=== PATIENT | male | born 1965 | race Caucasian/White ===

== ENCOUNTER 2020-03-12 12:06 | Emergency (ER) | payer OTHER, SELFPAY ==
[2020-03-12 12:06] VITALS: BP 138/89; PULSE 79; RESP 16; TEMP 36.3; O2SAT 99; BMI 29.0
--- NOTE | 2020-03-12 12:36 | EKG12_ITS ---
Test Reason : DIZZY Blood Pressure : / mmHG Vent. Rate : 052 BPM Atrial Rate : 052 BPM P-R Int : 148 ms QRS Dur : 104 ms QT Int : 440 ms P-R-T Axes : 009 -21 -06 degrees QTc Int : 409 ms Sinus bradycardia Poor R wave progression Confirmed by HARJEET BLUNT, KHAI ([id number]), technical writer and editor BECKY ESCOBAR ([id number]) on 03/15/2020 11:06:56 AM Referred By: VIVEK Confirmed By:KHAI COSBY MD
--- NOTE | 2020-03-12 12:36 | CT_ITS ---
STUDY: CT BRAIN WITHOUT CONTRAST REASON FOR EXAM: Male, 54 years old. DIZZINESS, VERTIGO WITH NAUSEA, HX-PULMONARY FIBROSIS RADIATION DOSAGE (If Supplied By Facility): CTDIvol = ( 44.99 ) mGy, DLP = ( 812.98 ) mGycm TECHNIQUE: Transaxial CT imaging of the brain was performed without administration of intravenous contrast material. Individualized dose optimization techniques were used for this CT. COMPARISON: No relevant priors. FINDINGS: Normal soft tissue structures. Normal calvarium. Calcification of the right globe. Normal size ventricles and extra-axial spaces for the patient''s age. Normal white matter tracts of the cerebral hemispheres. Normal basal ganglia and thalami. Normal brainstem. Normal cerebellum. There is no intracranial hemorrhage. There are no findings of an acute ischemic infarction. Atherosclerotic calcification of the cavernous portions of the internal carotid arteries bilaterally. Normal visualized paranasal sinuses. CT/Brain/Head without Contrast IMPRESSION: Normal unenhanced CT scan of the brain. Calcification of the right globe. Electronically Signed: Silver Rajput, at 13:18 EDT , Service support ,
[2020-03-12] MEDS: 0.9% Normal Saline 1,000 ML 150 ML IV (12:51)
[2020-03-12] MEDS: Ondansetron 4 MG/2 ML Vial IV (12:51)
[2020-03-12] MEDS: Meclizine HCl 25 MG Tablet PO (12:51)
[2020-03-12 12:52] VITALS: BP 133/100; BP 133/104; BP 147/95; PULSE 63; PULSE 70
[2020-03-12 13:20] LABS: Absolute Lymphocyte Count 1.02 X10^3/uL (0.83-4.51); Absolute Neutrophil Count 4.9 X10^3/uL (2.0-7.7); Basophil# 0.03 X10^3/uL; Basophil% 0.5 % (0-1); Eosinophil# 0.08 X10^3/uL; Eosinophils% 1.2 % (0-5); Hematocrit 47.3 % (40-54); Lymphocyte # 1.02 X10^3/ul (4.0); Lymphocyte % 15.7 % (19-41); Mean Corp Hgb Conc 33.8 g/dL (32-36); Mean Corpuscular Hgb 30.7 pg (27.0-32.0); Mean Corpuscular Volume 90.6 fL (80-94); Mean Platelet Vol. 8.4 fl (6.2-12.0); Monocyte# 0.42 X10^3/uL; Monocyte% 6.5 % (0-10); NRBC Flagged by Analyzer 0 % (0-5); Neutrophil # 4.91 X10^3/uL (2.7-7.7); Neutrophil % 75.8 % (47-70); Platelet Count 225 K/mm3 (150-450); RBC Distribution Width SD 42.4 fl (35.1-43.9); Red Blood Count 5.22 M/mm3 (4.6-6.2); White Blood Count 6.5 K/mm3 (4.4-11.0)
[2020-03-12 13:29] LABS: Anion Gap 8 (5-15); BUN 12 mg/dL (7-18); BUN/Creat Ratio 11.3 RATIO (10-20); Calcium,Total 8.9 mg/dL (8.5-10.1); Chloride 102 mmol/L (98-107); Creatinine, Serum 1.06 mg/dL (0.70-1.30); EST Glomerular Filtration Rate 78 mL/min (>60); Est Glom Filt Rate - Afr Amer 94 mL/min (>60); Estimated Creatinine Clearance 75.35 ml/min; Glucose 115 mg/dL (74-106); Potassium 3.5 mmol/L (3.5-5.1); Sodium Level 137 mmol/L (136-145)
--- NOTE | 2020-03-12 14:37 | ED.VISSUMM ---
- ER Visit Summary Date of Service: 03/12/20 Chief Complaint: [Dizziness] History of Present Illness: The patient is a 54 M presents to the emergency department complaint of dizziness that started yesterday suddenly around 3 PM. Patient states that it seemed to resolve but then this morning once again around 11 AM started having similar symptoms where he just felt off balance like he was drunk. He had some mild blurred vision. He did describe a little bit of a headache. He has had history of vertigo in the past but this seems somewhat different. Patient denies any falls or head injuries. Patient has history of sun sensitivity and developed a dermatitis related to that recently and was on a Medrol Dosepak recently. Denies any other new medications. Patient has history of vertigo as well as idiopathic pulmonary fibrosis. [] Physical Examination: [HEENT-PERRLA, EOMI. Cranial nerves II through XII grossly intact. TMs clear. Mucous membranes moist. No adenopathy. Cardiovascular-regular rate and rhythm without murmur or ectopy Lungs-clear to auscultation, chest wall stable without crepitus or subcu emphysema Abdomen-normoactive bowel sounds, soft, nontender, no rebound or rigidity, no peritoneal signs. Extremities-intact ?4, normal range of motion, normal pulses, atraumatic] Test Results: [EKG obtained arrival shows sinus rhythm with a ventricular rate 52 bpm with no acute segment changes. CBC with it was normal. Chemistries normal. Troponin less than 0.015. Orthostatic vital signs were negative. CT scan of the brain without contrast was unremarkable.] Emergency Department Course and Treatment: [ IV established. Patient was given normal saline. Patient was given Zofran 4 mg IV as well as Antivert 25 mg p.o. Patient symptoms completely resolved.] Patient ambulated in department without difficulty. Treatment Plan: [Follow-up with primary care physician in 3 to 5 days. Patient will be given a prescription for Antivert and Zofran.] Disposition: [Discharged home in stable condition.] Impression: [Benign positional vertigo ] This note was generated with [employer] software. It may contain incorrect words, spelling, and punctuation that were not noted in review of the chart prior to signing ED Disposition - Plan for ED Patient: Referrals: Hardeep Fall DO [Primary Care Provider] -
--- NOTE | 2020-03-12 14:40 | ED.DEP ---
ED Disposition - Plan for ED Patient: Instructions: ED BPV Vertigo Prescriptions: Meclizine HCl [Antivert] 25 mg PO 4X/DAY PRN PRN #20 tab PRN Reason: Dizziness Transmission Status: Pending to [facility] Ondansetron [Zofran Odt] 4 mg PO Q8H PRN PRN #10 tab PRN Reason: Nausea Transmission Status: Pending to [facility] Referrals: Hardeep Fall DO [Primary Care Provider] - 3-5 Days
[2020-03-12 14:49] VITALS: BP 133/99; PULSE 71; RESP 18; O2SAT 99
== END 2020-03-12 14:51 | disposition home or self-care (01) ==
PROVIDERS: Emergency Provider Emergency Medicine; PCP Family Medicine
DX: H81.10 Benign paroxysmal vertigo, unspecified ear (principal)
CPT/HCPCS: 70450; 80048; 84484; 85025; 93005; 96361; 96374; 99284; J7030; J2405

== ENCOUNTER → 2020-09-04 08:03 | Outpatient (CLI) | payer OTHER, SELFPAY ==
[2020-09-04 08:50] LABS: AST(SGOT) 14 U/L (15-37); Alanine Aminotransfer ALT/SGPT 18 U/L (16-61); Alkaline Phosphatase 79 U/L (45-117); Anion Gap 5 (5-15); BUN 10 mg/dL (7-18); BUN/Creat Ratio 9.5 RATIO (10-20); Calcium,Total 9.1 mg/dL (8.5-10.1); Chloride 111 mmol/L (98-107); Creatinine, Serum 1.05 mg/dL (0.70-1.30); EST Glomerular Filtration Rate 78 mL/min (>60); Est Glom Filt Rate - Afr Amer 95 mL/min (>60); Glucose 98 mg/dL (74-106); Potassium 3.8 mmol/L (3.5-5.1); Rheumatoid Factor < 10.0 IU/mL (<15); Sodium Level 142 mmol/L (136-145)
[2020-09-05 15:03] LABS: ANTINUCLEAR ANTIBODIES DIRECT Negative (Negative)
[2020-09-06 03:07] LABS: Cytoplasmic Ab (C-ANCA) <1:20 titer (Neg:<1:20)
[2020-09-06 06:03] LABS: CCP IgG Antibodies 5 units (0-19); Perinuclear Ab (P-ANCA) <1:20 titer (Neg:<1:20)
== END ==
PROVIDERS: PCP Family Medicine; Referring Provider Internal Medicine Critical Care Medicine; Visit Provider Internal Medicine Critical Care Medicine
DX: J84.10 Pulmonary fibrosis, unspecified (principal); J98.4 Other disorders of lung
CPT/HCPCS: 36415; 80053; 86038; 86200; 86225; 86235; 86256; 86431

== ENCOUNTER → 2020-09-23 06:31 | Outpatient (CLI) | payer OTHER, SELFPAY ==
--- NOTE | 2020-09-23 11:57 | PFT ---
INTRODUCTION: The patient is a 55-year-old male that presents for pulmonary function studies secondary to a diagnosis of lung disorder. Respiratory therapy reports good patient effort. Bronchodilators were used during testing. INTERPRETATION: Forced expiration spirometry demonstrates no evidence of a large airways obstructive ventilatory defect. There was no significant response to aerosolized bronchodilators. Spirograms are of good quality and plateau normally. Body plethysmography was performed and reveals a decreased TLC to 2.8 L, 46% of predicted, indicative of a severe restrictive ventilatory impairment. The remainder of the lung volumes are symmetrically reduced. Diffusing capacity by single breath CO is severely reduced at 46% of predicted. IMPRESSION: Severe restrictive ventilatory impairment with symmetric reduction in diffusing capacity.
== END ==
PROVIDERS: PCP Family Medicine; Referring Provider Internal Medicine Critical Care Medicine; Visit Provider Internal Medicine Critical Care Medicine
DX: J98.4 Other disorders of lung (principal); J84.10 Pulmonary fibrosis, unspecified
CPT/HCPCS: 94060; 94726; 94729

== ENCOUNTER → 2020-09-26 08:01 | Outpatient (CLI) | payer OTHER, SELFPAY ==
[2020-09-26 08:15] VITALS: PULSE 90; PULSE 92; PULSE 93; PULSE 94; PULSE 95; PULSE 97; O2SAT 92; O2SAT 93; O2SAT 94; O2SAT 95; O2SAT 96
--- NOTE | 2020-09-26 08:16 | ECHOCS_ITS ---
Reason For Study: Dyspnea/SOB Procedure This was a 2D Doppler, Color Flow transthoracic echocardiogram. Contrast injection was performed. Exam performed in department. Left Ventricle Normal left ventricle. The estimated ejection fraction is 50-55 %. Normal diastology for age. No regional wall motion abnormalities noted. Right Ventricle Normal RV size. Normal systolic function. Atria Normal left atrium. Normal right atrium. No doppler evidence for ASD. Mitral Valve There is no mitral valve stenosis. Trivial mitral valve insufficiency. Tricuspid Valve There is no tricuspid stenosis. Trivial tricuspid valve insufficiency. Unable to estimate RV systolic pressure due to insufficient tricuspid regurgitant envelope. Aortic Valve Trisinus/trileaflet aortic valve. There is no aortic stenosis. Trivial aortic valve insufficiency. Pulmonic Valve There is no pulmonic valvular stenosis. Trivial pulmonic valve insufficiency. Great Vessels Normal aortic root. Pericardium/Pleural No pericardial effusion. Medication Diluted definity 3ml given slow IV push to enhance endocardial definition. MMode/2D Measurements & Calculations LVIDd: 4.5 cm IVSd: 1.3 cm Ao root diam: 3.3 cm LVIDs: 3.1 cm LVPWd: 1.0 cm RVDd: 4.0 cm FS: 30.8 % LAV(MOD-bp): 29.7 ml LVAd ap4: 32.1 cm2 SV(MOD-sp4): 57.3 ml LAV(MOD-bp) Indexed: 15.4 ml/m2 EDV(MOD-sp4): 102.2 ml LAV(MOD-sp2): 33.0 ml EDV(sp4-el): 106.4 ml LAV(MOD-sp4): 23.6 ml LVAs ap4: 19.2 cm2 ESV(MOD-sp4): 44.8 ml ESV(sp4-el): 45.8 ml EF(MOD-sp4): 56.1 % EF(sp4-el): 56.9 % SV(sp4-el): 60.6 ml LA A4 area: 10.9 cm2 LA dimension(2D): 3.8 cm RA A4 area: 10.5 cm2 Doppler Measurements & Calculations MV E max vasyl: 47.6 cm/sec Lat Peak E' Vasyl: 6.3 cm/sec Med Peak E' Vasyl: 3.5 cm/sec MV A max vasyl: 69.8 cm/sec E/E' lat: 7.6 E/E' med: 13.6 MV E/A: 0.68 Ao V2 max: 98.1 cm/sec LV V1 max: 80.0 cm/sec PA V2 max: 120.4 cm/sec Ao max P.9 mmHg LV V1 max P.6 mmHg Ao V2 mean: 76.0 cm/sec Ao mean P.4 mmHg Ao V2 VTI: 19.0 cm TR max vasyl: 224.6 cm/sec TR max P.2 mmHg Interpretation Summary The estimated ejection fraction is 50-55 %. Trivial mitral valve insufficiency. Trivial aortic valve insufficiency. Ordering Physician: Jake Morales Referring Physician: Hardeep Fall Performed By: Ava Green, HERACLIO, RVT
--- NOTE | 2020-09-26 11:11 | PCM.PSN.6M ---
PSN 6 Minute Walk Test - 6 Minute Walk Test 6 Minute Walk Test: 6 Minute Walk Test PSN:6-Minute Walk Test Start: 09/26/20 08:18 Freq: Status: Active Protocol: RESP.6MINW Document 09/26/20 08:15 (Rec: 09/26/20 08:21 [id number]) 6 Minute Walk Test Date Performed 09/26/20 Time Performed 08:15 Height 5 ft 7 in Weight: 180 lb Weight in Pounds 180.[address]: Jake Morales FIO2 (% Oxygen) 21 Assistive device used: None Pre-test Oxygen Delivery Method Room Air Pulse Ox (%) 95 Pulse Rate (60-100 beats/min) 92 Dyspnea Fabiola Scale (0-10) 0 Exertion Fabiola Scale (6-20) 6 1st minute Oxygen Delivery Method Room Air Pulse Ox (%) 95 Pulse Rate (60-100 beats/min) 93 2nd minute Oxygen Delivery Method Room Air Pulse Ox (%) 93 Pulse Rate (60-100 beats/min) 97 3rd minute Oxygen Delivery Method Room Air Pulse Ox (%) 94 Pulse Rate (60-100 beats/min) 90 4th minute Oxygen Delivery Method Room Air Pulse Ox (%) 93 Pulse Rate (60-100 beats/min) 97 5th minute Oxygen Delivery Method Room Air Pulse Ox (%) 92 Pulse Rate (60-100 beats/min) 90 6th minute Oxygen Delivery Method Room Air Pulse Ox (%) 93 Pulse Rate (60-100 beats/min) 95 Post-test Oxygen Delivery Method Room Air Pulse Ox (%) 96 Pulse Rate (60-100 beats/min) 94 Dyspnea Fabiola Scale (0-10) 2 Exertion Fabiola Scale (6-20) 14 Full Laps Walked 13 Partial Lap, Number of Tiles Walked 0 Total Distance Walked (ft) 767 - Interpretation Interpretation: The patient ambulated 767 feet over the course of 6 minutes beginning on room air without assistive devices or breaks. Pretesting oxygen saturation was noted to be 95% on room air. With ambulation, the morris oxygen saturation was 92%. There was no significant exertional oxygen desaturation. - Recommendations Recommendations: There is no indication for the use of supplemental oxygen at this time.
== END ==
PROVIDERS: PCP Family Medicine; Referring Provider Internal Medicine Critical Care Medicine; Visit Provider Internal Medicine Critical Care Medicine
DX: J98.4 Other disorders of lung (principal); J84.10 Pulmonary fibrosis, unspecified; R06.00 Dyspnea, unspecified; R06.02 Shortness of breath
CPT/HCPCS: 93306; 94618; Q9957; A4216; C8929

== ENCOUNTER → 2021-01-08 11:26 | Outpatient (CLI) | payer OTHER, SELFPAY ==
[2021-01-08 12:29] LABS: AST(SGOT) 15 U/L (15-37); Alanine Aminotransfer ALT/SGPT 22 U/L (16-61); Albumin, Serum 3.9 g/dL (3.2-5.0); Alkaline Phosphatase 75 U/L (45-117); Bilirubin, Direct 0.19 mg/dL (0.00-0.30); Globulin 3.8 g/dL (2.2-4.2); Protein, Total 7.7 g/dL (6.4-8.2)
== END ==
PROVIDERS: PCP Family Medicine; Referring Provider Internal Medicine Critical Care Medicine; Visit Provider Internal Medicine Critical Care Medicine
DX: Z51.81 Encounter for therapeutic drug level monitoring (principal)
CPT/HCPCS: 36415; 80076

== ENCOUNTER → 2021-07-16 06:41 | Outpatient (CLI) | payer OTHER, SELFPAY ==
--- NOTE | 2021-07-16 06:43 | CT_ITS ---
STUDY: CT CHEST WITHOUT CONTRAST REASON FOR EXAM: Male, 56 years old. Eval for ILD progression -- High Resolution Scan RADIATION DOSAGE (If Supplied By Facility): CTDIvol = ( 10.18 ) mGy, DLP = ( 362.60 ) mGycm TECHNIQUE: Transaxial imaging was performed without the administration of intravenous contrast material. Multiplanar coronal and sagittal images were reformatted. Individualized dose optimization techniques were used for this CT. COMPARISON: None. FINDINGS: Small benign-appearing bilateral axillary lymph nodes. There are diffuse increased interstitial markings involving both lungs with areas of confluence. Findings are in keeping with the diffuse interstitial pulmonary fibrosis. There is no demonstrated pleural abnormality. There are calcifications of the coronary arteries. There are multiple small lymph nodes within the mediastinum, which are normal in size and morphology most compatible with reactive lymph hyperplasia. Normal hilar regions. Normal unenhanced pulmonary arteries. Normal aorta arch and descending thoracic aorta. There are degenerative changes of the thoracic spine. There is no demonstrated abnormality of the visualized upper abdomen. CT/Chest without Contrast IMPRESSION: Findings including with diffuse interstitial fibrosis involving both lungs and both upper and lower lobes. Electronically Signed: Silver Rajput MD at 14:14 EDT , Service support ,
[2021-07-16 10:04] LABS: AST(SGOT) 23 U/L (15-37); Alanine Aminotransfer ALT/SGPT 20 U/L (16-61); Albumin, Serum 3.8 g/dL (3.2-5.0); Alkaline Phosphatase 81 U/L (45-117); Bilirubin, Direct 0.14 mg/dL (0.00-0.30); Globulin 4.2 g/dL (2.2-4.2)
--- NOTE | 2021-07-18 07:39 | PFT ---
INTRODUCTION: The patient is a 56-year-old male that presents for pulmonary function studies secondary to a diagnosis of pulmonary fibrosis. Respiratory therapy reported good patient effort. Bronchodilators were used during testing. INTERPRETATION: Forced expiration spirometry demonstrates no evidence of a large airways obstructive ventilatory defect. There was no significant response to aerosolized bronchodilators. Spirograms are of good quality and plateau normally. Body plethysmography was performed and revealed a decreased TLC to 3.09 L, 51% of predicted, indicative of a severe restrictive ventilatory impairment. The remainder of the lung volumes are symmetrically reduced. Diffusing capacity by single breath CO is reduced at 41% of predicted. When compared to previous pulmonary function studies in August 2020, there has been a 12% reduction in diffusing capacity. IMPRESSION: Severe restrictive ventilatory impairment with symmetric reduction in diffusing capacity.
[2021-07-19 17:07] LABS: Immunoglobulin E 3 IU/mL (6-495); Immunoglobulin G 1425 mg/dL (603-1613)
[2021-07-19 18:07] LABS: Immunoglobulin M 29 mg/dL (20-172)
== END ==
PROVIDERS: PCP Family Medicine; Referring Provider Internal Medicine Critical Care Medicine; Visit Provider Internal Medicine Critical Care Medicine
DX: J84.10 Pulmonary fibrosis, unspecified (principal); J98.4 Other disorders of lung; Z51.81 Encounter for therapeutic drug level monitoring
CPT/HCPCS: 36415; 71250; 80076; 82784; 82785; 94060; 94726; 94729

== ENCOUNTER → 2021-08-15 12:02 | Outpatient (CLI) | payer OTHER, SELFPAY ==
[2021-08-15 12:43] VITALS: PULSE 83; PULSE 85; PULSE 88; PULSE 91; PULSE 92; PULSE 93; O2SAT 90; O2SAT 91; O2SAT 92; O2SAT 94; O2SAT 96
--- NOTE | 2021-08-16 07:05 | PCM.PSN.6M ---
PSN 6 Minute Walk Test 6 Minute Walk Test 6 Minute Walk Test: 6 Minute Walk Test PSN:6-Minute Walk Test Start: 08/15/21 12:42 Freq: Status: Active Protocol: RESP.6MINW Document 08/15/21 12:43 [facility] (Rec: 08/15/21 12:46 [facility] [id number]) 6 Minute Walk Test Date Performed 08/15/21 Time Performed 12:15 Height 5 ft 7 in Weight: 81.193 kg Weight in Pounds 179.[address]: Jake Morales Assistive device used: None Pre-test Oxygen Delivery Method Room Air Pulse Ox (%) 96 Pulse Rate (60-100 beats/min) 83 Dyspnea Fabiola Scale (0-10) 2 1st minute Oxygen Delivery Method Room Air Pulse Ox (%) 94 Pulse Rate (60-100 beats/min) 85 Dyspnea Fabiola Scale (0-10) 3 Number of Rests Taken 0 Reported Symptoms Increased Work of Breathing 2nd minute Oxygen Delivery Method Room Air Pulse Ox (%) 91 Pulse Rate (60-100 beats/min) 88 Dyspnea Fabiola Scale (0-10) 3 Number of Rests Taken 0 Reported Symptoms Increased Work of Breathing 3rd minute Oxygen Delivery Method Room Air Pulse Ox (%) 91 Pulse Rate (60-100 beats/min) 91 Dyspnea Fabiola Scale (0-10) 4 Number of Rests Taken 0 Reported Symptoms Increased Work of Breathing 4th minute Oxygen Delivery Method Room Air Pulse Ox (%) 91 Pulse Rate (60-100 beats/min) 91 Dyspnea Fabiola Scale (0-10) 4 Reported Symptoms Increased Work of Breathing 5th minute Oxygen Delivery Method Room Air Pulse Ox (%) 90 Pulse Rate (60-100 beats/min) 92 Dyspnea Fabiola Scale (0-10) 4 Number of Rests Taken 0 Reported Symptoms Increased Work of Breathing 6th minute Oxygen Delivery Method Room Air Pulse Ox (%) 92 Pulse Rate (60-100 beats/min) 93 Dyspnea Fabiola Scale (0-10) 4 Number of Rests Taken 0 Reported Symptoms Increased Work of Breathing Post-test Oxygen Delivery Method Room Air Pulse Ox (%) 96 Pulse Rate (60-100 beats/min) 85 Dyspnea Fabiola Scale (0-10) 2 Full Laps Walked 13 Partial Lap, Number of Tiles Walked 43 Total Distance Walked (ft) 810 Interpretation Interpretation: The patient ambulated 810 feet over the course of 6 minutes beginning on room air without assistive devices. Pretesting oxygen saturation was noted to be 96% on room air. With ambulation, the morris oxygen saturation was 90%. This testing indicated the presence of impaired walk distance along with significant exertional oxygen desaturation. Recommendations Recommendations: There is no indication for the use of supplemental oxygen at this time. However, close interval follow-up is recommended, given the degree of oxygen desaturation noted during the study.
== END ==
PROVIDERS: PCP Family Medicine; Referring Provider Internal Medicine Critical Care Medicine; Visit Provider Internal Medicine Critical Care Medicine
DX: J84.10 Pulmonary fibrosis, unspecified (principal)
CPT/HCPCS: 94618

== ENCOUNTER → 2022-02-03 | Outpatient (CLI) | payer OTHER, SELFPAY ==
[2022-02-03 09:09] LABS: AST(SGOT) 19 U/L (15-37); Alanine Aminotransfer ALT/SGPT 19 U/L (16-61); Albumin, Serum 3.9 g/dL (3.2-5.0); Alkaline Phosphatase 72 U/L (45-117); Bilirubin, Direct 0.14 mg/dL (0.00-0.30); Globulin 3.9 g/dL (2.2-4.2); Protein, Total 7.8 g/dL (6.4-8.2)
== END | disposition home or self-care (01) ==
LOC: PAVLAB 08:10
PROVIDERS: PCP Family Medicine; Referring Provider Internal Medicine Critical Care Medicine; Visit Provider Internal Medicine Critical Care Medicine
DX: Z51.81 Encounter for therapeutic drug level monitoring (principal)
CPT/HCPCS: 36415; 80076

== ENCOUNTER → 2022-04-22 | Outpatient (CLI) | payer OTHER, SELFPAY ==
[2022-04-22 12:30] VITALS: PULSE 70; PULSE 73; PULSE 83; PULSE 87; PULSE 92; PULSE 93; O2SAT 90; O2SAT 91; O2SAT 95; O2SAT 96; O2SAT 97
--- NOTE | 2022-04-23 10:38 | WT_ITS ---
PSN 6 Minute Walk Test 6 Minute Walk Test 6 Minute Walk Test: 6 Minute Walk Test PSN:6-Minute Walk Test Start: 04/22/22 12:44 Freq: Status: Active Protocol: RESP.6MINW Document 04/22/22 12:30 [facility] (Rec: 04/22/22 12:48 [facility] [id number]) 6 Minute Walk Test Date Performed 04/22/22 Time Performed 12:30 Height 5 ft 7 in Weight: 179 lb Weight in Pounds 179.[address]: Dr Morales Assistive device used: None Pre-test Oxygen Delivery Method Room Air Pulse Ox (%) 97 Pulse Rate (60-100 beats/min) 73 Dyspnea Fabiola Scale (0-10) 0 Exertion Fabiola Scale (6-20) 6 1st minute Oxygen Delivery Method Room Air Pulse Ox (%) 96 Pulse Rate (60-100 beats/min) 83 2nd minute Oxygen Delivery Method Room Air Pulse Ox (%) 91 Pulse Rate (60-100 beats/min) 92 3rd minute Oxygen Delivery Method Room Air Pulse Ox (%) 90 Pulse Rate (60-100 beats/min) 87 4th minute Oxygen Delivery Method Room Air Pulse Ox (%) 90 Pulse Rate (60-100 beats/min) 92 5th minute Oxygen Delivery Method Room Air Pulse Ox (%) 90 Pulse Rate (60-100 beats/min) 92 6th minute Oxygen Delivery Method Room Air Pulse Ox (%) 91 Pulse Rate (60-100 beats/min) 93 Dyspnea Fabiola Scale (0-10) 2 Exertion Fabiola Scale (6-20) 13 Post-test Oxygen Delivery Method Room Air Pulse Ox (%) 95 Pulse Rate (60-100 beats/min) 70 Full Laps Walked 15 Partial Lap, Number of Tiles Walked 14 Total Distance Walked (ft) 899 Interpretation Interpretation: The patient ambulated 899 feet over the course of 6 minutes beginning on room air without assistive devices. Pretesting oxygen saturation was noted to be 97% on room air. With ambulation, the morris oxygen saturation was 90%. This represents a significant exertional oxygen desaturation, consistent with a pulmonary limitation to exercise tolerance. Recommendations Recommendations: There is no indication for the use of supplemental oxygen at this time. However, close interval follow-up is recommended, given the degree of oxygen desaturation noted during this study.
== END | disposition home or self-care (01) ==
LOC: PSN 12:03
PROVIDERS: PCP Family Medicine; Referring Provider Internal Medicine Critical Care Medicine; Visit Provider Internal Medicine Critical Care Medicine
DX: J84.10 Pulmonary fibrosis, unspecified (principal)
CPT/HCPCS: 94618

== ENCOUNTER 2022-09-18 18:16 | Inpatient (IN) | payer OTHER, SELFPAY ==
[2022-09-18] VITALS (11 sets, daily range): BP systolic 110–134; BP diastolic 76–98; PULSE 70–106; RESP 22–44; TEMP 36.4–38.3; O2SAT 95–100; BMI 26.7; BMI 25.3
[2022-09-18 19:08] LABS: Absolute Lymphocyte Count 0.39 X10^3/uL (0.83-4.51); Absolute Neutrophil Count 4.8 X10^3/uL (2.0-7.7); Basophil# 0.01 X10^3/uL; Basophil% 0.2 % (0-1); Eosinophil# 0.04 X10^3/uL; Eosinophils% 0.7 % (0-5); Hematocrit 44.7 % (40-54); Hemoglobin 15.1 g/dL (13.0-16.5); Lymphocyte # 0.39 X10^3/ul (0.83-4.51); Lymphocyte % 6.8 % (19-41); Mean Corp Hgb Conc 33.8 g/dL (32-36); Mean Corpuscular Hgb 30.8 pg (27.0-32.0); Mean Corpuscular Volume 91.2 fL (80-94); Mean Platelet Vol. 8.7 fl (6.2-12.0); Monocyte# 0.42 X10^3/uL; Monocyte% 7.4 % (0-10); NRBC Flagged by Analyzer 0 % (0-5); Neutrophil # 4.82 X10^3/uL (2.7-7.7); Neutrophil % 84.5 % (47-70); POSITIVE DIFFERENTIAL YES; Platelet Count 150 K/mm3 (150-450); RBC Distribution Width CV 12.8 % (11.6-14.6); RBC Distribution Width SD 42.4 fl (35.1-43.9); White Blood Count 5.7 K/mm3 (4.4-11.0)
[2022-09-18] MEDS: 0.9% Normal Saline 1,000 ML 150 ML IV (19:09)
[2022-09-18] MEDS: Acetaminophen 325 MG Tablet 650 MG PO (19:09)
[2022-09-18 19:10] LABS: Differential Indicated SCAN CRITERIA MET
--- NOTE | 2022-09-18 19:15 | RAD_ITS ---
STUDY: X-RAY CHEST REASON FOR EXAM: Male, 57 years old. sob TECHNIQUE: PA and lateral views of the chest. COMPARISON: None. FINDINGS: Patchy alveolar opacities in both lungs consistent with bilateral pneumonia. There is no demonstrated pleural abnormality. There is moderate cardiac enlargement. Normal mediastinum and rolly. Normal visualized pulmonary arteries. Normal visualized aortic arch and descending thoracic aorta. Normal visualized thoracic spine. Normal visualized ribs, clavicles, and shoulders. There is no demonstrated abnormality of the visualized soft tissue structures of the upper abdomen. RAD/Chest PA and Lateral IMPRESSION: Patchy bilateral pneumonia. Electronically Signed: Syed Emery MD at 19:35 EST ,
[2022-09-18 19:25] LABS: Anion Gap 5 (5-15); BUN 11 mg/dL (7-18); BUN/Creat Ratio 10.6 RATIO (10-20); Calcium,Total 8.7 mg/dL (8.5-10.1); Chloride 104 mmol/L (98-107); Creatinine, Serum 1.04 mg/dL (0.70-1.30); EST Glomerular Filtration Rate 78 mL/min (>60); Est Glom Filt Rate - Afr Amer 95 mL/min (>60); Estimated Creatinine Clearance 74.15 ml/min; Glucose 93 mg/dL (74-106); Potassium 3.6 mmol/L (3.5-5.1); Sodium Level 136 mmol/L (136-145); Troponin-I HS 31 pg/mL (3.0-78.0)
[2022-09-18 20:16] LABS: Anisocytosis RARE; Macrocytosis RARE; Platelet Estimate ADEQUATE (ADEQ); Red Cell Morphology N CHROM NORMAL (NORM C&C)
[2022-09-18] MEDS: Azithromycin 250 MG Tablet 500 MG PO (20:16)
[2022-09-18] MEDS: Ipratropium/Albuterol Sulfate 3 ML AMPUL.NEB INHALATION (20:18)
--- NOTE | 2022-09-18 20:35 | EDS_ITS ---
HPI History of Present Illness Chief Complaint: Shortness of Breath Informant: patient Narrative Narrative: Patient is a 57-year-old male with history of idiopathic pulmonary fibrosis on 2 L of oxygen at baseline presenting with worsening shortness of breath. Patient notes that since the end of June his breathing has been worse however it significantly worsens started at 1230 this morning. He states his breathing woke him up from sleep. He has been using albuterol rescue inhaler with no relief. He feels very short of breath and came in for further evaluation. Has had an increase in his cough as well as the amount of his sputum production. Sputum production is still clear/white. Patient follows with Dr. Morales, pulmonology. States he is compliant with his Pirfenidone. Patient's had chills. Denies any swelling his legs. Denies a history of PE or DVT. [facility] Medical History (Updated 09/18/22 @ 21:[address] Annamaria De La Torre, DO) 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 Allergic rhinitis Blind right eye HTN (hypertension) Mononucleosis Obesity Pulmonary fibrosis Therapeutic drug monitoring Umbilical hernia Home Medications Pirfenidone [Esbriet] 3 tab PO TID 03/12/20 [History Last Taken Unknown] losartan 100 mg tablet 100 mg PO DAILY 03/12/20 [History Last Taken Unknown] omeprazole 40 mg capsule,delayed release 40 mg PO DAILY #30 caps 07/11/21 [Rx Last Taken Unknown] albuterol sulfate 90 mcg/actuation aerosol inhaler 2 puff inhalation Q4H PRN shortness of breath or wheezing #8.5 grams 09/02/21 [Rx Last Taken Unknown] Allergy/AdvReac Type Severity Reaction Status Date / Time No Known Allergies Allergy Verified 09/18/22 18:21 Family History Mother Hypertension Father Hypertension CVA (cerebral vascular accident) Surgical History No pertinent past surgical history Social History Smoking Status: Former smoker quit date: 04/24/90 pack-years: 15 alcohol intake: never substance use type: does not use ROS ROS ED Constitutional Constitutional ED: Reports chills and sweats Eyes Eyes: Denies change in vision ENT ENT ED: Denies rhinorrhea or sore throat Cardiovascular Cardiovascular: Denies chest pain or palpitations Respiratory/Chest Respiratory/Chest: Reports cough, dyspnea and dyspnea on exertion Gastrointestinal Gastrointestinal: Denies nausea or vomiting Musculoskeletal Musculoskeletal: Denies arthralgias or myalgias Integumentary Denies rash Neurologic Neurologic: Reports weakness; Denies headache(s) or paresthesias Psychiatric Psychiatric: Reports anxiety; Denies depression Hematologic/Lymphatic Hematologic/Lymphatic: Denies easy bleeding or easy bruising EXAM Physical Exam Const Vital Signs: 09/18/22 18:16 09/18/22 18:20 09/18/22 18:20 Temperature 101 F H 101 F H Temperature Source Oral Oral Pulse Rate 97 98 106 H Respiratory Rate 34 H 26 H 44 H Respiratory Effort Respiratory Depth Respiratory Pattern Blood Pressure 131/98 H 131/98 H 131/98 H Blood Pressure Mean 109 109 109 Pulse Ox 96 98 98 Oxygen Delivery Method Nasal Cannula Nasal Cannula Nasal Cannula Oxygen Flow Rate (L/min) 4 4 4 09/18/22 18:22 09/18/22 19:27 09/18/22 20:19 Temperature 98.6 F Temperature Source Oral Pulse Rate 88 89 Respiratory Rate 33 H 22 H Respiratory Effort Short of Breath Labored Accessory Muscle Use Nasal Flaring Respiratory Depth Shallow Respiratory Pattern Tachypnea Blood Pressure 134/97 H 127/87 H Blood Pressure Mean 109 100 Pulse Ox 98 95 Oxygen Delivery Method Nasal Cannula Nasal Cannula Nasal Cannula Oxygen Flow Rate (L/min) 4 4 4 09/18/22 20:18 09/18/22 20:18 Temperature Temperature Source Pulse Rate 101 H Respiratory Rate 38 H 34 H Respiratory Effort Short of Breath Labored Accessory Muscle Use Respiratory Depth Shallow Respiratory Pattern Tachypnea Tachypnea Blood Pressure Blood Pressure Mean Pulse Ox 95 Oxygen Delivery Method Nasal Cannula Oxygen Flow Rate (L/min) 4 Positive well nourished and well developed Constitutional Narrative: Mild respiratory distress General Appearance ED: well developed HEENT Reports moist mucous membranes Neck supple and no JVD Resp Resp Narrative: Tachypneic with mild conversational dyspnea. Patient has shallow respirations but would instructed to take a deep breath does have lung sounds in all serrano. Auscultation: diminished lung sounds Cardio regular rhythm and no murmurs Rate: tachycardic GI non-tender and non-distended Back/Spine no CVA tenderness and normal to inspection Neuro oriented x3 Neuro Narrative: Generalized weakness, no focal deficit Sensorium / Orientation: alert Psych mental status grossly normal Mood & Affect: anxious Skin no wounds Lesions: no lesions Rashes: no rashes MDM MDM MDM Narrative Medical decision making narrative: Patient is her sudden onset of increased work of breathing and worsening shortness of breath starting early this morning. Patient has significant pulmonary history including pulmonary fibrosis and feels that his breathing has been worsening over the past 2 months but acutely worsened today. In the ER patient is tachycardic and tachypneic and is now on 4 L of oxygen which is above his baseline. Physical exam is not consistent with a COPD exacerbation. CBC is normal he does not have a leukocytosis. BMP unremarkable, high since he troponin is normal at 31 and his lactate is 0.7. Chest x-ray is read by radiologist as bilateral pneumonia however I suspect this is a bit of an over read compounded by his history of pulmonary fibrosis. I did add on a procalcitonin to better determine if this is an acute bacterial infection. Patient does test positive for influenza A. He is covered with broad-spectrum antibiotics as well as started on Tamiflu given the acute change in his symptoms today. He has improvement of his fever with Tylenol in the emergency room. Does seem slightly improved after DuoNeb treatment. Because of this is given a dose of Solu-Medrol. Given his persistent tachypnea as well as significant underlying lung disease and increased O2 demands he will be admitted for further respiratory monitoring. Patient agreeable to this plan of care. Is admitted to [facility] in stable condition. Lab Data Attestation: I reviewed the patient's lab results. Labs: Laboratory Results - last 24 hr 09/18/22 09/18/22 09/18/22 18:25 18:25 19:59 WBC 5.7 RBC 4.90 Hgb 15.1 Hct 44.7 MCV 91.2 MCH 30.8 MCHC 33.8 RDW Std Deviation 42.4 RDW Coeff of Ravinder 12.8 Plt Count 150 MPV 8.7 Immature Gran % (Auto) 0.400 Neut % (Auto) 84.5 H Lymph % (Auto) 6.8 L [place] % (Auto) 7.4 Eos % (Auto) 0.7 Baso % (Auto) 0.2 Absolute Neuts (auto) 4.8 Absolute Lymphs (auto) 0.39 L Nucleated RBC % 0 Atypical Lymphocytes SEE COMMENT Platelet Estimate ADEQUATE RBC Morphology N CHROM Anisocytosis RARE Macrocytosis RARE Sodium 136 Potassium 3.6 Chloride 104 Carbon Dioxide 27.0 Anion Gap 5 BUN 11 Creatinine 1.04 Estim Creat Clear Calc 74.15 Est GFR (MDRD) Af Amer 95 Est GFR (MDRD) Non-Af 78 BUN/Creatinine Ratio 10.6 Glucose 93 Lactic Acid 0.7 Calcium 8.7 Troponin I High Sens 31 Procalcitonin 09/18/22 19:59 WBC RBC Hgb Hct MCV MCH MCHC RDW Std Deviation RDW Coeff of Ravinder Plt Count MPV Immature Gran % (Auto) Neut % (Auto) Lymph % (Auto) [place] % (Auto) Eos % (Auto) Baso % (Auto) Absolute Neuts (auto) Absolute Lymphs (auto) Nucleated RBC % Atypical Lymphocytes Platelet Estimate RBC Morphology Anisocytosis Macrocytosis Sodium Potassium Chloride Carbon Dioxide Anion Gap BUN Creatinine Estim Creat Clear Calc Est GFR (MDRD) Af Amer Est GFR (MDRD) Non-Af BUN/Creatinine Ratio Glucose Lactic Acid Calcium Troponin I High Sens Procalcitonin 0.10 H Radiography Chest X-Ray - ED: 2 View, Read by ED Physician, Read by Radiologist and Chronic Changes Diagnostic Testing: Clinical Impression(s) from Imaging Studies Chest X-Ray 09/18/22 19:15 IMPRESSION: Patchy bilateral pneumonia. Electronically Signed: Syed Emery MD at 19:35 EST Reading Location ID and State: [address] [place] [address] Tel , Service support , Rhythm Strip Rhythm Strip: Sinus Rhythm Rate: 96 Ectopy: None EKG Initial EKG: Attestation: I personally reviewed and interpreted this EKG as follows: Interpretation: Sinus Rhythm Comments: Normal sinus rhythm at a rate of 96 bpm Normal axis Normal intervals Left anterior fascicular block No civic T wave versions lead III, V1 and V2 suspect pulmonary disease pattern Discharge Plan Triage Chief Complaint: Shortness of Breath ED Provider: Annamaria De La Torre Dx/Rx/DC Orders Clinical Impression: Influenza A, Restrictive airway disease, Acute and chronic respiratory failure Primary Care Provider: Hardeep Fall Disposition Disposition: Acute Care Hospital [facility]
[2022-09-18 20:38] LABS: Lactic Acid 0.7 mmol/L (0.4-1.9)
[2022-09-18] MEDS: Oseltamivir Phosphate 75 MG Capsule PO (20:43)
[2022-09-18] MEDS: MethylPREDNISolone 125 MG/2 ML Vial IV (20:43)
--- NOTE | 2022-09-18 20:48 | HP.PCM.HOS_ITS ---
HPI - General General Date of Admission: 09/18/22 Date of Service: 09/18/22 Chief Complaint: Shortness of breath HPI Narrative MARY KAY MIRELES, is a 57 M with a significant history of idiopathic pulmonary fibrosis on pirfenidone and on 2 L as needed home oxygen; hypertension and GERD who presents to the emergency department with shortness of breath that started around on on the same day of presentation; and has been worsening. His shortness of breath has been getting progressively worse. Associated with her symptoms is productive cough of clear sputum. Reportedly patient went into coughing fits. Patient denies any chills or fever at home. However at the emergency department patient was found to have a temperature of 101 Fahrenheit. At the patient was tachypneic and had increased heart rate. [facility] Medical History 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 Allergic rhinitis Blind right eye HTN (hypertension) Mononucleosis Obesity Pulmonary fibrosis Therapeutic drug monitoring Umbilical hernia Home Medications Pirfenidone [Esbriet] 3 tab PO TID lungs 03/12/20 [History Last Taken 09/18/22] losartan 100 mg tablet 100 mg PO DAILY HTN 03/12/20 [History Last Taken 09/18/22] omeprazole 40 mg capsule,delayed release 40 mg PO DAILY #30 caps 07/11/21 [Rx Last Taken 09/18/22] albuterol sulfate 90 mcg/actuation aerosol inhaler 2 puff inhalation Q4H PRN shortness of breath or wheezing #8.5 grams 09/02/21 [Rx Last Taken Unknown] Allergy/AdvReac Type Severity Reaction Status Date / Time No Known Allergies Allergy Verified 09/18/22 18:21 Family History Mother Hypertension Father Hypertension CVA (cerebral vascular accident) Surgical History No pertinent past surgical history Social History Smoking Status: Former smoker quit date: 04/24/90 pack-years: 15 alcohol intake: never substance use type: does not use ROS ROS Narrative Pertinent positives and pertinent negatives as noted in HPI. All other systems were reviewed and are negative Vital Signs Vital Signs Vital Signs: 09/18/22 18:16 09/18/22 18:20 09/18/22 18:20 Temperature 101 F H 101 F H Temperature Source Oral Oral Pulse Rate 97 98 106 H Respiratory Rate 34 H 26 H 44 H Respiratory Effort Respiratory Depth Respiratory Pattern Blood Pressure 131/98 H 131/98 H 131/98 H Blood Pressure Mean 109 109 109 Pulse Ox 96 98 98 Oxygen Delivery Method Nasal Cannula Nasal Cannula Nasal Cannula Oxygen Flow Rate (L/min) 4 4 4 09/18/22 18:22 09/18/22 19:27 09/18/22 20:19 Temperature 98.6 F Temperature Source Oral Pulse Rate 88 89 Respiratory Rate 33 H 22 H Respiratory Effort Short of Breath Labored Accessory Muscle Use Nasal Flaring Respiratory Depth Shallow Respiratory Pattern Tachypnea Blood Pressure 134/97 H 127/87 H Blood Pressure Mean 109 100 Pulse Ox 98 95 Oxygen Delivery Method Nasal Cannula Nasal Cannula Nasal Cannula Oxygen Flow Rate (L/min) 4 4 4 09/18/22 20:18 09/18/22 20:18 Temperature Temperature Source Pulse Rate 101 H Respiratory Rate 38 H 34 H Respiratory Effort Short of Breath Labored Accessory Muscle Use Respiratory Depth Shallow Respiratory Pattern Tachypnea Tachypnea Blood Pressure Blood Pressure Mean Pulse Ox 95 Oxygen Delivery Method Nasal Cannula Oxygen Flow Rate (L/min) 4 Weight Weight: 77.5 kg Body Mass Index (BMI) 26.7 Physical Exam Narrative Physical exam: General: Well-nourished, well-developed. Head: Normocephalic, atraumatic, no tenderness Eyes: Vision is grossly intact. EOMI ENT, no trauma, moist mucous membranes, no rhinorrhea Neck: Nontender, No thyromegaly. CVS: Tachycardia. S1-S2 present. No murmur, gallop or rub. Respiratory : Increased work of breathing. Conversational dyspnea. Wheezes at a posterior left middle and lower lung serrano. Diminished throughout otherwise. Abdomen: Soft, nontender, nondistended, normal bowel sounds, no masses : Deferred Back: Nontender, no CVA tenderness. Extremities: Nontender full range of motion, no trauma Skin: Normal color, no trauma, abrasions Neuro: Alert, oriented, cranial nerves II through XII grossly intact. Psychiatry: Normal mood. Normal affect. Not depressed. Not anxious. Results Lab / Micro Data Result Diagrams: 09/18/22 18:25 09/18/22 18:25 Labs: Laboratory Results - last 24 hr 09/18/22 18:25: WBC 5.7, RBC 4.90, Hgb 15.1, Hct 44.7, MCV 91.2, MCH 30.8, MCHC 33.8, RDW Std Deviation 42.4, RDW Coeff of Ravinder 12.8, Plt Count 150, MPV 8.7, Immature Gran % (Auto) 0.400, Neut % (Auto) 84.5 H, Lymph % (Auto) 6.8 L, [place] % (Auto) 7.4, Eos % (Auto) 0.7, Baso % (Auto) 0.2, Absolute Neuts (auto) 4.8, Absolute Lymphs (auto) 0.39 L, Nucleated RBC % 0, Atypical Lymphocytes SEE COMME NT, Platelet Estimate ADEQUATE, RBC Morphology N CHROM, Anisocytosis RARE, Macrocytosis RARE 09/18/22 18:25: Sodium 136, Potassium 3.6, Chloride 104, Carbon Dioxide 27.0, Anion Gap 5, BUN 11, Creatinine 1.04, Estim Creat Clear Calc 74.15, Est GFR (MDRD) Af Amer 95, Est GFR (MDRD) Non-Af 78, BUN/Creatinine Ratio 10.6, Glucose 93, Calcium 8.7, Troponin I High Sens 31 09/18/22 19:59: Lactic Acid 0.7 09/18/22 19:59: Procalcitonin 0.10 H Micro: Microbiology 09/18/22 16:26 Nasal Secretion SARS-CoV-2 & FLU Antigen (Rapid) - Final Influenzae A Radiology Impression Chest X-Ray 09/18/22 19:15 IMPRESSION: Patchy bilateral pneumonia. Electronically Signed: Syed Emery MD at 19:35 EST , Assessment & Plan Assessment/Plan (1) Influenza A: (2) Acute exacerbation of idiopathic pulmonary fibrosis: PLAN: Plan Influenza A infection Chest x-ray was visualized and independent interpreted. Chest x-ray with diffuse opacities that was interpreted by radiologist as patchy bilateral pneumonia. Of note chest x-ray findings may be patient baseline. Chest CT on 07/16/2021 showed diffuse interstitial fibrosis involving both lungs and both upper and lower lobes Rapid COVID-negative. Influenza A positive. Creatinine clearance 74.15. Started on Tamiflu at emergency department and continued. CBC showed white count of 5700 with neutrophilia of 84.5% and lymphopenia of 6.8%. Received ceftriaxone azithromycin the emergency department. Procalcitonin ordered emergency department, follow for further determination. Scheduled DuoNeb) albuterol ordered. Mucinex for cough ordered. Acute exacerbation of idiopathic pulmonary fibrosis Exacerbation likely from influenza a infection. Prednisone 40 mg daily ordered. Continue pirfenidone. Hypertension Blood pressure is not within goal Home losartan continued. Trend blood pressure and adjust blood pressure medications. Chronic hypoxia Worsening Continue oxygen supplementation, titrate as necessary. Charges/Coding Visit Charges Inpatient E&M: 15574 Init Hosp L3
[2022-09-18] MEDS: guaiFENesin 1,200 MG Tablet 1200 MG PO (22:40)
[2022-09-18] MEDS: 0.9% Saline Lock 10 ML Syringe IV (23:42)
[2022-09-19] VITALS (10 sets, daily range): BP systolic 110–133; BP diastolic 70–88; PULSE 65–101; RESP 15–30; TEMP 36.2–37.1; O2SAT 82–99
[2022-09-19 05:59] LABS: Absolute Lymphocyte Count 0.22 X10^3/uL (0.83-4.51); Absolute Neutrophil Count 3.5 X10^3/uL (2.0-7.7); Hematocrit 46.6 % (40-54); Hemoglobin 15.6 g/dL (13.0-16.5); Lymphocyte # 0.22 X10^3/ul (0.83-4.51); Lymphocyte % 5.8 % (19-41); Mean Corp Hgb Conc 33.5 g/dL (32-36); Mean Corpuscular Hgb 30.6 pg (27.0-32.0); Mean Corpuscular Volume 91.6 fL (80-94); Mean Platelet Vol. 8.4 fl (6.2-12.0); Monocyte# 0.07 X10^3/uL; Monocyte% 1.8 % (0-10); NRBC Flagged by Analyzer 0 % (0-5); Neutrophil % 92.1 % (47-70); POSITIVE DIFFERENTIAL YES; Platelet Count 137 K/mm3 (150-450); RBC Distribution Width CV 12.7 % (11.6-14.6); RBC Distribution Width SD 42.5 fl (35.1-43.9); Red Blood Count 5.09 M/mm3 (4.6-6.2); White Blood Count 3.8 K/mm3 (4.4-11.0)
[2022-09-19 06:15] LABS: Differential Indicated SCAN CRITERIA MET
[2022-09-19 06:20] LABS: Anion Gap 8 (5-15); BUN 13 mg/dL (7-18); BUN/Creat Ratio 12.3 RATIO (10-20); Calcium,Total 8.7 mg/dL (8.5-10.1); Chloride 103 mmol/L (98-107); Creatinine, Serum 1.06 mg/dL (0.70-1.30); EST Glomerular Filtration Rate 77 mL/min (>60); Est Glom Filt Rate - Afr Amer 93 mL/min (>60); Estimated Creatinine Clearance 72.75 ml/min; Glucose 139 mg/dL (74-106); Potassium 4.3 mmol/L (3.5-5.1); Sodium Level 135 mmol/L (136-145)
[2022-09-19 06:38] LABS: Differential Comment SCANNED
[2022-09-19] MEDS: Ipratropium/Albuterol Sulfate 3 ML AMPUL.NEB INHALATION ×2 (06:57→11:38)
[2022-09-19] MEDS: predniSONE 20 MG Tablet 40 MG PO (08:29)
[2022-09-19] MEDS: Oseltamivir Phosphate 75 MG Capsule PO (10:27)
[2022-09-19] MEDS: Pantoprazole Sodium 40 MG Tablet PO (10:27)
[2022-09-19] MEDS: Enoxaparin 40 MG/0.4 ML Syringe SC (10:27)
[2022-09-19] MEDS: guaiFENesin 1,200 MG Tablet 1200 MG PO (10:28)
[2022-09-19] MEDS: Losartan Potassium 100 MG Tablet PO (10:28)
--- NOTE | 2022-09-19 12:13 | DCINST_ITS ---
Discharge Instructions Diet Discharge Diet: Low fat / Low cholesterol Activity Discharge Activity: Return to Normal Activity Dressing / Incision Call your doctor if you observe: Fever of 101 or Higher, Shortness of breath, Dizziness, Fainting spells, Swelling in the ankles, Chest pain and Increased palpitations (irregular heartbeat) Follow Up Care Test Results: Test results from this visit will be discussed in further detail at your follow- up appointment, if applicable. Discharge Plan Admission Admit Date/Time: 09/18/22 20:41 Attending Provider: Dario Collado Primary Care Provider: Hardeep Fall Consulting Providers: Omer Banda Discharge Orders/Prescriptions Prescriptions: New prednisone 20 mg Tablet 40 mg PO BREAKFAST Qty: 14 0RF Rx Instructions: 2 tabs daily for 4 days then 1 tab daily for 4 days then half tab daily for 4 days oseltamivir 75 mg Capsule 75 mg PO BID 5 Days Qty: 10 0RF Continued omeprazole 40 mg capsule,delayed release(DR/EC) 40 mg PO DAILY Qty: 30 3RF albuterol sulfate 90 mcg/actuation HFA aerosol inhaler 2 puff inhalation Q4H PRN (Reason: shortness of breath or wheezing) Qty: 8.5 3RF Rx Instructions: administer with spacer losartan 100 MG tablet 100 mg PO DAILY Pirfenidone [Esbriet] 267 MG capsule 3 tab PO TID Referrals / Follow Up: Hardeep Fall DO [Primary Care Provider] - Within 1 Week Disposition Disposition (needs filled in before D/C Order can be placed): Home, Self Care
--- NOTE | 2022-09-19 12:26 | DS.PCM_ITS ---
Providers Date of Admission: 09/18/22 Primary Care Physician: Dr. Hardeep Fall, DO Reason For Visit: INFLUENZA A INFECTION Diagnosis Discharge Diagnosis (1) Influenza A: Status: Acute Code(s): J10.1 - Influenza due to other identified influenza virus with other respiratory manifestations (2) Acute exacerbation of idiopathic pulmonary fibrosis: Status: Acute Code(s): J84.112 - Idiopathic pulmonary fibrosis Medications at Discharge Home Medications Pirfenidone [Esbriet] 3 tab PO TID lungs 03/12/20 losartan 100 mg tablet 100 mg PO DAILY HTN 03/12/20 omeprazole 40 mg capsule,delayed release 40 mg PO DAILY #30 caps 07/11/21 albuterol sulfate 90 mcg/actuation aerosol inhaler 2 puff inhalation Q4H PRN shortness of breath or wheezing #8.5 grams 09/02/21 oseltamivir 75 mg capsule 75 mg PO BID 5 days #10 caps 09/19/22 prednisone 20 mg tablet 40 mg PO BREAKFAST #14 tabs 09/19/22 Hospital Course Operations None Procedures None Summary of Care Provided Minutes Spent on Discharge: 40 Hospital Course: Per HPI: MARY KAY MIRELES, is a 57 M with a significant history of idiopathic pulmonary fibrosis on pirfenidone and on 2 L as needed home oxygen; hypertension and GERD who presents to the emergency department with shortness of breath that started around on on the same day of presentation; and has been worsening. His shortness of breath has been getting progressively worse. Associated with her symptoms is productive cough of clear sputum.? Reportedly patient went into coughing fits. Patient denies any chills or fever at home.? However at the emergency department patient was found to have a temperature of 101 Fahrenheit.? At the patient was tachypneic and had increased heart rate. Hospital Course: 1. Influenza with an acute exacerbation of his idiopathic pulmonary fibrosis and chronic hypoxia?57-year-old male with a history of chronic pulmonary idiopathic fibrosis who is now on 2 L of oxygen after failing a walk test last Wednesday presents to the hospital with increased work of breathing and shortness of breath. Initially on admission he was needing about 4 L nasal cannula but this quickly came down to his baseline of about 2 L nasal cannula. Today he was maintaining his oxygen sats on room air however whenever he would cough he would drop down into the low 80s. He did have an ambulatory pulse ox that demonstrated the need for 2 L continuous with ambulation. He states that he f eels much better today, his COVID test was negative but his flu was positive on and he was started on Tamiflu yesterday. We will continue with his Tamiflu for 5 more days, will also continue with a slow prednisone taper. In the meantime we will continue with his home inhalers and asked him to follow-up with his PCP in 3 to 5 days. He was discharged sooner than expected secondary to his response to appropriate treatment. 2. Hypertension chronic medical which complicates his care. His home medications were continued where appropriate Physical Exam Narrative General: Alert, Oriented x3, Cooperative, No apparent distress HEENT: Atraumatic, PERRLA, EOMI, Normocephalic Oral: Moist Mucosa Neck: Supple, No JVD Lungs: Diminished, Normal air movement, No rhonchi, slight wheeze, fine crackles Cardiovascular: Regular rate, Regular Rhythm, Normal S1, Normal S2, No murmurs Abdomen: Soft, Non Tender, Non-Distended, No Hepato-splenomegaly Extremities: No edema, Capillary Refill Less than 3 Seconds Skin: No rashes, No breakdown Musculoskeletal: No Tenderness to Palpation of Joints or Extremities Neurological: Cranial nerves II-XII grossly intact, Motor Exam 5/5 strength throughout, Sensory exam intact to light touch and pain Psych/Mental Status: Normal Affect, Appropriate Weight / BMI Weight Weight: 161 lb 13.109 oz Body Mass Index (BMI) 25.3 ABG / Lab / Microbiology Data Result Diagrams: 09/19/22 05:26 09/19/22 05:26 Laboratory: Laboratory Results - last 24 hr 09/18/22 18:25: WBC 5.7, RBC 4.90, Hgb 15.1, Hct 44.7, MCV 91.2, MCH 30.8, MCHC 33.8, RDW Std Deviation 42.4, RDW Coeff of Ravinder 12.8, Plt Count 150, MPV 8.7, Immature Gran % (Auto) 0.400, Neut % (Auto) 84.5 H, Lymph % (Auto) 6.8 L, [place] % (Auto) 7.4, Eos % (Auto) 0.7, Baso % (Auto) 0.2, Absolute Neuts (auto) 4.8, Absolute Lymphs (auto) 0.39 L, Nucleated RBC % 0, Atypical Lymphocytes SEE COMMENT, Platelet Estimate ADEQUATE, RBC Morphology N CHROM, Anisocytosis RARE, Macrocytosis RARE 09/18/22 18:25: Sodium 136, Potassium 3.6, Chloride 104, Carbon Dioxide 27.0, Anion Gap 5, BUN 11, Creatinine 1.04, Estim Creat Clear Calc 74.15, Est GFR (MDRD) Af Amer 95, Est GFR (MDRD) Non-Af 78, BUN/Creatinine Ratio 10.6, Glucose 93, Calcium 8.7, Troponin I High Sens 31 09/18/22 19:59: Lactic Acid 0.7 09/18/22 19:59: Procalcitonin 0.10 H 09/19/22 05:26: WBC 3.8 L, RBC 5.09, Hgb 15.6, Hct 46.6, MCV 91.6, MCH 30.6, MCHC 33.5, RDW Std Deviation 42.5, RDW Coeff of Ravinder 12.7, Plt Count 137 L, MPV 8.4, Immature Gran % (Auto) 0.300, Neut % (Auto) 92.1 H, Lymph % (Auto) 5.8 L, [place] % (Auto) 1.8, Eos % (Auto) 0.0, Baso % (Auto) 0.0, Absolute Neuts (auto) 3.5, Absolute Lymphs (auto) 0.22 L, Nucleated RBC % 0, Differential Comment SCANNED, Diff Path Review January09/19/22 05:26: Sodium 135 L, Potassium 4.3, Chloride 103, Carbon Dioxide 24.0, Anion Gap 8, BUN 13, Creatinine 1.06, Estim Creat Clear Calc 72.75, Est GFR (MDRD) Af Amer 93, Est GFR (MDRD) Non-Af 77, BUN/Creatinine Ratio 12.3, Glucose 139 H, Calcium 8.7 Microbiology: Microbiology 09/18/22 16:26 Nasal Secretion SARS-CoV-2 & FLU Antigen (Rapid) - Final Influenzae A Radiography Diagnostic Testing: Radiology Impression Chest X-Ray 09/18/22 19:15 IMPRESSION: Patchy bilateral pneumonia. Electronically Signed: Syed Emery MD at 19:35 EST , D/C Instructions Discharge Diet: Low fat / Low cholesterol Call your doctor if you observe: Fever of 101 or Higher, Shortness of breath, Dizziness, Fainting spells, Swelling in the ankles, Chest pain and Increased palpitations (irregular heartbeat) Meaningful Use Info Meaningful Use Diagnoses (Choose all that apply): None applicable Discharge Plan Admission Admit Date/Time: 09/18/22 20:41 Attending Provider: Dario Collado Primary Care Provider: Hardeep Fall Consulting Providers: Omer Banda Discharge Orders/Prescriptions Prescriptions: New prednisone 20 mg Tablet 40 mg PO BREAKFAST Qty: 14 0RF Rx Instructions: 2 tabs daily for 4 days then 1 tab daily for 4 days then half tab daily for 4 days oseltamivir 75 mg Capsule 75 mg PO BID 5 Days Qty: 10 0RF Continued omeprazole 40 mg capsule,delayed release(DR/EC) 40 mg PO DAILY Qty: 30 3RF albuterol sulfate 90 mcg/actuation HFA aerosol inhaler 2 puff inhalation Q4H PRN (Reason: shortness of breath or wheezing) Qty: 8.5 3RF Rx Instructions: administer with spacer losartan 100 MG tablet 100 mg PO DAILY Pirfenidone [Esbriet] 267 MG capsule 3 tab PO TID Referrals / Follow Up: Hardeep Fall DO [Primary Care Provider] - Within 1 Week Disposition Disposition (needs filled in before D/C Order can be placed): Home, Self Care Charges/Coding Visit Charges Inpatient E&M: 63955 Disch Hosp
--- NOTE | 2022-09-19 14:19 | CASEMGMT ---
RN CM Face to Face with patient for initial transition planning/care coordination assessment. RN CM introduced self and role at [facility]. Patient lying in bed, alert and oriented. Patient willing to participate in assessment and is able to answer all questions appropriately. Care providers, pharmacy, and demographics verified. Patient wishes to discharge home, denies need for home health at this time. Patient states he has no further needs or concerns at this time. CM to follow for discharge planning needs that may arise. PCP: [facility] Specialists: Aydee Morales recyclable materials collector [facility]acy[facility] Insurance: MMO Prescription Benefit: yes Living Will/HPOA: none LNOK: Living Arrangements: Patient lives with in a single story home with 2 steps and railing to enter the home. Transportation: self, DME/HHC: Patient states he has oxygen through [employer] at 2lpm PRN with portability. Patient provided with pulse ox at discharge. Patient denies previous HHC or SNF Disposition Plan: Patient to discharge home with family support and follow-up plans in place. Arabella RUCKER, RN, CM
[2022-09-22 13:59] LABS: Pathologist Review Reviewed
== END 2022-09-19 13:41 | disposition home or self-care (01) | DRG 195 ==
LOC: ED 18:59 → MS3 20:57
PROVIDERS: Admitting Provider Hospitalist; Emergency Provider Emergency Medicine; PCP Family Medicine; Visit Provider Family Medicine
DX: J10.1 Influenza due to other identified influenza virus with other respiratory manifestations (principal); J84.112 Idiopathic pulmonary fibrosis; J98.4 Other disorders of lung; D72.810 Lymphocytopenia; K21.9 Gastro-esophageal reflux disease without esophagitis; I10 Essential (primary) hypertension; Z87.891 Personal history of nicotine dependence; R09.02 Hypoxemia
CPT/HCPCS: 36415; 71046; 80048; 83605; 84145; 84484; 85025; 87428; 93005; 94640; 99251; 99285; J7030; A4216; G0463; J0696

== ENCOUNTER → 2022-10-30 | Outpatient (CLI) | payer OTHER, SELFPAY ==
--- NOTE | 2022-10-30 12:50 | PFTCOMP_ITS ---
COMPLETE PULMONARY FUNCTION TEST INTERPRETATION Brief HPI: Patient is a 57-year-old male, currently under the care of Hedy Cowan, who presents to [facility] for complete pulmonary function tests secondary to diagnosis of disorders of the lung. Respiratory therapist reports good effort and reproducible results. Interpretation: Forced expiration spirometry shows a very severe large airways obstructive ventilatory defect with an FEV1 of 21% predicted. There is no significant bronchodilator response by strict ATS criteria. Spirograms are of good quality and plateau slowly, indicating slowly emptying areas of the lungs. The respiratory flow volume loop shows decreased expiratory flow rates at all lung volumes consistent with airway obstruction. Lung volumes by body plethysmography show a decreased total lung capacity at 3.35 L, 56% predicted. FRC and RV are elevated out of proportion. Lung volume measurements are consistent with air-trapping. Diffusion capacity by carbon monoxide is decreased at 44% predicted. The airway resistance is normal. Compared to previous pulmonary function tests from 07/16/2021, there has been significant worsening in spirometric values and air-trapping. Impression: Irreversible very severe mixed ventilatory defect with a symmetric reduction diffusing capacity
== END | disposition home or self-care (01) ==
LOC: PSN 10:26
PROVIDERS: PCP Family Medicine; Visit Provider Nurse Practitioner Acute Care
DX: J98.4 Other disorders of lung (principal)
CPT/HCPCS: 94060; 94726; 94729

== ENCOUNTER 2022-11-14 14:53 | Inpatient (IN) | payer OTHER, SELFPAY ==
[2022-11-14] VITALS (18 sets, daily range): BP systolic 103–139; BP diastolic 56–87; PULSE 71–105; RESP 12–41; TEMP 36.8–37.7; O2SAT 27–100; BMI 26.6; BMI 25.7
--- NOTE | 2022-11-14 15:02 | EKG12_ITS ---
Test Reason : SOB Blood Pressure : / mmHG Vent. Rate : 096 BPM Atrial Rate : 096 BPM P-R Int : 134 ms QRS Dur : 090 ms QT Int : 330 ms P-R-T Axes : 015 -54 -17 degrees QTc Int : 416 ms Normal sinus rhythm Left anterior fascicular block Cannot rule out Inferior infarct (masked by fascicular block?) , age undetermined Abnormal ECG Confirmed by SEAN BLUNT, LYNDSEY ([id number]), clinical editor DARIN NORIEGA ([id number]) on 11/16/2022 2:01:57 PM Referred By: Confirmed By:LYNDSEY ESTRADA MD
--- NOTE | 2022-11-14 15:10 | RAD_ITS ---
INDICATION: Shortness of breath EXAMINATION/TECHNIQUE: X-RAY - XR Chest 1 View COMPARISON: 09/18/2022. FINDINGS: LINES/DEVICES: None. LUNGS: Persistent bilateral interstitial infiltrates likely chronic. Previous superimposed infiltrates have improved. No evidence of pleural effusions. MEDIASTINUM AND CARDIOVASCULAR STRUCTURES: Stable cardiac mediastinal silhouette. BONES AND SOFT TISSUES: No demonstrated acute changes. RAD/Chest 1 View (Portable) IMPRESSION: Chronic prominent interstitial markings likely due to pulmonary fibrosis. Superimposed mild infiltrate cannot be entirely excluded. Electronically Signed: Anthony Qureshi MD at 15:32 EST ,
--- NOTE | 2022-11-14 15:31 | ED.VIS.DYS ---
HPI History of Present Illness Chief Complaint: Shortness of Breath Informant: patient Narrative Narrative: Patient is a 57-year-old male with history of idiopathic pulmonary fibrosis on 2.5 L of oxygen at baseline presenting with worsening shortness of breath and cough. Patient states he has had increased cough and green sputum production for the past few days. He states he had an intermittent fever and describes that as 1 to 2 degrees above his baseline. He feels very short of breath and he states like this feels like the last time he had pneumonia. Patient follows with Dr. Martinez pulmonology. He reports mild chest pain but states it is from coughing. Patient denies any other complaints at this time. [facility] Medical History (Updated 11/14/22 @ 17:[address] Annamaria De La Torre DO) 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 Acute and chronic respiratory failure Acute exacerbation of idiopathic pulmonary fibrosis Allergic rhinitis Blind right eye HTN (hypertension) Influenza A Mononucleosis Obesity Pulmonary fibrosis Restrictive airway disease Therapeutic drug monitoring Umbilical hernia Home Medications Pirfenidone [Esbriet] 3 tab PO TID lungs 03/12/20 [History Last Taken 09/18/22] losartan 100 mg tablet 100 mg PO DAILY HTN 03/12/20 [History Last Taken 09/18/22] omeprazole 40 mg capsule,delayed release 40 mg PO DAILY #30 caps 07/11/21 [Rx Last Taken 09/18/22] albuterol sulfate 90 mcg/actuation aerosol inhaler 2 puff inhalation Q4H PRN shortness of breath or wheezing #8.5 grams 09/02/21 [Rx Last Taken Unknown] oseltamivir 75 mg capsule 75 mg PO BID 5 days #10 caps 09/19/22 [Rx Last Taken Unknown] prednisone 20 mg tablet 40 mg PO BREAKFAST #14 tabs 09/19/22 [Rx Last Taken Unknown] Allergy/AdvReac Type Severity Reaction Status Date / Time No Known Allergies Allergy Verified 11/14/22 15:00 Family History Mother Hypertension Father Hypertension CVA (cerebral vascular accident) Surgical History No pertinent past surgical history Social History Smoking Status: Former smoker quit date: 04/24/90 pack-years: 15 alcohol intake: never substance use type: does not use ROS ROS ED Constitutional Constitutional ED: Reports chills and fever(s) Eyes Eyes: Denies change in vision ENT ENT ED: Denies rhinorrhea or sore throat Cardiovascular Cardiovascular: Reports chest pain Respiratory/Chest Respiratory/Chest: Reports cough, dyspnea and dyspnea on exertion Gastrointestinal Gastrointestinal: Denies abdominal pain, nausea or vomiting Musculoskeletal Musculoskeletal: Denies arthralgias or myalgias Integumentary Denies rash Neurologic Neurologic: Denies headache(s) or weakness Psychiatric Psychiatric: Denies anxiety Hematologic/Lymphatic Hematologic/Lymphatic: Denies easy bleeding or easy bruising EXAM Physical Exam Const Vital Signs: 11/14/22 14:53 11/14/22 14:58 11/14/22 14:58 Temperature 99.8 F H 99.8 F H Temperature Source Oral Oral Pulse Rate 99 97 98 Respiratory Rate 27 H 30 H 27 H Respiratory Effort Respiratory Depth Respiratory Pattern Blood Pressure 139/82 H 139/82 H 139/82 H Blood Pressure Mean 101 101 101 Pulse Ox 97 92 93 Oxygen Delivery Method Nasal Cannula Nasal Cannula Nasal Cannula Oxygen Flow Rate (L/min) 4 4 4 Fraction of Inspired Oxygen (FIO2) 11/14/22 15:10 11/14/22 15:15 11/14/22 15:29 Temperature Temperature Source Pulse Rate 92 105 H Respiratory Rate 41 H 35 H Respiratory Effort Short of Breath Labored Accessory Muscle Use Respiratory Depth Shallow Respiratory Pattern Tachypnea Tachypnea Blood Pressure 117/87 H Blood Pressure Mean 97 Pulse Ox 100 100 Oxygen Delivery Method Nasal Cannula Bi-pap Oxygen Flow Rate (L/min) 4 Fraction of Inspired Oxygen (FIO2) 35 11/14/22 15:55 11/14/22 16:10 11/14/22 16:36 Temperature 99.5 F H Temperature Source Temporal Pulse Rate 89 90 87 Respiratory Rate 41 H 27 H 31 H Respiratory Effort Respiratory Depth Respiratory Pattern Tachypnea Blood Pressure 109/68 124/84 H Blood Pressure Mean 81 97 Pulse Ox 99 100 Oxygen Delivery Method Bi-pap Bi-pap Oxygen Flow Rate (L/min) Fraction of Inspired Oxygen (FIO2) Positive well nourished and well developed Constitutional Narrative: Patient in respiratory distress General Appearance ED: well developed HEENT Reports moist mucous membranes atraumatic Eyes PERRL Eyes Narrative: Nonreactive right pupil with clouding present (patient is blind in his right eye) Neck supple and no JVD Resp Resp Narrative: Tachypneic, speaks in 2 word sentences. Breath sounds appreciated that are diminished at the bases however patient is taking very shallow breaths. No wheezing appreciated. Auscultation: Negative for rales, rhonchi or wheezes Cardio regular rhythm Rate: tachycardic Extremity normal to inspection General Extremety ED: Negative for edema or tenderness General Extremity: Negative for edema Neuro oriented x3 Motor Exam: Negative for general weakness Psych mental status grossly normal Mood & Affect: anxious Skin no wounds MDM MDM MDM Narrative Medical decision making narrative: Patient evaluated for increased work of breathing. Differential includes acute respiratory failure, pneumonia, restrictive lung disease, ACS. Prior PFTs reviewed which shows that patient has a reversible very severe mixed ventilatory defect with symmetric reduction diffusion capacity with an FEV1 of 21% predicted. He had no significant bronchodilator response. Discharge summary from 09/19/2022 reviewed and that time patient was admitted for influenza A and acute exacerbation of idiopathic pulmonary fibrosis. At that time patient was requiring 4 L of oxygen and was treated with a course of Tamiflu. Patient is significantly increased work of breathing and with pretty severe tachypnea. ABGs obtained and he is placed on BiPAP for his work of breathing. He slowly has some improvement. He is given a DuoNeb. Patient has a low-grade temperature, leukocytosis with a white blood cell count of 11.4 which is above his baseline and reports of increased cough and sputum production. Chest x-ray is difficult to interpret because of his chronic interstitial changes however I will treat him as a community-acquired pneumonia and also give him Solu-Medrol. Patient started on Rocephin and azithromycin in the ER. ABG shows a slightly elevated pH consistent with a mild degree of hyperventilation however on 4 L nasal cannula his PO2 is 161. He does not appear to have acute hypercapnia. Given patient's significant underlying restrictive lung disease with his increased work of breathing and acute change in respiratory status he will be admitted for further treatment of likely pneumonia causing secondary exacerbation of his interstitial lung disease. Patient agreeable with plan of care. Case discussed with admitting physician, Dr. Sales. Lab Data Attestation: I reviewed the patient's lab results. Labs: Laboratory Results - last 24 hr 11/14/22 11/14/2211/14/23 15:17 15:17 15:17 WBC 11.4 H RBC 4.15 L Hgb 13.1 Hct 38.0 L MCV 91.6 MCH 31.6 MCHC 34.5 RDW Std Deviation 42.0 RDW Coeff of Ravinder 12.6 Plt Count 249 MPV 8.4 Immature Gran % (Auto) 0.400 Neut % (Auto) 86.4 H Lymph % (Auto) 8.4 L [place] % (Auto) 4.4 Eos % (Auto) 0.2 Baso % (Auto) 0.2 Absolute Neuts (auto) 9.8 H Absolute Lymphs (auto) 0.95 Nucleated RBC % 0 Sodium 136 Potassium 3.6 Chloride 102 Carbon Dioxide 27.0 Anion Gap 7 BUN 11 Creatinine 1.11 Estim Creat Clear Calc 69.47 Est GFR (MDRD) Af Amer 88 Est GFR (MDRD) Non-Af 73 BUN/Creatinine Ratio 9.9 L Glucose 94 Lactic Acid 1.2 Calcium 8.7 ABG Data ABG results: ABG 11/14/22 15:27 Specimen Type ART pH 7.46 H Bicarbonate Actual 22.6 Total CO2 24 Base Excess -1 O2 Saturation 100 H ABG pCO2 31.7 L ABG pO2 161 H O2 Delivery Device Cannula Liter Flow 4.0 Radiography Chest X-Ray - ED: 1 View, Read by ED Physician, Read by Radiologist and Chronic Changes (Chronic interstitial changes, left worse than right) Diagnostic Testing: Clinical Impression(s) from Imaging Studies Chest X-Ray 11/14/22 15:10 IMPRESSION: Chronic prominent interstitial markings likely due to pulmonary fibrosis. Superimposed mild infiltrate cannot be entirely excluded. Electronically Signed: Anthony Qureshi MD at 15:32 EST , Rhythm Strip Rhythm Strip: Sinus Rhythm Rate: 96 Ectopy: None EKG Initial EKG: Attestation: I personally reviewed and interpreted this EKG as follows: Interpretation: Sinus Rhythm Comments: Normal sinus rhythm at a rate of 96 bpm Left axis deviation Left anterior fascicular block T wave inversions in 3, aVF, V1 through V4 Compared to prior EKG on 09/18/2022, no significant change Discharge Plan Triage Chief Complaint: Shortness of Breath ED Provider: Annamaria De La Torre Dx/Rx/DC Orders Clinical Impression: CAP (community acquired pneumonia), ILD (interstitial lung disease), Tachypnea Primary Care Provider: Hardeep aFll Disposition Disposition: Acute Care Hospital [facility]
[2022-11-14] MEDS: Ketorolac 15 MG/ML Vial IV (15:32)
[2022-11-14 15:35] LABS: Base Excess -1 mmol/L (-2 to +2); Bicarbonate 22.6 mmol/L (22-26); Blood Gas Specimen Type ART; O2 Delivery Device Cannula; PO2 161 mmHG (75-100); SO2 100 % (95-99); Total Carbon Dioxide 24 mmol/L; pCO2 31.7 mmHg (35-45); pH 7.46 (7.35-7.45)
[2022-11-14] MEDS: Ipratropium/Albuterol Sulfate 3 ML AMPUL.NEB INHALATION ×2 (15:54→22:02)
[2022-11-14 15:55] LABS: Absolute Lymphocyte Count 0.95 X10^3/uL (0.83-4.51); Absolute Neutrophil Count 9.8 X10^3/uL (2.0-7.7); Basophil# 0.02 X10^3/uL; Basophil% 0.2 % (0-1); Eosinophil# 0.02 X10^3/uL; Eosinophils% 0.2 % (0-5); Hemoglobin 13.1 g/dL (13.0-16.5); Lymphocyte # 0.95 X10^3/ul (0.83-4.51); Lymphocyte % 8.4 % (19-41); Mean Corp Hgb Conc 34.5 g/dL (32-36); Mean Corpuscular Hgb 31.6 pg (27.0-32.0); Mean Corpuscular Volume 91.6 fL (80-94); Mean Platelet Vol. 8.4 fl (6.2-12.0); Monocyte% 4.4 % (0-10); NRBC Flagged by Analyzer 0 % (0-5); Neutrophil # 9.83 X10^3/uL (2.7-7.7); Neutrophil % 86.4 % (47-70); Platelet Count 249 K/mm3 (150-450); RBC Distribution Width CV 12.6 % (11.6-14.6); Red Blood Count 4.15 M/mm3 (4.6-6.2); White Blood Count 11.4 K/mm3 (4.4-11.0)
[2022-11-14 16:10] LABS: Lactic Acid 1.2 mmol/L (0.4-1.9)
[2022-11-14 16:11] LABS: Anion Gap 7 (5-15); BUN 11 mg/dL (7-18); BUN/Creat Ratio 9.9 RATIO (10-20); Calcium,Total 8.7 mg/dL (8.5-10.1); Chloride 102 mmol/L (98-107); Creatinine, Serum 1.11 mg/dL (0.70-1.30); EST Glomerular Filtration Rate 73 mL/min (>60); Est Glom Filt Rate - Afr Amer 88 mL/min (>60); Estimated Creatinine Clearance 69.47 ml/min; Glucose 94 mg/dL (74-106); Potassium 3.6 mmol/L (3.5-5.1); Sodium Level 136 mmol/L (136-145)
[2022-11-14] MEDS: Ceftriaxone 1 GM/50 ML BAG IV (17:00)
--- NOTE | 2022-11-14 17:05 | HP.PCM.HOS_ITS ---
HPI - General General Date of Admission: 11/14/22 Date of Service: 11/14/22 Chief Complaint: SOB ongoing for 1 week HPI Narrative MARY KAY MIRELES, is a 57 M who presents the above. Patient has past medical history of idiopathic pulmonary fibrosis, on 2.5 L of oxygen as needed, hypertension, GERD that presented with shortness of breath ongoing for about 1 week. Patient started having shortness of breath with cough and was reluctant to go to the hospital. He has been coughing copious amounts of sputum. He goes into coughing as fifths at home. He admits to intermittent fever and chills. Vitals in the ED showed blood pressure 139/82, heart rate 99, respiratory 27, temperature 99.8 F, oxygen sat was 97% on 4 L. WBC 11.4, hemoglobin 13.1, platelet count 249. ABG shows pH of 7.46, PCO2 31.7. BMP is unremarkable. Admitting chest x-ray showed chronic prominent interstitial mildly likely secondary to pulmonary fibrosis, superimposed mild infiltrates cannot be excluded. [facility] Medical History 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 Acute and chronic respiratory failure Acute exacerbation of idiopathic pulmonary fibrosis Allergic rhinitis Blind right eye HTN (hypertension) Influenza A Mononucleosis Obesity Pulmonary fibrosis Restrictive airway disease Therapeutic drug monitoring Umbilical hernia Home Medications Pirfenidone [Esbriet] 3 tab PO TID lungs 03/12/20 [History Last Taken 09/18/22] losartan 100 mg tablet 100 mg PO DAILY HTN 03/12/20 [History Last Taken 09/18/22] omeprazole 40 mg capsule,delayed release 40 mg PO DAILY #30 caps 07/11/21 [Rx Last Taken 09/18/22] albuterol sulfate 90 mcg/actuation aerosol inhaler 2 puff inhalation Q4H PRN shortness of breath or wheezing #8.5 grams 09/02/21 [Rx Last Taken Unknown] oseltamivir 75 mg capsule 75 mg PO BID 5 days #10 caps 09/19/22 [Rx Last Taken Unknown] prednisone 20 mg tablet 40 mg PO BREAKFAST #14 tabs 09/19/22 [Rx Last Taken Unknown] Allergy/AdvReac Type Severity Reaction Status Date / Time No Known Allergies Allergy Verified 11/14/22 15:00 Family History Mother Hypertension Father Hypertension CVA (cerebral vascular accident) Surgical History No pertinent past surgical history Social History Smoking Status: Former smoker quit date: 04/24/90 pack-years: 15 alcohol intake: never substance use type: does not use ROS ROS Narrative Constitutional: Reports: Malaise, Weakness, Fatigue. Denies: Anorexia, Chills, Fever, Night Sweats, Weight Change Eyes: Denies: Blurred vision, Cataracts, Conjunctivae Inflammation, Pain, Redness, Vision Change HEENT: Denies: Difficulty Hearing, Difficulty Swallowing, Head Aches, Hearing Changes, Sinus Congestion, Sinus Drainage Cardiovascular: Denies: Chest Pain, Orthopnea, Palpitations Respiratory: See HPI Gastrointestinal: Denies: Abdominal Pain, Nausea, Vomiting Genitourinary: Denies: Dysuria Musculoskeletal: Denies: Joint Pain, Joint stiffness, Joint swelling, Joint Tenderness Skin: Denies: Rash, Wounds Neurological: Denies: Numbness, Tingling, Focal weakness Vital Signs Vital Signs Vital Signs: 11/14/22 14:53 11/14/22 14:58 11/14/22 14:58 Temperature 99.8 F H 99.8 F H Temperature Source Oral Oral Pulse Rate 99 97 98 Respiratory Rate 27 H 30 H 27 H Respiratory Effort Respiratory Depth Respiratory Pattern Blood Pressure 139/82 H 139/82 H 139/82 H Blood Pressure Mean 101 101 101 Pulse Ox 97 92 93 Oxygen Delivery Method Nasal Cannula Nasal Cannula Nasal Cannula Oxygen Flow Rate (L/min) 4 4 4 Fraction of Inspired Oxygen (FIO2) 11/14/22 15:10 11/14/22 15:15 11/14/22 15:29 Temperature Temperature Source Pulse Rate 92 105 H Respiratory Rate 41 H 35 H Respiratory Effort Short of Breath Labored Accessory Muscle Use Respiratory Depth Shallow Respiratory Pattern Tachypnea Tachypnea Blood Pressure 117/87 H Blood Pressure Mean 97 Pulse Ox 100 100 Oxygen Delivery Method Nasal Cannula Bi-pap Oxygen Flow Rate (L/min) 4 Fraction of Inspired Oxygen (FIO2) 35 11/14/22 15:55 11/14/22 16:10 11/14/22 16:36 Temperature 99.5 F H Temperature Source Temporal Pulse Rate 89 90 87 Respiratory Rate 41 H 27 H 31 H Respiratory Effort Respiratory Depth Respiratory Pattern Tachypnea Blood Pressure 109/68 124/84 H Blood Pressure Mean 81 97 Pulse Ox 99 100 Oxygen Delivery Method Bi-pap Bi-pap Oxygen Flow Rate (L/min) Fraction of Inspired Oxygen (FIO2) 11/14/22 17:03 11/14/22 17:03 Temperature 98.6 F Temperature Source Temporal Pulse Rate 86 81 Respiratory Rate 28 H 30 H Respiratory Effort Respiratory Depth Respiratory Pattern Blood Pressure 114/75 114/75 Blood Pressure Mean 88 88 Pulse Ox 100 100 Oxygen Delivery Method Bi-pap Bi-pap Oxygen Flow Rate (L/min) Fraction of Inspired Oxygen (FIO2) Weight Weight: 77.2 kg Body Mass Index (BMI) 26.6 Physical Exam Narrative Physical exam: General: Alert, Oriented x3, Cooperative, in moderate respiratory distress with tachypnea, on BiPAP HEENT: Atraumatic Oral: Moist Mucosa Neck: Supple Lungs: Diminished to auscultation Cardiovascular: HS I+II, regular, no murmurs Abdomen: Bowel Sounds Present, Soft, Non Tender Extremities: No edema Skin: No rashes, No breakdown Neurological: Grossly intact Psych/Mental Status: Appropriate Results Lab / Micro Data Result Diagrams: 11/14/22 15:17 11/14/22 15:17 Labs: Laboratory Results - last 24 hr 11/14/22 15:17: WBC 11.4 H, RBC 4.15 L, Hgb 13.1, Hct 38.0 L, MCV 91.6, MCH 31.6 , MCHC 34.5, RDW Std Deviation 42.0, RDW Coeff of Ravinder 12.6, Plt Count 249, MPV 8.4, Immature Gran % (Auto) 0.400, Neut % (Auto) 86.4 H, Lymph % (Auto) 8.4 L, [place] % (Auto) 4.4, Eos % (Auto) 0.2, Baso % (Auto) 0.2, Absolute Neuts (auto) 9.8 H, Absolute Lymphs (auto) 0.95, Nucleated RBC % 0 11/14/22 15:17: Sodium 136, Potassium 3.6, Chloride 102, Carbon Dioxide 27.0, Anion Gap 7, BUN 11, Creatinine 1.11, Estim Creat Clear Calc 69.47, Est GFR (MDRD) Af Amer 88, Est GFR (MDRD) Non-Af 73, BUN/Creatinine Ratio 9.9 L, Glucose 94, Calcium 8.7 11/14/22 15:17: Lactic Acid 1.2 Micro: Microbiology 11/14/22 15:16 Nasal Secretion SARS-CoV-2 & FLU Antigen (Rapid) - Final ABG Data ABG results: ABG 11/14/22 15:27 Specimen Type ART pH 7.46 H Bicarbonate Actual 22.6 Total CO2 24 Base Excess -1 O2 Saturation 100 H ABG pCO2 31.7 L ABG pO2 161 H O2 Delivery Device Cannula Liter Flow 4.0 Rhythm Strip Rhythm Strip: Sinus Rhythm Rate: 96 Ectopy: None Radiology Impression Chest X-Ray 11/14/22 15:10 IMPRESSION: Chronic prominent interstitial markings likely due to pulmonary fibrosis. Superimposed mild infiltrate cannot be entirely excluded. Electronically Signed: Anthony Qureshi MD at 15:32 EST , Assessment & Plan Assessment/Plan (1) CAP (community acquired pneumonia): (2) ILD (interstitial lung disease): PLAN: Plan 1. Acute on chronic hypoxic respiratory failure secondary to acute exacerbation of idiopathic pulmonary fibrosis/probable pneumonia Patient is currently on BiPAP, typically is on 2.5 L of oxygen at baseline Chest x-ray shows probable pneumonia-I independently reviewed and bilateral patchy opacities seen, worse on left lower border Started on IV Solu-Medrol and IV ceftriaxone and azithromycin; will continue same Check sputum cultures, urine Legionella antigen Pulmonology consult. continue pirfenidone 2. Hypertension, continue losartan 3. GERD, continue on PPI 4. DVT PPx- Heparin SC I discussed and explained in details the various types of CODE STATUS-full code, DNR CCA, DNR CC. Patient chose to be full code and wants everything done in the event of a cardiopulmonary arrest. Time spent discussing CODE STATUS 18 minutes Charges/Coding Addendum Addendum: Total time spent: 75 minutes of which more > 50% was spent in reviewing patient's chart, laboratory investigations, imaging, discussing with emergency physician, taking history and physical examining patient and going over plan of care with patient and at the bedside. Visit Charges Inpatient E&M: 30449 Init Hosp L3 Procedures Hospitalists Procedures: 31545 Advncd Care Plan 30 Min
--- NOTE | 2022-11-14 17:06 | ED.RN ---
PT AND PT STATE PTS HOME MEDICATIONS HAVE NOT CHANGED SINCE PREVIOUS ADMISSION. PT AND UNSURE OF HOME MEDICATIONS AND LEFT HOME MED LIST AT HOME.
[2022-11-14] MEDS: MethylPREDNISolone 125 MG/2 ML Vial IV (17:27)
--- NOTE | 2022-11-14 17:57 | CPS ---
Per MD, pt is placed on NC at this time
[2022-11-14 21:11] LABS: AST(SGOT) 28 U/L (15-37); Alanine Aminotransfer ALT/SGPT 16 U/L (16-61); Albumin, Serum 3.1 g/dL (3.2-5.0); Alkaline Phosphatase 53 U/L (45-117); Bilirubin, Direct 0.13 mg/dL (0.00-0.30); Protein, Total 7.1 g/dL (6.4-8.2)
--- NOTE | 2022-11-14 22:00 | NURSING ---
Pt stated medication list was done in the ED. This nurse went over medication list with patient and he stated the medications he was on and how much. Med list updated per patient.
[2022-11-14] MEDS: Heparin Injection (Vial) 5,000 UNIT/ML VIAL 5000 UNIT SC (23:08)
[2022-11-14] MEDS: 0.9% Saline Lock 10 ML Syringe IV (23:08)
[2022-11-15] VITALS (10 sets, daily range): BP systolic 94–114; BP diastolic 65–77; PULSE 52–80; RESP 16–18; TEMP 36.4–36.7; O2SAT 93–98
--- NOTE | 2022-11-15 02:50 | CPS ---
Pt only wants bipap in case of resp distress, otherwise will not wear bipap, per pt
[2022-11-15] MEDS: 0.9% Saline Lock 10 ML Syringe IV ×3 (05:49→21:52)
[2022-11-15] MEDS: Heparin Injection (Vial) 5,000 UNIT/ML VIAL 5000 UNIT SC ×3 (05:50→21:52)
[2022-11-15] MEDS: Ipratropium/Albuterol Sulfate 3 ML AMPUL.NEB INHALATION ×4 (07:09→19:30)
[2022-11-15 07:14] LABS: Absolute Lymphocyte Count 0.72 X10^3/uL (0.83-4.51); Absolute Neutrophil Count 9.2 X10^3/uL (2.0-7.7); Basophil# 0.01 X10^3/uL; Basophil% 0.1 % (0-1); Hematocrit 39.2 % (40-54); Hemoglobin 13.1 g/dL (13.0-16.5); Lymphocyte # 0.72 X10^3/ul (0.83-4.51); Lymphocyte % 7.2 % (19-41); Mean Corp Hgb Conc 33.4 g/dL (32-36); Mean Corpuscular Hgb 30.5 pg (27.0-32.0); Mean Corpuscular Volume 91.4 fL (80-94); Mean Platelet Vol. 8.4 fl (6.2-12.0); Monocyte# 0.08 X10^3/uL; Monocyte% 0.8 % (0-10); NRBC Flagged by Analyzer 0 % (0-5); Neutrophil # 9.21 X10^3/uL (2.7-7.7); Neutrophil % 91.5 % (47-70); Platelet Count 248 K/mm3 (150-450); RBC Distribution Width CV 12.5 % (11.6-14.6); RBC Distribution Width SD 41.2 fl (35.1-43.9); Red Blood Count 4.29 M/mm3 (4.6-6.2); White Blood Count 10.1 K/mm3 (4.4-11.0)
[2022-11-15 07:33] LABS: ALB/GLOB Ratio 0.6 RATIO (0.9-2.4); AST(SGOT) 29 U/L (15-37); Alanine Aminotransfer ALT/SGPT 19 U/L (16-61); Albumin, Serum 2.7 g/dL (3.2-5.0); Alkaline Phosphatase 54 U/L (45-117); Anion Gap 8 (5-15); BUN 18 mg/dL (7-18); BUN/Creat Ratio 19.7 RATIO (10-20); Calcium,Total 8.8 mg/dL (8.5-10.1); Chloride 102 mmol/L (98-107); Creatinine, Serum 0.92 mg/dL (0.70-1.30); EST Glomerular Filtration Rate 91 mL/min (>60); Est Glom Filt Rate - Afr Amer 110 mL/min (>60); Estimated Creatinine Clearance 83.82 ml/min; Globulin 4.4 g/dL (2.2-4.2); Glucose 160 mg/dL (74-106); Potassium 4.2 mmol/L (3.5-5.1); Protein, Total 7.1 g/dL (6.4-8.2); Sodium Level 133 mmol/L (136-145)
[2022-11-15] MEDS: Ceftriaxone 1 GM/50 ML BAG IV (09:55)
--- NOTE | 2022-11-15 11:02 | PCM.PN.HOSP ---
Subjective Subjective The feeling better than when he came in. He is on 4 L nasal cannula his baseline is around 2 L. Objective Data Objective Data Vital Signs: Vital Signs Temp Pulse Resp BP Pulse Ox O2 Del Method O2 Flow Rate 98.0 F 64 16 103/69 98 Nasal Cannula 4 11/15/22 09:58 11/15/22 09:58 11/15/22 09:58 11/15/22 09:58 11/15/22 09:58 11/15/22 09:58 11/15/22 09:58 FiO2 35 11/14/22 15:15 Oxygen Flow Rate (L/min) 4 Oxygen Delivery Method Nasal Cannula Weight: 164 lb 14.492 oz Body Mass Index (BMI) 25.7 Intake & Output: Intake and Output for Last 24 Hours 11/14/22 11/15/22 11/16/22 03:59 03:59 03:59 Intake Total 344.75 / 344.75 50 / 50 Balance 344.75 / 344.75 50 / 50 Lab / Micro Data Result Diagrams: 11/15/22 06:35 11/15/22 06:35 Labs: Laboratory Results - last 24 hr 11/14/22 15:17: WBC 11.4 H, RBC 4.15 L, Hgb 13.1, Hct 38.0 L, MCV 91.6, MCH 31.6, MCHC 34.5, RDW Std Deviation 42.0, RDW Coeff of Ravinder 12.6, Plt Count 249, MPV 8.4, Immature Gran % (Auto) 0.400, Neut % (Auto) 86.4 H, Lymph % (Auto) 8.4 L, [place] % (Auto) 4.4, Eos % (Auto) 0.2, Baso % (Auto) 0.2, Absolute Neuts (auto) 9.8 H, Absolute Lymphs (auto) 0.95, Nucleated RBC % 0 11/14/22 15:17: Sodium 136, Potassium 3.6, Chloride 102, Carbon Dioxide 27.0, Anion Gap 7, BUN 11, Creatinine 1.11, Estim Creat Clear Calc 69.47, Est GFR (MDRD) Af Amer 88, Est GFR (MDRD) Non-Af 73, BUN/Creatinine Ratio 9.9 L, Glucose 94, Calcium 8.7 11/14/22 15:17: Lactic Acid 1.2 11/14/22 15:17: Total Bilirubin 0.40, Direct Bilirubin 0.13, AST 28, ALT 16, Alkaline Phosphatase 53, Total Protein 7.1, Albumin 3.1 L, Globulin 4.0 11/15/22 06:35: WBC 10.1, RBC 4.29 L, Hgb 13.1, Hct 39.2 L, MCV 91.4, MCH 30.5, MCHC 33.4, RDW Std Deviation 41.2, RDW Coeff of Ravinder 12.5, Plt Count 248, MPV 8.4, Immature Gran % (Auto) 0.400, Neut % (Auto) 91.5 H, Lymph % (Auto) 7.2 L, [place] % (Auto) 0.8, Eos % (Auto) 0.0, Baso % (Auto) 0.1, Absolute Neuts (auto) 9.2 H, Absolute Lymphs (auto) 0.72 L, Nucleated RBC % 0 11/15/22 06:35: Sodium 133 L, Potassium 4.2, Chloride 102, Carbon Dioxide 23.0, Anion Gap 8, BUN 18, Creatinine 0.92, Estim Creat Clear Calc 83.82, Est GFR (MDRD) Af Amer 110, Est GFR (MDRD) Non-Af 91, BUN/Creatinine Ratio 19.7, Glucose 160 H, Calcium 8.8, Total Bilirubin 0.50, AST 29, ALT 19, Alkaline Phosphatase 54, Total Protein 7.1, Albumin 2.7 L, Globulin 4.4 H, Albumin/Globulin Ratio 0.6 L Micro: Microbiology 11/15/22 04:45 Urine, Clean Catch Legionella Antigen - Final 11/15/22 04:45 Urine, Clean Catch Streptococcus pneumoniae Antigen (M - Final 11/14/22 17:36 Mucosa - Nasopharyngeal Respiratory Panel (PCR) - Final Human [place] 11/14/22 15:16 Nasal Secretion SARS-CoV-2 & FLU Antigen (Rapid) - Final ABG Data ABG results: ABG 11/14/22 15:27 Specimen Type ART pH 7.46 H Bicarbonate Actual 22.6 Total CO2 24 Base Excess -1 O2 Saturation 100 H ABG pCO2 31.7 L ABG pO2 161 H O2 Delivery Device Cannula Liter Flow 4.0 Radiography Diagnostic Testing: Radiology Impression Chest X-Ray 11/14/22 15:10 IMPRESSION: Chronic prominent interstitial markings likely due to pulmonary fibrosis. Superimposed mild infiltrate cannot be entirely excluded. Electronically Signed: Anthony Qureshi MD at 15:32 EST , Rhythm Strip Rhythm Strip: Sinus Rhythm Rate: 96 Ectopy: None Physical Exam Narrative General: Alert, Oriented x3, Cooperative HEENT: Atraumatic, PERRLA, EOMI, Normocephalic Oral: Moist Mucosa Neck: Supple, No JVD Lungs: Diminished with mild retractions and increased work of breathing, Normal air movement, No rhonchi, No wheeze, No rales Cardiovascular: Regular rate, Regular Rhythm, Normal S1, Normal S2, No murmurs Abdomen: Soft, Non Tender, Non-Distended, No Hepato-splenomegaly Extremities: No edema, Capillary Refill Less than 3 Seconds Skin: No rashes, No breakdown Musculoskeletal: No Tenderness to Palpation of Joints or Extremities Neurological: Cranial nerves II-XII grossly intact, Motor Exam 5/5 strength throughout, Sensory exam intact to light touch and pain Psych/Mental Status: Normal Affect, Appropriate Assessment & Plan Assessment/Plan (1) CAP (community acquired pneumonia): (2) ILD (interstitial lung disease): PLAN: Plan 1. Acute on chronic hypoxic respiratory failure secondary to acute exacerbation of idiopathic pulmonary fibrosis/probable pneumonia/human metapneumovirus ?Continue with IV antibiotics, sputum cultures pending ? Continue with Solu-Medrol ? Continue with inhalers ? Appreciate pulmonology's assistance 2. HTN ? Blood pressures are stable ? Continue with losartan 3. GERD ? Stable ? Continue with PPI DVT: Heparin Charges/Coding Visit Charges Inpatient E&M: 18313 Subs Hosp L2
--- NOTE | 2022-11-15 11:23 | EX.PCM.CONCC ---
Assessment & Plan Assessment/Plan (1) ILD (interstitial lung disease): (2) CAP (community acquired pneumonia): PLAN: Plan RECOMMENDATIONS: 1. Continue steroids, bronchodilators and antibiotics 2. Wean supplemental oxygen as tolerated 3. Okay to continue Esbriet 4. Walking oximetry prior to discharge 5. ABG if decreased mental status IMPRESSIONS: 1. Acute on chronic hypoxic respiratory failure secondary to human metapneumovirus Patient with pulmonary fibrosis on Esbriet presents in acute exacerbation secondary to human metapneumovirus. Patient is appropriately on Solu-Medrol and bronchodilators. We will continue with antibiotics for now as patient does have severe mixed ventilatory defect at baseline. However, if cultures are negative, likely okay to discontinue antibiotics. Okay to continue pirfenidone as this will likely not affect infectious process. Patient will need a walking oximetry prior to discharge. Patient does not appear to be significantly fluid overloaded at this time. 2. Hypertension/GERD/allergic rhinitis Complicates care, management, recovery and prognosis. Okay to continue with baseline medications from my perspective. No need for nasal steroid given systemic steroid therapy. HPI Consult Data Date of Consult: 11/15/22 HPI Narrative Reason for Consultation: COPD exacerbation HPI Narrative: MARY KAY MIRELES is a 57 M, with past medical history listed below, who presents to [facility] on 11/14/[facility]22 secondary to worsening shortness of breath and cough. Patient reportedly had had increased shortness of breath and cough over the previous 72 hours. Patient had reported intermittent subjective fevers and feeling like he had pneumonia. Patient had had some mild chest pain, but thought this was secondary to his coughing. In the ER, patient was noted to have a temperature of 99.8 ?F, tachypneic at 27 breaths/min and requiring 4 L nasal cannula to maintain saturations. Patient states he is normally on 2 L nasal cannula at baseline. Patient was mildly hypertensive initially. Laboratory work-up showed a white blood cell count of 11.4, hemoglobin of 13.1 and platelets of 249. Chemistry showed an elevated bicarbonate of 27, creatinine of 1.11 and a potassium of 3.6. Lactic acid and calcium are within normal limits. An ABG showed a respiratory alkalosis with increased AA gradient. Chest x-ray showed chronic prominent interstitial markings with possible mild infiltrate. EKG showed sinus rhythm with a rate of 96 and some T wave inversions. Patient was given antibiotics, steroids and admitted to the PCU for further evaluation. Since being admitted on PCU, patient has come back positive for human metapneumovirus. Patient overall feels subjectively slightly improved compared to previous. Patient is not reporting any chest pain at this time unless he is having a active cough. Patient has not reported any hemoptysis. Patient describes his sputum as dark green to yellow. No hemoptysis has been reported. Patient is not reporting any lower extremity edema. Patient states he has been compliant with his supplemental oxygen, but had to move it up recently secondary to hypoxia. Review of systems otherwise negative from a constitutional, HEENT, respiratory, cardiovascular, GI, genitourinary, musculoskeletal, skin, neurologic, psychiatric and hematologic system unless stated above. FORMERLY [facility] Medical History 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 Acute and chronic respiratory failure Acute exacerbation of idiopathic pulmonary fibrosis Allergic rhinitis Blind right eye GERD (gastroesophageal reflux disease) HTN (hypertension) Influenza A Mononucleosis Obesity Pulmonary fibrosis Restrictive airway disease Therapeutic drug monitoring Umbilical hernia Home Medications Pirfenidone [Esbriet] 3 tab PO TID lungs 03/12/20 [History Last Taken 11/14/22 14:30] losartan 100 mg tablet 100 mg PO DAILY HTN 03/12/20 [History Last Taken 11/14/22 09:00] albuterol sulfate 90 mcg/actuation aerosol inhaler 2 puff inhalation Q4H PRN shortness of breath or wheezing #8.5 grams 09/02/21 [Rx Last Taken Unknown] omeprazole 40 mg capsule,delayed release 40 mg PO DAILY indigestion 11/14/22 [History Last Taken 11/14/22 09:00] Allergy/AdvReac Type Severity Reaction Status Date / Time No Known Allergies Allergy Verified 11/14/22 15:00 Family History Mother Hypertension Father Hypertension CVA (cerebral vascular accident) Surgical History No pertinent past surgical history Social History Smoking Status: Former smoker quit date: 04/24/90 pack-years: 15 alcohol intake: never substance use type: does not use ROS ROS Narrative See HPI Physical Exam Const alert, oriented x3 and no apparent distress General Appearance: cooperative and well developed HEENT normocephalic, head/scalp atraumatic and moist oral mucous membranes Eyes conjunctivae normal Eyes Narrative: Disconjugate gaze and right eye blindness noted Neck full ROM and no lymphadenopathy Chest Chest: abnormal inspection of the chest increased A-P diameter Resp Resp Narrative: Mild conversational dyspnea Auscultation: rales and diminished lung sounds; Negative for rhonchi or wheezes Percussion: Negative for dullness Cardio regular rate, regular rhythm, S1 normal heart sound, S2 normal heart sound, no murmurs, no rub and no gallops GI normal to inspection, nondistended, normoactive bowel sounds no CVA tenderness Extremity General Extremity: clubbing; Negative for edema Skin no rashes or lesions noted Neuro oriented x3, CN's II-XII intact bilaterally, moves all extremities and no focal motor deficits Psych cooperative and affect normal Medical Records Data Attestation: I reviewed the patient's medical records Medical records narrative: Patient did recently have a complete pulmonary function test showing a severe mixed ventilatory defect (FEV1 21%, TLC 56%) Lab / Micro Data Attestation: I reviewed the patient's lab results. Result Diagrams: 11/15/22 06:35 11/15/22 06:35 Labs: Laboratory Results - last 24 hr 11/14/22 15:17: WBC 11.4 H, RBC 4.15 L, Hgb 13.1, Hct 38.0 L, MCV 91.6, MCH 31.6, MCHC 34.5, RDW Std Deviation 42.0, RDW Coeff of Ravinder 12.6, Plt Count 249, MPV 8.4, Immature Gran % (Auto) 0.400, Neut % (Auto) 86.4 H, Lymph % (Auto) 8.4 L, [place] % (Auto) 4.4, Eos % (Auto) 0.2, Baso % (Auto) 0.2, Absolute Neuts (auto) 9.8 H, Absolute Lymphs (auto) 0.95, Nucleated RBC % 0 11/14/22 15:17: Sodium 136, Potassium 3.6, Chloride 102, Carbon Dioxide 27.0, Anion Gap 7, BUN 11, Creatinine 1.11, Estim Creat Clear Calc 69.47, Est GFR (MDRD) Af Amer 88, Est GFR (MDRD) Non-Af 73, BUN/Creatinine Ratio 9.9 L, Glucose 94, Calcium 8.7 11/14/22 15:17: Lactic Acid 1.2 11/14/22 15:17: Total Bilirubin 0.40, Direct Bilirubin 0.13, AST 28, ALT 16, Alkaline Phosphatase 53, Total Protein 7.1, Albumin 3.1 L, Globulin 4.0 11/15/22 06:35: WBC 10.1, RBC 4.29 L, Hgb 13.1, Hct 39.2 L, MCV 91.4, MCH 30.5, MCHC 33.4, RDW Std Deviation 41.2, RDW Coeff of Ravinder 12.5, Plt Count 248, MPV 8.4, Immature Gran % (Auto) 0.400, Neut % (Auto) 91.5 H, Lymph % (Auto) 7.2 L, [place] % (Auto) 0.8, Eos % (Auto) 0.0, Baso % (Auto) 0.1, Absolute Neuts (auto) 9.2 H, Absolute Lymphs (auto) 0.72 L, Nucleated RBC % 0 11/15/22 06:35: Sodium 133 L, Potassium 4.2, Chloride 102, Carbon Dioxide 23.0, Anion Gap 8, BUN 18, Creatinine 0.92, Estim Creat Clear Calc 83.82, Est GFR (MDRD) Af Amer 110, Est GFR (MDRD) Non-Af 91, BUN/Creatinine Ratio 19.7, Glucose 160 H, Calcium 8.8, Total Bilirubin 0.50, AST 29, ALT 19, Alkaline Phosphatase 54, Total Protein 7.1, Albumin 2.7 L, Globulin 4.4 H, Albumin/Globulin Ratio 0.6 L Micro: Microbiology 11/15/22 04:45 Urine, Clean Catch Legionella Antigen - Final 11/15/22 04:45 Urine, Clean Catch Streptococcus pneumoniae Antigen (M - Final 11/14/22 17:36 Mucosa - Nasopharyngeal Respiratory Panel (PCR) - Final Human [place] 11/14/22 15:16 Nasal Secretion SARS-CoV-2 & FLU Antigen (Rapid) - Final ABG Data ABG results: ABG 11/14/22 15:27 Specimen Type ART pH 7.46 H Bicarbonate Actual 22.6 Total CO2 24 Base Excess -1 O2 Saturation 100 H ABG pCO2 31.7 L ABG pO2 161 H O2 Delivery Device Cannula Liter Flow 4.0 Attestation: I personally reviewed and interpreted this ABG as follows: (See HPI) Rhythm Strip Rhythm Strip: Sinus Rhythm Rate: 96 Ectopy: None Radiology Impression Chest X-Ray 11/14/22 15:10 IMPRESSION: Chronic prominent interstitial markings likely due to pulmonary fibrosis. Superimposed mild infiltrate cannot be entirely excluded. Electronically Signed: Anthony Qureshi MD at 15:32 EST , Charges/Coding Visit Charges Inpatient E&M: 98206 Init Hosp L2
[2022-11-16] VITALS (11 sets, daily range): BP systolic 95–107; BP diastolic 57–80; PULSE 61–86; RESP 12–18; TEMP 36.6–36.7; O2SAT 93–99
--- NOTE | 2022-11-16 01:10 | NURSING ---
Updated on Patients bouts of sinus linda as low as 39, then bounces back up into the high 40's while asleep. When patient is awake, his heartrate is in the 70's. stated we will monitor patient at this time. No further interventions needed.
[2022-11-16 05:50] LABS: Absolute Lymphocyte Count 0.64 X10^3/uL (0.83-4.51); Absolute Neutrophil Count 10.1 X10^3/uL (2.0-7.7); Basophil# 0.01 X10^3/uL; Basophil% 0.1 % (0-1); Hematocrit 36.7 % (40-54); Hemoglobin 12.6 g/dL (13.0-16.5); Lymphocyte # 0.64 X10^3/ul (0.83-4.51); Lymphocyte % 5.8 % (19-41); Mean Corp Hgb Conc 34.3 g/dL (32-36); Mean Corpuscular Hgb 30.8 pg (27.0-32.0); Mean Corpuscular Volume 89.7 fL (80-94); Mean Platelet Vol. 8.2 fl (6.2-12.0); Monocyte# 0.26 X10^3/uL; Monocyte% 2.3 % (0-10); NRBC Flagged by Analyzer 0 % (0-5); Neutrophil # 10.12 X10^3/uL (2.7-7.7); Neutrophil % 91.4 % (47-70); Platelet Count 243 K/mm3 (150-450); RBC Distribution Width CV 12.6 % (11.6-14.6); RBC Distribution Width SD 41.3 fl (35.1-43.9); Red Blood Count 4.09 M/mm3 (4.6-6.2); White Blood Count 11.1 K/mm3 (4.4-11.0)
[2022-11-16] MEDS: Heparin Injection (Vial) 5,000 UNIT/ML VIAL 5000 UNIT SC ×3 (05:51→20:41)
[2022-11-16] MEDS: 0.9% Saline Lock 10 ML Syringe IV ×2 (05:51→20:42)
[2022-11-16 06:22] LABS: Anion Gap 7 (5-15); BUN 20 mg/dL (7-18); BUN/Creat Ratio 22.8 RATIO (10-20); Calcium,Total 8.6 mg/dL (8.5-10.1); Chloride 104 mmol/L (98-107); Creatinine, Serum 0.88 mg/dL (0.70-1.30); EST Glomerular Filtration Rate 96 mL/min (>60); Est Glom Filt Rate - Afr Amer 116 mL/min (>60); Estimated Creatinine Clearance 87.63 ml/min; Glucose 174 mg/dL (74-106); Potassium 4.3 mmol/L (3.5-5.1); Sodium Level 136 mmol/L (136-145)
[2022-11-16] MEDS: Ipratropium/Albuterol Sulfate 3 ML AMPUL.NEB INHALATION ×4 (06:52→19:53)
--- NOTE | 2022-11-16 10:22 | PN.HOSP_ITS ---
Reason for Visit Reason for Visit: Diagnoses Pneumonia, unspecified organism (11/14/22) Interstitial pulmonary disease, unspecified (11/14/22) Subjective Subjective Breathing well. Back on home oxygen. Objective Data Objective Data Vital Signs: Vital Signs Temp Pulse Resp BP Pulse Ox O2 Del Method O2 Flow Rate 36.6 C 61 16 101/58 L 97 Nasal Cannula 2.5 11/16/22 03:50 11/16/22 06:55 11/16/22 06:55 11/16/22 03:50 11/16/22 06:55 11/16/22 06:55 11/16/22 06:55 FiO2 35 11/14/22 15:15 Oxygen Flow Rate (L/min) 2.5 Oxygen Delivery Method Nasal Cannula Weight: 72.3 kg Body Mass Index (BMI) 25.7 Intake & Output: Intake and Output for Last 24 Hours 11/14/22 11/15/22 11/16/22 23:59 23:59 23:59 Intake Total 344.75 / 344.75 605 / 605 210.25 / 210.25 Balance 344.75 / 344.75 605 / 605 210.25 / 210.25 Lab / Micro Data Result Diagrams: 11/16/22 05:42 11/16/22 05:42 Labs: Laboratory Results - last 24 hr 11/16/22 05:42: WBC 11.1 H, RBC 4.09 L, Hgb 12.6 L, Hct 36.7 L, MCV 89.7, MCH 30.8, MCHC 34.3, RDW Std Deviation 41.3, RDW Coeff of Ravinder 12.6, Plt Count 243, MPV 8.2, Immature Gran % (Auto) 0.400, Neut % (Auto) 91.4 H, Lymph % (Auto) 5.8 L, [place] % (Auto) 2.3, Eos % (Auto) 0.0, Baso % (Auto) 0.1, Absolute Neuts (auto) 10.1 H, Absolute Lymphs (auto) 0.64 L, Nucleated RBC % 0 11/16/22 05:42: Sodium 136, Potassium 4.3, Chloride 104, Carbon Dioxide 25.0, Anion Gap 7, BUN 20 H, Creatinine 0.88, Estim Creat Clear Calc 87.63, Est GFR (MDRD) Af Amer 116, Est GFR (MDRD) Non-Af 96, BUN/Creatinine Ratio 22.8 H, Glucose 174 H, Calcium 8.6 Micro: Microbiology 11/15/22 Unknown Sputum, Expectorated/Coughed Gram Stain - Final 11/15/22 Unknown Sputum, Expectorated/Coughed Respiratory Culture - Preliminary Appears to be normal respiratory melissa. Further studies to follow. 11/15/22 04:45 Urine, Clean Catch Legionella Antigen - Final 11/15/22 04:45 Urine, Clean Catch Streptococcus pneumoniae Antigen (M - Final 11/14/22 17:36 Mucosa - Nasopharyngeal Respiratory Panel (PCR) - Final Human [place] 11/14/22 15:16 Nasal Secretion SARS-CoV-2 & FLU Antigen (Rapid) - Final Rhythm Strip Rhythm Strip: Sinus Rhythm Rate: 96 Ectopy: None Physical Exam Const alert and no apparent distress HEENT head/scalp atraumatic and moist oral mucous membranes Resp Resp Narrative: diminished. bibasilar crackles. Cardio regular rate, regular rhythm, S1 normal heart sound and S2 normal heart sound GI normal to inspection, nondistended, normoactive bowel sounds, soft to palpation, non-tender and non-distended Psych affect normal Assessment & Plan Assessment/Plan (1) Acute on chronic respiratory failure with hypoxia: PLAN: Acute on chronic hypoxic respiratory failure secondary to acute exacerbation of idiopathic pulmonary fibrosis/probable pneumonia/human metapne umovirus Doubt pneumonia. DC antibiotics and observe ? Continue with Solu-Medrol ? Continue with inhalers ? Appreciate pulmonology's assistance (2) ILD (interstitial lung disease): PLAN: Complicates care and recovery. Continue with pirfenidone PLAN: Plan Chronic conditions: * HTN? Blood pressures are stable? Continue with losartan * GERD Stable Continue with PPI DVT: Heparin Disposition: if doing well 11/17, then will likely dc. Charges/Coding Visit Charges Inpatient E&M: 00314 Subs Hosp L2
[2022-11-16] MEDS: Ceftriaxone 1 GM/50 ML BAG IV (10:27)
--- NOTE | 2022-11-16 11:10 | CASEMGMT ---
RN CM Face to Face with patient for initial transition planning/care coordination assessment. RN CM introduced self and role at [facility]. Patient lying in bed, alert and oriented. Patient willing to participate in assessment and is able to answer all questions appropriately. Care providers, pharmacy, and demographics verified. Patient wishes to discharge home, denies need for home health at this time. Patient states he has no further needs or concerns at this time. CM to follow for discharge planning needs that may arise. 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 Patient states he is independent at home. Transportation: self, DME/HHC: Patient states he has pulse ox and home oxygen at 2lpm with [employer] with portability. Patient aware to have bring portable tank at discharge. Will monitor for increase oxygen needs at discharge. Disposition Plan: Patient to discharge home with family support and follow-up plans in place. Arabella RUCKER, RN, CM
--- NOTE | 2022-11-16 12:18 | PCM.PN.INT ---
Assessment & Plan Assessment/Plan (1) ILD (interstitial lung disease): (2) CAP (community acquired pneumonia): PLAN: Plan RECOMMENDATIONS: 1. Continue to wean supplemental oxygen to maintain saturations at or above 90%. 2. Antimicrobials can be discontinued from my perspective. 3. Continue scheduled bronchodilators and steroids. 4. Perform walking oximetry study prior to consideration for discharge home. 5. Continue baseline Esbriet therapy. 6. Outpatient pulmonary follow-up within 2 weeks of discharge is recommended. IMPRESSIONS: 1. History of severe restrictive lung disease with hypoxia secondary to human metapneumovirus infection The patient has a history of pulmonary fibrosis on Esbriet with acute exacerbation secondary to human metapneumovirus. The patient is appropriately on Solu-Medrol and bronchodilators. Given negative culture results, antibiotics can be discontinued from my perspective. Okay to continue Esbriet therapy per baseline. Perform walking oximetry study prior to consideration for discharge home. Outpatient pulmonary follow-up within 2 weeks is warranted. 2. Hypertension/GERD/allergic rhinitis Complicates care, management, recovery and prognosis. Okay to continue with baseline medications from my perspective. This note was generated with [employer] dictation software. It may contain incorrect words, spelling, and punctuation that were not noted in checking the note before signing. Subjective Subjective The patient was seen and examined at the bedside this morning. Events from the last 24 hours have been reviewed. The patient is currently afebrile, hemodynamically stable and maintaining appropriate oxygen saturations on 2 L/min via nasal cannula. The patient is documented to be overall net +1 L for the hospitalization. Morning labs are stable. Objective Data Objective Data The patient's most recent lab work, culture data and imaging studies have all been personally reviewed. Respiratory viral panel was positive for human metapneumovirus. Vital Signs: Vital Signs Temp Pulse Resp BP Pulse Ox O2 Del Method O2 Flow Rate 97.8 F 69 18 95/57 L 93 Nasal Cannula 2 11/16/22 10:00 11/16/22 11:06 11/16/22 11:06 11/16/22 10:00 11/16/22 11:06 11/16/22 11:06 11/16/22 11:06 FiO2 35 11/14/22 15:15 Oxygen Flow Rate (L/min) 2 Oxygen Delivery Method Nasal Cannula Weight: 159 lb 6.307 oz Body Mass Index (BMI) 25.7 Intake & Output: Intake and Output for Last 24 Hours 11/14/22 11/15/22 11/16/22 23:59 23:59 23:59 Intake Total 344.75 / 344.75 605 / 605 515.25 / 515.25 Output Total 400 / 400 Balance 344.75 / 344.75 605 / 605 115.25 / 115.25 Lab / Micro Data Attestation: I reviewed the patient's lab results. Result Diagrams: 11/16/22 05:42 11/16/22 05:42 Labs: Laboratory Results - last 24 hr 11/16/22 05:42: WBC 11.1 H, RBC 4.09 L, Hgb 12.6 L, Hct 36.7 L, MCV 89.7, MCH 30.8, MCHC 34.3, RDW Std Deviation 41.3, RDW Coeff of Ravinder 12.6, Plt Count 243, MPV 8.2, Immature Gran % (Auto) 0.400, Neut % (Auto) 91.4 H, Lymph % (Auto) 5.8 L, [place] % (Auto) 2.3, Eos % (Auto) 0.0, Baso % (Auto) 0.1, Absolute Neuts (auto) 10.1 H, Absolute Lymphs (auto) 0.64 L, Nucleated RBC % 0 11/16/22 05:42: Sodium 136, Potassium 4.3, Chloride 104, Carbon Dioxide 25.0, Anion Gap 7, BUN 20 H, Creatinine 0.88, Estim Creat Clear Calc 87.63, Est GFR (MDRD) Af Amer 116, Est GFR (MDRD) Non-Af 96, BUN/Creatinine Ratio 22.8 H, Glucose 174 H, Calcium 8.6 Micro: Microbiology 11/15/22 Unknown Sputum, Expectorated/Coughed Gram Stain - Final 11/15/22 Unknown Sputum, Expectorated/Coughed Respiratory Culture - Preliminary Appears to be normal respiratory melissa. Further studies to follow. 11/15/22 04:45 Urine, Clean Catch Legionella Antigen - Final 11/15/22 04:45 Urine, Clean Catch Streptococcus pneumoniae Antigen (M - Final 11/14/22 17:36 Mucosa - Nasopharyngeal Respiratory Panel (PCR) - Final Human [place] 02/18/23 15:16 Nasal Secretion SARS-CoV-2 & FLU Antigen (Rapid) - Final Rhythm Strip Rhythm Strip: Sinus Rhythm Rate: 96 Ectopy: None Physical Exam Const alert and no apparent distress General Appearance: cooperative HEENT normocephalic, head/scalp atraumatic and moist oral mucous membranes Eyes PERRL, EOMs intact bilaterally and conjunctivae normal Neck supple General: trachea midline Chest inspection of chest normal Resp normal respiratory effort Auscultation: rales and diminished lung sounds Cardio regular rate and regular rhythm GI normal to inspection, nondistended, normoactive bowel sounds Extremity no clubbing, cyanosis or edema Skin no rashes or lesions noted Neuro oriented x3, CN's II-XII intact bilaterally and moves all extremities Psych cooperative and affect normal Charges/Coding Visit Charges Inpatient E&M: 90641 Subs Hosp L2
[2022-11-17] VITALS (9 sets, daily range): BP systolic 98–125; BP diastolic 58–86; PULSE 66–84; RESP 16–20; TEMP 36.5–36.7; O2SAT 87–98; BMI 25.1
[2022-11-17] MEDS: Heparin Injection (Vial) 5,000 UNIT/ML VIAL 5000 UNIT SC (05:55)
[2022-11-17] MEDS: Ipratropium/Albuterol Sulfate 3 ML AMPUL.NEB INHALATION ×3 (07:41→15:04)
[2022-11-17] MEDS: predniSONE 20 MG Tablet 40 MG PO (08:15)
--- NOTE | 2022-11-17 08:40 | PN.HOSP_ITS ---
Reason for Visit Reason for Visit: Diagnoses Pneumonia, unspecified organism (11/14/22) Interstitial pulmonary disease, unspecified (11/14/22) Acute and chronic respiratory failure with hypoxia (11/14/22) Subjective Subjective Breathing well. No events overnight. Objective Data Objective Data Vital Signs: Vital Signs Temp Pulse Resp BP Pulse Ox O2 Del Method O2 Flow Rate 36.7 C 82 19 H 98/58 L 94 Nasal Cannula 2 11/17/22 03:31 11/17/22 08:20 11/17/22 08:20 11/17/22 03:31 11/17/22 08:19 11/17/22 08:19 11/17/22 08:19 FiO2 35 11/14/22 15:15 Oxygen Flow Rate (L/min) 2 Oxygen Delivery Method Nasal Cannula Weight: 72.8 kg Body Mass Index (BMI) 25.1 Intake & Output: Intake and Output for Last 24 Hours 11/15/22 11/16/22 11/17/22 23:59 23:59 23:59 Intake Total 605 / 605 755.25 / 755.25 240 / 240 Output Total 400 / 400 Balance 605 / 605 355.25 / 355.25 240 / 240 Lab / Micro Data Result Diagrams: 11/16/22 05:42 11/16/22 05:42 Micro: Microbiology 11/15/22 Unknown Sputum, Expectorated/Coughed Gram Stain - Final 11/15/22 Unknown Sputum, Expectorated/Coughed Respiratory Culture - Final 11/14/22 15:35 Blood Culture (Wb) #2 - Anticubital Right Blood Culture - Preliminary No growth in 48 hours. 11/14/22 15:17 Blood Culture (Wb) - Anticubital Left Blood Culture - Preliminary No growth in 48 hours. 11/15/22 04:45 Urine, Clean Catch Legionella Antigen - Final 11/15/22 04:45 Urine, Clean Catch Streptococcus pneumoniae Antigen (M - Final 11/14/22 17:36 Mucosa - Nasopharyngeal Respiratory Panel (PCR) - Final Human [place] 11/14/22 15:16 Nasal Secretion SARS-CoV-2 & FLU Antigen (Rapid) - Final Rhythm Strip Rhythm Strip: Sinus Rhythm Rate: 96 Ectopy: None Physical Exam Const alert and no apparent distress HEENT head/scalp atraumatic and moist oral mucous membranes Resp Resp Narrative: diminished. bibasilar crackles. Cardio regular rate, regular rhythm, S1 normal heart sound and S2 normal heart sound GI normal to inspection, nondistended, normoactive bowel sounds, soft to palpation, non-tender and non-distended Psych affect normal Assessment & Plan Assessment/Plan (1) Acute on chronic respiratory failure with hypoxia: PLAN: Acute on chronic hypoxic respiratory failure secondary to acute exacerbation of idiopathic pulmonary fibrosis/probable pneumonia/human metapneumovirus Doubt pneumonia. DC antibiotics and observe Steroid taper Follow-up pulmonology as outpatient (2) ILD (interstitial lung disease): PLAN: Complicates care and recovery. Continue with pirfenidone PLAN: Plan Chronic conditions: * HTN? Blood pressures are stable? Continue with losartan * GERD Stable Continue with PPI DVT: Heparin
--- NOTE | 2022-11-17 10:34 | PCM.PN.INT ---
Assessment & Plan Assessment/Plan (1) ILD (interstitial lung disease): (2) CAP (community acquired pneumonia): PLAN: Plan RECOMMENDATIONS: 1. Continue to wean supplemental oxygen to maintain saturations at or above 90%. 2. Continue scheduled bronchodilators and steroids. 3. Perform walking oximetry study prior to consideration for discharge home. 4. Continue baseline Esbriet therapy. 5. Outpatient pulmonary follow-up next week as scheduled. IMPRESSIONS: 1. History of severe restrictive lung disease with hypoxia secondary to human metapneumovirus infection The patient has a history of pulmonary fibrosis on Esbriet with acute exacerbation secondary to human metapneumovirus. The patient is appropriately on Solu-Medrol and bronchodilators. Given negative culture results, antibiotics can be discontinued from my perspective. Okay to continue Esbriet therapy per baseline. Perform walking oximetry study prior to consideration for discharge home. 2. Hypertension/GERD/allergic rhinitis Complicates care, management, recovery and prognosis. Okay to continue with baseline medications from my perspective. This note was generated with [employer] dictation software. It may contain incorrect words, spelling, and punctuation that were not noted in checking the note before signing. Subjective Subjective The patient was seen and examined at the bedside this morning. Events from the last 24 hours have been reviewed. The patient is currently afebrile, hemodynamically stable and maintaining appropriate oxygen saturations on 2 L/min via nasal cannula. The patient is documented to be overall net +1.5 L for the hospitalization. The patient is overall feeling better from a respiratory perspective. He is currently scheduled to follow-up with me in the pulmonary medicine clinic next week. Objective Data Objective Data The patient's most recent lab work, culture data and imaging studies have all been personally reviewed. Respiratory viral panel was positive for human metapneumovirus. Vital Signs: Vital Signs Temp Pulse Resp BP Pulse Ox O2 Del Method O2 Flow Rate 98.1 F 82 19 H 98/58 L 94 Nasal Cannula 2 11/17/22 03:31 11/17/22 08:20 11/17/22 08:20 11/17/22 03:31 11/17/22 08:19 11/17/22 08:19 11/17/22 08:19 FiO2 35 11/14/22 15:15 Oxygen Flow Rate (L/min) 2 Oxygen Delivery Method Nasal Cannula Weight: 160 lb 7.944 oz Body Mass Index (BMI) 25.1 Intake & Output: Intake and Output for Last 24 Hours 11/15/22 11/16/22 11/17/22 23:59 23:59 23:59 Intake Total 605 / 605 755.25 / 755.25 240 / 240 Output Total 400 / 400 Balance 605 / 605 355.25 / 355.25 240 / 240 Lab / Micro Data Attestation: I reviewed the patient's lab results. Result Diagrams: 11/16/22 05:42 11/16/22 05:42 Labs: Laboratory Results - last 24 hr 11/16/22 05:42: WBC 11.1 H, RBC 4.09 L, Hgb 12.6 L, Hct 36.7 L, MCV 89.7, MCH 30.8, MCHC 34.3, RDW Std Deviation 41.3, RDW Coeff of Ravinder 12.6, Plt Count 243, MPV 8.2, Immature Gran % (Auto) 0.400, Neut % (Auto) 91.4 H, Lymph % (Auto) 5.8 L, Lyman % (Auto) 2.3, Eos % (Auto) 0.0, Baso % (Auto) 0.1, Absolute Neuts (auto) 10.1 H, Absolute Lymphs (auto) 0.64 L, Nucleated RBC % 0 11/16/22 05:42: Sodium 136, Potassium 4.3, Chloride 104, Carbon Dioxide 25.0, Anion Gap 7, BUN 20 H, Creatinine 0.88, Estim Creat Clear Calc 87.63, Est GFR (MDRD) Af Amer 116, Est GFR (MDRD) Non-Af 96, BUN/Creatinine Ratio 22.8 H, Glucose 174 H, Calcium 8.6 Micro: Microbiology 11/15/22 Unknown Sputum, Expectorated/Coughed Gram Stain - Final 11/15/22 Unknown Sputum, Expectorated/Coughed Respiratory Culture - Final 11/14/22 15:35 Blood Culture (Wb) #2 - Anticubital Right Blood Culture - Preliminary No growth in 48 hours. 11/14/22 15:17 Blood Culture (Wb) - Anticubital Left Blood Culture - Preliminary No growth in 48 hours. 11/15/22 04:45 Urine, Clean Catch Legionella Antigen - Final 11/15/22 04:45 Urine, Clean Catch Streptococcus pneumoniae Antigen (M - Final 11/14/22 17:36 Mucosa - Nasopharyngeal Respiratory Panel (PCR) - Final Human [place] 11/14/22 15:16 Nasal Secretion SARS-CoV-2 & FLU Antigen (Rapid) - Final Rhythm Strip Rhythm Strip: Sinus Rhythm Rate: 96 Ectopy: None Physical Exam Const alert and no apparent distress General Appearance: cooperative HEENT normocephalic, head/scalp atraumatic and moist oral mucous membranes Eyes PERRL, EOMs intact bilaterally and conjunctivae normal Neck supple General: trachea midline Chest inspection of chest normal Resp normal respiratory effort Auscultation: rales and diminished lung sounds Cardio regular rate and regular rhythm GI normal to inspection, nondistended, normoactive bowel sounds Extremity no clubbing, cyanosis or edema Skin no rashes or lesions noted Neuro oriented x3, CN's II-XII intact bilaterally and moves all extremities Psych cooperative and affect normal Charges/Coding Visit Charges Inpatient E&M: 32319 Subs Hosp L2
--- NOTE | 2022-11-17 11:27 | DCINST_ITS ---
Discharge Instructions Diet Discharge Diet: No restrictions Follow Up Care Test Results: Test results from this visit will be discussed in further detail at your follow- up appointment, if applicable. Discharge Plan Admission Admit Date/Time: 11/14/22 16:59 Primary Reason for Your Visit: acute on chronic respiratory failure. Attending Provider: Binu Catalan Primary Care Provider: Hardeep Fall Consulting Providers: Gracia Sales ; Simone Martinez ; Jake Morales ; Chano Rutledge ; Costa Cortez ; Hedy Cowan NP ; Dario Collado Discharge Orders/Prescriptions Prescriptions: New prednisone 10 mg tablet 10 mg PO DAILY Qty: 30 0RF Rx Instructions: 4 tabs daily for 3 days, then 3 tabs daily for 3 days, then 2 tabs daily for 3 days, then 1 tab daily for 3 days Continued albuterol sulfate 90 mcg/actuation HFA aerosol inhaler 2 puff inhalation Q4H PRN (Reason: shortness of breath or wheezing) Qty: 8.5 3RF Rx Instructions: administer with spacer Pirfenidone [Esbriet] 267 MG capsule 3 tab PO TID omeprazole 40 mg capsule,delayed release(DR/EC) 40 mg PO DAILY Discontinued losartan 100 MG tablet 100 mg PO DAILY Referrals / Follow Up: [facility] [Provider Group] - 11/23/22 7:45 am Hardeep Fall DO [Primary Care Provider] - Within 2 Weeks Disposition Disposition (needs filled in before D/C Order can be placed): Home, Self Care
--- NOTE | 2022-11-17 11:39 | DS.PCM_ITS ---
Providers Date of Admission: 11/14/22 Primary Care Physician: Dr. Hardeep Fall, Consultations 11/14/22 19:17 Consult: [employer] [facility] Telephone Clerk / Pulmonary Medicine Routine Consulting Provider: Pulmonary Medicine nya Frank Reason for Consult: IPF exacerbation EMERGENT Consult: No MD Notified: Yes Date Notified: 11/15/22 Time Notified: 07:23 Method of Notification: Text Reason For Visit: ACUTE EXACERBATION OF PULMONARY FIBROSIS Diagnosis Discharge Diagnosis (1) Acute on chronic respiratory failure with hypoxia: Status: Chronic Code(s): J96.21 - Acute and chronic respiratory failure with hypoxia Plan: Acute on chronic hypoxic respiratory failure secondary to acute exacerbation of idiopathic pulmonary fibrosis/probable pneumonia/human metapneumovirus Doubt pneumonia. DC antibiotics and observe Steroid taper Follow-up pulmonology as outpatient (2) ILD (interstitial lung disease): Status: Acute Code(s): J84.9 - Interstitial pulmonary disease, unspecified Plan: Complicates care and recovery. Continue with pirfenidone Plan Chronic conditions: * HTN? Blood pressures soft. DC losartan. * GERD Stable Continue with PPI Medications at Discharge Home Medications Pirfenidone [Esbriet] 3 tab PO TID lungs 03/12/20 albuterol sulfate 90 mcg/actuation aerosol inhaler 2 puff inhalation Q4H PRN s hortness of breath or wheezing #8.5 grams 09/02/21 omeprazole 40 mg capsule,delayed release 40 mg PO DAILY indigestion 11/14/22 prednisone 10 mg tablet 10 mg PO DAILY #30 tabs 11/17/22 Hospital Course Operations None Procedures None Summary of Care Provided Minutes Spent on Discharge: 32 Weight / BMI Weight Weight: 72.8 kg Body Mass Index (BMI) 25.1 ABG / Lab / Microbiology Data Result Diagrams: 11/16/22 05:42 11/16/22 05:42 Microbiology: Microbiology 11/15/22 Unknown Sputum, Expectorated/Coughed Gram Stain - Final 11/15/22 Unknown Sputum, Expectorated/Coughed Respiratory Culture - Final 11/14/22 15:35 Blood Culture (Wb) #2 - Anticubital Right Blood Culture - Preliminary No growth in 48 hours. 11/14/22 15:17 Blood Culture (Wb) - Anticubital Left Blood Culture - Preliminary No growth in 48 hours. 11/15/22 04:45 Urine, Clean Catch Legionella Antigen - Final 11/15/22 04:45 Urine, Clean Catch Streptococcus pneumoniae Antigen (M - Final 11/14/22 17:36 Mucosa - Nasopharyngeal Respiratory Panel (PCR) - Final Human [place] 11/14/22 15:16 Nasal Secretion SARS-CoV-2 & FLU Antigen (Rapid) - Final D/C Instructions Discharge Diet: No restrictions Meaningful Use Info Meaningful Use Diagnoses (Choose all that apply): None applicable Discharge Plan Admission Admit Date/Time: 11/14/22 16:59 Primary Reason for Your Visit: acute on chronic respiratory failure. Attending Provider: Binu Catalan Primary Care Provider: Hardeep Fall Consulting Providers: Gracia Sales ; Simone Martinez ; Jake Morales ; Chano Rutledge ; Costa Cortez ; Hedy Cowan NP ; Dario Collado Discharge Orders/Prescriptions Prescriptions: New prednisone 10 mg tablet 10 mg PO DAILY Qty: 30 0RF Rx Instructions: 4 tabs daily for 3 days, then 3 tabs daily for 3 days, then 2 tabs daily for 3 days, then 1 tab daily for 3 days Continued albuterol sulfate 90 mcg/actuation HFA aerosol inhaler 2 puff inhalation Q4H PRN (Reason: shortness of breath or wheezing) Qty: 8.5 3RF Rx Instructions: administer with spacer Pirfenidone [Esbriet] 267 MG capsule 3 tab PO TID omeprazole 40 mg capsule,delayed release(DR/EC) 40 mg PO DAILY Discontinued losartan 100 MG tablet 100 mg PO DAILY Referrals / Follow Up: [facility] [Provider Group] - 11/23/22 7:45 am Hardeep Fall DO [Primary Care Provider] - Within 2 Weeks Disposition Disposition (needs filled in before D/C Order can be placed): Home, Self Care Charges/Coding Visit Charges Inpatient E&M: 98044 Disch Hosp >30min
--- NOTE | 2022-11-17 12:18 | PHA.DC.MR ---
Pharmacy Service has performed discharge medication reconciliation for this patient. The patient's discharge medication list was reviewed for discrepancies and discrepancies were resolved. Home Medications Pirfenidone [Esbriet] 3 tab PO TID lungs 03/12/20 albuterol sulfate 90 mcg/actuation aerosol inhaler 2 puff inhalation Q4H PRN shortness of breath or wheezing #8.5 grams 09/02/21 omeprazole 40 mg capsule,delayed release 40 mg PO DAILY indigestion 11/14/22 prednisone 10 mg tablet 10 mg PO DAILY #30 tabs 11/17/22
== END 2022-11-17 17:28 | disposition home or self-care (01) | DRG 196 ==
LOC: ED 16:05 → PCU 17:18
PROVIDERS: Family Medicine; Admitting Provider Internal Medicine; Emergency Provider Emergency Medicine; PCP Family Medicine
DX: J84.112 Idiopathic pulmonary fibrosis (principal); J96.21 Acute and chronic respiratory failure with hypoxia; J84.9 Interstitial pulmonary disease, unspecified; I10 Essential (primary) hypertension; J30.9 Allergic rhinitis, unspecified; K21.9 Gastro-esophageal reflux disease without esophagitis; Z87.891 Personal history of nicotine dependence; B34.8 Other viral infections of unspecified site
CPT/HCPCS: 36415; 36600; 71045; 80048; 80053; 80076; 82803; 83605; 85025; 87040; 87070; 87205; 87428; 87449; 87633; 93005; 94002; 94640; 94668; 94762; 97802; 99285; J7050; A4216

== ENCOUNTER → 2023-02-01 | Outpatient (CLI) | payer OTHER, SELFPAY ==
--- NOTE | 2023-02-01 14:03 | PR.ITP_ITS ---
General Information2 - General Information Admitting Diagnosis: COPD Gold IV: Very Severe Secondary Diagnosis: Pulmonary Fibrosis, Mixed obstructive/restrictive ventilatory defect, choronic hypoxemic respiratory failure, effie inhibitor cough, allergic rhinitis, and hypertension. Gold Classification:: GOLD 4: Very Severe - PFT FEV1:: 0.69 - 21% predicted FVC:: 1.61 - 37% predicted FEV1/FVC%:: 43 - Personal Learning Style/Barriers Personal Learning Style:: Audio/Visual, Written Barriers to Learning: Vision impaired - Blindness right eye Stage of change r/t lifestyle modifications: Contemplation Educational Classes [place]: Breathing Retraining: Initial Assessment, Exercise: Initial Assessment, Energy Conservation: Initial Assessment, Oxygen therapy: Initial Assessment - Education/Goals Individual Counseling: Initial Assessment: Nicotine/Smoking - continued smoking cessation recommended, High Blood Pressure, Sedentary Lifestyle [place] Patient Goals: Increase muscle strength: Initial Assessment, Experience less dyspnea: Initial Assessment, Improve energy level: Initial Assessment, Improve the ability to cope with ADLs: Initial Assessment, Understand how to use medications: Initial Assessment, Increase knowledge of oxygen use: Initial Assessment, Improve my quality of life: Initial Assessment, Reduce Stress/relaxation techniques: Initial Assessment Exercise - Initial Assessment - Visit Date of Eval: 02/01/23 Session Number:: 0 - Pre-UT Evaluation - Problem/Goals Problems: Deconditioning, No regular exercise, Knowledge deficit exercise guidelines, Knowledge deficit exercise safety Goals:: Aerobic exercise 30-60 mins x 12 weeks [36 sessions] - Physician Prescribed Exercise Modalities: Treadmill, Airdyne, NuStep Intensity: 60-80% of age predicted maximum heart rate reserve Current METSs:: 3.0 Target HR:: 123 - THRR 98-123 Resting Blood Pressure: 136/87 EKG Type: Normal Sinus Rhythm - Plan Plan and Plan to Review:: Benefits of exercise, Core components of exercise, How to measure dyspnea level, How to monitor dyspnea level, Exercise intensity, Exercise safety guideline, Home exercise guidelines, Fabiola: 3-4/11-13 Home Exercise Mode: Walking Nutrition/Wt Mgmt - Initial - Visit Date of Eval: 02/01/23 Session Number:: 0 - Problems/Goals Goals: BMI 21-25, Wt Loss 1-2 lbs per week - Weight Management Knowledge Deficit Management of:: Overweight Admit Height:: 5 ft 7 in Admit Weight:: 174 lb Admit BMI:: 27.2 - Intervention Referral to dietitian:: Yes - Medical Nutrition Therapy Will attend diet classes:: Yes Intervention/Plan: Instruct on ideal BMI & set weight loss goal w/patient - Plan Nutrition Plan: Yes Review BMI or WC & identify target wt & strategies for wt control, Yes Nutrition education class: Psychosocial - Initial Assess - Visit Date of Eval: 02/01/23 Session Number:: 0 - Pre-pulm rehab evaluation - Problems/Goals History of Emotional Disorders: Depression Psychosocial Goals: 1. Patient is free from overwhelming symtoms of depression (or anxiety, 2. Identifies personal stressors & states the strategies for managing, 3. Identifies activities to decrease isolation and/or symptoms of, 4. Improved psychosocial coping skills., 5. Verbalizes coping strategies., 6. Adequate treatment of depression., 7. Improved Q.O.L. - Psychosocial Test Tool Used:: Pulmonary QOL, PHQ-9 Questionnaire - Referral to Behavioral Health PS - Interventions: Yes Attend Stress Management Classes, No Referral to Behavioral Health if PHQ-9 score >9:, No Referral to [facility], No Referral to Physician if PHQ-9 if score is 5-9: - Intervention/Plan: See List Interventions/Plan:: Assess stressors,coping strategies & signs of derpression on admission, Instruct/assist pt to develop coping & personal stress Mgt strategies, Instruct patient to recognize signs & symptoms of depression, Instruct patient to recog Oxygen & Oxygen Titration Init - Visit Date of Eval: 02/01/23 - Session Number:: 0 - Pre-pulm rehab evaluation - Initial Assessment Oxygen on Admission: Continuous home use SpO2:: 95 Patient Reports:: Non-productive cough - effie-inhibitor cough - Goal Oxygen & Oxygen Tritration Goals: Effective hypoxemia control, Uses O2 as Rx'd/safely - Plans Plan: Monitor SpO2 rest & with exercise, Train appropriate O2 use at rest, Train appropriate O2 use with exercise, Train O2 safety & systems Reviewed prescribed medications:: Purpose, Schedule, Side effects, Importance of compliance Instruct correct technique/timing & care:: MDI, DPI, Nebulizer, Return demo use of inhaler Bronchial Hygiene Plan: Controlled cough, Vibratory PEP device, Role of exercise in secretion clearance, NS Nasal spray, Hydration, Signs/symptoms to report:, Influenza/Pneumovax vaccines Core Components - Initial - Visit Date of Eval: 02/01/23 Session Number:: 0 - Pre-pulm rehab evaluation - Hypertension Hypertension Diagnosis:: Hypertension ICD-10 I10 BP: 136/87 [place] [employer] Hypertension Guidelines: [place] [employer] Hypertension Guidelines. Normal BP Less than 120/80. Elevated BP 120/80. Hypertension Stage 1: BP 130-139/80-89. Hypertesnion Stage 2: BP 140 or higher/90 or higher. Hypertension Crisis: BP higher than 180/120 Blood Pressure: 136/87 Outcomes/Goals: Able to verbalize/achieve optimal blood pressure <130/80, Incorporates diet changes & exercise for blood pressure control by DC - Exacerbation Mgmt & Airway Clearance Problems:: Hypoxemia Hypoxemia Goals:: Hypoxemia managed, Port system, Using O2 as Rx's safely Bronchial Hygiene Problems:: Respiratory infection Prevention/Management Goals: Pt demonstrates effective cough, effective secretion clearance., Pt describes signs and symptoms of infection. Patient Reports:: Non-productive cough - effie-inhibitor cough Plan: Monitor SpO2 rest & with exercise, Train appropriate O2 use at rest, Train appropriate O2 use with exercise, Train O2 safety & systems Instruct correct technique/timing & care:: MDI, DPI, Nebulizer, Return demo use of inhaler Bronchial Hygiene Plan: Controlled cough, Vibratory PEP device, Hydration, Hand hygiene, When to call MD, Signs/symptoms to report: - Medication Interventions/plans: Instruct on medication effects & side effects, Review medication list w/patient every two weeks, Instruct importance of taking meds as ordered & assist problem solving Medication Goals: Adherence to prescribed medications, Correct technique/timing & care of MDI, DPI, nebulizer, and spacer. Does pt report taking home meds as prescribed?: Yes Medications: Yes MDI, Yes DPI, Yes NEB, No Spacer Reviewed prescribed medications:: Purpose, Schedule, Side effects, Importance of compliance - Diabetes Diabetes:: No Core Components - 30 DAYS Core Components - 60 DAYS Core Components - 90 DAYS Core Components - Final Patient Health Questionnaire Initial Assessment 1. Little interest or pleasure in doing things: Several days 2. Feeling down, depressed, or hopeless: Not at all 3. Trouble falling or staying asleep, or sleeping too much: Several days 4. Feeling tired or having little energy: Several days 5. Poor appetite or overeating: Several days 6. Feeling bad about yourself -- or that you are a failure or have let yourself or your family down: Not at all 7. Trouble concentrating on things, such as reading the newspaper or watching television: Not at all 8. Moving or speaking so slowly that other people could have noticed. Or the opposite - being so fidgety or restless that you have been moving around a lot more than usual: Not at all 9. Thoughts that you would be better off , or of hurting yourself in some way: Not at all How difficult have these problems made it for you to do your work, take care of things at home, or get along with other people?: Somewhat difficult Total Score: 4 Knowledge Questionaire (BCKQ) - Information Information: [place] COPD Knowledge Questionnaire (BCKQ) This questionnaire is designed to find out what you know about your lung problem. It should be completed without help form anyone else. This usually takes between 10 and 20 minutes. Your answers will help us to find out what information you need to help you to understand and manage your lung condition. Davey the [place]uk which you think is the correct answer. - Questions b. COPD can only be confirmed by breathing tests: False c. In COPD ther is usually gradual worsening over time: True d. In COPD oxygen levels in the blood are always low: True e. COPD is usually in people less than 40 years old: True Miguel A than 80% of COPD cases are caused by cigarette smoking: False b. COPD can be caused by occupational dust exposure: True c. Longstanding asthma can develop into COPD: True d. COPD is commonly an inherited disease: Don't know e. Women are less vunerable to the effects of cigarette than men: False a. Swelling of the ankles is common in COPD:: Don't know b. Fatigue [tiredness] is common in COPD: True c. Wheezing is common in COPD: True d. Crushing chest pain is common in COPD: Don't know e. Rapid weight loss is common in COPD: True a. Severe breathlessness prevents travel by air: True b. Breathlessness can be worsened by eating large meals: Don't know c. Breathlessness means that your oxygen levels are low: True d. Breathlessness is a normal response to exercise: False e. Breathlessness is primarily caused by a narrowing of the bronchial tubes: True a. Coughing phlegm is a common symptom in COPD: True b. Clearing phlegm is more difficult if you get dehydrated: True c. Bronchodilator inhalers can help clear phlegm: True d. Phlegm causes harm if swallowed: Don't know e. Clearing phlegm can be assisted by breathing exercises: False a. Chest infections often cause coughing of blood: Don't know b. Chest infection phlegm usually becomes coloured (ylw/grn): True cExerbations (episodes of worsening) can occur in the absence of chest infection: True d. Chest infections are always accompanied by a high temperature: False e. Steroid tablets should be taken whenever there is an exacerbation: Don't know aWalking excercises better than breathing to improve fitness: True b. Exercise should be avoided as it strains the lungs: False c. Exercise can help maintain your bone density: Don't know d. Exercise helps relieve depression: True e. Exercise should be stopped if it makes you breathless: True a. Stopping smoking will reduce the risk of heart disease: True b. Stopping smoking will slow down further lung damage: True c. Stopping smoking is pointless as the damage is done: False d.Stopping smoking usually results in improved lung function: True eNicotine replacement therapy only available on prescription: True a. A flu jab is recommended every year: True b. You can get flu from having a flu jab: Don't know c. You can only have a flu jab if you are 65 or over: False d. A pneumonia jab protects against all forms of pneumonia: True e.You can have a pneumonia jab and a flu job on the same day: True a. Bronchodilators act quickly (within 10 minutes): Don't know b. Both short & long acting bronchodilators can be taken on the same day: True c. Spacers (volumatic,nebuhaler,serochamber)should be dried w/atowel after washing: False d. A spacer device increases the medication to the lungs: True e. Tremor may be a side effect of bronchodilators: Don't know a. To be effective, the course should last at least 10 days: True b. Excessive use of antibiotics can cause resistant bacteria (germs): Don't know c. Antibiotics will clear all chest infections: True d. Antibiotic treatment is necessary for an exacerbation (worsening) however mild: Don't know e. Seek advice if antibiotics cause severe diarrhoea: True a. Steroid tablets help strengthen muscles: Don't know b. Steroid tablets should be avoided if there is a chest infection: False c. The risk of long-term side effects due to steroids is less w/short courses then w/continous treatment: Don't know dIndigestion is common side effect from using steroid tablet: False e. Steroid tablets can increase your appetite: True a. Inhaled steroids should be stopped if you are given steroid tablets: Don't know bSteroid inhalers can be used for rapid relief breathlessnes: True c. Spacer devices reduce the risk of getting thrush in the mouth: Don't know d.Steroid inhaler should be taken before your bronchodilator: Don't know e. Inhaled steroids improve lung function in COPD: Don't know COPD Assessment Test [CAT] - Questions Never cough = 0, Cough all the time = 5: 4 No phlegm = 0, Chest full of phlegm = 5: 3 No chest tightness = 0, Chest very tight = 5: 1 No breathless w/exertion = 0, Very breathless w/exertion = 5: 0 No limitations w/activity = 0, Very limited w/activity = 5: 2 Confident leaving home = 0, Not at all confident = 5: 1 Sleep soundly = 0, Don't sleep soundly = 5: 2 Lots of energy = 0, No energy at all = 5: 1 Total CAT score:: 14 Self-Efficacy Initial Assessment We would like to know how confident you are in doing certain activities. Please select your confidence level for:: Select your confidence level for the following using the scale 1-10 where 1 is not at all confident and 10 is totally confident. Your score is the average of all 6 responses. Fatigue: How confident are you that you can keep the fatigue caused by your disease from interfering with the things you want to do? Select Number: 3 Physical Discomfort or Pain: How confident are you that you can keep the physical discomfort or pain of your disease from interfering with the things you want to do? Select Number: 3 Emotional Distress: How confident are you that you can keep the emotional distress caused by your disease from interfering with the things you want to do? Select Number: 4 Other Symptoms or Health Problems: How confident are you that you can keep other symptoms or health problems from interfering with the things you want to do? Select Number: 3 Different Tasks and Activities: How confident are you that you can do the different tasks and activities needed to manage your health condition so as to reduce your need to see a doctor? Select Number: 1 Medication: How confident are you that you can do things other than just taking medication to reduce how much your illness affects your everyday life? Select Number: 2 Total Score:: 2 Nutrition Survey - Nutrition Survey Initial Have you lost >10 lbs over the past 2 months without trying?: No Are you following a special diet at home for diabetes, low fat, or low salt?: No Are you interested in meeting with a dietitian for help understanding your diet?: No Do you eat less than 3 meals a day?: No Do you eat fatty meats ([place], sausage, ribs, etc), fried foods, desserts, large amounts of salad dressings, margarine, butter, or cheese most days?: Yes Do you have food allergies? [Enter types in comment field]: No Do you eat in restaurants more than 3 times a week?: No Do you season food with salt, seasoning salt, or garlic salt?: Yes Do you used canned, boxed, frozen meals, or soups, seasoning packets?: No Total Score:: 2
--- NOTE | 2023-02-01 14:03 | PCM.PR.HP ---
History of Present Illness Arrival date:: 02/01/23 Arrival time:: 14:00 Date of Referral:: 01/04/23 Date of Evaluation: 02/01/23 Referring Physician: Dr. Jake Morales Primary Diagnosis: COPD Gold IV: Severe History of Present Illness: Patient is actively participating with the [facility] for lung transplant. He reports having some upcoming appointments scheduled for heart cath, Pulmonary Finction, Walk test and lab work. mMRC Breathless Scale: When is the patient short of breath? Y/N Grade: Description of Breathlessness: 0 I only get breathless with strenuous exercise. 1 I get short of breath when hurrying on level ground or walking up a slight hill. 2 On level ground, I walk slower than people of the same age because of breathless, or have to stop for breath when walking at my own pace. 3 I stop for breath after walking 100 yards or after a few minutes on level ground. 4 I am too breathless to leave the house or I am breathless when dressing. - Secretions A.T.C.: Yes Hx of Sleep Apnea: No Do you snore loudly (louder than talking or can be heard through closed doors)?: Yes Do you often feel tired/ fatigued/ sleepy during daytime?: Yes Has anyone observed you stop breathing during sleep?: No History of Hypertension (for STOP score): Yes - fatigue related more to the pulmonary disease than sleep STOP Results: Positive Home Medications: Home Medications Pirfenidone [Esbriet] 3 tab PO TID lungs 03/12/20 albuterol sulfate 90 mcg/actuation aerosol inhaler 2 puff inhalation Q4H PRN shortness of breath or wheezing #8.5 grams 09/02/21 omeprazole 40 mg capsule,delayed release 40 mg PO DAILY indigestion 11/14/22 prednisone 10 mg tablet 10 mg PO DAILY #30 tabs 11/17/22 albuterol sulfate 90 mcg/actuation aerosol inhaler 2 puff inhalation Q4H PRN shortness of breath or wheezing #8.5 grams 11/23/22 umeclidinium 62.5 mcg-vilanterol 25 mcg/actuation powdr for inhalation (Anoro Ellipta) 1 inh inhalation Q24H #60 ea 11/23/22 Allergies/Adverse Reactions: Allergies No Known Allergies Allergy (Verified 11/23/22 07:32) Medical Utilization Do you use a peak flow meter at home?: No Do you use a spacer device with your inhalers?: No Number of hospital visits in the last year?: 2 - Respiratory Failure Number of emergency room visits in the last year?: 2 Do you see your physician on a regular schedule?: Yes How often?: PCP 6 months, Pulmonary 3 - 6 months Advanced Directives - Advanced Directives Power of Stunner Animal: No Living Will: No Advance Directives Information Provided: Yes Advance Directives on File: No DNR Order?:: No - MOLST See MOLST form: No Past Medical History - Covid-19 Screening Fever: No Unexplained muscle aches: No Current respiratory symptoms: No Upper respiratory infections symptoms: No Gastro-intestinal symptoms: Yes - Hx of GERD Fsh-Uyth-Phhizn symptoms: No Has tested positive for COVID-19 in last 30 days: No Date of testin02/01/23 - fully vaccinated with 1 booster Had contact w/person w/symptoms or Covid-19 (+) last 14 days: No Has High Risk Exposures ID'd by Health dept/Inf Control team: No 65 years or older:: No Lives in Assisted Living facility:: No Has a chronic lung disease or moderate to severe asthma:: Yes Has a serious heart condition:: No Immunocompromised:: No Severely obese (Body Mass Index of 40 or higher):: No Diabetic:: No Has chronic kidney disease undergoing dialysis:: No Has liver disease:: No Medical History: Past Medical History (Last Reviewed 11/15/22 @ 11:[address] Simone Martinez MD) 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 R05, T46.4X5A Acute and chronic respiratory failure J96.20 Acute exacerbation of idiopathic pulmonary fibrosis J84.112 Allergic rhinitis J30.9 Blind right eye H54.40 GERD (gastroesophageal reflux disease) K21.9 HTN (hypertension) I10 ILD (interstitial lung disease) J84.9 Influenza A J10.1 Mononucleosis B27.90 Nicotine dependence, cigarettes, in remission F17.211 Obesity E66.9 Pulmonary fibrosis J84.10 Restrictive airway disease J98.4 Therapeutic drug monitoring Z51.81 Umbilical hernia K42.9 Surgical History: Past Surgical History (Last Reviewed 11/15/22 @ 11:[address] Simone Martinez MD) No pertinent past surgical history Z78.9 Family History: Family History (Last Reviewed 11/15/22 @ 11:[address] Simone Martniez MD) Mother Hypertension Father Hypertension CVA (cerebral vascular accident) Social History - Smoking History Smoking Status: Former smoker Years Smokin Hx Smoking Cessation Date: 04/24/90 Hx Tobacco Use: Yes Hx Smoking Exposure: Yes - Alcohol Use Alcohol Usage: No - Substance Abuse Hx Substance Use: No - Occupation Occupation (List type of work in comments):: Unemployed - working on disability - Hobbies, Recreation, Social Activities Hobbies: Other - [employer] Recreational Activities: I am able to engage in most, but not all activities Functioning ADL/IADL - Current Ability Current Ability: Independent Self-Care (e.g.,grooming, dressing, & bathing), Independent Ambulation, Independent Transfer, Independent Household tasks (e.g., light meal prep, laundry, shopping) - Pt Functioning Prior to Problem Prior Functioning: Self-Care (e.g.,grooming, dressing, & bathing): Independent, Ambulation: Independent, Transfer: Independent, Household tasks (e.g., light meal prep, laundry, shopping): Independent Social Environment - Status Marital Status: - Current Living Arrangements Living Environment:: Spouse - Children How many children do you have?: 2 Do any of your children live nearby?: Yes - [place] - Safety Do you feel safe in your surroundings?: Yes - Assistance Do you need any assistance at home?: no Review of Systems Review of Systems: Right click = Denies (Slash). Left click = Reports ([place]) Respiratory: Reports: Cough, SOB upon Exertion, Sputum production - usually is clear if doser have a prodiuctive cough,, Wheezing, Appetite, Normal, Dizziness/Lightheadedness - if he has a really bad coughing attack and gets out of breath, Fatigue, Sexual changes, Sleep, Normal. Denies: SOB at Rest Is Patient Pain Free?: Yes Pain Location: none Pain Level: 0/10 Risk Factor Assessment - Vital Signs Temperature: 97.3 F Pulse Rate: 18 Pulse Rhythm: Regular Pulse Ox: 95 Blood Pressure: 136/87 - Diabetes Nutrition Referral for Diabetes: No - Obesity Height: 5 ft 7 in Weight:: 174 lb Weight in Pounds: 174.0 lbs Weight Source: Estimated by Patient Body Mass Index (BMI): 27.2 Nutritional Referral for Obesity: No - Physical Activity Physical Inactivity: None - physically active as much as possible; when gets short of breath he rests. - Risk Stratification Risk Guidelines: Lowest Risk: Risk Factor for Dyslipidemia, Risk Factor for Diabetes, Risk Factor for Obesity, Risk Factor for Sedentary Lifestyle - depends on the day, Moderate Risk: Risk Factor for Hypertension - 136/87 > recommended 130/80, Risk Factor for Sedentary Lifestyle Motivation - Motivation to Participate On a scale of 1 to 10, how prepared are you to commit to attending program?: 10 What do you see as barriers to successfully being able to complete the program?: none What do you see as the benefits of succesfully completing the program? In other words, what do you hope to get out of participating in the program?: get moving; help w/breathing, doing more Are there issues you are dealing with that will interfere with completing the program?: none Do you have a spouse or signficant other, family or friends who will help support you to complete the program?: Yes Diagnostic Data Review - Pulmonary Function Test FEV1:: 0.69 - 21% predicted FVC:: 1.61 - 37% predicted FEV1/FVC%:: 43 Gold Classification: Gold class IV(very severe COPD)with FEV1/FVC <70, FEV1 <30% predicted
[2023-02-01 14:36] VITALS: BP 136/87; PULSE 18; TEMP 36.3; O2SAT 95; BMI 27.2
[2023-02-01 15:27] VITALS: BP 136/87; O2SAT 95; BMI 27.2
== END | disposition home or self-care (01) ==
LOC: PR 13:43
PROVIDERS: PCP Family Medicine; Referring Provider Internal Medicine Critical Care Medicine; Visit Provider Internal Medicine Critical Care Medicine
DX: J44.9 Chronic obstructive pulmonary disease, unspecified (principal); J96.20 Acute and chronic respiratory failure, unspecified whether with hypoxia or hypercapnia; J84.112 Idiopathic pulmonary fibrosis; J84.10 Pulmonary fibrosis, unspecified; R53.83 Other fatigue; I10 Essential (primary) hypertension; K21.9 Gastro-esophageal reflux disease without esophagitis; Z79.899 Other long term (current) drug therapy; R05.8 Other specified cough; T46.4X5A Adverse effect of angiotensin-converting-enzyme inhibitors, initial encounter; H54.40 Blindness, one eye, unspecified eye; B27.90 Infectious mononucleosis, unspecified without complication; E66.9 Obesity, unspecified; J98.4 Other disorders of lung; Z51.81 Encounter for therapeutic drug level monitoring; K42.9 Umbilical hernia without obstruction or gangrene; Z87.891 Personal history of nicotine dependence; Z68.27 Body mass index [BMI] 27.0-27.9, adult

== ENCOUNTER 2023-02-24 10:15 | Outpatient (RCR) | payer OTHER, SELFPAY | END 2023-02-24 23:59 | LOC: PR 10:15 | PROVIDERS: PCP Family Medicine; Visit Provider Internal Medicine Critical Care Medicine | DX: R94.2 Abnormal results of pulmonary function studies (principal); J44.9 Chronic obstructive pulmonary disease, unspecified | CPT/HCPCS: 97150; 94626 ==

== ENCOUNTER → 2023-03-16 | Outpatient (CLI) | payer OTHER, SELFPAY ==
[2023-03-03 08:24] VITALS: BMI 25.9
[2023-03-16 11:55] LABS: AST(SGOT) 18 U/L (15-37); Alanine Aminotransfer ALT/SGPT 18 U/L (16-61); Alkaline Phosphatase 80 U/L (45-117); Bilirubin, Direct 0.18 mg/dL (0.00-0.30); Globulin 4.2 g/dL (2.2-4.2); Protein, Total 8.2 g/dL (6.4-8.2)
== END | disposition home or self-care (01) ==
LOC: PAVLAB 11:30
PROVIDERS: PCP Family Medicine; Referring Provider Internal Medicine Critical Care Medicine; Visit Provider Internal Medicine Critical Care Medicine
DX: R94.2 Abnormal results of pulmonary function studies (principal); J96.11 Chronic respiratory failure with hypoxia
CPT/HCPCS: 36415; 80076

== ENCOUNTER 2023-03-26 10:15 | Outpatient (RCR) | payer OTHER, SELFPAY ==
--- NOTE | 2023-03-03 08:18 | PCM.PR.TP ---
Exercise - 30-Day Assessment - Visit Date of Eval: 03/03/23 Session Number:: 5 - Physician Prescribed Exercise Modalities: Treadmill, Biodyne, SciFit Intensity: 60-80% of age predicted maximum heart rate reserve Aerobic Exercise [30-60 min 3-7x/week]:: Progressing Current METSs:: 3.0 Target HR:: 123 - THRR 98-123 Current RPD:: 2-3 Maximum Exercise HR:: 115 Resting Blood Pressure: 122/90 Maximum Exercise Blood Pressure: 140/86 Minimum SpO2 with exercise: 91 EKG Type: NSR to sinus tach w/ rare PAC and PVC - Home Exercise Home Exercise:: Yes Mode: Walking Nutrition/Wt Mgmt - 30-Day - Visit Date of Eval: 03/03/23 Session Number:: 5 - Weight Management Weight Assessment:: BMI 21 to 25 Height: 5 ft 7 in Weight:: 166 lb BMI: 25.9 Weight Goals Progress:: Progressing Psychosocial - 30-Day - Visit Date of Eval: 03/03/23 Session Number:: 5 - Psychosocial Test Tool Used:: PHQ-9 Questionnaire Referred to MD for counseling:: No - Referral to Behavioral Health PS - Interventions: Yes Attend Stress Management Classes, No Referral to Behavioral Health if PHQ-9 score >9:, No Referral to [facility], No Referral to Physician if PHQ-9 if score is 5-9: - Plan Interventions/Plan:: Assess stressors,coping strategies & signs of derpression on admission, Instruct/assist pt to develop coping & personal stress Mgt strategies, Instruct patient to recognize signs & symptoms of depression, Instruct patient to recog Oxygen & Oxygen Titration 30D - Visit Date of Eval: 03/03/23 Session Number:: 5 - Reassessment Reassessment- 30 Days: Demonstrate knowledge of O2 Rx at rest & w/exercise, Using O2 as Rx'd, Has home O2 as Rx'd, Uses port O2 as Rx'd Breath Sounds:: Diminished, Insp. & Exp. Wheezing SpO2:: 95 - 2 liters Core Components - Initial Core Components - 30 DAYS - Visit Date of Eval: 03/03/23 Session Number:: 5 - Hypertension Hypertension Diagnosis:: Hypertension ICD-10 I10 Resting Blood Pressure:: 120/90 [employer] Hypertension Guidelines: [employer] Hypertension Guidelines. Normal BP Less than 120/80. Elevated BP 120/80. Hypertension Stage 1: BP 130-139/80-89. Hypertesnion Stage 2: BP 140 or higher/90 or higher. Hypertension Crisis: BP higher than 180/120 Peak Exercise Blood Pressure:: 146/100 Change in medication: No Outcomes/Goals: Able to verbalize/achieve optimal blood pressure <130/80, Incorporates diet changes & exercise for blood pressure control by DC Interventions/plan: Instruct on optimal blood pressure, hypertension & medications, Instruct on effects of sodium, alcohol, stress, exercise &hypertension 30 day Reassessments:: Progressing - Exacerbation Mgmt & Airway Clearance Reassessment: Demonstrates knowledge of O2 Rx at rest, Demonstrates knowledge of O2 Rx with exercise, Using O2 as prescribed, Has home O2 as prescribed, Uses port O2 as prescribed Bronchial Hygiene Plan: Yes Pt demo correct for improved hydration, Yes Pt demo correct for hand hygiene - Medication Medication list reviewed:: Yes Taking medications 100% of the time:: Met Medication reassessment: Yes Pt demonstrates correct technique timing for MDI, Yes Pt demonstrates correct technique timing for DPI, Yes Pt demonstrates correct technique timing for NEB, Yes Pt demonstrates correct technique timing for spacer - Diabetes Diabetes:: No - Heart Failure Documenting weight gregorio: No Core Components - 60 DAYS Core Components - 90 DAYS Core Components - Final Patient Health Questionnaire 30-Day Re-eval Assessment 1. Little interest or pleasure in doing things: Several days 2. Feeling down, depressed, or hopeless: Not at all 3. Trouble falling or staying asleep, or sleeping too much: Several days 4. Feeling tired or having little energy: Several days 5. Poor appetite or overeating: Several days 6. Feeling bad about yourself -- or that you are a failure or have let yourself or your family down: Not at all 7. Trouble concentrating on things, such as reading the newspaper or watching television: Not at all 8. Moving or speaking so slowly that other people could have noticed. Or the opposite - being so fidgety or restless that you have been moving around a lot more than usual: Not at all 9. Thoughts that you would be better off , or of hurting yourself in some way: Not at all How difficult have these problems made it for you to do your work, take care of things at home, or get along with other people?: Somewhat difficult Total Score: 4 Knowledge Questionaire (BCKQ) - Information Information: [place] COPD Knowledge Questionnaire (BCKQ) This questionnaire is designed to find out what you know about your lung problem. It should be completed without help form anyone else. This usually takes between 10 and 20 minutes. Your answers will help us to find out what information you need to help you to understand and manage your lung condition. Davey the [place] which you think is the correct answer. Self-Efficacy 30-Day Re-eval Assessment We would like to know how confident you are in doing certain activities. Please select your confidence level for:: Select your confidence level for the following using the scale 1-10 where 1 is not at all confident and 10 is totally confident. Your score is the average of all 6 responses. Fatigue: How confident are you that you can keep the fatigue caused by your disease from interfering with the things you want to do? Select Number: 4 Physical Discomfort or Pain: How confident are you that you can keep the physical discomfort or pain of your disease from interfering with the things you want to do? Select Number: 4 Emotional Distress: How confident are you that you can keep the emotional distress caused by your disease from interfering with the things you want to do? Select Number: 5 Other Symptoms or Health Problems: How confident are you that you can keep other symptoms or health problems from interfering with the things you want to do? Select Number: 4 Different Tasks and Activities: How confident are you that you can do the different tasks and activities needed to manage your health condition so as to reduce your need to see a doctor? Select Number: 3 Medication: How confident are you that you can do things other than just taking medication to reduce how much your illness affects your everyday life? Select Number: 3 Total Score:: 3 Nutrition Survey
[2023-03-03 08:24] VITALS: BP 120/90; BP 122/90; BP 146/100; O2SAT 95; BMI 25.9
== END 2023-03-26 23:59 ==
LOC: PR 10:15
PROVIDERS: PCP Family Medicine; Referring Provider Internal Medicine Critical Care Medicine; Visit Provider Internal Medicine Critical Care Medicine
DX: J44.9 Chronic obstructive pulmonary disease, unspecified (principal)
CPT/HCPCS: 97150; 94626

== ENCOUNTER 2023-04-26 10:15 | Outpatient (RCR) | payer OTHER, SELFPAY ==
[2023-03-03 08:24] VITALS: BMI 25.9
[2023-03-27 01:30] VITALS: BP 120/90; BP 122/90; BP 146/100
== END 2023-04-26 23:59 ==
LOC: PR 10:15
PROVIDERS: PCP Family Medicine; Referring Provider Internal Medicine Critical Care Medicine; Visit Provider Internal Medicine Critical Care Medicine
DX: J44.9 Chronic obstructive pulmonary disease, unspecified (principal)
CPT/HCPCS: 97150; 94626

== ENCOUNTER 2023-05-12 10:30 | Outpatient (RCR) | payer OTHER, SELFPAY ==
[2023-03-03 08:24] VITALS: BMI 25.9
[2023-04-27 00:20] VITALS: BP 120/90; BP 122/90; BP 146/100
--- NOTE | 2023-05-03 08:32 | PCM.CR.ITP ---
Psychosocial - Initial Assess Target Goals Target Goals Nutrition Survey Nutrition Survey Instructions Scoring Instructions Exercise - 90-day Assessment Visit Date of Eval: 05/03/23 Session #:: 31 Physician Prescribed Exercise Modalities: Treadmill, Airdyne and NuStep Frequency: 3x/week for 12 weeks [36 sessions] Intensity: 60-80% of age predicted maximum heart rate reserve Duration: 30 - 45 minutes Current METSs:: 4.0 Target Heart Rate:: 98-123 Current RPE:: 12-14 Maximum Excercise HR:: 103 Psychosocial - 30-Day Assess Target Goals Target Goals Psychosocial - 60-Day Assess Target Goals Target Goals Psychosocial - 90-Day Assess Target Goals Target Goals Psychosocial - Final Assessmen Target Goals Target Goals
--- NOTE | 2023-05-03 08:34 | EX.OP.PR.TP ---
Exercise - Initial Assessment Visit Session Number:: 31 Physician Prescribed Exercise Current METSs:: 4.0 Target HR:: 123 (THRR 98-123) Current RPD:: 12-14 Maximum Exercise HR:: 103 Resting Blood Pressure: 118/74 Minimum SpO2 with exercise: 92 EKG Type: NSR to sinsu tach with rare PVCs, PACs Exercise - 30-Day Assessment Visit Session Number:: 31 Physician Prescribed Exercise Current METSs:: 4.0 Target HR:: 123 (THRR 98-123) Current RPD:: 12-14 Maximum Exercise HR:: 103 Resting Blood Pressure: 118/74 Minimum SpO2 with exercise: 92 EKG Type: NSR to sinsu tach with rare PVCs, PACs Exercise - 60-Day Assessment Visit Session Number:: 31 Physician Prescribed Exercise Target HR:: 123 (THRR 98-123) Current RPD:: 12-14 Maximum Exercise HR:: 103 Resting Blood Pressure: 118/74 Minimum SpO2 with exercise: 92 EKG Type: NSR to sinsu tach with rare PVCs, PACs Exercise - 90-Day Assessment Visit Date of Eval: 05/03/23 Session Number:: 31 Physician Prescribed Exercise Modalities: Treadmill, Airdyne and NuStep Intensity: 60-80% of age predicted maximum heart rate reserve Aerobic Exercise [30-60 min 3-7x/week]:: Progressing Fabiola-14 Current METSs:: 4.0 Target HR:: 123 (THRR 98-123) Current RPD:: 12-14 Maximum Exercise HR:: 103 Resting Blood Pressure: 118/74 Minimum SpO2 with exercise: 92 EKG Type: NSR to sinsu tach with rare PVCs, PACs Home Exercise Home Exercise?: Yes Mode: Walking Frequency:: daily Time (minutes):: 0 (Sitting < 3 hours) Exercise - Final Assessment Visit Session Number:: 31 Physician Prescribed Exercise Current METSs:: 4.0 Resting Blood Pressure: 118/74 Minimum SpO2 with exercise: 92 EKG Type: NSR to sinsu tach with rare PVCs, PACs Nutrition/Wt Mgmt - Initial Visit Date of Eval: 05/03/23 Session Number:: 31 Weight Management Admit Height:: 5 ft 7 in Admit Weight:: 161 lb Admit BMI:: 25.2 Nutrition/Wt Mgmt - 30-Day Visit Date of Eval: 05/03/23 Session Number:: 31 Weight Management Height: 5 ft 7 in Weight:: 161 lb BMI: 25.2 Nutrition/Wt Mgmt - 60-Day Visit Session Number:: 31 Weight Management Height: 5 ft 7 in Weight:: 161 lb BMI: 25.2 Weight Goals Progress:: Goal met Nutrition/Wt Mgmt - 90-Day Visit Date of Eval: 05/03/23 Session Number:: 31 Weight Management Height: 5 ft 7 in Weight:: 161 lb BMI: 25.2 Weight Goals Progress:: Goal met Nutrition/Wt Mgmt - Final Visit Session Number:: 31 Weight Management Height: 5 ft 7 in Weight:: 161 lb BMI: 25.2 Psychosocial - Initial Assess Visit Date of Eval: 05/03/23 Session Number:: 31 Problems/Goals History of Emotional Disorders: None Psychosocial Goals: 1. Patient is free from overwhelming symtoms of depression (or anxiety and 7. Improved Q.O.L. Psychosocial Test Tool Used:: PHQ-9 Questionnaire Referred to MD for counseling:: No Referral to Behavioral Health PS - Interventions: Yes: Attend Stress Management Classes and No: Referral to Behavioral Health if PHQ-9 score >9:, No: Referral to [facility] and No: Referral to Physician if PHQ-9 if score is 5-9: Intervention/Plan: See List Interventions/Plan:: Assess stressors,coping strategies & signs of derpression on admission, Instruct/assist pt to develop coping & personal stress Mgt strategies, Instruct patient to recognize signs & symptoms of depression and Instruct patient to recog Psychosocial - 30-Day Visit Date of Eval: 05/03/23 Session Number:: 31 Problems/Goals History of Emotional Disorders: None Psychosocial Goals: 1. Patient is free from overwhelming symtoms of depression (or anxiety and 7. Improved Q.O.L. Psychosocial Test Tool Used:: PHQ-9 Questionnaire Referred to MD for counseling:: No Referral to Behavioral Health PS - Interventions: Yes: Attend Stress Management Classes and No: Referral to Behavioral Health if PHQ-9 score >9:, No: Referral to [facility] and No: Referral to Physician if PHQ-9 if score is 5-9: Plan Interventions/Plan:: Assess stressors,coping strategies & signs of derpression on admission, Instruct/assist pt to develop coping & personal stress Mgt strategies, Instruct patient to recognize signs & symptoms of depression and Instruct patient to recog Psychosocial - 60-Day Visit Session Number:: 31 Problems/Goals History of Emotional Disorders: None Psychosocial Goals: 1. Patient is free from overwhelming symtoms of depression (or anxiety and 7. Improved Q.O.L. Psychosocial Test Tool Used:: PHQ-9 Questionnaire Referred to MD for counseling:: No Referral to Behavioral Health PS - Interventions: Yes: Attend Stress Management Classes and No: Referral to Behavioral Health if PHQ-9 score >9:, No: Referral to [facility] and No: Referral to Physician if PHQ-9 if score is 5-9: Plan Interventions/Plan:: Assess stressors,coping strategies & signs of derpression on admission, Instruct/assist pt to develop coping & personal stress Mgt strategies, Instruct patient to recognize signs & symptoms of depression and Instruct patient to recog Psychosocial - 90-Day Visit Date of Eval: 05/03/23 Session Number:: 31 Problems/Goals History of Emotional Disorders: None Psychosocial Goals: 1. Patient is free from overwhelming symtoms of depression (or anxiety and 7. Improved Q.O.L. Psychosocial Test Tool Used:: PHQ-9 Questionnaire Referred to MD for counseling:: No Referral to Behavioral Health PS - Interventions: Yes: Attend Stress Management Classes and No: Referral to Behavioral Health if PHQ-9 score >9:, No: Referral to [facility] and No: Referral to Physician if PHQ-9 if score is 5-9: Plan Interventions/Plan:: Assess stressors,coping strategies & signs of derpression on admission, Instruct/assist pt to develop coping & personal stress Mgt strategies, Instruct patient to recognize signs & symptoms of depression and Instruct patient to recog Psychosocial - Final Assess Visit Session Number:: 31 Problems/Goals History of Emotional Disorders: None Psychosocial Goals: 1. Patient is free from overwhelming symtoms of depression (or anxiety and 7. Improved Q.O.L. Psychosocial Test Tool Used:: PHQ-9 Questionnaire Referred to MD for counseling:: No Referral to Behavioral Health PS - Interventions: Yes: Attend Stress Management Classes and No: Referral to Behavioral Health if PHQ-9 score >9:, No: Referral to [facility] and No: Referral to Physician if PHQ-9 if score is 5-9: Plan Interventions/Plan:: Assess stressors,coping strategies & signs of derpression on admission, Instruct/assist pt to develop coping & personal stress Mgt strategies, Instruct patient to recognize signs & symptoms of depression and Instruct patient to recog Oxygen & Oxygen Titration Init Visit Date of Eval: 05/03/23 Session Number:: 31 Initial Assessment SpO2:: 92 Oxygen & Oxygen Titration 30D Visit Date of Eval: 05/03/23 Session Number:: 31 Reassessment Breath Sounds:: Diminished and Insp. & Exp. Wheezing (occasionally, not every day) SpO2:: 92 Oxygen & Oxygen Titration 60D Visit Date of Eval: 05/03/23 Session Number:: 31 Reassessment Breath Sounds:: Diminished and Insp. & Exp. Wheezing (occasionally, not every day) SpO2:: 92 Oxygen & Oxygen Titration 90D Visit Date of Eval: 05/03/23 Session Number:: 31 Reassessment Oxygen & Oxygen Titration 90 days: Continuous Home Use Breath Sounds:: Diminished and Insp. & Exp. Wheezing (occasionally, not every day) SpO2:: 92 Oxygen & Oxygen Titration YVONNE Visit Date of Eval: 05/03/23 Session Number:: 31 Reassessment Breath Sounds:: Diminished and Insp. & Exp. Wheezing (occasionally, not every day) SpO2:: 92 Core Components - Initial Visit Date of Eval: 05/03/23 Session Number:: 31 Hypertension Hypertension Diagnosis:: Hypertension ICD-10 I10 BP: 118/74 [place] [employer] Hypertension Guidelines Blood Pressure: 138/88 Outcomes/Goals: Able to verbalize/achieve optimal blood pressure <130/80 and Incorporates diet changes & exercise for blood pressure control by DC Tobacco - Initial Assessment Tobacco Program Goals Do you have family support?: Yes Tobacco Use: Non-smoker Diabetes Diabetes:: No Core Components - 30 DAYS Visit Date of Eval: 05/03/23 Session Number:: 31 Hypertension Hypertension Diagnosis:: Hypertension ICD-10 I10 Resting Blood Pressure:: 118/74 [place] [employer] Hypertension Guidelines Peak Exercise Blood Pressure:: 138/88 Outcomes/Goals: Able to verbalize/achieve optimal blood pressure <130/80 and Incorporates diet changes & exercise for blood pressure control by DC Interventions/plan: Instruct on optimal blood pressure, hypertension & medications and Instruct on effects of sodium, alcohol, stress, exercise &hypertension 30 day Reassessments:: Met Tobacco - 30-Day Tobacco Program Goals Do you have family support?: Yes Tobacco Use: Non-smoker Exacerbation Mgmt & Airway Clearance Bronchial Hygiene Plan: Yes: Pt demo correct for device (SMI, P-Flex), Yes: Pt demo correct for improved hydration, Yes: Pt demo correct for hand hygiene and Yes: Pt demo correct for verbalize when to call MD Medication Medication reassessment: Yes: Pt demonstrates correct technique timing for MDI, Yes: Pt demonstrates correct technique timing for DPI, Yes: Pt demonstrates correct technique timing for NEB and Yes: Pt demonstrates correct technique timing for spacer Diabetes Diabetes:: No Core Components - 60 DAYS Visit Session Number:: 31 Hypertension Hypertension Diagnosis:: Hypertension ICD-10 I10 Resting Blood Pressure:: 118/74 [place] [employer] Hypertension Guidelines Peak Exercise Blood Pressure:: 138/88 Outcomes/Goals: Able to verbalize/achieve optimal blood pressure <130/80 and Incorporates diet changes & exercise for blood pressure control by DC Interventions/plan: Instruct on optimal blood pressure, hypertension & medications and Instruct on effects of sodium, alcohol, stress, exercise &hypertension 60 day Reassessments:: Met Tobacco - 60-Day Tobacco Program Goals Do you have family support?: Yes Tobacco Use: Non-smoker Exacerbation Mgmt & Airway Clearance Bronchial Hygiene Plan: Yes: Pt demo correct for device (SMI, P-Flex), Yes: Pt demo correct for improved hydration, Yes: Pt demo correct for hand hygiene and Yes: Pt demo correct for verbalize when to call MD Medication Medication reassessment: Yes: Pt demonstrates correct technique timing for MDI, Yes: Pt demonstrates correct technique timing for DPI, Yes: Pt demonstrates correct technique timing for NEB and Yes: Pt demonstrates correct technique timing for spacer Diabetes Diabetes:: No Core Components - 90 DAYS Visit Date of Eval: 05/03/23 Session Number:: 31 Hypertension Hypertension Diagnosis:: Hypertension ICD-10 I10 Resting Blood Pressure:: 118/74 [place] [employer] Hypertension Guidelines Peak Exercise Blood Pressure:: 138/88 Outcomes/Goals: Able to verbalize/achieve optimal blood pressure <130/80 and Incorporates diet changes & exercise for blood pressure control by DC Interventions/plan: Instruct on optimal blood pressure, hypertension & medications and Instruct on effects of sodium, alcohol, stress, exercise &hypertension 90 day Reassessments:: Met Tobacco - 90-Day Tobacco Program Goals Do you have family support?: Yes Tobacco Use: Non-smoker Exacerbation Mgmt & Airway Clearance Reassessment: Demonstrates knowledge of O2 Rx at rest, Demonstrates knowledge of O2 Rx with exercise, Using O2 as prescribed, Has home O2 as prescribed and Uses port O2 as prescribed Bronchial Hygiene Plan: Yes: Pt demo correct for device (SMI, P-Flex), Yes: Pt demo correct for improved hydration, Yes: Pt demo correct for hand hygiene and Yes: Pt demo correct for verbalize when to call MD Medication Medication list reviewed:: Yes Taking medications 100% of the time:: Met Medication reassessment: Yes: Pt demonstrates correct technique timing for MDI, Yes: Pt demonstrates correct technique timing for DPI, Yes: Pt demonstrates correct technique timing for NEB and Yes: Pt demonstrates correct technique timing for spacer Diabetes Diabetes:: No Heart Failure Documenting weight daily: No Core Components - Final Visit Session Number:: 31 Hypertension Hypertension Diagnosis:: Hypertension ICD-10 I10 Resting Blood Pressure:: 118/74 [place] [employer] Hypertension Guidelines Peak Exercise Blood Pressure:: 138/88 Outcomes/Goals: Able to verbalize/achieve optimal blood pressure <130/80 and Incorporates diet changes & exercise for blood pressure control by DC Tobacco - Final Tobacco Program Goals Do you have family support?: Yes Tobacco Use: Non-smoker Exacerbation Mgmt & Airway Clearance Bronchial Hygiene Plan: Yes: Pt demo correct for device (SMI, P-Flex), Yes: Pt demo correct for improved hydration, Yes: Pt demo correct for hand hygiene and Yes: Pt demo correct for verbalize when to call MD Medication Medication reassessment: Yes: Pt demonstrates correct technique timing for MDI, Yes: Pt demonstrates correct technique timing for DPI, Yes: Pt demonstrates correct technique timing for NEB and Yes: Pt demonstrates correct technique timing for spacer Diabetes Diabetes:: No Patient Health Questionnaire PHQ-9 Screening 90-Day Re-eval Assessment: 1. Little interest or pleasure in doing things: Not at all 2. Feeling down, depressed, or hopeless: Not at all 3. Trouble falling or staying asleep, or sleeping too much: Several days 4. Feeling tired or having little energy: Several days 5. Poor appetite or overeating: Not at all 6. Feeling bad about yourself -- or that you are a failure or have let yourself or your family down: Not at all 7. Trouble concentrating on things, such as reading the newspaper or watching television: Not at all 8. Moving or speaking so slowly that other people could have noticed. Or the opposite - being so fidgety or restless that you have been moving around a lot more than usual: Not at all 9. Thoughts that you would be better off , or of hurting yourself in some way: Not at all How difficult have these problems made it for you to do your work, take care of things at home, or get along with other people?: Somewhat difficult Total Score: 2 Knowledge Questionaire (BCKQ) Information Information: [place] COPD Knowledge Questionnaire (BCKQ) This questionnaire is designed to find out what you know about your lung problem. It should be completed without help form anyone else. This usually takes between 10 and 20 minutes. Your answers will help us to find out what information you need to help you to understand and manage your lung condition. [employer] the enterprise which you think is the correct answer. Self-Efficacy 6-Item Scale 90-Day Re-eval Assessment: We would like to know how confident you are in doing certain activities. Please select your confidence level for: Fatigue Select Number: 6 Physical Discomfort or Pain Select Number: 6 Emotional Distress Select Number: 8 Other Symptoms or Health Problems Select Number: 7 Different Tasks and Activities Select Number: 7 Medication Select Number: 8 Total Score:: 7 Nutrition Survey Nutrition Survey Instructions Scoring Instructions
[2023-05-03 08:42] VITALS: BP 118/74; BP 138/88; O2SAT 92; BMI 25.2
== END 2023-05-27 23:59 ==
LOC: PR 10:30
PROVIDERS: PCP Family Medicine; Referring Provider Internal Medicine Critical Care Medicine; Visit Provider Internal Medicine Critical Care Medicine
DX: J44.9 Chronic obstructive pulmonary disease, unspecified (principal)
CPT/HCPCS: 97150; 94626

== ENCOUNTER 2024-03-17 14:48 | Observation (INO) | payer OTHER, SELFPAY ==
[2023-05-03 08:42] VITALS: BMI 25.2
[2024-03-17] VITALS (8 sets, daily range): BP systolic 120–138; BP diastolic 86–97; PULSE 83–90; RESP 18–37; TEMP 36–36.8; O2SAT 95–99; BMI 23.0; BMI 21.6
--- NOTE | 2024-03-17 15:07 | EKG12_ITS ---
Test Reason : SOB Blood Pressure : / mmHG Vent. Rate : 091 BPM Atrial Rate : 091 BPM P-R Int : 136 ms QRS Dur : 100 ms QT Int : 334 ms P-R-T Axes : 011 245 -02 degrees QTc Int : 410 ms Normal sinus rhythm Right ventricular hypertrophy with repolarization abnormality Possible Lateral infarct , age undetermined Abnormal ECG Confirmed by Pollo Bhatt ([id number]), news assignment editor DARIN NORIEGA ([id number]) on 03/21/2024 6:00:46 AM Referred By: SARAH/GRACIE Confirmed By:Pollo Bhatt
--- NOTE | 2024-03-17 15:09 | ED.VIS.DYS ---
HPI History of Present Illness Chief Complaint: Shortness of Breath Informant: patient and EMS Narrative Narrative: Presents by EMS worsening dyspnea 1:30 PM this afternoon. Normal typical cough. Pulmonary fibrosis 3 L chronically at home. She brought in on 4 L of oxygen. He had chest pains and route from EMS. This is currently resolved. Status post aerosol treatment x 2 and Solu-Medrol 125 mg by EMS. Currently symptoms are improving. No recent hospitalizations. Remote tobacco years ago. He is followed by pulmonary Dr. Morales. Denies nausea vomiting diarrhea. Denies urinary symptoms.Denies headache or myalgias. Denies fevers. Prior similar symptoms: Yes PFSH PFSH Medical History GERD (gastroesophageal reflux disease) ILD (interstitial lung disease) Acute exacerbation of idiopathic pulmonary fibrosis Acute and chronic respiratory failure Influenza A Nicotine dependence, cigarettes, in remission Restrictive airway disease Obesity Therapeutic drug monitoring Pulmonary fibrosis 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 HTN (hypertension) Umbilical hernia Mononucleosis Blind right eye Allergic rhinitis Home Medications ?Medication ?Instructions ?Recorded ?Last Taken ?Type albuterol sulfate 90 mcg/actuation 2 puff inhalation Q4H PRN 11/23/22 03/16/24 Rx aerosol inhaler shortness of breath or wheezing #8.5 grams albuterol sulfate 2.5 mg/3 mL 2.5 mg (3 mL) inhalation Q4H PRN 09/15/23 03/17/24 Rx (0.083 %) solution for nebulization Sob &/Or Wheezing #180 mL umeclidinium 62.5 mcg-vilanterol 1 inh inhalation Q24H #60 ea 10/25/23 03/17/24 Rx 25 mcg/actuation powdr for inhalation (Anoro Ellipta) atorvastatin 80 mg tablet 80 mg PO DAILY 03/17/24 03/17/24 History losartan 100 mg tablet 100 mg PO DAILY 03/17/24 03/17/24 History pirfenidone 267 mg tablet 801 mg PO TID 03/17/24 03/17/24 History Allergy/AdvReac Type Severity Reaction Status Date / Time No Known Allergies Allergy Verified 09/15/23 10:05 Family History Mother Hypertension Father Hypertension CVA (cerebral vascular accident) Surgical History No pertinent past surgical history Social History household members: spouse housing: house Smoking Status: Former smoker quit date: 04/24/90 pack-years: 15 alcohol intake: never substance use type: does not use ROS ROS ED Constitutional Constitutional ED: Denies chills, fever(s) or sweats Eyes Eyes: Denies change in vision ENT ENT ED: Denies dysphagia or sore throat Cardiovascular Cardiovascular: Reports chest pain; Denies leg edema, palpitations or racing heartbeat Respiratory/Chest Respiratory/Chest: Reports cough and dyspnea; Denies dyspnea on exertion Gastrointestinal Gastrointestinal: Denies abdominal pain, diarrhea, nausea or vomiting Genitourinary Genitourinary ED: Denies dysuria, hematuria or urinary frequency Musculoskeletal Musculoskeletal: Denies back pain, extremity pain or neck pain Integumentary Denies rash or wounds Neurologic Neurologic: Denies headache(s), paresthesias or weakness EXAM Physical Exam Const Vital Signs: 03/17/24 14:49 03/17/24 14:54 03/17/24 15:07 Temperature 97.6 F L Temperature Source Temporal Pulse Rate 90 Respiratory Rate 30 H Respiratory Effort Short of Breath Respiratory Depth Shallow Respiratory Pattern Tachypnea Blood Pressure 137/93 H Blood Pressure Mean 107 Pulse Ox 97 95 Oxygen Delivery Method Nasal Cannula Nasal Cannula Nasal Cannula Oxygen Flow Rate (L/min) 4 4 4 03/17/24 16:32 Temperature 98.2 F Temperature Source Pulse Rate 88 Respiratory Rate 24 H Respiratory Effort Respiratory Depth Respiratory Pattern Blood Pressure 137/93 H Blood Pressure Mean 107 Pulse Ox 97 Oxygen Delivery Method Oxygen Flow Rate (L/min) Positive well nourished and well developed Constitutional Narrative: 4 L nasal cannula speaking in slight short sentences however improving per patient. Nontoxic. General Appearance ED: well developed HEENT Reports moist mucous membranes normocephalic and atraumatic Eyes EOMs intact bilaterally and conjunctivae normal General Eye ED: Yes normal appearance of both eyes Neck no lymphadenopathy and supple General: Negative for tenderness Chest Wall Chest: Negative for tenderness Resp normal air movement Resp Narrative: Mild upper accessory muscle use chest region. Effort and Inspection: symmetric chest movement Cardio regular rate, regular rhythm and no murmurs Peripheral Pulses: pulses 2+ throughout GI normal to inspection, nondistended, normoactive bowel sounds and non-tender Palpation: Negative for guarding or rebound tenderness present Back/Spine no CVA tenderness and no thoracic nor lumbar tenderness Extremity normal to inspection General Extremety ED: Negative for edema or tenderness General Extremity: Negative for edema Neuro oriented x3 and no sensory deficits noted Sensorium / Orientation: awake and alert Skin no rashes or lesions noted and no wounds MDM MDM MDM Narrative Medical decision making narrative: Interventions / MDM: Differential diagnosis: Pulmonary fibrosis, COPD exacerbation Diagnosis considered but do not suspect: No clinical pneumonia symptoms My EKG interpretation: Sinus rate of 91, no ST changes T wave inversions anterior lateral leads along with flattening in leads II and inverted on leads III, these are all similar from EKG from October 2022. Imaging independently reviewed and interpreted by myself: 2 view chest x-ray: Interstitial lung disease, questionable bilateral infiltrates per radiology. External documents reviewed: N/A Test considered but not ordered:N/A ED course: EKG chronic changes had transient chest pains and route. Discussed 4 L of oxygen status post steroids. Labs and cardiac workup with his transient chest pain. Two-view chest x-ray ordered. VBG pH 7.53 pCO2 55, bicarb 31. Labs stable white count normal chest x-ray questionable bilateral infiltrates however clinically has no new changes cough from baseline. Monitor symptoms settle down respiratory rate settled down is on 4 L. He was tachypneic on presentation with mild behavioral geneticist muscle use. I discussed with hospitalist Dr. Clifford with his history presentation for admission for continued pulmonary toilet with steroids and monitoring for any worsening symptoms. Patient admitted to PCU. Re-evaluation: stable Disposition discussed with patient/family/significant other: Patient Case discussed with consulting clinician: Hospitalist This note was generated with [employer] dictation software. It may contain incorrect words, spelling, and punctuation that were not noted in checking the note before signing. Lab Data Attestation: I reviewed the patient's lab results. Labs: Laboratory Results - last 24 hr 03/17/24 15:08 WBC 6.8 RBC 5.00 Hgb 15.2 Hct 44.5 MCV 89.0 MCH 30.4 MCHC 34.2 RDW Std Deviation 43.8 RDW Coeff of Ravinder 13.5 Plt Count 187 MPV 8.8 Immature Gran % (Auto) 0.100 Neut % (Auto) 65.0 Lymph % (Auto) 24.9 Johnson % (Auto) 6.1 Eos % (Auto) 3.3 Baso % (Auto) 0.6 Absolute Neuts (auto) 4.4 Absolute Lymphs (auto) 1.68 Nucleated RBC % 0 Sodium 138 Potassium 2.8 L Chloride 103 Carbon Dioxide 29.0 Anion Gap 6 BUN 10 Creatinine 1.10 Estim Creat Clear Calc 69.27 Est GFR (MDRD) Af Amer 89 Est GFR (MDRD) Non-Af 73 BUN/Creatinine Ratio 9.1 L Glucose 153 H Calcium 8.8 Troponin I High Sens 16 ABG Data ABG results: ABG 03/17/24 15:19 Specimen Type CALIXTO Sample Site Not entered VBG pH 7.35 VBG pO2 28 VBG HCO3 31 H VBG Total CO2 33 VBG O2 Sat (Calc) 49 L VBG Base Excess 5 H POC Mix VBG pCO2 Pt Tmp 55.7 H O2 Delivery Device Not entered Radiography Diagnostic Testing: Clinical Impression(s) from Imaging Studies Chest X-Ray 03/17/24 15:15 IMPRESSION: Diffuse interstitial thickening/fibrotic changes especially in the lung bases. Possible patchy basilar infiltrates. Electronically Signed: Alvarado Lima DO at 16:20 EDT , Discharge Plan Dx/Rx/DC Orders Clinical Impression: Pulmonary fibrosis, Chronic hypoxemic respiratory failure, COPD exacerbation, Hypokalemia Disposition Disposition: Acute Care Hospital [facility] Discharge Date/Time: 03/17/24 17:12
--- NOTE | 2024-03-17 15:15 | RAD_ITS ---
INDICATION: sob EXAMINATION/TECHNIQUE: X-RAY - XR Chest 2 Views COMPARISON: November 14, 2022 FINDINGS: LINES/DEVICES: None. LUNGS: Diffuse interstitial thickening/fibrotic changes especially in the lung bases. Possible patchy basilar infiltrates. No pneumothorax. MEDIASTINUM AND CARDIOVASCULAR STRUCTURES: Cardiac silhouette not enlarged. Central airways and mediastinal contour are unremarkable. BONES AND SOFT TISSUES: Degenerative vertebral changes. RAD/Chest PA and Lateral IMPRESSION: Diffuse interstitial thickening/fibrotic changes especially in the lung bases. Possible patchy basilar infiltrates. Electronically Signed: Alvarado Lima DO at 16:20 EDT Reading Location ID and State: [facility] / [place] Tel [phone], Service support ,
[2024-03-17 15:19] LABS: Absolute Lymphocyte Count 1.68 X10^3/uL (0.83-4.51); Absolute Neutrophil Count 4.4 X10^3/uL (2.0-7.7); Basophil# 0.04 X10^3/uL; Basophil% 0.6 % (0-1); Eosinophil# 0.22 X10^3/uL; Eosinophils% 3.3 % (0-5); Hematocrit 44.5 % (40-54); Hemoglobin 15.2 g/dL (13.0-16.5); Lymphocyte # 1.68 X10^3/ul (0.83-4.51); Lymphocyte % 24.9 % (19-41); Mean Corp Hgb Conc 34.2 g/dL (32-36); Mean Corpuscular Hgb 30.4 pg (27.0-32.0); Mean Platelet Vol. 8.8 fl (6.2-12.0); Monocyte# 0.41 X10^3/uL; Monocyte% 6.1 % (0-10); NRBC Flagged by Analyzer 0 % (0-5); Neutrophil # 4.39 X10^3/uL (2.7-7.7); Platelet Count 187 K/mm3 (150-450); RBC Distribution Width CV 13.5 % (11.6-14.6); RBC Distribution Width SD 43.8 fl (35.1-43.9); White Blood Count 6.8 K/mm3 (4.4-11.0)
[2024-03-17 15:22] LABS: Blood Gas Specimen Type VEN; O2 Delivery Device Not entered; SITE Not entered; VBG BASE EXCESS 5 mmol/L (-1.0-3.5); VBG Bicarbonate 31 mmol/L (22-26); VBG PO2 28 mmHg (25-40); VBG SO2 49 % (50-70); VBG TCO2 33 mmol/L (23-33); VBG pCO2 55.7 mmHg (41-51); VBG pH 7.35 (7.32-7.42)
[2024-03-17 15:39] LABS: Anion Gap 6 (5-15); BUN 10 mg/dL (7-18); BUN/Creat Ratio 9.1 RATIO (10-20); Calcium,Total 8.8 mg/dL (8.5-10.1); Chloride 103 mmol/L (98-107); EST Glomerular Filtration Rate 73 mL/min (>60); Est Glom Filt Rate - Afr Amer 89 mL/min (>60); Estimated Creatinine Clearance 69.27 ml/min; Glucose 153 mg/dL (74-106); Potassium 2.8 mmol/L (3.5-5.1); Sodium Level 138 mmol/L (136-145); Troponin-I HS (w/2H Reflex) 16 pg/mL (3.0-78.0)
[2024-03-17] MEDS: Potassium Chloride Oral Tablet 20 MEQ 40 MEQ PO (15:55)
[2024-03-17 17:13] LABS: Reflex Troponin-HS? (from REC) Y
--- NOTE | 2024-03-17 17:32 | PCM.HP.STD ---
[facility] - General General Date of Admission: 03/17/24 Date of Service: 03/17/24 Chief Complaint: Sudden onset of shortness of breath this afternoon. HPI Narrative MARY KAY MIRELES, is a 58 M with history of diagnosis of pulmonary fibrosis/ILD came to ER with sudden onset of shortness of breath. Patient usually on 3 L of home oxygen 19/04. This afternoon he felt very short of breath, dyspnea at rest and had to work hard for breathing. Denies any chest pain or shortness of breath or any other new symptoms. Patient has chronic mostly dry cough but sometimes brings up mucus. Denies any fever or chills or recently came in contact with sick person. He lives with his who is healthy. He follows Dr. Jake Morales in our pulmonary clinic. EMS gave Solu-Medrol 125 mg. In ED patient is requiring 4 L of oxygen, tachypnea respiratory 30/min. Chest x-ray was done and individually reviewed and shows diffuse interstitial fibrotic changes, predominantly in lung bases. Bilateral atelectatic changes Social history: Patient is a ex-smoker quit smoking 30 years ago. Used to smoke a pack per day started at the age of 17. [facility] Medical History GERD (gastroesophageal reflux disease) ILD (interstitial lung disease) Acute exacerbation of idiopathic pulmonary fibrosis Acute and chronic respiratory failure Influenza A Nicotine dependence, cigarettes, in remission Restrictive airway disease Obesity Therapeutic drug monitoring Pulmonary fibrosis 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 HTN (hypertension) Umbilical hernia Mononucleosis Blind right eye Allergic rhinitis Home Medications ?Medication ?Instructions ?Recorded ?Last Taken ?Type albuterol sulfate 90 mcg/actuation 2 puff inhalation Q4H PRN 11/23/22 03/16/24 Rx aerosol inhaler shortness of breath or wheezing #8.5 grams albuterol sulfate 2.5 mg/3 mL 2.5 mg (3 mL) inhalation Q4H PRN 09/15/23 03/17/24 Rx (0.083 %) solution for nebulization Sob &/Or Wheezing #180 mL umeclidinium 62.5 mcg-vilanterol 1 inh inhalation Q24H #60 ea 10/25/23 03/17/24 Rx 25 mcg/actuation powdr for inhalation (Anoro Ellipta) atorvastatin 80 mg tablet 80 mg PO DAILY 03/17/24 03/17/24 History losartan 100 mg tablet 100 mg PO DAILY 03/17/24 03/17/24 History pirfenidone 267 mg tablet 801 mg PO TID 03/17/24 03/17/24 History Allergy/AdvReac Type Severity Reaction Status Date / Time No Known Allergies Allergy Verified 09/15/23 10:05 Family History Mother Hypertension Father Hypertension CVA (cerebral vascular accident) Surgical History No pertinent past surgical history Social History household members: spouse housing: house Smoking Status: Former smoker quit date: 04/24/90 pack-years: 15 alcohol intake: never substance use type: does not use ROS ROS Narrative Constitutional: Reports acute onset of fatigue and weakness. No fever. Thin build. HEENT: Reports systems reviewed and no addt'l complaints, except as documented Respiratory/Chest: As described in HPI CVS: No chest pain or pressure. Denies history of heart disease. Gastrointestinal: No nausea, no abdominal pain. Denies coffee ground emesis, hematemesis or vomiting Genitourinary: Denies burning urination or new urinary tract symptoms Musculoskeletal: Denies acute joint pain or limited range of motion. No acute injury Neurologic: Denies seizure-like symptoms. skin: No ulcer. No rash Endocrinology: Reports systems reviewed and no addt'l complaints, except as documented Hematologic/Lymphatic: Reports systems reviewed and no addt'l complaints, except as documented Rest 14 ROS are negative except as mentioned in HPI Vital Signs Vital Signs Vital Signs: 03/17/24 14:49 03/17/24 14:54 03/17/24 15:07 Temperature 97.6 F L Temperature Source Temporal Pulse Rate 90 Respiratory Rate 30 H Respiratory Effort Short of Breath Respiratory Depth Shallow Respiratory Pattern Tachypnea Blood Pressure 137/93 H Blood Pressure Mean 107 Pulse Ox 97 95 Oxygen Delivery Method Nasal Cannula Nasal Cannula Nasal Cannula Oxygen Flow Rate (L/min) 4 4 4 03/17/24 16:32 03/17/24 16:48 Temperature 98.2 F Temperature Source Pulse Rate 88 87 Respiratory Rate 24 H 37 H Respiratory Effort Respiratory Depth Respiratory Pattern Blood Pressure 137/93 H 120/95 H Blood Pressure Mean 107 103 Pulse Ox 97 95 Oxygen Delivery Method Nasal Cannula Oxygen Flow Rate (L/min) 3 Weight Weight: 138 lb 0.15 oz Body Mass Index (BMI) 21.6 Physical Exam Narrative General: Alert, Oriented x3, Cooperative HEENT: Atraumatic, PERRLA, EOMI, Normocephalic Oral: Oral mucosa dry no Gingival or Mucosal Lesions/ Ulcerations Neck: Supple, No JVD, Negative Carotid Bruits Chest wall/Lungs: Air entry severely diminished in all lung serrano predominantly lung bases. Dyspnea at rest. Bilateral inspiratory fine rales. Cardiovascular: Regular rate, Regular Rhythm, Normal S1, Normal S2, No M/G/R Abdomen: Bowel Sounds Present, Soft, Non Tender, Non-Distended : No dysuria. No renal angle tenderness. No suprapubic tenderness. Extremities: No edema, Capillary Refill Less than 3 Seconds Skin: No rashes, No breakdown Musculoskeletal: No Tenderness to Palpation of Joints or Extremities. Moderate decrease in muscle bulk lower extremities. ROM intact. Neurological: Cranial nerves II-XII grossly intact, DTR 2+/4. No acute focal neurological deficit. Psych/Mental Status: Normal Affect, Appropriate. Results Lab / Micro Data 03/17/24 15:08 03/17/24 15:08 Labs: Laboratory Results - last 24 hr 03/17/24 15:08: WBC 6.8, RBC 5.00, Hgb 15.2, Hct 44.5, MCV 89.0, MCH 30.4, MCHC 34.2, RDW Std Deviation 43.8, RDW Coeff of Ravinder 13.5, Plt Count 187, MPV 8.8, Immature Gran % (Auto) 0.100, Neut % (Auto) 65.0, Lymph % (Auto) 24.9, [place] % (Auto) 6.1, Eos % (Auto) 3.3, Baso % (Auto) 0.6, Absolute Neuts (auto) 4.4, Absolute Lymphs (auto) 1.68, Nucleated RBC % 0, Sodium 138, Potassium 2.8 L, Chloride 103, Carbon Dioxide 29.0, Anion Gap 6, BUN 10, Creatinine 1.10, Estim Creat Clear Calc 69.27, Est GFR (MDRD) Af Amer 89, Est GFR (MDRD) Non-Af 73, BUN/Creatinine Ratio 9.1 L, Glucose 153 H, Calcium 8.8, Troponin I High Sens 16 ABG Data ABG results: ABG 03/17/24 15:19 Specimen Type CALIXTO Sample Site Not entered VBG pH 7.35 VBG pO2 28 VBG HCO3 31 H VBG Total CO2 33 VBG O2 Sat (Calc) 49 L VBG Base Excess 5 H POC Mix VBG pCO2 Pt Tmp 55.7 H O2 Delivery Device Not entered Imaging Radiology Impression Chest X-Ray 03/17/24 15:15 IMPRESSION: Diffuse interstitial thickening/fibrotic changes especially in the lung bases. Possible patchy basilar infiltrates. Electronically Signed: Alvarado Lima DO at 16:20 EDT , Assessment & Plan Assessment/Plan (1) Pulmonary fibrosis: (2) Chronic hypoxemic respiratory failure: PLAN: Plan This is a 58-year-old gentleman with history of diagnosed pulmonary fibrosis, possible IPF is being admitted for acute exacerbation of shortness of breath with tachypnea and mild hypoxia more than his baseline. 1. Acute exacerbation of IPF/ILD: Patient is still short of breath with mild tachypnea. VBG done in ED shows pH 3.75, mixed total CO2 33 bicarb 31. Patient currently on 4 L of oxygen. On IV Solu-Medrol 40 mg every 8 hourly. DuoNeb as needed. Oxygen therapy and BiPAP as needed at night and during naps. Patient on pirfenidone at home. Symptomatic Mucinex, incentive spirometry and PEP Clinically and chest x-ray not suggestive of acute pneumonia. 2. Chronic hypoxic respiratory failure: Patient on 3 L of home oxygen 19/04 but currently on 4 L of oxygen. Does not meet the criteria for acute hypoxic respiratory failure. Patient was seen in pulmonary office in August 2023 by Hedy Perkins. 3. Hypertension: Blood pressure is controlled. Patient on losartan 100 mg daily continued. 4. History of GERD: Patient not on PPI at home. Symptoms are controlled 5. Dyslipidemia: Atorvastatin milligrams daily continued. 6. DVT prophylaxis-itis: Lovenox 40 Mg subcu daily. 7. Hyperglycemia, unclear possible due to Solu-Medrol given EMS. Accu-Cheks every 6 hourly encouragement of sliding scale while patient is on Solu-Medrol. A1c tomorrow AM Living will/advanced directive/end of life care: Patient does not have living will or advanced directive. After discussion of benefits/risks procedures involved with full code, DNR CC arrest and DNR CC in view of his diagnosis of IPF that ventilator is only not recommended unless patient is going for lung transplant or is on the transplant list as ventilator has not been found helpful or survival benefit, he is send on ventilator initially but he is not very sure. But patient wanted CPR/chest compression, BiPAP, CBC, vasopressor and DC shock if needed. Patient does want artificial life support including intubation, tube feed, ventilator and/chest compression, central venous catheter, vasopressor and DC shock if needed. Therefore full code for now Total time spent in [id number] encounter in discussion of advanced directive 17 minutes. Laboratory Results 03/17/24 15:08: WBC 6.8, RBC 5.00, Hgb 15.2, Hct 44.5, MCV 89.0, MCH 30.4, MCHC 34.2, RDW Std Deviation 43.8, RDW Coeff of Ravinder 13.5, Plt Count 187, MPV 8.8, Immature Gran % (Auto) 0.100, Neut % (Auto) 65.0, Lymph % (Auto) 24.9, [place] % (Auto) 6.1, Eos % (Auto) 3.3, Baso % (Auto) 0.6, Absolute Neuts (auto) 4.4, Absolute Lymphs (auto) 1.68, Nucleated RBC % 0, Sodium 138, Potassium 2.8 L, Chloride 103, Carbon Dioxide 29.0, Anion Gap 6, BUN 10, Creatinine 1.10, Estim Creat Clear Calc 69.27, Est GFR (MDRD) Af Amer 89, Est GFR (MDRD) Non-Af 73, BUN/Creatinine Ratio 9.1 L, Glucose 153 H, Calcium 8.8, Troponin I High Sens 16 03/17/24 15:19: Specimen Type CALIXTO, Sample Site Not entered, VBG pH 7.35, VBG pO2 28, VBG HCO3 31 H, VBG Total CO2 33, VBG O2 Sat (Calc) 49 L, VBG Base Excess 5 H, POC Mix VBG pCO2 Pt Tmp 55.7 H, O2 Delivery Device Not entered Charges/Coding Visit Charges Inpatient E&M: 07623 Init Hosp L3 Procedures Hospitalists Procedures: 20292 Advncd Care Plan 30 Min
[2024-03-17 17:56] LABS: Magnesium 2.1 mg/dL (1.6-2.6); Phosphorus 1.2 mg/dL (2.5-4.9)
[2024-03-17 17:58] LABS: Troponin-I HS 18 pg/mL (3.0-78.0)
[2024-03-17] MEDS: 0.9% Normal Saline (1000mL) 1,000 ML 75 ML IV (18:06)
[2024-03-17] MEDS: 0.9% Saline Lock 10 ML Syringe IV (18:06)
[2024-03-17] MEDS: Enoxaparin 40 MG/0.4 ML Syringe SC (18:38)
[2024-03-17] MEDS: Ipratropium/Albuterol Sulfate 3 ML AMPUL.NEB INHALATION (20:16)
[2024-03-17] MEDS: Insulin Lispro 100 UNIT/ML INSULN.PEN SC (21:32)
[2024-03-17] MEDS: guaiFENesin 1,200 MG Tablet 1200 MG PO (21:33)
--- NOTE | 2024-03-17 22:00 | CPS ---
The BIPAP order for this patient is for rescue situations should they arise. The patient does not want to wear one at this time, but is aware what it is for if he feels he needs it. He does not wear one at home and there is not one at the patient's bedside at this time.
[2024-03-17 22:42] LABS: Bedside Glucose 254 mg/dL (74-106)
[2024-03-18 00:17] VITALS: BP 117/81; PULSE 81; RESP 24; TEMP 36.6; O2SAT 98
[2024-03-18 06:00] VITALS: BMI 21.4
[2024-03-18 06:17] VITALS: BP 117/81; PULSE 70; RESP 18; TEMP 36; O2SAT 96
[2024-03-18 06:54] LABS: Bedside Glucose 142 mg/dL (74-106)
[2024-03-18 07:11] LABS: Absolute Lymphocyte Count 0.56 X10^3/uL (0.83-4.51); Absolute Neutrophil Count 5.1 X10^3/uL (2.0-7.7); Hematocrit 41.8 % (40-54); Hemoglobin 14.4 g/dL (13.0-16.5); Lymphocyte # 0.56 X10^3/ul (0.83-4.51); Lymphocyte % 9.6 % (19-41); Mean Corp Hgb Conc 34.4 g/dL (32-36); Mean Corpuscular Hgb 30.8 pg (27.0-32.0); Mean Corpuscular Volume 89.5 fL (80-94); Mean Platelet Vol. 8.7 fl (6.2-12.0); Monocyte% 1.7 % (0-10); NRBC Flagged by Analyzer 0 % (0-5); Neutrophil # 5.13 X10^3/uL (2.7-7.7); POSITIVE DIFFERENTIAL YES; Platelet Count 200 K/mm3 (150-450); RBC Distribution Width CV 13.3 % (11.6-14.6); RBC Distribution Width SD 43.6 fl (35.1-43.9); Red Blood Count 4.67 M/mm3 (4.6-6.2); White Blood Count 5.8 K/mm3 (4.4-11.0)
[2024-03-18 07:33] LABS: Anion Gap 6 (5-15); BUN 16 mg/dL (7-18); BUN/Creat Ratio 16.1 RATIO (10-20); Chloride 106 mmol/L (98-107); Creatinine, Serum 0.99 mg/dL (0.70-1.30); EST Glomerular Filtration Rate 83 mL/min (>60); Est Glom Filt Rate - Afr Amer 100 mL/min (>60); Estimated Creatinine Clearance 72.54 ml/min; Glucose 140 mg/dL (74-106); Potassium 4.4 mmol/L (3.5-5.1); Sodium Level 135 mmol/L (136-145)
[2024-03-18 08:07] VITALS: O2SAT 94
[2024-03-18 08:09] LABS: Hemoglobin A1c 4.9 % (3.8-5.6)
[2024-03-18 09:04] VITALS: BP 137/94; PULSE 89; RESP 18; TEMP 36.4; O2SAT 92
[2024-03-18] MEDS: Enoxaparin 40 MG/0.4 ML Syringe SC (09:18)
[2024-03-18] MEDS: guaiFENesin 1,200 MG Tablet 1200 MG PO (09:19)
[2024-03-18 10:11] VITALS: O2SAT 85; O2SAT 87; O2SAT 90; O2SAT 92
--- NOTE | 2024-03-18 10:23 | CASEMGMT ---
Spoke with pt nurse who states pt has increased oxygen needs than at baseline. RN CM into pt room, pt sitting up in bed with oxygen on in no distress. Pt states he has oxygen through [employer] at 3L cont. He states his concentrator goes up to 6L. Pt has portability and is able to bring in upon dc. Pt has a pox. He does not use AD at home to ambulate. He has a shower chair. Pt reports being I in ADL's and drives. Pt denies any homegoing needs. Declines any HHC or needs for Pt Link or CCN. Pt states he ambulates less than 25 feet in his home. Pt wishes to return home today. Green sheet on chart for increased oxygen needs.
[2024-03-18 11:18] LABS: Bedside Glucose 192 mg/dL (74-106)
--- NOTE | 2024-03-18 12:59 | PCM.DC ---
Discharge Instructions Diet Discharge Diet: Low fat / Low cholesterol Activity Discharge Activity: Return to Normal Activity Dressing / Incision Call your doctor if you observe: Fever of 101 or Higher, Shortness of breath, Dizziness, Fainting spells, Swelling in the ankles, Chest pain and Increased palpitations (irregular heartbeat) Follow Up Care Test Results: Test results from this visit will be discussed in further detail at your follow-up appointment, if applicable. Discharge Plan Admission Admit Date/Time: 03/17/24 16:34 Attending Provider: Dario Collado Primary Care Provider: Hardeep Fall Consulting Providers: Ankit Clifford Discharge Orders/Prescriptions Prescriptions: New prednisone 10 mg tablet 10 mg PO DAILY Qty: 32 0RF Rx Instructions: Take 4 tablets daily for 3 days then 3 tablets daily for 3 days then 2 tablets daily for 3 days then 1 tablet daily for 3 days then half tablet daily for 4 days Continued albuterol sulfate 90 mcg/actuation HFA aerosol inhaler 2 puff inhalation Q4H PRN (Reason: shortness of breath or wheezing) Qty: 8.5 6RF Rx Instructions: administer with spacer albuterol sulfate 2.5 mg /3 mL (0.083 %) solution for nebulization 2.5 mg inhalation Q4H PRN (Reason: Sob &/Or Wheezing) Qty: 180 3RF atorvastatin 80 mg tablet 80 mg PO DAILY losartan 100 mg tablet 100 mg PO DAILY pirfenidone 267 mg tablet 801 mg PO TID Anoro Ellipta 62.5-25 mcg/actuation blister with device 1 inh inhalation Q24H Qty: 60 6RF Referrals / Follow Up: Hardeep Fall DO [Primary Care Provider] - Within 1 Week Hedy Cowan NP, [facility] [facility] [Med Staff - Adv Practice Prof] - Within 1 Month Disposition Disposition (needs filled in before D/C Order can be placed): Home, Self Care
--- NOTE | 2024-03-18 13:02 | DS.PCM_ITS ---
Providers Date of Admission: 03/17/24 Primary Care Physician: Dr. Hardeep Fall DO Reason For Visit: PULM FIBROSIS WITH HYPOXIA Diagnosis Discharge Diagnosis (1) Pulmonary fibrosis: Status: Chronic Code(s): J84.10 - Pulmonary fibrosis, unspecified (2) Chronic hypoxemic respiratory failure: Status: Chronic Code(s): J96.11 - Chronic respiratory failure with hypoxia Medications at Discharge Home Medications albuterol sulfate 90 mcg/actuation aerosol inhaler 2 puff inhalation Q4H PRN shortness of breath or wheezing #8.5 grams 11/23/22 albuterol sulfate 2.5 mg/3 mL (0.083 %) solution for nebulization 2.5 mg (3 mL) inhalation Q4H PRN Sob &/Or Wheezing #180 mL 09/15/23 umeclidinium 62.5 mcg-vilanterol 25 mcg/actuation powdr for inhalation (Anoro Ellipta) 1 inh inhalation Q24H breathing #60 ea 10/25/23 atorvastatin 80 mg tablet 80 mg PO DAILY cholesterol 03/17/24 losartan 100 mg tablet 100 mg PO DAILY blood pressure 03/17/24 pirfenidone 267 mg tablet 801 mg PO TID pulmonary fibrosis 03/17/24 prednisone 10 mg tablet 10 mg PO DAILY #32 tabs 03/18/24 Hospital Course Operations None Procedures None Summary of Care Provided Minutes Spent on Discharge: 31 Hospital Course: Per HPI: MARY KAY MIRELES, is a 58 M with history of diagnosis of pulmonary fibrosis/ILD came to ER with sudden onset of shortness of breath. Patient usually on 3 L of home oxygen 19/04. This afternoon he felt very short of breath, dyspnea at rest and had to work hard for breathing. Denies any chest pain or shortness of breath or any other new symptoms. Patient has chronic mostly dry cough but sometimes brings up mucus. Denies any fever or chills or recently came in contact with sick person. He lives with his who is healthy. He follows Dr. Jake Morales in our pulmonary clinic. EMS gave Solu-Medrol 125 mg. In ED patient is requiring 4 L of oxygen, tachypnea respiratory 30/min. Chest x-ray was done and individually reviewed and shows diffuse interstitial fibrotic changes, predominantly in lung bases. Bilateral atelectatic changes Social history: Patient is a ex-smoker quit smoking 30 years ago. Used to smoke a pack per day started at the age of 17. Hospital Course: 1. Pulmonary fibrosis with COPD and chronic hypoxic respiratory failure?[age]-year-old male presented to the hospital with sudden onset of shortness of breath. He was requiring increased oxygen in the ER to about 4 L at baseline he requires 3 L. He states that he normally does not turn up his oxygen when he walks because he does not walk that far. Today he says that he feels back to his baseline and feels much better than he did when he came in. He did have an ambulatory pulse ox that demonstrated a 6 L need with ambulation. I discussed with him that he would be beneficial if he stated next or day to see if we can get his oxygen requirements lower but he will request to be discharged today. I discussed with him the possible plan for discharge today and he expressed understanding of the risk benefits of going home and wants to go home today. Will plan for slow steroid taper and have him follow-up as an outpatient with his PCP in 3 to 5 days as well as pulmonology. No fever or leukocytosis to indicate infection therefore we will hold off antibiotics at this time. Viral studies are negative. 2. Essential hypertension, hyperlipidemia are chronic medical conditions which complicate his care. His home medications were continued where appropriate Physical Exam Narrative General: Alert, Oriented x3, Cooperative, No apparent distress HEENT: Atraumatic, PERRLA, EOMI, Normocephalic Oral: Moist Mucosa Neck: Supple, No JVD Lungs: Diminished, poor air movement, No rhonchi, No wheeze, No rales Cardiovascular: Regular rate, Regular Rhythm, Normal S1, Normal S2, No murmurs Abdomen: Soft, Non Tender, Non-Distended, No Hepato-splenomegaly Extremities: No edema, Capillary Refill Less than 3 Seconds Skin: No rashes, No breakdown Musculoskeletal: No Tenderness to Palpation of Joints or Extremities Neurological: No focal neurological deficits, Motor Exam 5/5 strength throughout, Sensory exam intact to light touch and pain Psych/Mental Status: Normal Affect, Appropriate Weight / BMI Weight Weight: 137 lb 5.568 oz Body Mass Index (BMI) 21.4 ABG / Lab / Microbiology Data 03/18/24 06:16 03/18/24 06:16 Laboratory: Laboratory Results - last 24 hr 03/17/24 15:08: WBC 6.8, RBC 5.00, Hgb 15.2, Hct 44.5, MCV 89.0, MCH 30.4, MCHC 34.2, RDW Std Deviation 43.8, RDW Coeff of Ravinder 13.5, Plt Count 187, MPV 8.8, Immature Gran % (Auto) 0.100, Neut % (Auto) 65.0, Lymph % (Auto) 24.9, [place] % (Auto) 6.1, Eos % (Auto) 3.3, Baso % (Auto) 0.6, Absolute Neuts (auto) 4.4, Absolute Lymphs (auto) 1.68, Nucleated RBC % 0, Sodium 138, Potassium 2.8 L, Chloride 103, Carbon Dioxide 29.0, Anion Gap 6, BUN 10, Creatinine 1.10, Estim Creat Clear Calc 69.27, Est GFR (MDRD) Af Amer 89, Est GFR (MDRD) Non-Af 73, B UN/Creatinine Ratio 9.1 L, Glucose 153 H, Calcium 8.8, Troponin I High Sens 16 03/17/24 17:23: Troponin I High Sens 18 03/17/24 17:26: Phosphorus 1.2 L, Magnesium 2.1 03/17/24 21:24: POC Glucose 254 H 03/18/24 06:16: WBC 5.8, RBC 4.67, Hgb 14.4, Hct 41.8, MCV 89.5, MCH 30.8, MCHC 34.4, RDW Std Deviation 43.6, RDW Coeff of Ravinder 13.3, Plt Count 200, MPV 8.7, Immature Gran % (Auto) 0.700, Neut % (Auto) 88.0 H, Lymph % (Auto) 9.6 L, [place] % (Auto) 1.7, Eos % (Auto) 0.0, Baso % (Auto) 0.0, Absolute Neuts (auto) 5.1, A bsolute Lymphs (auto) 0.56 L, Nucleated RBC % 0, Sodium 135 L, Potassium 4.4, Chloride 106, Carbon Dioxide 23.0, Anion Gap 6, BUN 16, Creatinine 0.99, Estim Creat Clear Calc 72.54, Est GFR (MDRD) Af Amer 100, Est GFR (MDRD) Non-Af 83, BUN/Creatinine Ratio 16.1, Glucose 140 H, Hemoglobin A1c 4.9, Calcium 9.0 03/18/24 06:25: POC Glucose 142 H 03/18/24 10:57: POC Glucose 192 H Microbiology: Microbiology 03/17/24 16:13 Mucosa - Nasopharyngeal Respiratory Panel (PCR) - Final 03/17/24 18:05 Mucosa - Nose SARS-CoV-2, Influenza & RSV (PCR) - Final ABG: ABG 03/17/24 15:19 Specimen Type [place] Sample Site Not entered VBG pH 7.35 VBG pO2 28 VBG HCO3 31 H VBG Total CO2 33 VBG O2 Sat (Calc) 49 L VBG Base Excess 5 H POC Mix VBG pCO2 Pt Tmp 55.7 H O2 Delivery Device Not entered Radiography Diagnostic Testing: Radiology Impression Chest X-Ray 03/17/24 15:15 IMPRESSION: Diffuse interstitial thickening/fibrotic changes especially in the lung bases. Possible patchy basilar infiltrates. Electronically Signed: Alvarado Lima DO at 16:20 EDT Reading Location ID and State: [address] [place] [address] Tel [phone], Service support , D/C Instructions Discharge Diet: Low fat / Low cholesterol Call your doctor if you observe: Fever of 101 or Higher, Shortness of breath, Dizziness, Fainting spells, Swelling in the ankles, Chest pain and Increased palpitations (irregular heartbeat) Meaningful Use Info Meaningful Use Meaningful Use Diagnoses (Choose all that apply): None applicable Ischemic Stroke Statin Dosing Therapy Reference: STATIN DOSE THERAPY REFERENCE: * Patients > 75 years receive moderate or high dose statin therapy. * Patients 75 years or YOUNGER should receive HIGH intensity statin dose unless contraindicated. You will be required to document reason for non-treatment if statin daily dose does not meet guidelines. HIGH DOSE STATIN THERAPY DAILY Atorvastatin > than or = to 40 mg Rosuvastatin > than or = to 20 mg Amlodipine + Atorvastatin > than or = to 2.5/40 mg Ezetimibe + Simvastatin 10/80 mg Simvastatin 80mg Discharge Plan Admission Admit Date/Time: 03/17/24 16:34 Attending Provider: Dario Collado Primary Care Provider: Hardeep Fall Consulting Providers: Ankit Clifford Discharge Orders/Prescriptions Prescriptions: New prednisone 10 mg tablet 10 mg PO DAILY Qty: 32 0RF Rx Instructions: Take 4 tablets daily for 3 days then 3 tablets daily for 3 days then 2 tablets daily for 3 days then 1 tablet daily for 3 days then half tablet daily for 4 days Continued albuterol sulfate 90 mcg/actuation HFA aerosol inhaler 2 puff inhalation Q4H PRN (Reason: shortness of breath or wheezing) Qty: 8.5 6RF Rx Instructions: administer with spacer albuterol sulfate 2.5 mg /3 mL (0.083 %) solution for nebulization 2.5 mg inhalation Q4H PRN (Reason: Sob &/Or Wheezing) Qty: 180 3RF atorvastatin 80 mg tablet 80 mg PO DAILY losartan 100 mg tablet 100 mg PO DAILY pirfenidone 267 mg tablet 801 mg PO TID Anoro Ellipta 62.5-25 mcg/actuation blister with device 1 inh inhalation Q24H Qty: 60 6RF Referrals / Follow Up: Hardeep Fall DO [Primary Care Provider] - Within 1 Week Hedy Cowan NP, [employer] [Med Staff - Adv Practice Prof] - Within 1 Month Disposition Disposition (needs filled in before D/C Order can be placed): Home, Self Care Charges/Coding Visit Charges Inpatient E&M: 03106 Disch Hosp >30min
--- NOTE | 2024-03-18 13:10 | NURSING ---
Prescription for increased oxygen demands faxed to [facility] and [facility] notified.
[2024-03-18] MEDS: Insulin Lispro 100 UNIT/ML INSULN.PEN SC (13:42)
[2024-03-18] MEDS: 0.9% Saline Lock 10 ML Syringe IV (13:43)
== END 2024-03-18 13:02 | disposition home or self-care (01) ==
LOC: ED 16:36 → PCU 17:02
PROVIDERS: Admitting Provider Internal Medicine; Emergency Provider Emergency Medicine; PCP Family Medicine; Visit Provider Family Medicine
DX: J84.10 Pulmonary fibrosis, unspecified (principal); J96.11 Chronic respiratory failure with hypoxia; J44.9 Chronic obstructive pulmonary disease, unspecified; I10 Essential (primary) hypertension; Z87.891 Personal history of nicotine dependence; E87.6 Hypokalemia; Z99.81 Dependence on supplemental oxygen; E87.5 Hyperkalemia; K21.9 Gastro-esophageal reflux disease without esophagitis; Z79.899 Other long term (current) drug therapy; R06.02 Shortness of breath
CPT/HCPCS: 36415; 71046; 80048; 82803; 82962; 83036; 83735; 84100; 84484; 85025; 87631; 87633; 93005; 94640; 94668; 96361; 96372; 96374; 96376; 97802; 99221; 99285; J7030; A4216; G0378

== ENCOUNTER 2024-03-27 12:38 | Emergency (ER) | payer OTHER, SELFPAY ==
[2023-05-03 08:42] VITALS: BMI 25.2
[2024-03-27] VITALS (8 sets, daily range): BP systolic 128–171; BP diastolic 95–110; PULSE 76–103; RESP 14–34; TEMP 36.1–36.8; O2SAT 97–100; BMI 22.4
--- NOTE | 2024-03-27 13:17 | EKG12_ITS ---
Test Reason : SOB Blood Pressure : / mmHG Vent. Rate : 078 BPM Atrial Rate : 078 BPM P-R Int : 132 ms QRS Dur : 094 ms QT Int : 390 ms P-R-T Axes : 013 214 -14 degrees QTc Int : 444 ms Normal sinus rhythm Right superior axis deviation Possible Right ventricular hypertrophy T wave abnormality, consider anterior ischemia Abnormal ECG Confirmed by Pollo Bhatt ([id number]), technical writer and editor DARIN NORIEGA ([id number]) on 03/31/2024 9:05:40 AM Referred By: Confirmed By:Pollo Bhatt
[2024-03-27 13:29] LABS: Absolute Lymphocyte Count 0.71 X10^3/uL (0.83-4.51); Absolute Neutrophil Count 8.7 X10^3/uL (2.0-7.7); Basophil# 0.01 X10^3/uL; Basophil% 0.1 % (0-1); Eosinophil# 0.03 X10^3/uL; Eosinophils% 0.3 % (0-5); Hematocrit 48.2 % (40-54); Hemoglobin 16.2 g/dL (13.0-16.5); Lymphocyte # 0.71 X10^3/ul (0.83-4.51); Lymphocyte % 7.4 % (19-41); Mean Corp Hgb Conc 33.6 g/dL (32-36); Mean Corpuscular Hgb 30.6 pg (27.0-32.0); Mean Corpuscular Volume 91.1 fL (80-94); Mean Platelet Vol. 8.3 fl (6.2-12.0); Monocyte% 2.1 % (0-10); NRBC Flagged by Analyzer 0 % (0-5); Neutrophil # 8.67 X10^3/uL (2.7-7.7); Neutrophil % 89.8 % (47-70); Platelet Count 206 K/mm3 (150-450); RBC Distribution Width SD 46.9 fl (35.1-43.9); Red Blood Count 5.29 M/mm3 (4.6-6.2); White Blood Count 9.7 K/mm3 (4.4-11.0)
[2024-03-27] MEDS: 0.9% Normal Saline (1000mL) 1,000 ML 150 ML IV (13:33)
[2024-03-27 13:49] LABS: Anion Gap 6 (5-15); BUN 18 mg/dL (7-18); Calcium,Total 8.7 mg/dL (8.5-10.1); Chloride 100 mmol/L (98-107); EST Glomerular Filtration Rate 82 mL/min (>60); Est Glom Filt Rate - Afr Amer 99 mL/min (>60); Glucose 128 mg/dL (74-106); Potassium 3.8 mmol/L (3.5-5.1); Sodium Level 138 mmol/L (136-145); Troponin-I HS (w/2H Reflex) 14 pg/mL (3.0-78.0)
[2024-03-27 13:50] LABS: BNP,B-Type NATRIURETIC PEPTIDE 36.2 pg/mL (0-100)
[2024-03-27 15:26] LABS: Reflex Troponin-HS? (from REC) Y
--- NOTE | 2024-03-27 15:39 | EDS_ITS ---
HPI History of Present Illness Chief Complaint: Shortness of Breath Informant: patient Narrative Narrative: Patient is a 58-year-old male with history of pulmonary fibrosis, wears 3-3 and half liters of oxygen at baseline presenting for episodes of shortness of breath and chest pain. Patient states recently he has been having multiple episodes of shortness of breath and chest pain at rest. He states that started to have some discomfort raised on his left arm. He will check his oxygen and will be normal (between 95 and 100%). He knows that when he was being evaluated for lung transplant that he had a heart cath and was told he had 2 blockages around his heart. He is worried that the symptoms could be heart related. Patient notes that when he received albuterol and route via EMS and significantly helped his symptoms. These episodes would last for about an hour at a time needed couple episodes last night. I did receive Solu-Medrol and route. Is on any anticoagulation. Denies any swelling of his legs. Denies any fevers or change in his cough. Currently denies any chest pain. No other complaints or concerns reported at this time. 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 Umbilical hernia Mononucleosis Blind right eye Allergic rhinitis Home Medications ?Medication ?Instructions ?Recorded ?Last Taken ?Type umeclidinium 62.5 mcg-vilanterol 1 inh inhalation Q24H SHORTNESS OF 10/25/23 03/27/24 Rx 25 mcg/actuation powdr for BREATH/WHEEZING #60 ea inhalation (Anoro Ellipta) atorvastatin 80 mg tablet 80 mg PO DAILY CHOLESTEROL 03/17/24 03/27/24 History losartan 100 mg tablet 100 mg PO DAILY BLOOD PRESSURE 03/17/24 03/27/24 History pirfenidone 267 mg tablet 801 mg PO TID PULMONARY FIBROSIS 03/17/24 03/27/24 History albuterol sulfate 2.5 mg/3 mL 2.5 mg (3 mL) inhalation Q4H PRN 03/20/24 03/27/24 Rx (0.083 %) solution for nebulization SHORTNESS OF BREATH/WHEEZING #180 mL albuterol sulfate 90 mcg/actuation 2 puff inhalation Q4H PRN 03/27/24 03/27/24 History aerosol inhaler SHORTNESS OF BREATH/WHEEZING prednisone 10 mg tablet See Taper PO DAILY STEROID 03/27/24 03/27/24 History Allergy/AdvReac Type Severity Reaction Status Date / Time No Known Allergies Allergy Verified 09/15/23 10:05 Family History Mother Hypertension Father Hypertension CVA (cerebral vascular accident) Surgical History No pertinent past surgical history Social History household members: spouse housing: house Smoking Status: Former smoker quit date: 04/24/90 pack-years: 15 alcohol intake: never substance use type: does not use ROS ROS ED Constitutional Constitutional ED: Denies chills or fever(s) Eyes Eyes: Reports other Details: Blind in right eye ; Denies change in vision ENT ENT ED: Denies sore throat Cardiovascular Cardiovascular: Reports chest pain Respiratory/Chest Respiratory/Chest: Reports dyspnea; Denies cough Gastrointestinal Gastrointestinal: Denies abdominal pain, nausea or vomiting Musculoskeletal Musculoskeletal: Denies arthralgias or myalgias Neurologic Neurologic: Denies headache(s) Hematologic/Lymphatic Hematologic/Lymphatic: Denies easy bleeding or easy bruising EXAM Physical Exam Const Vital Signs: 03/27/24 12:40 03/27/24 12:54 03/27/24 13:31 Temperature 97.7 F L Temperature Source Axillary Pulse Rate 87 Respiratory Rate 24 H Respiratory Effort Normal Short of Breath Respiratory Depth Shallow Respiratory Pattern Tachypnea Blood Pressure 171/100 H Blood Pressure Mean 123 Pulse Ox 100 100 Oxygen Delivery Method Non-Rebreather Nasal Cannula Nasal Cannula Oxygen Flow Rate (L/min) 4 03/27/24 13:32 03/27/24 14:10 03/27/24 15:32 Temperature 96.9 F L 98.2 F Temperature Source Temporal Temporal Pulse Rate 76 103 H 92 Respiratory Rate 14 21 H 34 H Respiratory Effort Respiratory Depth Respiratory Pattern Blood Pressure 128/110 H 140/95 H 140/95 H Blood Pressure Mean 116 110 110 Pulse Ox 100 99 98 Oxygen Delivery Method Nasal Cannula Nasal Cannula Nasal Cannula Oxygen Flow Rate (L/min) 4 4 3 03/27/24 16:27 Temperature 98.2 F Temperature Source Oral Pulse Rate 84 Respiratory Rate 29 H Respiratory Effort Respiratory Depth Respiratory Pattern Blood Pressure 137/99 H Blood Pressure Mean 111 Pulse Ox 97 Oxygen Delivery Method Nasal Cannula Oxygen Flow Rate (L/min) 3 Positive well nourished and well developed General Appearance ED: well developed and NAD HEENT Reports moist mucous membranes Eyes PERRL Neck supple Resp normal respiratory effort Resp Narrative: Crackles throughout consistent with his history of pulmonary fibrosis Effort and Inspection: Negative for pain with movement Auscultation: diminished lung sounds; Negative for wheezes Cardio regular rate, regular rhythm and no murmurs GI non-tender Extremity normal to inspection General Extremety ED: Negative for edema or tenderness General Extremity: Negative for edema Neuro oriented x3 Sensorium / Orientation: alert Motor Exam: Negative for general weakness Psych mental status grossly normal Skin no wounds MDM MDM MDM Narrative Medical decision making narrative: Patient is a 58-year-old male with history of chronic hypoxic respiratory failure on 3 L of oxygen at baseline, pulmonary fibrosis and hypertension presenting with episodes of shortness of breath and chest pain that radiates to his arm. Abdomen has been intermittently for the past few days. He had a another episode today that was fairly severe so he called EMS. Patient does not have any hypoxia with him but feels that he cannot breathe. He notes that he received an albuterol treatment and route via EMS and that helped him feel better. He states he has albuterol aerosol at home but for what ever reason this seems stronger. Workup including delta high since he troponin, chest x-ray, EKG and D-dimer is largely negative. 2 view chest x-ray viewed by myself as well as radiology his chronic changes concerns for pulmonary fibrosis but no acute process. He does not have a leukocytosis however suspicion for pneumonia. BNP is normal and he does not appear fluid overloaded. I do not think he requires a CTA as his D-dim er is normal he is otherwise low risk. Patient does not really have any symptoms while in the emergency room and feels better throughout his stay. He did receive a Solu-Medrol as well prior to arrival and transport. Will ambulate patient and his long as he stays at his baseline anticipate he can be discharged home to follow-up with his certified composites technician. He is currently already on a prednisone taper so will not add further steroids. I do not think he has infection so I do not think he requires antibiotics. I suspect this is more pulmonary nature and I do not think he needs to be brought in for cardiac evaluation at this time. Lab Data Attestation: I reviewed the patient's lab results. Labs: Laboratory Results - last 24 hr 03/27/24 03/27/24 13:25 15:28 WBC 9.7 RBC 5.29 Hgb 16.2 Hct 48.2 MCV 91.1 MCH 30.6 MCHC 33.6 RDW Std Deviation 46.9 H RDW Coeff of Ravinder 14.0 Plt Count 206 MPV 8.3 Immature Gran % (Auto) 0.300 Neut % (Auto) 89.8 H Lymph % (Auto) 7.4 L [place] % (Auto) 2.1 Eos % (Auto) 0.3 Baso % (Auto) 0.1 Absolute Neuts (auto) 8.7 H Absolute Lymphs (auto) 0.71 L Nucleated RBC % 0 D-Dimer Quant (PE/DVT) 0.30 Sodium 138 Potassium 3.8 Chloride 100 Carbon Dioxide 32.0 Anion Gap 6 BUN 18 Creatinine 1.00 Estim Creat Clear Calc 74.70 Est GFR (MDRD) Af Amer 99 Est GFR (MDRD) Non-Af 82 BUN/Creatinine Ratio 18.0 Glucose 128 H Calcium 8.7 Troponin I High Sens 14 14 B-Natriuretic Peptide 36.2 Radiography Diagnostic Testing: Clinical Impression(s) from Imaging Studies Chest X-Ray 03/27/24 16:10 IMPRESSION: Stable chronic interstitial lung disease. Electronically Signed: Jona Jamse MD at 16:30 EDT , Rhythm Strip Rhythm Strip: Sinus Rhythm Rate: 78 Ectopy: None EKG Initial EKG: Attestation: I personally reviewed and interpreted this EKG as follows: Interpretation: Sinus Rhythm Comments: Normal sinus rhythm at a rate of 78 bpm Right superior axis deviation T wave in versions in the precordial leads Prior EKG tracings: available for review Prior: Unchanged Differential Diagnosis Chest pain/SOB: pulmonary embolism Reason(s) PE less likely: Positive for D- Dimer negative, not tachycardic and not hypoxic, ACS ACS: Positive for no evidence of ACS based on cardiac biomarkers, EKG without ischemia and history not suggestive of ischemia pain, pneumonia and COPD Reason(s) COPD less likely: Positive for no significant wheezing on exam Discharge Plan Triage Chief Complaint: Shortness of Breath ED Provider: Annamaria De La Torre Dx/Rx/DC Orders Clinical Impression: Pulmonary fibrosis, Chronic hypoxemic respiratory failure, Acute dyspnea, Chest discomfort Instructions: ED Chest Pain, Uncertain Cause, ED Dyspnea Prescriptions: No Action prednisone 10 mg tablet See Taper PO DAILY Taper: Prednisone Taper 40 mg WITH BREAKFAST for 3 Days 30 mg WITH BREAKFAST for 3 Days 20 mg WITH BREAKFAST for 3 Days 10 mg WITH BREAKFAST for 3 Days 5 mg WITH BREAKFAST for 4 Days Rx Instructions: START DATE: 03/18/24 albuterol sulfate 90 mcg/actuation HFA aerosol inhaler 2 puff inhalation Q4H PRN (Reason: SHORTNESS OF BREATH/WHEEZING ) Rx Instructions: ADMINISTER WITH SPACER. atorvastatin 80 mg tablet 80 mg PO DAILY losartan 100 mg tablet 100 mg PO DAILY pirfenidone 267 mg tablet 801 mg PO TID Anoro Ellipta 62.5-25 mcg/actuation blister with device 1 inh inhalation Q24H Qty: 60 6RF albuterol sulfate 2.5 mg /3 mL (0.083 %) solution for nebulization 2.5 mg inhalation Q4H PRN (Reason: SHORTNESS OF BREATH/WHEEZING ) Qty: 180 3RF Primary Care Provider: Hardeep Fall Referrals: Hardeep Fall DO [Primary Care Provider] - Activity Restrictions/Additional Instructions: Please return to the ER if you have a progression or worsening of symptoms or significant drop in your O2 saturation. Continue with your home oxygen. Follow-up with your certified composites technician as we discussed. Print Language: Malian Disposition Disposition: Home, Self Care
[2024-03-27 16:02] LABS: Troponin-I HS 14 pg/mL (3.0-78.0)
--- NOTE | 2024-03-27 16:10 | RAD_ITS ---
EXAM: XR CHEST, 2 VIEWS CLINICAL INDICATION: sob TECHNIQUE: Frontal and lateral views of the chest. COMPARISON: XR Chest dated 03/17/2024, XR Chest dated 09/18/2022 FINDINGS: LUNGS AND PLEURAL SPACES: Stable diffuse interstitial thickening of the lungs. HEART: Normal heart size. MEDIASTINUM: No mediastinal or hilar mass. BONES/JOINTS: No acute abnormality. RAD/Chest PA and Lateral IMPRESSION: Stable chronic interstitial lung disease. Electronically Signed: Jona James MD at 16:30 EDT ,
== END 2024-03-27 17:18 | disposition home or self-care (01) ==
PROVIDERS: Emergency Provider Emergency Medicine; PCP Family Medicine; Visit Provider Emergency Medicine
DX: J84.10 Pulmonary fibrosis, unspecified (principal); J96.11 Chronic respiratory failure with hypoxia; Z87.891 Personal history of nicotine dependence; I10 Essential (primary) hypertension; R07.89 Other chest pain; Z99.81 Dependence on supplemental oxygen
CPT/HCPCS: 71046; 80048; 83880; 84484; 85025; 85379; 93005; 96360; 96361; 99285; J7030; A4216

== ENCOUNTER 2024-04-13 15:42 | Inpatient (IN) | payer OTHER, SELFPAY ==
[2023-05-03 08:42] VITALS: BMI 25.2
[2024-04-13] VITALS (9 sets, daily range): BP systolic 116–130; BP diastolic 81–96; PULSE 62–97; RESP 18–32; TEMP 35.9–36.8; O2SAT 95–100; BMI 22.6; BMI 21.5
--- NOTE | 2024-04-13 15:49 | EDS_ITS ---
HPI History of Present Illness Chief Complaint: Shortness of Breath Informant: patient Onset/Context/Timing Onset: Yesterday Activity at onset: gradual Timing: Waxes and wanes Quality: Positive for Sharp Location: Left Chest Worsened By: Nothing Relieved By: NTG Narrative Narrative: Patient presents with chest pain that has been intermittent since yesterday evening. Patient states that last night the pain came on and lasted for approximately 1 hour. Patient states that it came on again today. Patient describes the pain as sharp. Patient states pain is mainly over the left side of his chest. Patient states nothing makes it worse. Patient states the pain was improved with nitroglycerin that was given by EMS. Patient was given aspirin and nitroglycerin by EMS prior to arrival. Patient states he is scheduled for a heart cath in 5 days. Patient admits to some nausea but denies any vomiting. Patient admits to some shortness of breath and lightheadedness. CVD Risk Factors: Positive for Hypertension and Hypercholesterolemia; Negative for Diabetes, Family History 1' </=55 or Smoking PE Risk Factors: Negative for Recent Travel/Surgery, Recent Immobilization, Prior DVT or PE, Cancer or OCP + Smoking + >/=35 PFSH PFSH Medical History Lung transplant candidate IPF (idiopathic pulmonary fibrosis) CAD (coronary artery disease) Hypercholesteremia Mixed obstructive and restrictive ventilatory defect Chronic hypoxemic respiratory failure Recurrent sinus infections COPD exacerbation Hypokalemia Acute dyspnea Chest discomfort HTN (hypertension) GERD (gastroesophageal reflux disease) ILD (interstitial lung disease) Acute exacerbation of idiopathic pulmonary fibrosis Acute and chronic respiratory failure Influenza A Nicotine dependence, cigarettes, in remission Restrictive airway disease Obesity Therapeutic drug monitoring Pulmonary fibrosis 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 Umbilical hernia Mononucleosis Blind right eye Allergic rhinitis Home Medications ?Medication ?Instructions ?Recorded ?Last Taken ?Type umeclidinium 62.5 mcg-vilanterol 1 inh inhalation Q24H SHORTNESS OF 10/25/23 03/27/24 Rx 25 mcg/actuation powdr for BREATH/WHEEZING #60 ea inhalation (Anoro Ellipta) losartan 100 mg tablet 100 mg PO DAILY BLOOD PRESSURE 03/17/24 03/27/24 History pirfenidone 267 mg tablet 801 mg PO TID PULMONARY FIBROSIS 03/17/24 03/27/24 History albuterol sulfate 2.5 mg/3 mL 2.5 mg (3 mL) inhalation Q4H PRN 03/20/24 03/27/24 Rx (0.083 %) solution for nebulization SHORTNESS OF BREATH/WHEEZING #180 mL albuterol sulfate 90 mcg/actuation 2 puff inhalation Q4H PRN 03/27/24 03/27/24 History aerosol inhaler SHORTNESS OF BREATH/WHEEZING amlodipine 5 mg tablet 5 mg PO DAILY #90 tabs 04/12/24 Unknown Rx aspirin 81 mg tablet,delayed 81 mg PO DAILY 04/12/24 Unknown History release atorvastatin 20 mg tablet 20 mg PO QHS 04/12/24 Unknown History clopidogrel 75 mg tablet 75 mg PO DAILY #90 tabs 04/12/24 Unknown Rx esomeprazole magnesium 20 mg 20 mg PO DAILY 04/12/24 Unknown History capsule,delayed release (Nexium 24HR) nitroglycerin 0.4 mg sublingual 0.4 mg sublingual Q5-15M PRN chest 04/12/24 Unknown Rx tablet pain #25 tabs Allergy/AdvReac Type Severity Reaction Status Date / Time lisinopril AdvReac Intermediate cough Verified 04/12/24 10:39 Family History Mother Hypertension Father Hypertension CVA (cerebral vascular accident) Surgical History Hx of cardiac catheterization (~03/08/23) Hx of colonoscopy with polypectomy (~03/2021) Social History household members: spouse housing: house Smoking Status: Former smoker quit date: 04/24/90 pack-years: 15 alcohol intake: current alcohol intake frequency: holidays/special occasions only substance use type: does not use caffeine: Yes Type: coffee Number of servings: 4 ROS ROS ED Constitutional Constitutional ED: Denies chills or fever(s) Eyes Eyes: Denies blurry vision or change in vision ENT ENT ED: Denies rhinorrhea or sore throat Cardiovascular Cardiovascular: Reports chest pain; Denies palpitations Respiratory/Chest Respiratory/Chest: Reports dyspnea; Denies cough Gastrointestinal Gastrointestinal: Reports nausea; Denies vomiting Genitourinary Genitourinary ED: Denies dysuria or hematuria Musculoskeletal Musculoskeletal: Denies back pain or neck pain Integumentary Denies abscess or rash Neurologic Neurologic: Denies headache(s) or weakness Allergic/Immunologic Allergic/Immunologic ED: Denies mouth swelling or urticaria EXAM Physical Exam Const Vital Signs: 04/13/24 15:43 04/13/24 15:49 04/13/24 16:23 Temperature 97.3 F L Temperature Source Temporal Pulse Rate 97 Respiratory Rate 28 H Respiratory Effort Short of Breath Respiratory Pattern Tachypnea Blood Pressure 119/95 H Blood Pressure Mean 103 Pulse Ox 100 Oxygen Delivery Method Nasal Cannula Nasal Cannula Nasal Cannula Oxygen Flow Rate (L/min) 5 5 04/13/24 16:51 04/13/24 18:00 Temperature Temperature Source Pulse Rate 89 80 Respiratory Rate 25 H 32 H Respiratory Effort Respiratory Pattern Blood Pressure 116/94 H 117/86 H Blood Pressure Mean 101 96 Pulse Ox 98 100 Oxygen Delivery Method Nasal Cannula Nasal Cannula Oxygen Flow Rate (L/min) 6 5 Positive well nourished and well developed General Appearance ED: well developed HEENT Reports moist mucous membranes Neck supple and no JVD Resp normal respiratory effort Auscultation: rales bilateral Cardio regular rate and regular rhythm GI soft to palpation, non-tender and non-distended Extremity normal to inspection General Extremety ED: Negative for edema or tenderness General Extremity: Negative for edema Neuro oriented x3, CN's II-XII intact bilaterally and no sensory deficits noted Sensorium / Orientation: awake and alert Motor Exam: strength 5/5 throughout Psych mental status grossly normal Heart Score History: Moderately Suspicious ECG: Nonspecific Repolarization Age: >45 - <65 years Risk Factors: >/= 3 Risk Factors or History of CAD Troponin: </= Normal Limit Score: 5 MDM MDM MDM Narrative Medical decision making narrative: Differential diagnosis includes cardiac dysrhythmia, cardiac ischemia, pneumonia, pneumothorax, pulmonary fibrosis, electrolyte abnormality, and anxiety. EKG will be obtained to assess for cardiac dysrhythmia and cardiac ischemia. Chest x-ray will be obtained to assess for pneumonia and pneumothorax. CBC will be obtained to assess for leukocytosis and anemia. Basic metabolic profile will be obtained to assess for electrolyte abnormality and renal function. High-sensitivity troponin will be obtained to assess for cardiac ischemia. 2-hour repeat high-sensitivity troponin will be obtained to assess for ongoing cardiac ischemia. D-dimer will be obtained to assess for pulmonary embolism. BNP will be obtained to assess for congestive heart failure. Lab Data Attestation: I reviewed the patient's lab results. Lab results narrative: CBC was reviewed and was within normal limits. Basic metabolic profile was reviewed and was within normal limits. D-dimer was reviewed and was normal at 0.33. BNP was reviewed and was normal at 53.6. High-sensitivity troponin was reviewed and was normal at 17. 2-hour repeat high-sensitivity troponin was reviewed and was also normal at 17. Labs: Laboratory Results - last 24 hr 04/13/24 04/13/24 15:52 18:14 WBC 6.5 RBC 4.97 Hgb 15.3 Hct 45.5 MCV 91.5 MCH 30.8 MCHC 33.6 RDW Std Deviation 44.7 H RDW Coeff of Ravinder 13.3 Plt Count 187 MPV 8.6 Immature Gran % (Auto) 0.300 Neut % (Auto) 74.3 H Lymph % (Auto) 15.2 L [place] % (Auto) 6.5 Eos % (Auto) 3.1 Baso % (Auto) 0.6 Absolute Neuts (auto) 4.8 Absolute Lymphs (auto) 0.98 Nucleated RBC % 0 D-Dimer Quant (PE/DVT) 0.33 Sodium 139 Potassium 3.7 Chloride 104 Carbon Dioxide 29.0 Anion Gap 6 BUN 8 Creatinine 0.97 Estim Creat Clear Calc 75.82 Est GFR (MDRD) Af Amer 102 Est GFR (MDRD) Non-Af 84 BUN/Creatinine Ratio 8.2 L Glucose 124 H Calcium 9.3 Troponin I High Sens 17 17 B-Natriuretic Peptide 53.6 Radiography Chest X-Ray - ED: 1 View, Read by ED Physician, Read by Radiologist and Chronic Changes Diagnostic Testing: Clinical Impression(s) from Imaging Studies Chest X-Ray 04/13/24 16:24 IMPRESSION: No change from 03/27/2024. Electronically Signed: Syed Emery MD at 16:50 EDT , Portable 1 view chest x-ray was obtained. On my independent interpretation, lung serrano show chronic changes from pulmonary fibrosis. There is normal cardiac silhouette. Bony thorax is normal. There is no acute process noted. Radiologist also interpreted the x-ray and agrees. EKG Initial EKG: Attestation: I personally reviewed and interpreted this EKG as follows: Interpretation: Sinus Rhythm (97) and Non-Specific ST Changes Comments: EKG was obtained. On my independent interpretation, it showed a normal sinus rhythm with a rate of 97. [place] interval, QRS interval, and QTc intervals were all normal. There is right axis deviation at 252. There are nonspecific ST-T wave changes noted. There is right ventricular hypertrophy noted. Prior EKG tracings: available for review Prior: Unchanged (04/12/2024 and 03/27/2024) Treatment and Re-Evaluation :: Patient was given aspirin and nitroglycerin by EMS. Patient was given a dose of morphine here. Patient was feeling anxious and was given a dose of Ativan. Patient was feeling better on reevaluation. Patient was advised of his findings. Patient has a HEART score of 5. Case was discussed with Dr. Anderson from cardiology. He states that patient can be admitted to the hospital and they can consult Dr. Multani tomorrow for possible cardiac catheterization. Case was discussed with the hospitalist. He will admit the patient to his service. Patient understood and was agreeable with the plan. All questions were answered. Discharge Plan Triage Chief Complaint: Shortness of Breath ED Provider: Binu Wick Dx/Rx/DC Orders Clinical Impression: Chest pain, HTN (hypertension), Pulmonary fibrosis Prescriptions: No Action atorvastatin 20 mg tablet 20 mg PO QHS esomeprazole magnesium [Nexium 24HR] 20 mg capsule,delayed release(DR/EC) 20 mg PO DAILY aspirin 81 mg tablet,delayed release (DR/EC) 81 mg PO DAILY clopidogrel 75 mg tablet 75 mg PO DAILY Qty: 90 3RF amlodipine 5 mg tablet 5 mg PO DAILY Qty: 90 3RF nitroglycerin 0.4 mg tablet, sublingual 0.4 mg sublingual Q5-15M PRN (Reason: chest pain) Qty: 25 2RF Rx Instructions: do not exceed 3 doses per episode albuterol sulfate 90 mcg/actuation HFA aerosol inhaler 2 puff inhalation Q4H PRN (Reason: SHORTNESS OF BREATH/WHEEZING ) Rx Instructions: ADMINISTER WITH SPACER. losartan 100 mg tablet 100 mg PO DAILY pirfenidone 267 mg tablet 801 mg PO TID Anoro Ellipta 62.5-25 mcg/actuation blister with device 1 inh inhalation Q24H Qty: 60 6RF albuterol sulfate 2.5 mg /3 mL (0.083 %) solution for nebulization 2.5 mg inhalation Q4H PRN (Reason: SHORTNESS OF BREATH/WHEEZING ) Qty: 180 3RF Primary Care Provider: Hardeep Fall Referrals: Hardeep Fall DO [Primary Care Provider] - Print Language: Belgian Disposition Disposition: Acute Care Hospital [facility]
--- NOTE | 2024-04-13 15:58 | EKG12_ITS ---
Test Reason : Blood Pressure : / mmHG Vent. Rate : 097 BPM Atrial Rate : 097 BPM P-R Int : 130 ms QRS Dur : 090 ms QT Int : 340 ms P-R-T Axes : 008 252 -15 degrees QTc Int : 431 ms Normal sinus rhythm Possible Left atrial enlargement Right superior axis deviation Right ventricular hypertrophy Nonspecific T wave abnormality Abnormal ECG Confirmed by SEAN BLUNT, LYNDSEY ([id number]), video effects editor ASHLEY TERESA ([id number]) on 04/17/2024 11:09:59 AM Referred By: Confirmed By:LYNDSEY ESTRADA MD
[2024-04-13 16:14] LABS: Absolute Lymphocyte Count 0.98 X10^3/uL (0.83-4.51); Absolute Neutrophil Count 4.8 X10^3/uL (2.0-7.7); Basophil# 0.04 X10^3/uL; Basophil% 0.6 % (0-1); Eosinophils% 3.1 % (0-5); Hematocrit 45.5 % (40-54); Hemoglobin 15.3 g/dL (13.0-16.5); Lymphocyte # 0.98 X10^3/ul (0.83-4.51); Lymphocyte % 15.2 % (19-41); Mean Corp Hgb Conc 33.6 g/dL (32-36); Mean Corpuscular Hgb 30.8 pg (27.0-32.0); Mean Corpuscular Volume 91.5 fL (80-94); Mean Platelet Vol. 8.6 fl (6.2-12.0); Monocyte# 0.42 X10^3/uL; Monocyte% 6.5 % (0-10); NRBC Flagged by Analyzer 0 % (0-5); Neutrophil % 74.3 % (47-70); Platelet Count 187 K/mm3 (150-450); RBC Distribution Width CV 13.3 % (11.6-14.6); RBC Distribution Width SD 44.7 fl (35.1-43.9); Red Blood Count 4.97 M/mm3 (4.6-6.2); White Blood Count 6.5 K/mm3 (4.4-11.0)
[2024-04-13] MEDS: Morphine 4 MG/ML Syringe IV (16:17)
--- NOTE | 2024-04-13 16:24 | RAD_ITS ---
STUDY: X-RAY CHEST REASON FOR EXAM: Male, 58 years old. chest pain TECHNIQUE: Single AP portable view of the chest. COMPARISON: 03/27/2024 FINDINGS: There are interstitial fibrotic changes of the lungs. No superimposed alveolar opacity to suggest pneumonia or atelectasis. There is no demonstrated pleural abnormality. Normal size heart. Normal mediastinum and rolly. Normal visualized pulmonary arteries. Normal visualized aortic arch and descending thoracic aorta. Normal visualized thoracic spine. Normal visualized ribs, clavicles, and shoulders. There is no demonstrated abnormality of the visualized soft tissue structures of the upper abdomen. RAD/Chest 1 View (Portable) IMPRESSION: No change from 03/27/2024. Electronically Signed: Syed Emery MD at 16:50 EDT ,
[2024-04-13 16:27] LABS: Anion Gap 6 (5-15); BUN 8 mg/dL (7-18); BUN/Creat Ratio 8.2 RATIO (10-20); Calcium,Total 9.3 mg/dL (8.5-10.1); Chloride 104 mmol/L (98-107); Creatinine, Serum 0.97 mg/dL (0.70-1.30); EST Glomerular Filtration Rate 84 mL/min (>60); Est Glom Filt Rate - Afr Amer 102 mL/min (>60); Estimated Creatinine Clearance 75.82 ml/min; Glucose 124 mg/dL (74-106); Potassium 3.7 mmol/L (3.5-5.1); Sodium Level 139 mmol/L (136-145); Troponin-I HS (w/2H Reflex) 17 pg/mL (3.0-78.0)
[2024-04-13 16:35] LABS: D-Dimer Quantitative (DVT/PE) 0.33 FEU/ug/m (0.27-0.49)
[2024-04-13 16:38] LABS: BNP,B-Type NATRIURETIC PEPTIDE 53.6 pg/mL (0-100)
[2024-04-13] MEDS: LORazepam 2 MG/ML Syringe 0.5 MG IV (17:19)
[2024-04-13 18:05] LABS: Reflex Troponin-HS? (from REC) Y
[2024-04-13 18:44] LABS: Troponin-I HS 17 pg/mL (3.0-78.0)
--- NOTE | 2024-04-13 19:23 | HP.PCM.HOS_ITS ---
[facility] - General General Date of Admission: 04/13/24 Date of Service: 04/13/24 Chief Complaint: Chest Pain. HPI Narrative MARY KAY MIRELES, is a 58 M with a past medical history of essential hypertension, hyperlipidemia, history of former tobacco abuse (quit 1989); with subsequent COPD followed by Dr. Morales of pulmonology, idiopathic pulmonary fibrosis; with patient seeking to be a candidate for lung transplant, chronic respiratory failure, history of allergic rhinitis; with recurrent sinus infections, history of cough attributed to Lisinopril, history of blindness in the Right eye, history of umbilical hernia, history of colonoscopy with polypectomy (2020), GERD, OA and known CAD; s/p LHC on March 08, [address] Multani of [facility] with ~70% LAD lesion noted along with plans for LHC in five days who presents to [facility] ER complaining of chest pain. Mr. Ford report his symptoms began approximately one day prior to admission with chest pain that began yesterday evening that began at rest and was Left-sided, sharp and moderate with pain resolving spontaneously so he did not seek medical attention at that time. Unfortunately, about one hour prior to arrival his chest pain returned and was focused on the Left side of his chest and was sharp but more severe so he activated EMS and his chest pain improved after he was treated with aspirin and NTG. He then developed more chest pain and anxiety in the ER that improved after further treatment with Morphine and Ativan. He also admits to associated nausea, SOB and lightheadedness but he denies related fever, chills, vomiting, diaphoresis, syncope or presyncope. In the ER he was noted to have two normal troponins at 17 pg/mL and an EKG that was nonspecific with a HEART score of 5 and he was then admitted to the PCU under observation status for ongoing care for stay that is expected to be less than 2 midnights. COUNTS INCLUDE 234 BEDS AT THE [facility] Medical History Lung transplant candidate IPF (idiopathic pulmonary fibrosis) CAD (coronary artery disease) Hypercholesteremia Mixed obstructive and restrictive ventilatory defect Chronic hypoxemic respiratory failure Recurrent sinus infections COPD exacerbation Hypokalemia Acute dyspnea Chest discomfort HTN (hypertension) GERD (gastroesophageal reflux disease) ILD (interstitial lung disease) Acute exacerbation of idiopathic pulmonary fibrosis Acute and chronic respiratory failure Influenza A Nicotine dependence, cigarettes, in remission Restrictive airway disease Obesity Therapeutic drug monitoring Pulmonary fibrosis 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 Umbilical hernia Mononucleosis Blind right eye Allergic rhinitis Home Medications ?Medication ?Instructions ?Recorded ?Last Taken ?Type umeclidinium 62.5 mcg-vilanterol 1 inh inhalation Q24H SHORTNESS OF 10/25/23 04/13/24 Rx 25 mcg/actuation powdr for BREATH/WHEEZING #60 ea inhalation (Anoro Ellipta) losartan 100 mg tablet 100 mg PO DAILY BLOOD PRESSURE 03/17/24 04/13/24 History pirfenidone 267 mg tablet 801 mg PO TID PULMONARY FIBROSIS 03/17/24 04/13/24 History albuterol sulfate 2.5 mg/3 mL 2.5 mg (3 mL) inhalation Q4H PRN 03/20/24 04/13/24 Rx (0.083 %) solution for nebulization SHORTNESS OF BREATH/WHEEZING #180 mL albuterol sulfate 90 mcg/actuation 2 puff inhalation Q4H PRN 03/27/24 04/13/24 History aerosol inhaler SHORTNESS OF BREATH/WHEEZING amlodipine 5 mg tablet 5 mg PO DAILY #90 tabs 04/12/24 04/12/24 Rx aspirin 81 mg tablet,delayed 81 mg PO DAILY 04/12/24 04/12/24 History release clopidogrel 75 mg tablet 75 mg PO DAILY #90 tabs 04/12/24 04/12/24 Rx esomeprazole magnesium 20 mg 20 mg PO DAILY 04/12/24 04/13/24 History capsule,delayed release (Nexium 24HR) nitroglycerin 0.4 mg sublingual 0.4 mg sublingual Q5-15M PRN chest 04/12/24 Unknown Rx tablet pain #25 tabs atorvastatin 80 mg tablet 80 mg PO QHS 04/13/24 04/12/24 History Allergy/AdvReac Type Severity Reaction Status Date / Time lisinopril AdvReac Intermediate cough Verified 04/12/24 10:39 Family History Mother Hypertension Father Hypertension CVA (cerebral vascular accident) Surgical History Hx of cardiac catheterization (~06/12/23) Hx of colonoscopy with polypectomy (~03/2021) Social History household members: spouse housing: house Smoking Status: Former smoker quit date: 04/24/90 pack-years: 15 alcohol intake: current alcohol intake frequency: holidays/special occasions only substance use type: does not use caffeine: Yes Type: coffee Number of servings: 4 Vital Signs Vital Signs Vital Signs: 04/13/24 15:43 04/13/24 15:49 04/13/24 16:23 Temperature 97.3 F L Temperature Source Temporal Pulse Rate 97 Respiratory Rate 28 H Respiratory Effort Short of Breath Respiratory Pattern Tachypnea Blood Pressure 119/95 H Blood Pressure Mean 103 Pulse Ox 100 Oxygen Delivery Method Nasal Cannula Nasal Cannula Nasal Cannula Oxygen Flow Rate (L/min) 5 5 04/13/24 16:51 04/13/24 18:00 Temperature Temperature Source Pulse Rate 89 80 Respiratory Rate 25 H 32 H Respiratory Effort Respiratory Pattern Blood Pressure 116/94 H 117/86 H Blood Pressure Mean 101 96 Pulse Ox 98 100 Oxygen Delivery Method Nasal Cannula Nasal Cannula Oxygen Flow Rate (L/min) 6 5 Weight Weight: 144 lb 9.972 oz Body Mass Index (BMI) 22.6 Results Lab / Micro Data 04/13/24 15:52 04/13/24 15:52 Labs: Laboratory Results - last 24 hr 04/13/24 15:52: WBC 6.5, RBC 4.97, Hgb 15.3, Hct 45.5, MCV 91.5, MCH 30.8, MCHC 33.6, RDW Std Deviation 44.7 H, RDW Coeff of Ravinder 13.3, Plt Count 187, MPV 8.6, Immature Gran % (Auto) 0.300, Neut % (Auto) 74.3 H, Lymph % (Auto) 15.2 L, [place] % (Auto) 6.5, Eos % (Auto) 3.1, Baso % (Auto) 0.6, Absolute Neuts (auto) 4.8, Absolute Lymphs (auto) 0.98, Nucleated RBC % 0, D-Dimer Quant (PE/DVT) 0.33, Sodium 139, Potassium 3.7, Chloride 104, Carbon Dioxide 29.0, Anion Gap 6, BUN 8, Creatinine 0.97, Estim Creat Clear Calc 75.82, Est GFR (MDRD) Af Amer 102, Est GFR (MDRD) Non-Af 84, BUN/Creatinine Ratio 8.2 L, Glucose 124 H, Calcium 9.3, Troponin I High Sens 17, B-Natriuretic Peptide 53.6 04/13/24 18:14: Troponin I High Sens 17 Imaging Radiology Impression Chest X-Ray 04/13/24 16:24 IMPRESSION: No change from 03/27/2024. Electronically Signed: Syed Emery MD at 16:50 EDT , Assessment & Plan Assessment/Plan (1) Chest pain: QUALIFIERS: Chest pain type: unspecified Qualified Code(s): R07.9 - Chest pain, unspecified (2) CAD (coronary artery disease): QUALIFIERS: Coronary Disease-Associated Artery/Lesion type: [place] artery [place] vs. transplanted heart: [place] heart Associated angina: with unspecified form of angina Qualified Code(s): I25.119 - Atherosclerotic heart disease of [place] coronary artery with unspecified angina pectoris (3) IPF (idiopathic pulmonary fibrosis): (4) COPD (chronic obstructive pulmonary disease): QUALIFIERS: COPD type: unspecified COPD Qualified Code(s): J44.9 - Chronic obstructive pulmonary disease, unspecified (5) Lung transplant candidate: (6) HTN (hypertension): QUALIFIERS: Hypertension type: unspecified Qualified Code(s): I10 - Essential (primary) hypertension (7) Hypercholesteremia: PLAN: Plan 1. Recurrent Chest Pain in the setting of known CAD; s/p LHC on March 08, [address] Multani of [facility] with ~70% LAD lesion noted along with plans for LHC in five days - Admit to PCU under observation status. Serialize troponin. Check echocardiogram to evaluate LVEF. Continue aspirin, Plavix, statin and prn sublingual NTG. Give Tylenol for [id number] (level 1-5/10) pain or fever. Give Morphine IV prn for severe (level 6-10/10) pain. Finally, we will consult Dr. Multani of [facility] to see this patient on-rounds in the AM for [facility] with LAD stent placement with help appreciated in advance. 2. History of former tobacco abuse (quit 1989); with subsequent COPD complicated by idiopathic pulmonary fibrosis; with patient seeking to be a candidate for lung transplant with chronic hypoxic respiratory failure compounding #1 - Continue home medications plus give Robitussin DM now for cough and congestion. 3. Essential hypertension - Resume home regimen and give prn IV Hydralazine for systolic blood pressure > 160 mmHg. 4. Hyperlipidemia - Continue statin and check Lipid Profile in light of #1. 5. History of allergic rhinitis; with recurrent sinus infections - Stable with no evidence of recurrence. 6. History of cough attributed to Lisinopril - Avoid MAUREEN-inhibitors. 7. History of blindness in the Right eye - Noted. 8. History of umbilical hernia - Noted. 9. History of colonoscopy with polypectomy (2020) - Noted. 10. GERD - Continue PPI as previous. 11. OA - Give Tylenol prn. 12. DVT prophylaxis - Lovenox 40 mg sq daily. Total time: Approximately 85 minutes. Charges/Coding Visit Charges OBSV E&M: [id number] Observ/hosp same date L2
--- NOTE | 2024-04-13 20:16 | EKG12_ITS ---
Test Reason : CP ADMIT Blood Pressure : / mmHG Vent. Rate : 075 BPM Atrial Rate : 075 BPM P-R Int : 136 ms QRS Dur : 092 ms QT Int : 384 ms P-R-T Axes : 016 -41 -12 degrees QTc Int : 428 ms Normal sinus rhythm with sinus arrhythmia Indeterminate axis T wave abnormality, consider anterior ischemia Abnormal ECG When compared with ECG of 13-APR-2024 15:47, MANUAL COMPARISON REQUIRED, DATA IS UNCONFIRMED Confirmed by SEAN BLUNT, LYNDSEY ([id number]), photography editor ASHLEY TERESA ([id number]) on 04/17/2024 11:36:19 AM Referred By: Confirmed By:LYNDSEY ESTRADA MD
[2024-04-13 22:11] LABS: Troponin-I HS 22 pg/mL (3.0-78.0)
[2024-04-14] VITALS (17 sets, daily range): BP systolic 89–124; BP diastolic 67–90; PULSE 54–98; RESP 18–26; TEMP 36.1–36.6; O2SAT 92–100; BMI 21.5
[2024-04-14] MEDS: Atorvastatin Calcium 80 MG Tablet PO ×2 (00:23→20:58)
[2024-04-14] MEDS: CLARIFY ORDER 1 EACH NOTE (00:23)
[2024-04-14] MEDS: Clopidogrel Bisulfate 75 MG Tablet PO ×2 (00:23→07:38)
[2024-04-14] MEDS: 0.9% Normal Saline (1000mL) 1,000 ML 70 ML IV ×2 (00:24→13:29)
[2024-04-14 06:35] LABS: Absolute Lymphocyte Count 1.05 X10^3/uL (0.83-4.51); Absolute Neutrophil Count 3.2 X10^3/uL (2.0-7.7); Basophil# 0.05 X10^3/uL; Basophil% 0.9 % (0-1); Eosinophil# 0.65 X10^3/uL; Eosinophils% 12.3 % (0-5); Hematocrit 44.9 % (40-54); Lymphocyte # 1.05 X10^3/ul (0.83-4.51); Lymphocyte % 19.9 % (19-41); Mean Corp Hgb Conc 33.4 g/dL (32-36); Mean Corpuscular Hgb 31.2 pg (27.0-32.0); Mean Corpuscular Volume 93.3 fL (80-94); Mean Platelet Vol. 8.5 fl (6.2-12.0); Monocyte# 0.35 X10^3/uL; Monocyte% 6.6 % (0-10); NRBC Flagged by Analyzer 0 % (0-5); Neutrophil # 3.17 X10^3/uL (2.7-7.7); Neutrophil % 60.1 % (47-70); Platelet Count 177 K/mm3 (150-450); RBC Distribution Width CV 13.2 % (11.6-14.6); Red Blood Count 4.81 M/mm3 (4.6-6.2); White Blood Count 5.3 K/mm3 (4.4-11.0)
[2024-04-14 07:18] LABS: ALB/GLOB Ratio 0.9 RATIO (0.9-2.4); AST(SGOT) 21 U/L (15-37); Alanine Aminotransfer ALT/SGPT 18 U/L (16-61); Albumin, Serum 3.2 g/dL (3.2-5.0); Alkaline Phosphatase 74 U/L (45-117); Anion Gap 5 (5-15); BUN 10 mg/dL (7-18); Chloride 106 mmol/L (98-107); Cholesterol 209 mg/dL (200); Creatinine, Serum 0.91 mg/dL (0.70-1.30); EST Glomerular Filtration Rate 91 mL/min (>60); Est Glom Filt Rate - Afr Amer 110 mL/min (>60); Estimated Creatinine Clearance 79.17 ml/min; Globulin 3.5 g/dL (2.2-4.2); Glucose 70 mg/dL (74-106); High Density Lipoprotein 57 mg/dL; Potassium 4.3 mmol/L (3.5-5.1); Protein, Total 6.7 g/dL (6.4-8.2); Sodium Level 140 mmol/L (136-145); Thyroid Stim Hormone (TSH) 1.28 uIU/mL (0.358-3.74); Triglycerides 67 mg/dL; Very Low Density Lipoprotein 13 mg/dL (5-40)
[2024-04-14] MEDS: Ipratropium/Albuterol Sulfate 3 ML AMPUL.NEB INHALATION ×3 (07:33→19:26)
[2024-04-14] MEDS: Pantoprazole Sodium 20 MG Tablet PO (07:37)
[2024-04-14] MEDS: Aspirin E.C. 81 MG Tablet PO (07:37)
[2024-04-14] MEDS: Losartan Potassium 100 MG Tablet PO (07:37)
[2024-04-14] MEDS: amLODIPine 5 MG Tablet PO (07:38)
--- NOTE | 2024-04-14 10:46 | PCM.CONS.C ---
Assessment & Plan Assessment/Plan (1) Angina pectoris: PLAN: Plan (1) Angina pectoris: Coronary angio with possible revascularization (2) CAD (coronary artery disease): (3) HTN (hypertension): Losartan. Amlodipine. (4) IPF (idiopathic pulmonary fibrosis): As per pulmonology. HPI Consult Data Date of Consult: 04/15/24 HPI Narrative Reason for Consultation: Chest Pain HPI Narrative: Patient with history of CAD with 70% LAD reported at outside hospital in 2022. Now with accelerating angina. Scheduled for coronary angiography next week but presented to the ER with angina. [facility] Medical History (Updated 04/14/24 @ 02:[address] Alek Dinero, DO) Lung transplant candidate IPF (idiopathic pulmonary fibrosis) CAD (coronary artery disease) Hypercholesteremia Mixed obstructive and restrictive ventilatory defect Chronic hypoxemic respiratory failure Recurrent sinus infections COPD exacerbation Hypokalemia Acute dyspnea Chest discomfort HTN (hypertension) GERD (gastroesophageal reflux disease) ILD (interstitial lung disease) Acute exacerbation of idiopathic pulmonary fibrosis Acute and chronic respiratory failure Influenza A Nicotine dependence, cigarettes, in remission Restrictive airway disease Obesity Therapeutic drug monitoring Pulmonary fibrosis 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 Umbilical hernia Mononucleosis Blind right eye Allergic rhinitis Home Medications ?Medication ?Instructions ?Recorded ?Last Taken ?Type umeclidinium 62.5 mcg-vilanterol 1 inh inhalation Q24H SHORTNESS OF 10/25/23 04/13/24 Rx 25 mcg/actuation powdr for BREATH/WHEEZING #60 ea inhalation (Anoro Ellipta) losartan 100 mg tablet 100 mg PO DAILY BLOOD PRESSURE 03/17/24 04/13/24 History pirfenidone 267 mg tablet 801 mg PO TID PULMONARY FIBROSIS 03/17/24 04/13/24 History albuterol sulfate 2.5 mg/3 mL 2.5 mg (3 mL) inhalation Q4H PRN 03/20/24 04/13/24 Rx (0.083 %) solution for nebulization SHORTNESS OF BREATH/WHEEZING #180 mL albuterol sulfate 90 mcg/actuation 2 puff inhalation Q4H PRN 03/27/24 04/13/24 History aerosol inhaler SHORTNESS OF BREATH/WHEEZING amlodipine 5 mg tablet 5 mg PO DAILY #90 tabs 04/12/24 04/12/24 Rx aspirin 81 mg tablet,delayed 81 mg PO DAILY 04/12/24 04/12/24 History release clopidogrel 75 mg tablet 75 mg PO DAILY #90 tabs 04/12/24 04/12/24 Rx esomeprazole magnesium 20 mg 20 mg PO DAILY 04/12/24 04/13/24 History capsule,delayed release (Nexium 24HR) nitroglycerin 0.4 mg sublingual 0.4 mg sublingual Q5-15M PRN chest 04/12/24 Unknown Rx tablet pain #25 tabs atorvastatin 80 mg tablet 80 mg PO QHS 04/13/24 04/12/24 History Allergy/AdvReac Type Severity Reaction Status Date / Time lisinopril AdvReac Intermediate cough Verified 04/12/24 10:39 Family History Mother Hypertension Father Hypertension CVA (cerebral vascular accident) Surgical History (Updated 04/14/24 @ 14:27 by Chiquita Jerry) Stented coronary artery (~04/14/24) Hx of cardiac catheterization (~04/14/24) Hx of colonoscopy with polypectomy (~03/2021) Social History household members: spouse housing: house Smoking Status: Former smoker quit date: 04/24/90 pack-years: 15 alcohol intake: current alcohol intake frequency: holidays/special occasions only substance use type: does not use caffeine: Yes Type: coffee Number of servings: 4 Physical Exam Narrative Const Appearance: comfortable and no acute distress Nutritional Appearance: well nourished Neck Neck: no JVD Carotids: Negative bruit Chest Auscultation: Bilateral: Diminished Lung Sounds Cardio Rate: regular rate Rhythm: regular rhythm Heart sounds: S1 normal and S2 normal Neuro General: patient alert, patient awake and patient oriented x3 Extremities Lower Extremity Edema: None: Bilateral Risk Stratification Risk Stratification Applicable: No Objective Data Vital Signs: Vital Signs Temp Pulse Resp BP Pulse Ox O2 Del Method O2 Flow Rate 97.8 F 98 24 H 116/79 97 Nasal Cannula 5 04/14/24 10:38 04/14/24 10:38 04/14/24 10:38 04/14/24 10:38 04/14/24 10:38 04/14/24 10:38 04/14/24 10:38 Oxygen Flow Rate (L/min) 5 Oxygen Delivery Method Nasal Cannula Weight: 137 lb 12.623 oz Body Mass Index (BMI) 21.5 Intake & Output: Intake and Output for Last 24 Hours 04/12/24 04/13/24 04/14/24 23:59 23:59 23:59 Intake Total 100 / 300 200 / 200 Balance 100 / 300 200 / 200 Lab / Micro Data 04/15/24 05:56 04/15/24 05:56 Labs: Laboratory Results - last 24 hr 04/13/24 15:52: WBC 6.5, RBC 4.97, Hgb 15.3, Hct 45.5, MCV 91.5, MCH 30.8, MCHC 33.6, RDW Std Deviation 44.7 H, RDW Coeff of Ravinder 13.3, Plt Count 187, MPV 8.6, Immature Gran % (Auto) 0.300, Neut % (Auto) 74.3 H, Lymph % (Auto) 15.2 L, Knott % (Auto) 6.5, Eos % (Auto) 3.1, Baso % (Auto) 0.6, Absolute Neuts (auto) 4.8, Absolute Lymphs (auto) 0.98, Nucleated RBC % 0, D-Dimer Quant (PE/DVT) 0.33, Sodium 139, Potassium 3.7, Chloride 104, Carbon Dioxide 29.0, Anion Gap 6, BUN 8, Creatinine 0.97, Estim Creat Clear Calc 75.82, Est GFR (MDRD) Af Amer 102, Est GFR (MDRD) Non-Af 84, BUN/Creatinine Ratio 8.2 L, Glucose 124 H, Calcium 9.3, Troponin I High Sens 17, B-Natriuretic Peptide 53.6 04/13/24 18:14: Troponin I High Sens 17 04/13/24 21:40: Troponin I High Sens 22 04/14/24 06:15: WBC 5.3, RBC 4.81, Hgb 15.0, Hct 44.9, MCV 93.3, MCH 31.2, MCHC 33.4, RDW Std Deviation 45.0 H, RDW Coeff of Ravinder 13.2, Plt Count 177, MPV 8.5, Immature Gran % (Auto) 0.200, Neut % (Auto) 60.1, Lymph % (Auto) 19.9, Knott % (Auto) 6.6, Eos % (Auto) 12.3 H, Baso % (Auto) 0.9, Absolute Neuts (auto) 3.2, Absolute Lymphs (auto) 1.05, Nucleated RBC % 0, Sodium 140, Potassium 4.3, Chloride 106, Carbon Dioxide 29.0, Anion Gap 5, BUN 10, Creatinine 0.91, Estim Creat Clear Calc 79.17, Est GFR (MDRD) Af Amer 110, Est GFR (MDRD) Non-Af 91, BUN/Creatinine Ratio 11.0, Glucose 70 L, Calcium 9.0, Phosphorus 3.0, Magnesium 2.0, Total Bilirubin 0.80, AST 21, ALT 18, Alkaline Phosphatase 74, Total Protein 6.7, Albumin 3.2, Globulin 3.5, Albumin/Globulin Ratio 0.9, Triglycerides 67, Cholesterol 209 H, LDL Cholesterol 139 H, VLDL Cholesterol 13, HDL Cholesterol 57, TSH 1.28 Cardiology Labs/Tests 04/13/24 15:52: WBC 6.5, RBC 4.97, Hgb 15.3, Hct 45.5, MCV 91.5, MCH 30.8, MCHC 33.6, Plt Count 187, MPV 8.6, Immature Gran % (Auto) 0.300, Neut % (Auto) 74.3 H, Lymph % (Auto) 15.2 L, Knott % (Auto) 6.5, Eos % (Auto) 3.1, Baso % (Auto) 0.6, Absolute Neuts (auto) 4.8, Nucleated RBC % 0, D-Dimer Quant (PE/DVT) 0.33, Sodium 139, Potassium 3.7, Chloride 104, Carbon Dioxide 29.0, Anion Gap 6, BUN 8, Creatinine 0.97, Est GFR (MDRD) Af Amer 102, Est GFR (MDRD) Non-Af 84, BUN/Creatinine Ratio 8.2 L, Glucose 124 H, Calcium 9.3, B-Natriuretic Peptide 53.6 04/14/24 06:15: WBC 5.3, RBC 4.81, Hgb 15.0, Hct 44.9, MCV 93.3, MCH 31.2, MCHC 33.4, Plt Count 177, MPV 8.5, Immature Gran % (Auto) 0.200, Neut % (Auto) 60.1, Lymph % (Auto) 19.9, Knott % (Auto) 6.6, Eos % (Auto) 12.3 H, Baso % (Auto) 0.9, Absolute Neuts (auto) 3.2, Nucleated RBC % 0, Sodium 140, Potassium 4.3, Chloride 106, Carbon Dioxide 29.0, Anion Gap 5, BUN 10, Creatinine 0.91, Est GFR (MDRD) Af Amer 110, Est GFR (MDRD) Non-Af 91, BUN/Creatinine Ratio 11.0, Glucose 70 L, Calcium 9.0, Phosphorus 3.0, Magnesium 2.0, Total Bilirubin 0.80, Triglycerides 67, Cholesterol 209 H, LDL Cholesterol 139 H, VLDL Cholesterol 13, HDL Cholesterol 57 Rhythm: EKG: ECHO: Stress Test: Cardiac Cath: PCI: CT Surgery: Holter monitor: EPS: PPM: CXR: Chest CT Scan: Radiography Diagnostic Testing: Radiology Impression Chest X-Ray 04/13/24 16:24 IMPRESSION: No change from 03/27/2024. Electronically Signed: Syed Emery MD at 16:50 EDT ,
--- NOTE | 2024-04-14 12:08 | CL.I_ITS ---
Patient Name: MARY KAY MIRELES Study Date: 04/14/2024 Performing: Sukhdeep Multani MD Ht: 67 inches 170.18 cm : 1965 Wt: 137.79 lbs 62.5 kg Age: 58 Gender: male BSA: 1.73 PROCEDURE(S) PERFORMED DC02-([id number])LHC/COR IC12-([id number])MARK W/WO PTCA, SINGLE CORONARY ARTERY IC10-([id number])FFR, CORONARY OR GRAFT, INITIAL VESSEL CLINICAL PROFILE AND CO-MORBIDITIES Indications: Worsening Angina Heart Failure: None Angina Classification Anginal Classification w/in 2 Weeks: CCS IV CAD Presentations: Unstable angina. CONCLUSIONS 50% calcified Prox Mid LAd (iFR 0.99); 80% Mid LAD 50% distal LCX; 50% Prox OM1 50% Mid RCA Post iFR LAD 0.97 RECOMMENDATIONS ASA Indefinitley Plavix for at least 12 months DESCRIPTION OF PROCEDURE The patient arrived to the procedure lab. The risks and benefits of the procedure as well as a full description of our services here and lack of surgical backup were fully explained to the patient and/or their significant other prior to the catheterization. The Timeout was completed, verifying the correct patient and procedure. The patient's procedural site was prepped and draped in the usual fashion. Local anesthetic was given subcutaneously to right groin region with Lidocaine 2%. Using a modified Seldinger technique, arterial access was obtained via the right femoral artery, a 6Fr sheath was inserted.. Left Coronary Artery selective angiography was performed in multiple views using a 5 Fr. JL4 catheter. Right Coronary Artery selective angiography was then performed in multiple views using a 5 Fr. JR 4 catheterThe images were reviewed and options discussed. A decision was then made to proceed with an Intervention, IVUS or other adjunct procedure. XB 3.5 Guide catheter was inserted and engaged into the LCA. Runthrough Guide wire was advanced to the LAD. Andrzej [place] 3.0x12 Drug Eluting stent was inserted. Angiogram performed post stent deployment. [place] Andrzej 3.0x18 Drug Eluting stent was inserted. Angiogram performed post stent deployment. NC Emerge 3.00x20 Balloon catheter was inserted. Angiogram performed post balloon dilatation. The FFR/iFR wire was inserted. Pressures and FFR/iFR were then recorded. FFR Ratio : 0.96 iFR Ratio: 0.96 iFR Ratio: 0.99 The FFR/iFR wire was then removed. Angiogram performed post IFR Contrast was injected through the sheath and the Right Iliac and Femoral artery were assessed for possible closure device. The arterial sheath was pulled and a Perclose closure device was deployed for hemostasis CORONARY ANGIOGRAPHY DOMINANCE: Right Dominant LEFT MAIN: Tubular 20% Ostial lesion in LMCA LEFT ANTERIOR DESCENDING ARTERY: LAD: Calcified 50% Mid lesion in LAD Tubular 80% Mid lesion in LAD OM 1: Tubular 50% Proximal lesion in MARG1 OM 2: Tubular 50% Proximal lesion in MARG1 RIGHT CORONARY ARTERY: RCA: Calcified 50% Mid lesion in RCA INTERVENTION INFORMATION LESION SITE: LAD (Mid) Lesion Complexity: High/C, lesion length: 28 mm, culprit lesion: Yes Pre Stenosis: 80 % Pre intervention TIMO flow: 3 PROCEDURE: Drug Eluting Stent with post dilatation Post Stenosis: 0 % Post intervention TIMO flow: 3 Lesion Devices: Helical IT Solutionsis 6 Fr XB3.5 100cm Guide Catheter Terumo .014 180cm Runthrough Extra Floppy straight Medtronic 3.0 x 12 ANDRZEJ FRONTIER MARK Medtronic 3.0 x 18 ANDRZEJ FRONTIER MARK Desean Sci NC EMERGE MR 3.00x20 BALLOON LESION SITE: LAD (Proximal) Lesion Devices: Food52 Coronary FFR Wire COMPLICATIONS No Complications PROCEDURE MEDICATIONS Versed 1 mg IV Fentanyl 50 mcg IV Oxygen: 6 L/min via nasal cannula Brilinta 180 mg PO @ 04/14/2024 11:19:53 Heparin 5000 unit(s) IV 04/14/2024 11:13:09 Nitro 100 mcg IC 04/14/2024 11:27:58 IV Fluids: .9 NaCl IV started @ 100 ml/hr 04/14/2024 11:08:53 SUMMARY OF HEMODYNAMIC DATA Time AIR REST ECG 10:54:33 ECG 10:54:36 AO 87/62 (73) SA 11:09:04 AO 93/63 (78) 11:27:23 12:02:37 Signed By Sukhdeep Multani MD On 04/14/2024 12:10:42 Signed By Sukhdeep Multani MD On 04/14/2024 12:09:12 Signed By Sukhdeep Multani MD On 04/14/2024 12:07:33 Sukhdeep Multani MD
--- NOTE | 2024-04-14 12:30 | EKG12_ITS ---
Test Reason : POST PCI Blood Pressure : / mmHG Vent. Rate : 068 BPM Atrial Rate : 068 BPM P-R Int : 132 ms QRS Dur : 094 ms QT Int : 392 ms P-R-T Axes : 014 -35 -16 degrees QTc Int : 416 ms Normal sinus rhythm Left axis deviation Nonspecific T wave abnormality Abnormal ECG When compared with ECG of 14-APR-2024 15:21, MANUAL COMPARISON REQUIRED, DATA IS UNCONFIRMED Confirmed by SEAN BLUNT, LYNDSEY ([id number]), editor publications DARIN NORIEGA ([id number]) on 04/17/2024 1:11:41 PM Referred By: GREGG Confirmed By:LYNDSEY ESTRADA MD
--- NOTE | 2024-04-14 13:09 | CRPHASE1_ITS ---
Patient Communication Patient Information PHII Cardiac Rehab Discussed with Patient:: Yes Guide to Cardiac Rehab Given to Patient:: Yes Cardiac Rehab Facility Choice List Given to Patient:: Yes Communication to Cardiac Rehab Choice Program [facility] PHII:: Communication Given to CR Estimate Clerk:: Sukhdeep Multani Phase II Cardiac Rehab:: Yes Sessions:: 36 sessions - 3 days/wk, 12 weeks Cardiac Rehabilitation Info Program Information Cardiac Rehabilitation Program Information: Cardiac Rehab The cardiac rehab team at [facility] consists of highly skilled exercise physiologists, nurses, respiratory therapists and physicians working together with you. Our purpose is to help you have a full recovery and achieve the goals you set for yourself. Over the years many of our patients have returned to activities they assumed they would never do again! We can help restore your confidence and motivation to make lifestyle changes that can have a significant impact on your health and quality of life! We can help answer questions and concerns you may have about exercise, lifestyle, medications, diet, stress and anxiety which are common following a hospitalization. WE monitor ECG and vital signs during exercise and discuss your progress with you and report to your physician(s). Cardiac Rehab is proven to help reduce readmissions, improve functional capacity and lower recurrence of problems with your heart. Our Cardiac Rehab program is Certified by the [place] [employer]-V[employer] and Pulmonary [employer] (AACVPR) and Accredited by the [place] [employer] through our [facility]. You can contact us at . We invite you to call us with your questions or to get started in our program. If you have other questions or concerns be sure to ask your physician/provider during your follow-up visit. WE look forward to seeing you!
--- NOTE | 2024-04-14 13:10 | CRPH1.INSTRU ---
General Education Discussed with Patient CAD and cardiac anatomy and function:: Patient communicates acknowledgment Explanation of diagnoses and procedures:: Patient communicates acknowledgment Sign/Symptoms of VA:: Patient communicates acknowledgment Antiplatelet therapy: Patient communicates acknowledgment Proper use of NTG-SL: Patient communicates acknowledgment Emergency procedures and activation of EMS: Patient communicates acknowledgment Compliance of all prescribed medications: Patient communicates acknowledgment Smoking Risk Factors Patient Nicotine/Smoking Risk Factors Are:: Non-smoker Recommendations Recommendations Include:: Previous smoker; encourage continued cessation Response Code Nicotine/Smoking Response Code:: Patient communicates acknowledgment Dyslipidemia Risk Factors Patient Dyslipidemia Risk Factors Are:: Total Cholesterol, Triglycerides, HDL and LDL Recommendations Recommendations Include:: Lipid profile provided, Reviewed NCEP/ATP guidelines and Therapeutic Lifestyle Change dietary guidelines Response Code Dyslipidemia Response Code:: Patient communicates acknowledgment Overweight/Obesity Risk Factors Patient Overweight/Obesity Risk Factors Are:: BMI Normal [18-25 & < 65 years old] Recommendations Recommendations Include:: Weight loss of 5-10%, Reduced calorie diet and Exercise 5-7 times/week Response Code Overweight/Obesity:: Patient communicates acknowledgment Hypertension Recommendations Recommendations Include:: Maintain BP <130/85, DASH dietary guidelines, Decrease/maintain normal body weight and Moderation of ETOH Response Code Hypertension:: Patient communicates acknowledgment Diabetes Risk Factors Patient Diabetes Risk Factors Are:: No documented hx of diabetes Metabolic Syndrome Risk Factors Patient Metabolic Syndrome Risk Factors Are [3 of 5]:: Fasting blood sugar > 100 mg/dL, Waist circumference > 35 [female] or 40 [male], High triglyceride >150, Hypertension and Low HDL <40 [male] or < 50 [female] Recommendations Recommendations Include:: Reinforce compliance to risk factor modifications and Encouraged follow-up with Primary Care Physician Response Code Metabolic Syndrome Response Code:: Patient communicates acknowledgment Sedentary Risk Factors Patient Sedentary Risk Factors Are:: Lack of regular exercise Recommendations Recommendations Include:: Aerobic exercise 5-7 times/week for 20-30 minutes continuously, Benefits of regular exercise, Discussed home walking program and Monitored Outpatient Cardiac Rehab Response Code Sedentary Response Code:: Patient communicates acknowledgment Stress Recommendations Recommendations Include:: Identification of stressors, and assessment of coping skills and Stress management techniques Response Code Stress Response Code:: Patient communicates acknowledgment
--- NOTE | 2024-04-14 13:58 | CHAPLAIN ---
Type of Pastoral Visit _x__ Initial Visit ___ Follow-up Visit ___ On-call Visit ___ General Patient Visit ___ Spiritual Assessment ___ Family Conference ___ Bereavement ___ Rapid Response ___ Code Blue ___ Other (describe below) Pastoral Care Referral From _x__ Patient ___ Family ___ Nurse ___ Physician ___ Sales Floor Manager ___ Fire And Explosion Investigator ___ Other (describe below) Sacrament/Intervention _x__ Active listening ___ Anointing ___ Adventist ___ Bereavement ___ Communion ___ Jillian exploration ___ ___ Life review ___ Prayer ___ Reconciliation ___ Sacrament of Sick _x__ Supportive presence ___ Wedding ___ Other (describe below) Pastoral Comments patient recently returned from his heart cath; offer of support and looking at needs of pt at this time; pt states that he is feeling much better now and is relieved at having this done; pt states no current needs but appreciates the offer
[2024-04-14] MEDS: Ensure Plus High Protein 120 ML LIQUID PO ×2 (17:26→20:58)
--- NOTE | 2024-04-14 17:26 | PCM.PN.HOSP ---
Reason for Visit Reason for Visit: Diagnoses Pure hypercholesterolemia, unspecified (04/14/24) Essential (primary) hypertension (04/14/24) Angina pectoris, unspecified (04/14/24) Atherosclerotic heart disease of [place] coronary artery with unspecified angina pectoris (04/14/24) Chronic obstructive pulmonary disease, unspecified (04/14/24) Idiopathic pulmonary fibrosis (04/14/24) Chest pain, unspecified (04/14/24) Awaiting organ transplant status (04/14/24) Subjective Subjective Patient was seen and examined today, he underwent a cardiac catheterization today with balloon angioplasty and MARK placement in the mid LAD. I talked briefly with cardiology about his care. Objective Data Objective Data Vital Signs: Vital Signs Temp Pulse Resp BP Pulse Ox O2 Del Method O2 Flow Rate 97.6 F L 86 20 H 104/72 94 Nasal Cannula 5 04/14/24 17:23 04/14/24 17:23 04/14/24 17:23 04/14/24 17:23 04/14/24 17:23 04/14/24 17:23 04/14/24 17:23 Oxygen Flow Rate (L/min) 5 Oxygen Delivery Method Nasal Cannula Weight: 62.5 kg Body Mass Index (BMI) 21.5 Intake & Output: Intake and Output for Last 24 Hours 04/12/24 04/13/24 04/14/24 23:59 23:59 23:59 Intake Total 100 / 300 1115.83 / 1115.83 Balance 100 / 300 1115.83 / 1115.83 Medical Nutrition Assessment Dietitian: Malnutrition Criteria Met Start: 04/14/24 15:04 Freq: Status: Active Protocol: Document 04/14/24 15:04 SB (Rec: 04/14/24 15:05 SB [id number]) Nutrition Malnutrition Evidence of Malnutrition Exists Yes Malnutrition (moderate): Acute Illness/Injury Evidenced By Suboptimal Energy Intake ( Moderate),Weight Loss (Severe) ,Physical Changes (Mild) Clinical Problem Acute Disease or Injury Related Malnutrition Etiology related to pulmonary fibrosis and COPD with inadequate energy intake Signs/Symptoms as evidence by 3.6% unintended weight loss over the past 18 days and PO intake meeting <50 % of estimated nutritional needs x 1 month; also with muscle wasting in the clavicle region. Status Active Problem Recommendation Dietitian Recommendations/Changes Continue liberal regular diet d/t signs and symptoms of malnutrition. Order 120ml Alliance Ensure plus HP 4 times a day with Innobits[employer]. Reviewed and approved Brittnee Paulson RD/ALINA Lab / Micro Data 04/14/24 06:15 04/14/24 06:15 Labs: Laboratory Results - last 24 hr 04/13/24 18:14: Troponin I High Sens 17 04/13/24 21:40: Troponin I High Sens 22 04/14/24 06:15: WBC 5.3, RBC 4.81, Hgb 15.0, Hct 44.9, MCV 93.3, MCH 31.2, MCHC 33.4, RDW Std Deviation 45.0 H, RDW Coeff of Ravinder 13.2, Plt Count 177, MPV 8.5, Immature Gran % (Auto) 0.200, Neut % (Auto) 60.1, Lymph % (Auto) 19.9, [place] % (Auto) 6.6, Eos % (Auto) 12.3 H, Baso % (Auto) 0.9, Absolute Neuts (auto) 3.2, Absolute Lymphs (auto) 1.05, Nucleated RBC % 0, Sodium 140, Potassium 4.3, Chloride 106, Carbon Dioxide 29.0, Anion Gap 5, BUN 10, Creatinine 0.91, Estim Creat Clear Calc 79.17, Est GFR (MDRD) Af Amer 110, Est GFR (MDRD) Non-Af 91, BUN/Creatinine Ratio 11.0, Glucose 70 L, Calcium 9.0, Phosphorus 3.0, Magnesium 2.0, Total Bilirubin 0.80, AST 21, ALT 18, Alkaline Phosphatase 74, Total Protein 6.7, Albumin 3.2, Globulin 3.5, Albumin/Globulin Ratio 0.9, Triglycerides 67, Cholesterol 209 H, LDL Cholesterol 139 H, VLDL Cholesterol 13, HDL Cholesterol 57, TSH 1.28 Physical Exam Const alert, oriented x3 and no apparent distress General Appearance: cooperative, well kempt and well developed Orientation / Consciousness: awake, oriented to person, oriented to place and oriented to time HEENT normocephalic, head/scalp atraumatic and moist oral mucous membranes Eyes PERRL, EOMs intact bilaterally and conjunctivae normal Neck supple, no JVD, thyroid normal and no carotid bruits General: trachea midline Resp normal respiratory effort and clear to auscultation bilaterally Auscultation: rales bilateral and diffuse; Negative for rhonchi or wheezes Cardio regular rate, regular rhythm, S1 normal heart sound, S2 normal heart sound, no murmurs, no rub and no gallops GI normal to inspection, nondistended, normoactive bowel sounds, soft to palpation, non-tender and non-distended Extremity no clubbing, cyanosis or edema Skin no rashes or lesions noted General Skin Exam: no breakdown Neuro oriented x3, CN's II-XII intact bilaterally, moves all extremities, no focal motor deficits and no sensory deficits noted Sensorium / Orientation: awake, alert, oriented to person, oriented to place and oriented to time Speech: speech normal Psych affect normal Assessment & Plan Assessment/Plan (1) Stented coronary artery: PLAN: Plan 1. Unstable angina-again patient underwent a cardiac catheterization today with MARK placement in the LAD after angioplasty. Patient will remain on Plavix and aspirin and a statin #2 nonocclusive coronary artery disease-patient will remain on a statin and aspirin #3 idiopathic pulmonary fibrosis-complicates care, management, recovery, and prognosis, he remains on pirfenidone and aerosol treatments #4 chronic hypoxic respiratory failure-patient is on nasal cannula oxygen at all times. #5 hyperlipidemia-patient is on a statin #6 essential hypertension-patient will remain on his present medications, they will be adjusted if necessary Total clinical time spent by myself addressing the patient's medical issues, reviewing his medications, and collaborating with patient's care team: 35 minutes Charges/Coding Visit Charges Inpatient E&M: 46703 Subs Hosp L2
[2024-04-14] MEDS: guaiFENesin Dm 10 ML UDC PO (17:52)
--- NOTE | 2024-04-14 18:40 | NURSING ---
bedrest up at 1800, patient ambulated in room at 1800, pt tolerated well. Back resting in bed, heart cath site c/d/i no hematoma.
[2024-04-14] MEDS: Clopidogrel Bisulfate 300 MG Tablet PO (20:58)
[2024-04-14] MEDS: PIRFENIDONE 267 MG 801 MG PO (20:59)
[2024-04-15] VITALS (7 sets, daily range): BP systolic 104–105; BP diastolic 75–82; PULSE 69–73; RESP 18–20; TEMP 36.3–36.6; O2SAT 4–100; BMI 21.7
[2024-04-15] MEDS: 0.9% Normal Saline (1000mL) 1,000 ML 70 ML IV (02:36)
[2024-04-15] MEDS: PIRFENIDONE 267 MG 801 MG PO (06:23)
[2024-04-15 06:31] LABS: Hematocrit 39.2 % (40-54); Hemoglobin 13.2 g/dL (13.0-16.5); Mean Corp Hgb Conc 33.7 g/dL (32-36); Mean Corpuscular Hgb 30.9 pg (27.0-32.0); Mean Corpuscular Volume 91.8 fL (80-94); Mean Platelet Vol. 8.7 fl (6.2-12.0); Platelet Count 172 K/mm3 (150-450); RBC Distribution Width CV 13.2 % (11.6-14.6); RBC Distribution Width SD 44.5 fl (35.1-43.9); Red Blood Count 4.27 M/mm3 (4.6-6.2)
[2024-04-15] MEDS: Ipratropium/Albuterol Sulfate 3 ML AMPUL.NEB INHALATION (06:51)
[2024-04-15 07:00] LABS: AST(SGOT) 22 U/L (15-37); Alanine Aminotransfer ALT/SGPT 14 U/L (16-61); Albumin, Serum 2.8 g/dL (3.2-5.0); Alkaline Phosphatase 71 U/L (45-117); Anion Gap 4 (5-15); BUN 18 mg/dL (7-18); BUN/Creat Ratio 21.6 RATIO (10-20); Calcium,Total 8.2 mg/dL (8.5-10.1); Chloride 107 mmol/L (98-107); Creatinine, Serum 0.83 mg/dL (0.70-1.30); EST Glomerular Filtration Rate 101 mL/min (>60); Est Glom Filt Rate - Afr Amer 122 mL/min (>60); Estimated Creatinine Clearance 87.22 ml/min; Globulin 2.9 g/dL (2.2-4.2); Glucose 90 mg/dL (74-106); Potassium 3.9 mmol/L (3.5-5.1); Protein, Total 5.7 g/dL (6.4-8.2); Sodium Level 138 mmol/L (136-145)
[2024-04-15] MEDS: guaiFENesin Dm 10 ML UDC PO (08:17)
--- NOTE | 2024-04-15 09:09 | DCINST_ITS ---
Discharge Instructions Diet Discharge Diet: No restrictions Activity Discharge Activity: Return to Normal Activity Weight Bearing Status: Full weight bearing Follow Up Care Test Results: Test results from this visit will be discussed in further detail at your follow- up appointment, if applicable. Discharge Plan Admission Admit Date/Time: 04/14/24 15:05 Primary Reason for Your Visit: Unstable angina Attending Provider: Davey Skelton Primary Care Provider: Hardeep Fall Consulting Providers: Alek Dinero Discharge Orders/Prescriptions Prescriptions: Continued esomeprazole magnesium [Nexium 24HR] 20 mg capsule,delayed release(DR/EC) 20 mg PO DAILY aspirin 81 mg tablet,delayed release (DR/EC) 81 mg PO DAILY clopidogrel 75 mg tablet 75 mg PO DAILY Qty: 90 3RF amlodipine 5 mg tablet 5 mg PO DAILY Qty: 90 3RF nitroglycerin 0.4 mg tablet, sublingual 0.4 mg sublingual Q5-15M PRN (Reason: chest pain) Qty: 25 2RF Rx Instructions: do not exceed 3 doses per episode albuterol sulfate 90 mcg/actuation HFA aerosol inhaler 2 puff inhalation Q4H PRN (Reason: SHORTNESS OF BREATH/WHEEZING ) Rx Instructions: ADMINISTER WITH SPACER. losartan 100 mg tablet 100 mg PO DAILY pirfenidone 267 mg tablet 801 mg PO TID atorvastatin 80 mg tablet 80 mg PO QHS Anoro Ellipta 62.5-25 mcg/actuation blister with device 1 inh inhalation Q24H Qty: 60 6RF albuterol sulfate 2.5 mg /3 mL (0.083 %) solution for nebulization 2.5 mg inhalation Q4H PRN (Reason: SHORTNESS OF BREATH/WHEEZING ) Qty: 180 3RF Referrals / Follow Up: Hardeep Fall DO [Primary Care Provider] - Peri Enamorado PA [Med Staff - Adv Practice Prof] - Within 1 Month Disposition Disposition (needs filled in before D/C Order can be placed): Home, Self Care
--- NOTE | 2024-04-15 09:27 | DS.PCM_ITS ---
Providers Date of Admission: 04/14/24 Date of Discharge: 04/15/24 Primary Care Physician: Dr. Hardeep Fall DO Reason For Visit: CHEST PAIN Diagnosis Discharge Diagnosis (1) Stented coronary artery: Status: Acute Code(s): Z95.5 - Presence of coronary angioplasty implant and graft Plan 1. Unstable angina-again patient underwent a cardiac catheterization today with MARK placement in the LAD after angioplasty. Patient will remain on Plavix and aspirin and a statin #2 nonocclusive coronary artery disease-patient will remain on a statin and aspirin #3 idiopathic pulmonary fibrosis-complicates care, management, recovery, and prognosis, he remains on pirfenidone and aerosol treatments #4 chronic hypoxic respiratory failure-patient is on nasal cannula oxygen at all times. #5 hyperlipidemia-patient is on a statin #6 essential hypertension-patient will remain on his present medications, they will be adjusted if necessary #7 moderate pulmonary hypertension Total clinical time spent by myself addressing the patient's medical issues, reviewing his medications, and collaborating with patient's care team: 35 minutes Medications at Discharge Home Medications umeclidinium 62.5 mcg-vilanterol 25 mcg/actuation powdr for inhalation (Anoro Ellipta) 1 inh inhalation Q24H SHORTNESS OF BREATH/WHEEZING #60 ea 10/25/23 losartan 100 mg tablet 100 mg PO DAILY BLOOD PRESSURE 03/17/24 pirfenidone 267 mg tablet 801 mg PO TID PULMONARY FIBROSIS 03/17/24 albuterol sulfate 2.5 mg/3 mL (0.083 %) solution for nebulization 2.5 mg (3 mL) inhalation Q4H PRN SHORTNESS OF BREATH/WHEEZING #180 mL 03/20/24 albuterol sulfate 90 mcg/actuation aerosol inhaler 2 puff inhalation Q4H PRN SHORTNESS OF BREATH/WHEEZING 03/27/24 amlodipine 5 mg tablet 5 mg PO DAILY #90 tabs 04/12/24 aspirin 81 mg tablet,delayed release 81 mg PO DAILY 04/12/24 clopidogrel 75 mg tablet 75 mg PO DAILY #90 tabs 04/12/24 esomeprazole magnesium 20 mg capsule,delayed release (Nexium 24HR) 20 mg PO DAILY 04/12/24 nitroglycerin 0.4 mg sublingual tablet 0.4 mg sublingual Q5-15M PRN chest pain #25 tabs 04/12/24 atorvastatin 80 mg tablet 80 mg PO QHS 04/13/24 Hospital Course Operations None Procedures Cardiac catheterization (With placement of MARK and left coronary artery) Summary of Care Provided Minutes Spent on Discharge: 31 Hospital Course: This 58-year-old white male was seen in the emergency room at [facility] with complaints of precordial chest pain. Patient had seen his desktop analyst recently who had recommended that the patient undergo heart catheterization, he was being considered for placement on a list for lung transplant due to idiopathic pulmonary fibrosis. Workup in the emergency room included an EKG which showed no evidence of acute ischemic changes, patient's troponin was unremarkable, patient's chemistry profile was unremarkable and his CBC was unremarkable. Chest x-ray was unremarkable. Patient had undergone an echocardiogram earlier that morning which showed a normal ejection fraction and evidence of moderate pulmonary hypertension. Patient was admitted to PCU, he underwent a cardiac catheterization which showed occlusive coronary disease in the LAD and a MARK was inserted. Patient did well postprocedure, on 04/15/2024, patient was seen and examined: On examination he appeared in good health and spirits. Vital signs as documented. Skin warm and dry and without overt rashes. Neck without JVD, neck was supple, trachea midline, thyroid was normal. Lungs clear bilaterally, normal air movement was noted. Heart exam notable for regular rhythm, normal sounds and absence of murmurs, rubs or gallops. Abdomen unremarkable and without evidence of organomegaly, masses, or abdominal aortic enlargement. Bowel sounds are present, abdomen is not distended. Extremities nonedematous, no cyanosis was noted, no clubbing was noted. Neuro: Cranial nerves II through XII are grossly intact, no focal motor deficits were noted, sensation to light touch and pinprick intact, motor exam 5/5 throughout. Psych: Patient is alert and oriented x3, he does not appear anxious or depressed, he does not appear agitated. Patient appear to be stable for discharge home on 04/15/2024. Medical Records Data Medical Nutrition Assessment Dietitian: Malnutrition Criteria Met Start: 04/14/24 15:04 Freq: Status: Active Protocol: Document 04/14/24 15:04 SB (Rec: 04/14/24 15:05 SB [id number]) Nutrition Malnutrition Evidence of Malnutrition Exists Yes Malnutrition (moderate): Acute Illness/Injury Evidenced By Suboptimal Energy Intake ( Moderate),Weight Loss (Severe) ,Physical Changes (Mild) Clinical Problem Acute Disease or Injury Related Malnutrition Etiology related to pulmonary fibrosis and COPD with inadequate energy intake Signs/Symptoms as evidence by 3.6% unintended weight loss over the past 18 days and PO intake meeting <50 % of estimated nutritional needs x 1 month; also with muscle wasting in the clavicle region. Status Active Problem Recommendation Dietitian Recommendations/Changes Continue liberal regular diet d/t signs and symptoms of malnutrition. Order 120ml [place] Ensure plus HP 4 times a day with [employer]. Reviewed and approved Brittnee Paulson RD/ALINA Weight / BMI Weight Weight: 62.8 kg Body Mass Index (BMI) 21.7 ABG / Lab / Microbiology Data 04/15/24 05:56 04/15/24 05:56 Laboratory: Laboratory Results - last 24 hr 04/15/24 05:56: WBC 7.0, RBC 4.27 L, Hgb 13.2, Hct 39.2 L, MCV 91.8, MCH 30.9, MCHC 33.7, RDW Std Deviation 44.5 H, RDW Coeff of Ravinder 13.2, Plt Count 172, MPV 8.7, Sodium 138, Potassium 3.9, Chloride 107, Carbon Dioxide 27.0, Anion Gap 4 L , BUN 18, Creatinine 0.83, Estim Creat Clear Calc 87.22, Est GFR (MDRD) Af Amer 122, Est GFR (MDRD) Non-Af 101, BUN/Creatinine Ratio 21.6 H, Glucose 90, Calcium 8.2 L, Total Bilirubin 0.70, AST 22, ALT 14 L, Alkaline Phosphatase 71, Total Protein 5.7 L, Albumin 2.8 L, Globulin 2.9, Albumin/Globulin Ratio 1.0 D/C Instructions Discharge Diet: No restrictions Weight Bearing Status: Full weight bearing Meaningful Use Info Meaningful Use Meaningful Use Diagnoses (Choose all that apply): None applicable Ischemic Stroke Statin Dosing Therapy Reference: STATIN DOSE THERAPY REFERENCE: * Patients > 75 years receive moderate or high dose statin therapy. * Patients 75 years or YOUNGER should receive HIGH intensity statin dose unless contraindicated. You will be required to document reason for non-treatment if statin daily dose does not meet guidelines. HIGH DOSE STATIN THERAPY DAILY Atorvastatin > than or = to 40 mg Rosuvastatin > than or = to 20 mg Amlodipine + Atorvastatin > than or = to 2.5/40 mg Ezetimibe + Simvastatin 10/80 mg Simvastatin 80mg Discharge Plan Admission Admit Date/Time: 04/14/24 15:05 Primary Reason for Your Visit: Unstable angina Attending Provider: Davey Skelton Primary Care Provider: Hardeep Fall Consulting Providers: Alek Dinero Discharge Orders/Prescriptions Prescriptions: Continued esomeprazole magnesium [Nexium 24HR] 20 mg capsule,delayed release(DR/EC) 20 mg PO DAILY aspirin 81 mg tablet,delayed release (DR/EC) 81 mg PO DAILY clopidogrel 75 mg tablet 75 mg PO DAILY Qty: 90 3RF amlodipine 5 mg tablet 5 mg PO DAILY Qty: 90 3RF nitroglycerin 0.4 mg tablet, sublingual 0.4 mg sublingual Q5-15M PRN (Reason: chest pain) Qty: 25 2RF Rx Instructions: do not exceed 3 doses per episode albuterol sulfate 90 mcg/actuation HFA aerosol inhaler 2 puff inhalation Q4H PRN (Reason: SHORTNESS OF BREATH/WHEEZING ) Rx Instructions: ADMINISTER WITH SPACER. losartan 100 mg tablet 100 mg PO DAILY pirfenidone 267 mg tablet 801 mg PO TID atorvastatin 80 mg tablet 80 mg PO QHS Anoro Ellipta 62.5-25 mcg/actuation blister with device 1 inh inhalation Q24H Qty: 60 6RF albuterol sulfate 2.5 mg /3 mL (0.083 %) solution for nebulization 2.5 mg inhalation Q4H PRN (Reason: SHORTNESS OF BREATH/WHEEZING ) Qty: 180 3RF Referrals / Follow Up: Hardeep Fall DO [Primary Care Provider] - Peri Enamorado PA [Med Staff - Adv Practice Prof] - Within 1 Month Disposition Disposition (needs filled in before D/C Order can be placed): Home, Self Care Charges/Coding Visit Charges Inpatient E&M: 30606 Disch Hosp >30min
--- NOTE | 2024-04-15 10:00 | EKG12_ITS ---
Test Reason : Blood Pressure : / mmHG Vent. Rate : 090 BPM Atrial Rate : 090 BPM P-R Int : 130 ms QRS Dur : 090 ms QT Int : 356 ms P-R-T Axes : 019 265 -17 degrees QTc Int : 435 ms Normal sinus rhythm Right superior axis deviation Right ventricular hypertrophy with repolarization abnormality Nonspecific T wave abnormality Abnormal ECG When compared with ECG of 14-APR-2024 10:33, MANUAL COMPARISON REQUIRED, DATA IS UNCONFIRMED Confirmed by SEAN BLUNT, LYNDSEY ([id number]), senior editor DARIN NORIEGA ([id number]) on 04/17/2024 1:11:56 PM Referred By: NATANAEL Confirmed By:LYNDSEY ESTRADA MD
--- NOTE | 2024-04-15 10:08 | CASEMGMT ---
JULIANNE CHURCHILL Assessment: Face to Face with pt for initial transition planning/care coordination assessment. RN ZHAO introduced self and role at [facility], pt voices understanding and consents to assessment. Pt is A&O x4 and answers all questions appropriately at this time. Pt sitting up in bed with oxygen on in no distress. Care providers, pharmacy, and demographics verified/updated. Admitting Dx:CP PCP:[facility] Specialists:staci Morales; TIFFANIEG, cardio Preferred Pharmacy:[facility] Insurance:[facility] Prescription Benefit: yes LNOK:Dora Busch, Living Arrangements: Pt lives with in a single story home with 2 steps to enter. Pt reports he is I in ADL's and denies concerns at home. Transportation: Pt drives self and denies concerns with transportation. DME:pox, shower chair HHC/SNF:Denies hx of Pt states no concerns with going home at time of dc. Pt states his will bring in a portable oxygen tank for dc. Pt denies needs for any homegoing services. Pt states no further concerns/needs. CM to follow. Advised pt to ask CM if any further question/concerns/needs arise, voices understanding. Pt Goal:Home Plan:Home, green sheet on chart for increase in oxygen needs.
[2024-04-15] MEDS: Enoxaparin 40 MG/0.4 ML Syringe SC (10:22)
[2024-04-15] MEDS: dilTIAZem CD 120 MG Capsule PO (10:22)
[2024-04-15] MEDS: Clopidogrel Bisulfate 75 MG Tablet PO (10:22)
[2024-04-15] MEDS: Pantoprazole Sodium 20 MG Tablet PO (10:22)
[2024-04-15] MEDS: Aspirin E.C. 81 MG Tablet PO (10:22)
[2024-04-15] MEDS: Losartan Potassium 100 MG Tablet PO (10:22)
[2024-04-15] MEDS: Ensure Plus High Protein 120 ML LIQUID PO (10:23)
[2024-04-19 11:49] LABS: ACT Activated Clotting Time 238 sec (74-137)
[2024-04-19 11:50] LABS: ACT Activated Clotting Time 299 sec (74-137)
== END 2024-04-15 11:14 | disposition home or self-care (01) | DRG 322 ==
LOC: ED 19:24 → PCU 19:57
PROVIDERS: Internal Medicine Cardiovascular Disease; Admitting Provider Internal Medicine; Emergency Provider Emergency Medicine; PCP Family Medicine; Visit Provider Internal Medicine
DX: I25.110 Atherosclerotic heart disease of native coronary artery with unstable angina pectoris (principal); J96.11 Chronic respiratory failure with hypoxia; Z76.82 Awaiting organ transplant status; I27.20 Pulmonary hypertension, unspecified; J84.112 Idiopathic pulmonary fibrosis; J44.9 Chronic obstructive pulmonary disease, unspecified; I10 Essential (primary) hypertension; E78.00 Pure hypercholesterolemia, unspecified; K21.9 Gastro-esophageal reflux disease without esophagitis; Z99.81 Dependence on supplemental oxygen; Z79.82 Long term (current) use of aspirin; Z79.02 Long term (current) use of antithrombotics/antiplatelets; Z79.899 Other long term (current) drug therapy; Z87.891 Personal history of nicotine dependence; Z95.5 Presence of coronary angioplasty implant and graft
CPT/HCPCS: 36415; 71045; 80048; 80053; 80061; 83735; 83880; 84100; 84443; 84484; 85025; 85027; 85347; 85379; 92928; 93005; 93454; 93571; 94640; 94668; 97802; 99152; 99153; 99285; 99406; J7030; J7040; Q9967; A4216; C1725; C1760; C1769; C1874; C1887; C1894; C9600

== ENCOUNTER → 2024-04-13 | Outpatient (CLI) | payer OTHER, SELFPAY ==
[2023-05-03 08:42] VITALS: BMI 25.2
--- NOTE | 2024-04-13 10:39 | ECHOD_ITS ---
Reason For Study: CHEST PAIN Procedure This was a 2D Doppler, Color Flow transthoracic echocardiogram. Exam performed in department. Left Ventricle Moderate concentric left ventricular hypertrophy. Normal LV size. The left ventricular ejection fraction is 60 %. Stage 1 diastolic dysfunction. Right Ventricle Severely dilated right ventricle. Moderate global right ventricular systolic dysfunction. Atria The left and right atria are normal. Mitral Valve Mild (1+) mitral valve insufficiency. Tricuspid Valve Mild tricuspid valve insufficiency. Right ventricular systolic pressure estimated to be 65 mmHg. Aortic Valve Trisinus/trileaflet aortic valve. Trivial aortic valve insufficiency. Pulmonic Valve Trivial pulmonic valve insufficiency. Great Vessels Normal sized aortic root. Pericardium/Pleural No pericardial effusion. MMode/2D Measurements & Calculations LVIDd: 3.7 cm IVSd: 1.8 cm LVOT diam: 1.9 cm LVIDs: 2.3 cm LVPWd: 1.2 cm LVOT area: 2.9 cm2 RVDd: 4.4 cm FS: 38.8 % Ao root diam: 3.6 cm LAV(MOD-bp): 28.9 ml LVAd ap4: 22.1 cm2 LAV(MOD-bp) Indexed: 16.7 ml/m2 LVLd ap4: 7.1 cm LAV(MOD-sp2): 24.3 ml EDV(MOD-sp4): 57.0 ml LAV(MOD-sp4): 28.6 ml EDV(sp4-el): 58.2 ml LVAs ap4: 13.3 cm2 LVLs ap4: 5.9 cm ESV(MOD-sp4): 25.2 ml ESV(sp4-el): 25.6 ml EF(MOD-sp4): 55.8 % EF(sp4-el): 56.0 % SV(MOD-sp4): 31.8 ml SV(sp4-el): 32.6 ml LA A4 area: 12.6 cm2 LA dimension(2D): 3.9 cm TAPSE: 2.2 cm Time Measurements MV dec time: 0.17 sec Doppler Measurements & Calculations MV E max vasyl: 44.1 cm/sec Lat Peak E' Vasyl: 9.6 cm/sec Med Peak E' Vasyl: 6.6 cm/sec MV A max vasyl: 65.0 cm/sec E/E' lat: 4.6 E/E' med: 6.7 MV E/A: 0.68 MV V2 max: 83.7 cm/sec MV dec slope: 255.5 cm/sec2 Ao V2 max: 113.1 cm/sec MV max P.8 mmHg Ao max P.1 mmHg MV V2 mean: 41.9 cm/sec Ao V2 mean: 79.8 cm/sec MV mean P.88 mmHg Ao mean P.9 mmHg MV V2 VTI: 22.1 cm Ao V2 VTI: 21.6 cm MVA(VTI): 2.4 cm2 AV (velocity ratio): 0.85 OLGA(I,D): 2.4 cm2 OLGA(V,D): 2.3 cm2 LV V1 max: 91.4 cm/sec SV(LVOT): 52.7 ml PA V2 max: 76.6 cm/sec LV V1 max P.3 mmHg PA max PG (full): 1.1 mmHg LV V1 mean P.7 mmHg PA V2 mean: 52.2 cm/sec LV V1 mean: 60.4 cm/sec LV V1 VTI: 18.4 cm TR max vasyl: 385.5 cm/sec TR max P.5 mmHg ECHO/Echo Complete Interpretation Summary Moderate concentric left ventricular hypertrophy. The left ventricular ejection fraction is 60 %. Stage 1 diastolic dysfunction. Severely dilated right ventricle. Moderate global right ventricular systolic dysfunction. Mild tricuspid valve insufficiency. Right ventricular systolic pressure estimated to be 65 mmHg. Mild (1+) mitral valve insufficiency. Ordering Physician: Sukhdeep Multani Referring Physician: Sukhdeep Multani Performed By: Anabella Garcias and Student
== END | disposition home or self-care (01) ==
PROVIDERS: PCP Family Medicine; Referring Provider Internal Medicine Cardiovascular Disease; Visit Provider Internal Medicine Cardiovascular Disease
DX: I25.119 Atherosclerotic heart disease of native coronary artery with unspecified angina pectoris (principal); I10 Essential (primary) hypertension
CPT/HCPCS: 93306

== ENCOUNTER 2024-04-25 08:44 | Outpatient (CLI) | payer OTHER, SELFPAY ==
[2023-05-03 08:42] VITALS: BMI 25.2
[2024-04-25 09:32] LABS: Allen Test Positive; Base Excess 1 mmol/L (-2 to +2); Bicarbonate 25.9 mmol/L (22-26); Blood Gas Specimen Type ART; Mode Not entered; O2 Delivery Device Cannula; PO2 108 mmHG (75-100); SITE R Radial; SO2 98 % (95-99); Total Carbon Dioxide 27 mmol/L; pCO2 41.9 mmHg (35-45)
== END 2024-04-25 23:59 | disposition home or self-care (01) ==
PROVIDERS: PCP Family Medicine; Referring Provider Nurse Practitioner Acute Care; Visit Provider Nurse Practitioner Acute Care
DX: J96.11 Chronic respiratory failure with hypoxia (principal)
CPT/HCPCS: 36600; 82803

== ENCOUNTER 2024-05-02 23:32 | Emergency (ER) | payer OTHER, SELFPAY ==
[2023-05-03 08:42] VITALS: BMI 25.2
[2024-05-02 23:33] VITALS: BP 96/68; PULSE 97; RESP 28; TEMP 35.8; O2SAT 92; BMI 22.1
[2024-05-02 23:35] VITALS: BP 96/68; PULSE 97; RESP 28; TEMP 35.8; O2SAT 92
[2024-05-02 23:36] VITALS: O2SAT 97
--- NOTE | 2024-05-02 23:56 | EKG12_ITS ---
Test Reason : SOB Blood Pressure : / mmHG Vent. Rate : 086 BPM Atrial Rate : 086 BPM P-R Int : 140 ms QRS Dur : 096 ms QT Int : 366 ms P-R-T Axes : 010 260 -19 degrees QTc Int : 437 ms Normal sinus rhythm Right superior axis deviation Possible Right ventricular hypertrophy Nonspecific T wave abnormality Abnormal ECG When compared with ECG of 15-APR-2024 04:20, No significant change was found Confirmed by SEAN BLUNT, LYNDSEY ([id number]), editor & co founder DARIN NORIEGA ([id number]) on 05/09/2024 11:28:05 AM Referred By: Confirmed By:LYNDSEY ESTRADA MD
[2024-05-03] MEDS: 0.9% Normal Saline (500mL Bag) 500 ML 999 ML IV (00:04)
[2024-05-03] MEDS: Morphine 4 MG/ML Syringe IV (00:04)
[2024-05-03] MEDS: Ondansetron 4 MG/2 ML Vial IV (00:04)
[2024-05-03 00:18] LABS: International Normalized Ratio 1.1; Prothrombin Time (Protime)PT. 13.7 SECONDS (11.7-14.9)
[2024-05-03 00:29] LABS: Anion Gap 5 (5-15); BUN 21 mg/dL (7-18); BUN/Creat Ratio 21.4 RATIO (10-20); Calcium,Total 9.2 mg/dL (8.5-10.1); Chloride 105 mmol/L (98-107); Creatinine, Serum 0.98 mg/dL (0.70-1.30); EST Glomerular Filtration Rate 83 mL/min (>60); Est Glom Filt Rate - Afr Amer 101 mL/min (>60); Estimated Creatinine Clearance 75.45 ml/min; Glucose 113 mg/dL (74-106); Magnesium 2.1 mg/dL (1.6-2.6); Potassium 3.5 mmol/L (3.5-5.1); Sodium Level 142 mmol/L (136-145); Troponin-I HS 33 pg/mL (3.0-78.0)
[2024-05-03 00:35] VITALS: BP 92/61; PULSE 81; RESP 16; TEMP 36.3; O2SAT 94
[2024-05-03 00:38] LABS: Absolute Neutrophil Count 6.7 X10^3/uL (2.0-7.7); Basophil# 0.07 X10^3/uL; Basophil% 0.7 % (0-1); Eosinophil# 0.67 X10^3/uL; Eosinophils% 7.1 % (0-5); Hematocrit 43.6 % (40-54); Hemoglobin 14.9 g/dL (13.0-16.5); Lymphocyte % 13.8 % (19-41); Mean Corp Hgb Conc 34.2 g/dL (32-36); Mean Corpuscular Hgb 31.2 pg (27.0-32.0); Mean Corpuscular Volume 91.2 fL (80-94); Mean Platelet Vol. 9.2 fl (6.2-12.0); Monocyte# 0.63 X10^3/uL; Monocyte% 6.7 % (0-10); NRBC Flagged by Analyzer 0 % (0-5); Neutrophil # 6.68 X10^3/uL (2.7-7.7); Neutrophil % 70.7 % (47-70); Platelet Count 233 K/mm3 (150-450); RBC Distribution Width CV 13.2 % (11.6-14.6); RBC Distribution Width SD 43.6 fl (35.1-43.9); Red Blood Count 4.78 M/mm3 (4.6-6.2); White Blood Count 9.4 K/mm3 (4.4-11.0)
[2024-05-03 01:00] VITALS: BP 100/74; PULSE 74; RESP 30; TEMP 36.2; O2SAT 100
[2024-05-03 01:56] LABS: Troponin-I HS 31 pg/mL (3.0-78.0)
[2024-05-03] MEDS: HYDROmorphone 0.5 MG/0.5 ML SYRINGE IV (02:04)
[2024-05-03 02:05] VITALS: BP 111/81; PULSE 69; RESP 30; TEMP 36.4; O2SAT 100
--- NOTE | 2024-05-03 02:26 | ED.VIS.CHEST ---
HPI History of Present Illness Chief Complaint: Chest Pain Informant: patient and spouse/S.O. Narrative Narrative: Patient is a 58-year-old male with past medical history of idiopathic pulmonary fibrosis as well as known CAD with cardiac stents placed roughly 1.5 weeks ago. Patient and states that ever since stent placement he has had chest discomfort. They state he has been evaluated with no obvious reason for this. Patient states that there has been no trauma and that he has a chronic cough secondary to his pulmonary fibrosis but this is at his baseline. He denies any hemoptysis or hematemesis. He states there is been no GI bleed either. He states that he is just not felt well for the past 5 days and there was concern that this could be related to his recent cardiac procedure and therefore he comes in for evaluation [facility] Medical History (Reviewed 04/25/24 @ 08:03 by Hedy Cowan EMERGENCY VEHICLE DISPATCHER, EMERGENCY VEHICLE DISPATCHER-C) Lung transplant candidate IPF (idiopathic pulmonary fibrosis) CAD (coronary artery disease) Hypercholesteremia Mixed obstructive and restrictive ventilatory defect Chronic hypoxemic respiratory failure Recurrent sinus infections COPD exacerbation Hypokalemia Acute dyspnea Chest discomfort HTN (hypertension) GERD (gastroesophageal reflux disease) ILD (interstitial lung disease) Acute exacerbation of idiopathic pulmonary fibrosis Acute and chronic respiratory failure Influenza A Nicotine dependence, cigarettes, in remission Restrictive airway disease Obesity Therapeutic drug monitoring Pulmonary fibrosis 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 Umbilical hernia Mononucleosis Blind right eye Allergic rhinitis Home Medications ?Medication ?Instructions ?Recorded ?Last Taken ?Type umeclidinium 62.5 mcg-vilanterol 1 inh inhalation Q24H SHORTNESS OF 10/25/23 04/13/24 Rx 25 mcg/actuation powdr for BREATH/WHEEZING #60 ea inhalation (Anoro Ellipta) losartan 100 mg tablet 100 mg PO DAILY BLOOD PRESSURE 03/17/24 04/13/24 History albuterol sulfate 2.5 mg/3 mL 2.5 mg (3 mL) inhalation Q4H PRN 03/20/24 04/13/24 Rx (0.083 %) solution for nebulization SHORTNESS OF BREATH/WHEEZING #180 mL albuterol sulfate 90 mcg/actuation 2 puff inhalation DAILY PRN PRN 03/27/24 04/13/24 History aerosol inhaler SHORTNESS OF BREATH/WHEEZING amlodipine 5 mg tablet 5 mg PO DAILY #90 tabs 04/12/24 04/12/24 Rx aspirin 81 mg tablet,delayed 81 mg PO DAILY 04/12/24 04/12/24 History release clopidogrel 75 mg tablet 75 mg PO DAILY #90 tabs 04/12/24 04/12/24 Rx esomeprazole magnesium 20 mg 20 mg PO DAILY 04/12/24 04/13/24 History capsule,delayed release (Nexium 24HR) nitroglycerin 0.4 mg sublingual 0.4 mg sublingual Q5-15M PRN chest 04/12/24 Unknown Rx tablet pain #25 tabs atorvastatin 80 mg tablet 80 mg PO QHS 04/13/24 04/12/24 History pirfenidone 267 mg tablet 801 mg (3 x 267 mg) PO TID 04/25/24 Unknown Rx PULMONARY FIBROSIS #30 tabs oxycodone-acetaminophen 5 mg-325 1 tab PO Q6H PRN pain 3 days #12 05/03/24 Unknown Rx mg tablet (Percocet) tabs ranolazine 500 mg tablet,extended 500 mg PO BID #60 tabs 05/03/24 Unknown Rx release,12 hr Allergy/AdvReac Type Severity Reaction Status Date / Time lisinopril AdvReac Intermediate cough Verified 05/02/24 23:33 Family History (Reviewed 04/25/24 @ 08:03 by Hedy Cowan EMERGENCY VEHICLE DISPATCHER, EMERGENCY VEHICLE DISPATCHER-C) Mother Hypertension Father Hypertension CVA (cerebral vascular accident) Surgical History (Reviewed 04/25/24 @ 08:03 by Hedy Cowan EMERGENCY VEHICLE DISPATCHER, EMERGENCY VEHICLE DISPATCHER-C) Stented coronary artery (~04/14/24) Hx of cardiac catheterization (~04/14/24) Hx of colonoscopy with polypectomy (~03/2021) Social History (Reviewed 04/25/24 @ 08:03 by Hedy Cowan EMERGENCY VEHICLE DISPATCHER, EMERGENCY VEHICLE DISPATCHER-C) household members: spouse housing: house Smoking Status: Former smoker quit date: 04/24/90 pack-years: 15 alcohol intake: current alcohol intake frequency: holidays/special occasions only substance use type: does not use caffeine: Yes Type: coffee Number of servings: 4 ROS ROS ED Constitutional Constitutional ED: Denies chills or fever(s) ENT ENT ED: Denies rhinorrhea or sore throat Cardiovascular Cardiovascular: Reports chest pain; Denies palpitations or racing heartbeat Respiratory/Chest Respiratory/Chest: Reports cough and dyspnea Gastrointestinal Gastrointestinal: Denies abdominal pain, diarrhea, nausea or vomiting Genitourinary Genitourinary ED: Denies dysuria or hematuria Musculoskeletal Musculoskeletal: Denies myalgias Integumentary Denies rash Neurologic Neurologic: Denies headache(s) Hematologic/Lymphatic Hematologic/Lymphatic: Reports easy bleeding and easy bruising EXAM Physical Exam Const Vital Signs: 05/02/24 23:33 05/02/24 23:35 05/02/24 23:36 Temperature 96.5 F L 96.5 F L Temperature Source Temporal Temporal Pulse Rate 97 97 Respiratory Rate 28 H 28 H Respiratory Effort Short of Breath Respiratory Depth Respiratory Pattern Blood Pressure 96/68 96/68 Blood Pressure Mean 77 77 Pulse Ox 92 92 Oxygen Delivery Method Nasal Cannula Nasal Cannula Oxygen Flow Rate (L/min) 5 5 05/02/24 23:36 05/03/24 00:35 05/03/24 01:00 Temperature 97.4 F L 97.2 F L Temperature Source Temporal Temporal Pulse Rate 81 74 Respiratory Rate 16 30 H Respiratory Effort Short of Breath Respiratory Depth Shallow Respiratory Pattern Tachypnea Blood Pressure 92/61 100/74 Blood Pressure Mean 71 82 Pulse Ox 94 100 Oxygen Delivery Method Nasal Cannula Nasal Cannula Nasal Cannula Oxygen Flow Rate (L/min) 5 5 5 05/03/24 02:05 05/03/24 02:05 Temperature 97.6 F L Temperature Source Temporal Pulse Rate 69 Respiratory Rate 30 H Respiratory Effort Respiratory Depth Respiratory Pattern Blood Pressure 111/81 H 111/81 H Blood Pressure Mean 91 91 Pulse Ox 100 Oxygen Delivery Method Nasal Cannula Oxygen Flow Rate (L/min) 5 Positive well nourished and well developed General Appearance ED: well developed HEENT Reports dry mucous membranes HEENT Narrative: Mucous membranes are dry and tacky but there is no tongue or lip swelling no oral lesions no airway edema or compromise Patient has no sign of infection noted in the posterior pharynx Mouth ED: Yes dry mucous membranes Mouth: dry mucous membranes Eyes PERRL and EOMs intact bilaterally General Eye ED: Yes pale conjunctiva; Negative for scleral icterus Neck supple and no JVD Neck Narrative: No nuchal rigidity or meningeal signs Chest Wall Chest Narrative: There is reproducible pain with palpation of the anterior chest however no bony deformity or crepitance noted Resp Resp Narrative: Patient is tachypneic and breath sounds are diminished throughout with diffuse rhonchi consistent with history of idiopathic pulmonary fibrosis Cardio regular rate and regular rhythm Rate: other Other Details: Heart is regular rate and rhythm Radial and carotid pulses are equal and symmetric GI normal to inspection, nondistended, normoactive bowel sounds, soft to palpation, non-tender, non-distended and no masses GI Narrative: No voluntary guarding or rigidity or pulsatile mass Auscultation: normoactive bowel sounds Palpation: soft Extremity Extremity Narrative: Negative Homans' sign bilaterally Neuro oriented x3, CN's II-XII intact bilaterally and no sensory deficits noted Sensorium / Orientation: alert Psych mental status grossly normal Skin no rashes or lesions noted Skin Narrative: Skin is slightly pale in color but capillary refills less than 3 seconds Heart Score History: Slightly/Non-Suspicious ECG: Nonspecific Repolarization Age: >45 - <65 years Risk Factors: >/= 3 Risk Factors or History of CAD Troponin: </= Normal Limit Score: 4 MDM MDM MDM Narrative Medical decision making narrative: Patient presented to the ER tachypneic but has a past medical history of idiopathic pulmonary fibrosis and he reports that this type of breathing is normal for him. He has known CAD with recent stent placement. However he reports that he has had generalized chest discomfort ever since the stent has been placed. Exam is most consistent with musculoskeletal cause as there is reproducible anterior chest wall pain but with concern that this could be acute coronary syndrome versus cardiac dysrhythmia versus pulmonary embolus versus dissection or pneumonia or pneumothorax I did elect to perform a CTA of the chest as well as basic laboratory studies. Patient's troponins were normal at 33 and 31 going against acute coronary syndrome. He was kept on the monitor and there is no dysrhythmia noted. CTA revealed changes consistent with his pulmonary fibrosis but no pneumothorax or pneumonia or dissection or pulmonary embolus. After receiving pain medication patient reported improvement/near resolution of his symptoms which would indicate this is most likely musculoskeletal in nature. Therefore at this time with no signs of acute coronary syndrome or cardiac dysrhythmia and a CTA revealing no acute lung pathology or vascular issue patient can be given symptomatic medication and discharged home with outpatient follow-up. History & Record Review Discussion w/independent historian: Patient and Significant other Lab Data Attestation: I reviewed the patient's lab results. Labs: Laboratory Results - last 24 hr 05/02/24 05/03/24 23:35 01:31 WBC 9.4 RBC 4.78 Hgb 14.9 Hct 43.6 MCV 91.2 MCH 31.2 MCHC 34.2 RDW Std Deviation 43.6 RDW Coeff of Ravinder 13.2 Plt Count 233 MPV 9.2 Immature Gran % (Auto) 1.000 H Neut % (Auto) 70.7 H Lymph % (Auto) 13.8 L [place] % (Auto) 6.7 Eos % (Auto) 7.1 H Baso % (Auto) 0.7 Absolute Neuts (auto) 6.7 Absolute Lymphs (auto) 1.30 Nucleated RBC % 0 PT 13.7 INR 1.1 APTT 28.0 Sodium 142 Potassium 3.5 Chloride 105 Carbon Dioxide 32.0 Anion Gap 5 BUN 21 H Creatinine 0.98 Estim Creat Clear Calc 75.45 Est GFR (MDRD) Af Amer 101 Est GFR (MDRD) Non-Af 83 BUN/Creatinine Ratio 21.4 H Glucose 113 H Calcium 9.2 Magnesium 2.1 Troponin I High Sens 33 31 Radiography Diagnostic Testing: Clinical Impression(s) from Imaging Studies Chest CTA 05/03/24 23:56 IMPRESSION: 1. No pulmonary embolism or aortic dissection. 2. Diffuse pulmonary fibrosis with extensive honeycombing in the periphery of the lungs bilaterally increased compared with the previous examination. 3. Coronary artery disease. Electronically Signed: Pollo Snyder MD at 1:08 EDT , Discharge Plan Triage Chief Complaint: Chest Pain Other Complaint: Shortness of Breath ED Provider: Abhi Dao Dx/Rx/DC Orders Clinical Impression: CAD (coronary artery disease), IPF (idiopathic pulmonary fibrosis), Nonspecific chest pain, HTN (hypertension) Instructions: ED Chest Pain, Uncertain Cause Prescriptions: New oxycodone-acetaminophen [Percocet] 5-325 mg tablet 1 tab PO Q6H PRN (Reason: pain) 3 Days Qty: 12 0RF No Action esomeprazole magnesium [Nexium 24HR] 20 mg capsule,delayed release(DR/EC) 20 mg PO DAILY aspirin 81 mg tablet,delayed release (DR/EC) 81 mg PO DAILY clopidogrel 75 mg tablet 75 mg PO DAILY Qty: 90 3RF amlodipine 5 mg tablet 5 mg PO DAILY Qty: 90 3RF nitroglycerin 0.4 mg tablet, sublingual 0.4 mg sublingual Q5-15M PRN (Reason: chest pain) Qty: 25 2RF Rx Instructions: do not exceed 3 doses per episode albuterol sulfate 90 mcg/actuation HFA aerosol inhaler 2 puff inhalation DAILY PRN PRN (Reason: SHORTNESS OF BREATH/WHEEZING ) Rx Instructions: ADMINISTER WITH SPACER. losartan 100 mg tablet 100 mg PO DAILY atorvastatin 80 mg tablet 80 mg PO QHS Anoro Ellipta 62.5-25 mcg/actuation blister with device 1 inh inhalation Q24H Qty: 60 6RF albuterol sulfate 2.5 mg /3 mL (0.083 %) solution for nebulization 2.5 mg inhalation Q4H PRN (Reason: SHORTNESS OF BREATH/WHEEZING ) Qty: 180 3RF pirfenidone 267 mg tablet 801 mg PO TID Qty: 30 0RF ranolazine 500 mg tablet extended release 12 hr 500 mg PO BID Qty: 60 11RF Primary Care Provider: Hardeep Fall Referrals: Hardeep Fall DO [Primary Care Provider] - Activity Restrictions/Additional Instructions: Please return to the ER should you have any further concerns or worsening of symptoms Print Language: Maltese Disposition Disposition: Home, Self Care Discharge Date/Time: 05/03/24 03:27
[2024-05-03 02:40] VITALS: BP 111/81; PULSE 63; RESP 19; TEMP 36.6; O2SAT 98
--- NOTE | 2024-05-03 23:56 | CT_ITS ---
EXAM: CT ANGIOGRAPHY CHEST WITHOUT AND WITH INTRAVENOUS CONTRAST CLINICAL INDICATION: Chest pain. TECHNIQUE: Helically acquired angiography images were obtained of the chest without and with intravenous contrast. This CT exam was performed using one or more of the following dose reduction techniques: automated exposure control, adjustment of the mA and/or kV according to patient size, and/or use of iterative reconstruction technique. MIP reconstructed images were created and reviewed. CONTRAST: 75 cc of Isovue-370 IV. RADIATION DOSE: CTDIvol = 14.44 mGy, DLP = 357.46 mGy-cm COMPARISON: Noncontrast CT of the chest 07/16/2021. FINDINGS: PULMONARY ARTERIES: Unremarkable. Normal in caliber. No evidence of pulmonary embolism. AORTA: Unremarkable. Normal in caliber. No evidence of dissection. GREAT VESSELS OF AORTIC ARCH: Unremarkable. Normal in caliber. No evidence of dissection. LUNGS AND PLEURAL SPACES: Diffuse pulmonary fibrosis with extensive honeycombing in the periphery of the lungs bilaterally increased compared with the previous examination. No mass. No pleural effusion or thickening. No pneumothorax. HEART: Coronary artery calcifications. Heart size is normal. No pericardial effusion. MEDIASTINUM: Unremarkable. No mediastinal or hilar adenopathy. Esophagus is unremarkable. No hiatal hernia. THYROID: Unremarkable. No thyroid lesions. BONES/JOINTS: Unremarkable. No suspicious lytic or blastic abnormality. KIDNEYS AND URETERS: Simple bilateral renal cysts. No follow-up of these simple cysts is necessary. CT/CTA Chest W/WO Contrast IMPRESSION: 1. No pulmonary embolism or aortic dissection. 2. Diffuse pulmonary fibrosis with extensive honeycombing in the periphery of the lungs bilaterally increased compared with the previous examination. 3. Coronary artery disease. Electronically Signed: Pollo Snyder MD at 1:08 EDT ,
== END 2024-05-03 03:27 | disposition home or self-care (01) ==
PROVIDERS: Emergency Provider Emergency Medicine; PCP Family Medicine; Visit Provider Emergency Medicine
DX: R07.89 Other chest pain (principal); J84.112 Idiopathic pulmonary fibrosis; I25.10 Atherosclerotic heart disease of native coronary artery without angina pectoris; E78.00 Pure hypercholesterolemia, unspecified; I10 Essential (primary) hypertension; Z95.5 Presence of coronary angioplasty implant and graft; Z79.02 Long term (current) use of antithrombotics/antiplatelets; Z79.82 Long term (current) use of aspirin; Z79.899 Other long term (current) drug therapy; Z87.891 Personal history of nicotine dependence
CPT/HCPCS: 71275; 80048; 83735; 84484; 85025; 85610; 85730; 87631; 93005; 96361; 96374; 96375; 99284; J7040; Q9967; A4216; J2405

== ENCOUNTER → 2024-05-11 | Outpatient (CLI) | payer OTHER, SELFPAY ==
[2023-05-03 08:42] VITALS: BMI 25.2
== END | disposition home or self-care (01) ==
LOC: SL 19:39
PROVIDERS: PCP Family Medicine; Referring Provider Nurse Practitioner Acute Care; Visit Provider Nurse Practitioner Acute Care
DX: G47.10 Hypersomnia, unspecified (principal)
CPT/HCPCS: 95810

== ENCOUNTER 2024-05-14 06:54 | Inpatient (IN) | payer OTHER, SELFPAY ==
[2023-05-03 08:42] VITALS: BMI 25.2
[2024-05-14] VITALS (34 sets, daily range): BP systolic 85–148; BP diastolic 59–105; PULSE 85–111; RESP 6–49; TEMP 35.5–36.6; O2SAT 54–99; BMI 21.9; BMI 21.1
--- NOTE | 2024-05-14 07:01 | EKG12_ITS ---
Test Reason : SOB Blood Pressure : / mmHG Vent. Rate : 102 BPM Atrial Rate : 102 BPM P-R Int : 140 ms QRS Dur : 096 ms QT Int : 326 ms P-R-T Axes : 020 180 -35 degrees QTc Int : 424 ms Sinus tachycardia Right axis deviation Right ventricular hypertrophy ST & T wave abnormality, consider anterolateral ischemia Abnormal ECG Confirmed by CLAU BLUNT, ARCHANA ([id number]), mapping editor DARIN NORIEGA ([id number]) on 05/19/2024 6:44:18 AM Referred By: DUONG Confirmed By:KEARA OLGUIN MD
--- NOTE | 2024-05-14 07:13 | ED.VIS.DYS ---
HPI History of Present Illness Chief Complaint: Shortness of Breath Informant: patient Narrative Narrative: Patient is 58-year-old with history of idiopathic pulmonary fibrosis and coronary artery disease presenting with worsening shortness of breath. Patient states he feels like he has some type of infection as he has been coughing up brown sputum. Does not report any fevers. Complains of chest pain with states that this was chronic chest pain since his stents were placed. Denies any swelling of his legs. Notes his recently had a mild cold. Patient's O2 sats are in the 70s on 5 L at home. Upon arrival patient was 54% on 5 L and switched to BiPAP. [facility] Medical History (Updated 05/14/24 @ 16:[address] Annamaria De La Torre, DO) Acute exacerbation of idiopathic pulmonary fibrosis Right ventricular dilation Pulmonary hypertension Lung transplant candidate IPF (idiopathic pulmonary fibrosis) CAD (coronary artery disease) Hypercholesteremia Mixed obstructive and restrictive ventilatory defect Chronic hypoxemic respiratory failure Recurrent sinus infections COPD exacerbation Hypokalemia Acute dyspnea Chest discomfort HTN (hypertension) GERD (gastroesophageal reflux disease) ILD (interstitial lung disease) Acute and chronic respiratory failure Influenza A Nicotine dependence, cigarettes, in remission Restrictive airway disease Obesity Therapeutic drug monitoring Pulmonary fibrosis 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 Umbilical hernia Mononucleosis Blind right eye Allergic rhinitis Home Medications ?Medication ?Instructions ?Recorded ?Last Taken ?Type umeclidinium 62.5 mcg-vilanterol 1 inh inhalation Q24H SHORTNESS OF 10/25/23 05/13/24 Rx 25 mcg/actuation powdr for BREATH/WHEEZING #60 ea inhalation (Anoro Ellipta) albuterol sulfate 2.5 mg/3 mL 2.5 mg (3 mL) inhalation Q4H PRN 03/20/24 05/13/24 Rx (0.083 %) solution for nebulization SHORTNESS OF BREATH/WHEEZING #180 mL albuterol sulfate 90 mcg/actuation 2 puff inhalation DAILY PRN PRN 03/27/24 05/13/24 History aerosol inhaler SHORTNESS OF BREATH/WHEEZING amlodipine 5 mg tablet 5 mg PO DAILY #90 tabs 04/12/24 05/13/24 Rx aspirin 81 mg tablet,delayed 81 mg PO DAILY 04/12/24 05/13/24 History release clopidogrel 75 mg tablet 75 mg PO DAILY #90 tabs 04/12/24 05/13/24 Rx esomeprazole magnesium 20 mg 20 mg PO DAILY PRN acid reflux 04/12/24 05/13/24 History capsule,delayed release (Nexium 24HR) nitroglycerin 0.4 mg sublingual 0.4 mg sublingual Q5-15M PRN chest 04/12/24 Unknown Rx tablet pain #25 tabs atorvastatin 80 mg tablet 80 mg PO QHS 04/13/24 05/13/24 History pirfenidone 267 mg tablet 801 mg (3 x 267 mg) PO TID 04/25/24 05/13/24 Rx PULMONARY FIBROSIS #30 tabs isosorbide dinitrate 20 mg tablet 20 mg PO TID #90 tabs 05/05/24 05/13/24 Rx losartan 100 mg tablet 50 mg PO DAILY BLOOD PRESSURE 05/05/24 05/13/24 History Allergy/AdvReac Type Severity Reaction Status Date / Time lisinopril AdvReac Intermediate cough Verified 05/14/24 06:55 Family History Mother Hypertension Father Hypertension CVA (cerebral vascular accident) Surgical History Stented coronary artery (~04/14/24) Hx of cardiac catheterization (~04/14/24) Hx of colonoscopy with polypectomy (~03/2021) Social History household members: spouse housing: house Smoking Status: Former smoker quit date: 04/24/90 pack-years: 15 alcohol intake: current alcohol intake frequency: holidays/special occasions only substance use type: does not use caffeine: Yes Type: coffee Number of servings: 4 ROS ROS ED Constitutional Constitutional ED: Denies chills or fever(s) Eyes Eyes: Denies change in vision ENT ENT ED: Reports other Details: Nasal congestion ; Denies sore throat Cardiovascular Cardiovascular: Reports chest pain Respiratory/Chest Respiratory/Chest: Reports cough, dyspnea and sputum Gastrointestinal Gastrointestinal: Denies abdominal pain, nausea or vomiting Musculoskeletal Musculoskeletal: Denies arthralgias or myalgias Integumentary Denies rash Neurologic Neurologic: Denies weakness EXAM Physical Exam Const Vital Signs: 05/14/24 06:55 05/14/24 06:55 05/14/24 06:59 Temperature 97.4 F L 96 F L Temperature Source Temporal Temporal Pulse Rate 111 H 111 H Respiratory Rate 30 H 30 H Respiratory Effort Short of Breath Labored Accessory Muscle Use Head Bobbing Respiratory Pattern Tachypnea Blood Pressure 110/77 110/77 Blood Pressure Mean 88 88 Pulse Ox 54 56 Oxygen Delivery Method Nasal Cannula Nasal Cannula Bi-pap Oxygen Flow Rate (L/min) 5 Fraction of Inspired Oxygen (FIO2) 05/14/24 07:00 05/14/24 07:01 05/14/24 07:53 Temperature Temperature Source Pulse Rate 91 87 Respiratory Rate 46 H 39 H Respiratory Effort Respiratory Pattern Blood Pressure Blood Pressure Mean Pulse Ox 98 Oxygen Delivery Method Bi-pap Oxygen Flow Rate (L/min) Fraction of Inspired Oxygen (FIO2) 100 98 45 05/14/24 07:55 05/14/24 08:00 05/14/24 08:30 Temperature Temperature Source Pulse Rate 87 89 Respiratory Rate 24 H 24 H Respiratory Effort Respiratory Pattern Blood Pressure 112/95 H 132/91 H Blood Pressure Mean 100 104 Pulse Ox 99 95 Oxygen Delivery Method Bi-pap Bi-pap Oxygen Flow Rate (L/min) Fraction of Inspired Oxygen (FIO2) 35 05/14/24 08:51 05/14/24 08:55 05/14/24 09:00 Temperature Temperature Source Pulse Rate 99 93 99 Respiratory Rate 38 H 47 H 22 H Respiratory Effort Respiratory Pattern Blood Pressure 131/94 H Blood Pressure Mean 106 Pulse Ox 99 95 Oxygen Delivery Method Bi-pap Oxygen Flow Rate (L/min) Fraction of Inspired Oxygen (FIO2) 35 Positive well nourished and well developed Constitutional Narrative: Patient is in acute respiratory distress General Appearance ED: well developed HEENT Reports moist mucous membranes Eyes EOMs intact bilaterally Eyes Narrative: Blind in his right eye Neck supple and no JVD Resp Resp Narrative: Tachypneic. Air air movement throughout with slight crackles at the bases. Slight decreased breath sounds at the right base. Auscultation: Negative for wheezes Cardio regular rhythm Rate: tachycardic GI non-tender and non-distended Extremity normal to inspection General Extremety ED: Negative for edema General Extremity: Negative for edema Neuro oriented x3 Sensorium / Orientation: alert Motor Exam: Negative for general weakness Psych mental status grossly normal Mood & Affect: anxious Skin no wounds MDM MDM MDM Narrative Medical decision making narrative: Patient arrives in respiratory distress. Placed on BiPAP with improvement of work of breathing as well as O2 saturation. Patient reports change in sputum and recent exposure to who has had respiratory symptoms. Concern for pneumonia, viral syndrome (possibly COVID given current community spread), acute heart failure CHF exacerbation, ACS and COPD exacerbation. The patient is not wheezing and I do not think he requires aerosols at this time. Did receive now resolved rales no significant improvements. O2 saturation does significantly proved with the BiPAP. Lab work largely unremarkable. COVID test is negative. Chest x-ray viewed by myself as well as radiology shows chronic interstitial lung disease with no acute changes. No effusion is appreciated. I suspect viral cause versus exacerbation pulmonary fibrosis as a cause of his presentation. Patient had a negative CTA of his chest 11 days ago and I do not think it requires repeating at this time. He does not have any unilateral leg swelling. Patient continues to have high O2 needs and required BiPAP so will be admitted. He does request another aerosol treatment which is given. He is given 60 mg IV Solu-Medrol in the emergency room as well. Will defer antibiotics at this time as I suspect his presentation is viral and leave to the discretion of admitting physician, Dr. Catalan. History & Record Review Additional record(s) reviewed:: Prior ED visit Lab Data Labs: Laboratory Results - last 24 hr 05/14/24 07:05 WBC 9.4 RBC 4.91 Hgb 15.3 Hct 44.7 MCV 91.0 MCH 31.2 MCHC 34.2 RDW Std Deviation 45.7 H RDW Coeff of Ravinder 13.8 Plt Count 184 MPV 9.1 Immature Gran % (Auto) 0.200 Neut % (Auto) 71.7 H Lymph % (Auto) 11.8 L [place] % (Auto) 5.6 Eos % (Auto) 10.1 H Baso % (Auto) 0.6 Absolute Neuts (auto) 6.7 Absolute Lymphs (auto) 1.11 Nucleated RBC % 0 Sodium 141 Potassium 3.5 Chloride 107 Carbon Dioxide 28.0 Anion Gap 6 BUN 17 Creatinine 0.98 Estim Creat Clear Calc 74.34 Est GFR (MDRD) Af Amer 101 Est GFR (MDRD) Non-Af 84 BUN/Creatinine Ratio 17.4 Glucose 111 H Lactic Acid 1.7 Calcium 9.2 Troponin I High Sens 27 B-Natriuretic Peptide 82.7 ABG Data ABG results: ABG 05/14/24 07:18 Specimen Type ART Sample Site R Radial pH 7.43 Bicarbonate Actual 26.7 H Total CO2 28 Base Excess 2 O2 Saturation 97 O2 % 45.0 ABG pCO2 40.3 ABG pO2 84 Noe Test Positive O2 Delivery Device BiPAP Vent Mode Not entered Clinical Comments 12 6 Radiography Diagnostic Testing: Clinical Impression(s) from Imaging Studies Chest X-Ray 05/14/24 07:35 IMPRESSION: Chronic interstitial lung disease without significant change from May 03, 2024 Electronically Signed: Lamont Alberts MD at 7:49 EDT , Rhythm Strip Rhythm Strip: Sinus Tach Rate: 102 Ectopy: None EKG Initial EKG: Attestation: I personally reviewed and interpreted this EKG as follows: Interpretation: Sinus Rhythm Comments: Sinus tachycardia at a rate of 102 bpm Right axis deviation Normal intervals T wave inversions in inferior leads as well as precordial leads with no reciprocal changes Compared to prior EKG on 05/02/2024 patient has slightly more pronounced T wave inversions in the precordial leads with this might be rate/strain related. Critical Care Time Critical Care Time: Yes Critical care time (excluding procedures): 30-74 minutes (40), Discussing w/Patient &/or Family/[employer] and Arranging Admission or Transfer Discharge Plan Dx/Rx/DC Orders Clinical Impression: Acute and chronic respiratory failure with hypoxia, Acute exacerbation of idiopathic pulmonary fibrosis, IPF (idiopathic pulmonary fibrosis) Disposition Disposition: [facility] Discharge Date/Time: 05/14/24 10:53
[2024-05-14 07:23] LABS: Allen Test Positive; Base Excess 2 mmol/L (-2 to +2); Bicarbonate 26.7 mmol/L (22-26); Blood Gas Specimen Type ART; Comment 12 6; Mode Not entered; O2 Delivery Device BiPAP; PO2 84 mmHG (75-100); SITE R Radial; SO2 97 % (95-99); Total Carbon Dioxide 28 mmol/L; pCO2 40.3 mmHg (35-45); pH 7.43 (7.35-7.45)
[2024-05-14] MEDS: 0.9% Normal Saline (1000mL) 1,000 ML 150 ML IV (07:29)
[2024-05-14] MEDS: MethylPREDNISolone 125 MG/2 ML Vial 60 MG IV (07:29)
[2024-05-14 07:32] LABS: Absolute Lymphocyte Count 1.11 X10^3/uL (0.83-4.51); Absolute Neutrophil Count 6.7 X10^3/uL (2.0-7.7); Basophil# 0.06 X10^3/uL; Basophil% 0.6 % (0-1); Eosinophil# 0.95 X10^3/uL; Eosinophils% 10.1 % (0-5); Hematocrit 44.7 % (40-54); Hemoglobin 15.3 g/dL (13.0-16.5); Lymphocyte # 1.11 X10^3/ul (0.83-4.51); Lymphocyte % 11.8 % (19-41); Mean Corp Hgb Conc 34.2 g/dL (32-36); Mean Corpuscular Hgb 31.2 pg (27.0-32.0); Mean Platelet Vol. 9.1 fl (6.2-12.0); Monocyte# 0.53 X10^3/uL; Monocyte% 5.6 % (0-10); NRBC Flagged by Analyzer 0 % (0-5); Neutrophil # 6.72 X10^3/uL (2.7-7.7); Neutrophil % 71.7 % (47-70); Platelet Count 184 K/mm3 (150-450); RBC Distribution Width CV 13.8 % (11.6-14.6); RBC Distribution Width SD 45.7 fl (35.1-43.9); Red Blood Count 4.91 M/mm3 (4.6-6.2); White Blood Count 9.4 K/mm3 (4.4-11.0)
--- NOTE | 2024-05-14 07:35 | RAD_ITS ---
INDICATION: sob EXAMINATION/TECHNIQUE: X-RAY - XR Chest 1 View COMPARISON: April 13, 2024 radiograph, May 03, [address] FINDINGS: LINES/DEVICES: None. LUNGS: Marked diffuse chronic interstitial coarsening peribronchial thickening. Unchanged patchy right infrahilar opacity correlating with enlarged pulmonary artery on CT. No new consolidation chronic interstitial lung disease or effusion. No pneumothorax. MEDIASTINUM AND CARDIOVASCULAR STRUCTURES: Cardiac silhouette not enlarged. BONES AND SOFT TISSUES: Unremarkable. RAD/Chest 1 View (Portable) IMPRESSION: Chronic interstitial lung disease without significant change from May 03, 2024 Electronically Signed: Lamont Alberts MD at 7:49 EDT ,
--- NOTE | 2024-05-14 07:47 | CPS ---
Patient on 5lpm with sats in 50's. Patient placed on BiPAP 16/8 and 100%. FiO2 weaned to 45% and pressures titrated down to 10/5 to maintain Vt around 450-500.
--- NOTE | 2024-05-14 07:49 | CPS ---
Patient taken off BiPAP for nasal swab and placed on 5lpm. Patient tolerating well, stating he feels better. Patient's sats dropped to 74%. Patient wanted to stay on cannula, patient strongly encouraged to wear BiPAP. Sats quickly jn to 90's. BiPAP 10/[address]%. Dr and RN aware.
[2024-05-14 07:58] LABS: Anion Gap 6 (5-15); BUN 17 mg/dL (7-18); BUN/Creat Ratio 17.4 RATIO (10-20); Calcium,Total 9.2 mg/dL (8.5-10.1); Chloride 107 mmol/L (98-107); Creatinine, Serum 0.98 mg/dL (0.70-1.30); EST Glomerular Filtration Rate 84 mL/min (>60); Est Glom Filt Rate - Afr Amer 101 mL/min (>60); Estimated Creatinine Clearance 74.34 ml/min; Glucose 111 mg/dL (74-106); Potassium 3.5 mmol/L (3.5-5.1); Sodium Level 141 mmol/L (136-145); Troponin-I HS 27 pg/mL (3.0-78.0)
[2024-05-14 08:01] LABS: Lactic Acid 1.7 mmol/L (0.4-1.9)
[2024-05-14 08:02] LABS: BNP,B-Type NATRIURETIC PEPTIDE 82.7 pg/mL (0-100)
[2024-05-14] MEDS: Albuterol 2.5 MG/3 ML VIAL.NEB. INHALATION (08:49)
--- NOTE | 2024-05-14 09:52 | NURSING ---
N2N report called to Sally. All questions answered at this time.
--- NOTE | 2024-05-14 10:02 | HP.PCM.HOS_ITS ---
HPI - General General Date of Admission: 05/14/24 Date of Service: 05/14/24 HPI Narrative MARY KAY MIRELES, is a 58 M who presents shortness of breath. Over the past month, patient has been feeling more short of breath. About a month ago, patient had stents placed to his LAD. Is been seeing cardiology as he has been still having chest pain and they have made his adjustments to his nitrates. Patient became more acutely short of breath. He normally has productive sputum which is white in appearance but recently has changed to brown. EMS was called and patient was noted to have a pulse ox of 50% when he arrived to the emergency room. Patient was placed on BiPAP. Patient very anxious having the BiPAP on. He had a chest x-ray that showed chronic changes but no acute process. He received bronchodilators as well as methylprednisolone. Patient's pulse ox has improved into the 90% range. [facility] Medical History (Updated 05/14/24 @ 10:[address] Binu Catalan, DO) Acute exacerbation of idiopathic pulmonary fibrosis Right ventricular dilation Pulmonary hypertension Lung transplant candidate IPF (idiopathic pulmonary fibrosis) CAD (coronary artery disease) Hypercholesteremia Mixed obstructive and restrictive ventilatory defect Chronic hypoxemic respiratory failure Recurrent sinus infections COPD exacerbation Hypokalemia Acute dyspnea Chest discomfort HTN (hypertension) GERD (gastroesophageal reflux disease) ILD (interstitial lung disease) Acute and chronic respiratory failure Influenza A Nicotine dependence, cigarettes, in remission Restrictive airway disease Obesity Therapeutic drug monitoring Pulmonary fibrosis 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 Umbilical hernia Mononucleosis Blind right eye Allergic rhinitis Home Medications ?Medication ?Instructions ?Recorded ?Last Taken ?Type umeclidinium 62.5 mcg-vilanterol 1 inh inhalation Q24H SHORTNESS OF 10/25/23 05/13/24 Rx 25 mcg/actuation powdr for BREATH/WHEEZING #60 ea inhalation (Anoro Ellipta) albuterol sulfate 2.5 mg/3 mL 2.5 mg (3 mL) inhalation Q4H PRN 03/20/24 05/13/24 Rx (0.083 %) solution for nebulization SHORTNESS OF BREATH/WHEEZING #180 mL albuterol sulfate 90 mcg/actuation 2 puff inhalation DAILY PRN PRN 03/27/24 05/13/24 History aerosol inhaler SHORTNESS OF BREATH/WHEEZING amlodipine 5 mg tablet 5 mg PO DAILY #90 tabs 04/12/24 05/13/24 Rx aspirin 81 mg tablet,delayed 81 mg PO DAILY 04/12/24 05/13/24 History release clopidogrel 75 mg tablet 75 mg PO DAILY #90 tabs 04/12/24 05/13/24 Rx esomeprazole magnesium 20 mg 20 mg PO DAILY PRN acid reflux 04/12/24 05/13/24 History capsule,delayed release (Nexium 24HR) nitroglycerin 0.4 mg sublingual 0.4 mg sublingual Q5-15M PRN chest 04/12/24 Unknown Rx tablet pain #25 tabs atorvastatin 80 mg tablet 80 mg PO QHS 04/13/24 05/13/24 History pirfenidone 267 mg tablet 801 mg (3 x 267 mg) PO TID 04/25/24 05/13/24 Rx PULMONARY FIBROSIS #30 tabs isosorbide dinitrate 20 mg tablet 20 mg PO TID #90 tabs 05/05/24 05/13/24 Rx losartan 100 mg tablet 50 mg PO DAILY BLOOD PRESSURE 05/05/24 05/13/24 History Allergy/AdvReac Type Severity Reaction Status Date / Time lisinopril AdvReac Intermediate cough Verified 05/14/24 06:55 Family History Mother Hypertension Father Hypertension CVA (cerebral vascular accident) Surgical History Stented coronary artery (~04/14/24) Hx of cardiac catheterization (~04/14/24) Hx of colonoscopy with polypectomy (~03/2021) Social History household members: spouse housing: house Smoking Status: Former smoker quit date: 04/24/90 pack-years: 15 alcohol intake: current alcohol intake frequency: holidays/special occasions only substance use type: does not use caffeine: Yes Type: coffee Number of servings: 4 ROS ROS Narrative All review of systems were negative except as mentioned above in the history of present illness and the other review of systems. Vital Signs Vital Signs Vital Signs: 05/14/24 06:55 05/14/24 06:55 05/14/24 06:59 Temperature 36.3 C L 35.5 C L Temperature Source Temporal Temporal Pulse Rate 111 H 111 H Respiratory Rate 30 H 30 H Respiratory Effort Short of Breath Labored Accessory Muscle Use Head [place] Respiratory Pattern Tachypnea Blood Pressure 110/77 110/77 Blood Pressure Mean 88 88 Pulse Ox 54 56 Oxygen Delivery Method Nasal Cannula Nasal Cannula Bi-pap Oxygen Flow Rate (L/min) 5 Fraction of Inspired Oxygen (FIO2) 05/14/24 07:00 05/14/24 07:01 05/14/24 07:53 Temperature Temperature Source Pulse Rate 91 87 Respiratory Rate 46 H 39 H Respiratory Effort Respiratory Pattern Blood Pressure Blood Pressure Mean Pulse Ox 98 Oxygen Delivery Method Bi-pap Oxygen Flow Rate (L/min) Fraction of Inspired Oxygen (FIO2) 100 98 45 05/14/24 07:55 05/14/24 08:00 05/14/24 08:30 Temperature Temperature Source Pulse Rate 87 89 Respiratory Rate 24 H 24 H Respiratory Effort Respiratory Pattern Blood Pressure 112/95 H 132/91 H Blood Pressure Mean 100 104 Pulse Ox 99 95 Oxygen Delivery Method Bi-pap Bi-pap Oxygen Flow Rate (L/min) Fraction of Inspired Oxygen (FIO2) 35 05/14/24 08:51 05/14/24 08:55 05/14/24 09:00 Temperature Temperature Source Pulse Rate 99 93 99 Respiratory Rate 38 H 47 H 22 H Respiratory Effort Respiratory Pattern Blood Pressure 131/94 H Blood Pressure Mean 106 Pulse Ox 99 95 Oxygen Delivery Method Bi-pap Oxygen Flow Rate (L/min) Fraction of Inspired Oxygen (FIO2) 35 05/14/24 09:30 Temperature 35.6 C L Temperature Source Pulse Rate 95 Respiratory Rate 22 H Respiratory Effort Respiratory Pattern Blood Pressure 148/82 H Blood Pressure Mean 104 Pulse Ox 96 Oxygen Delivery Method Oxygen Flow Rate (L/min) Fraction of Inspired Oxygen (FIO2) Weight Weight: 63.2 kg Body Mass Index (BMI) 21.9 Physical Exam Const Constitutional Narrative: Anxious. On BiPAP. Tachypneic. Cachectic. HEENT normocephalic and head/scalp atraumatic HEENT Narrative: BiPAP in place with good seal Eyes Eyes Narrative: No icterus. Amblyopia. Neck Neck Narrative: No lymphadenopathy. No thyromegaly. Resp Resp Narrative: Bilateral fine crackles throughout. Cardio regular rate, regular rhythm, S1 normal heart sound and S2 normal heart sound GI normal to inspection, nondistended, normoactive bowel sounds, soft to palpation, non-tender and non-distended Extremity normal to inspection, full ROM and no clubbing, cyanosis or edema Skin Skin Narrative: Chronic skin lesion the posterior aspect of his neck. Neuro moves all extremities Sensorium / Orientation: awake and alert Psych Mood & Affect: anxious Results Lab / Micro Data Attestation: I reviewed the patient's lab results. 05/14/24 07:05 05/14/24 07:05 Labs: Laboratory Results - last 24 hr 05/14/24 07:05: WBC 9.4, RBC 4.91, Hgb 15.3, Hct 44.7, MCV 91.0, MCH 31.2, MCHC 34.2, RDW Std Deviation 45.7 H, RDW Coeff of Ravinder 13.8, Plt Count 184, MPV 9.1, Immature Gran % (Auto) 0.200, Neut % (Auto) 71.7 H, Lymph % (Auto) 11.8 L, [place] % (Auto) 5.6, Eos % (Auto) 10.1 H, Baso % (Auto) 0.6, Absolute Neuts (auto) 6.7, Absolute Lymphs (auto) 1.11, Nucleated RBC % 0, Sodium 141, Potassium 3.5, Chloride 107, Carbon Dioxide 28.0, Anion Gap 6, BUN 17, Creatinine 0.98, Estim Creat Clear Calc 74.34, Est GFR (MDRD) Af Amer 101, Est GFR (MDRD) Non-Af 84, BUN/Creatinine Ratio 17.4, Glucose 111 H, Lactic Acid 1.7, Calcium 9.2, Troponin I High Sens 27, B-Natriuretic Peptide 82.7 Micro: Microbiology 05/14/24 07:25 Mucosa - Nose SARS-CoV-2, Influenza & RSV (PCR) - Final ABG Data ABG results: ABG 05/14/24 07:18 Specimen Type ART Sample Site R Radial pH 7.43 Bicarbonate Actual 26.7 H Total CO2 28 Base Excess 2 O2 Saturation 97 O2 % 45.0 ABG pCO2 40.3 ABG pO2 84 Noe Test Positive O2 Delivery Device BiPAP Vent Mode Not entered Clinical Comments 12 6 Rhythm Strip Rhythm Strip: Sinus Tach Rate: 102 Ectopy: None EKG Initial EKG: Attestation: I personally reviewed and interpreted this EKG as follows: Prior EKG tracings: available for review EKG Rhythm Intrepretation: Sinus Rhythm (Incomplete right bundle branch block. Unchanged from previous) Imaging Radiology Impression Chest X-Ray 05/14/24 07:35 IMPRESSION: Chronic interstitial lung disease without significant change from May 03, 2024 Electronically Signed: Lamont Alberts MD at 7:49 EDT , Assessment & Plan Assessment/Plan (1) Acute hypoxic respiratory failure: PLAN: Present on admission. Pulse ox was down to 56% upon arrival. Has improved since being placed on BiPAP. FiO2 on the BiPAP has since been weaned down to 35%. Due to the patient's underlying pulmonary fibrosis, COPD and pulmonary hypertension. Patient had FEV1 21% predicted from PFTs from 2022. Cannot rule out underlying infectious process so patient be placed on antibiotics with ceftriaxone and azithromycin with additional pneumonia workup. His COVID-19, influenza and RSV were negative here. Continue with BiPAP for now and wean as tolerated. Pulmonary Wean oxygen as tolerated. Monitor in intensive care unit overnight. If patient does well and is able to maintain being off of BiPAP for period of time, then I feel the patient could have his status de-escalated on the . (2) Acute exacerbation of idiopathic pulmonary fibrosis: PLAN: Complicated by obstructive component as mentioned above, patient is FEV1 was 21% of predicted from 2022. Patient will be on bronchodilators, methylprednisolone. Patient had been seen at the transplant center at [facility] but they had closed this file. Patient does not feel that he would be able to do the pulmonary rehab to try to go through that whole process again. Continue with pirfenidone (3) Protein calorie malnutrition: PLAN: Suspected severe BMI 21.9 kg/m? Nutrition consult. PLAN: Plan Chronic condition * Pulmonary hypertension: Group 3. Likely due to the patient's underlying pulmonary fibrosis and COPD. Treat the underlying processes. * CAD: Patient recently underwent PCI to the LAD in March. Continue with aspirin, high intensity statin, clopidogrel and losartan. Hold off on beta- blockers given the patient's severe lung issues. Cardiology has been trying to manage his chest pain with isosorbide. His troponins here are negative. VTE prophylaxis with enoxaparin CODE STATUS: Addressed with the patient. Patient was to be DNR Comfort Care arrest noted to patient Case discussed with the patient's at bedside. Charges/Coding Visit Charges Inpatient E&M: 39185 Init Hosp L3
[2024-05-14] MEDS: Losartan Potassium 50 MG Tablet PO (11:28)
[2024-05-14] MEDS: guaiFENesin 1,200 MG Tablet 1200 MG PO ×2 (11:28→21:11)
[2024-05-14] MEDS: Aspirin E.C. 81 MG Tablet PO (11:28)
[2024-05-14] MEDS: Enoxaparin 40 MG/0.4 ML Syringe SC (11:28)
[2024-05-14] MEDS: Clopidogrel Bisulfate 75 MG Tablet PO (11:28)
[2024-05-14] MEDS: amLODIPine 5 MG Tablet PO (11:28)
[2024-05-14] MEDS: Ceftriaxone 2 GM in 0.9% Normal Saline (50mL MB+) 50 ML IV (11:36)
[2024-05-14] MEDS: Ipratropium/Albuterol Sulfate 3 ML AMPUL.NEB INHALATION ×4 (12:05→23:04)
[2024-05-14] MEDS: Azithromycin 500 MG in Dextrose 5%-Water (250mL Bag) 250 ML 250 MG IV (12:18)
--- NOTE | 2024-05-14 13:10 | PCMCONS.TICU ---
HPI Consult Data Date of Consult: 05/14/24 HPI Narrative HPI Narrative: MARY KAY MIRELES, is a 58 M with established IPF followed by Dr. Morales has had a difficult few weeks since presenting with angina chest pains and being found to have CAD on [id number]. 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 He was brought to ED via EMS with terribly low SpO2 and was placed on BiPAP though that made the situation worse with increased anxiety. He has chronic cough but denies significant sputum production, fevers/ sweats, orthopnea, hemoptysise has not ravelled outside the area recently. [facility] Medical History (Updated 05/14/24 @ 10:[address] Binu Catalan, DO) Acute exacerbation of idiopathic pulmonary fibrosis Right ventricular dilation Pulmonary hypertension Lung transplant candidate IPF (idiopathic pulmonary fibrosis) CAD (coronary artery disease) Hypercholesteremia Mixed obstructive and restrictive ventilatory defect Chronic hypoxemic respiratory failure Recurrent sinus infections COPD exacerbation Hypokalemia Acute dyspnea Chest discomfort HTN (hypertension) GERD (gastroesophageal reflux disease) ILD (interstitial lung disease) Acute and chronic respiratory failure Influenza A Nicotine dependence, cigarettes, in remission Restrictive airway disease Obesity Therapeutic drug monitoring Pulmonary fibrosis 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 Umbilical hernia Mononucleosis Blind right eye Allergic rhinitis Home Medications ?Medication ?Instructions ?Recorded ?Last Taken ?Type umeclidinium 62.5 mcg-vilanterol 1 inh inhalation Q24H SHORTNESS OF 10/25/23 05/13/24 Rx 25 mcg/actuation powdr for BREATH/WHEEZING #60 ea inhalation (Anoro Ellipta) albuterol sulfate 2.5 mg/3 mL 2.5 mg (3 mL) inhalation Q4H PRN 03/20/24 05/13/24 Rx (0.083 %) solution for nebulization SHORTNESS OF BREATH/WHEEZING #180 mL albuterol sulfate 90 mcg/actuation 2 puff inhalation DAILY PRN PRN 03/27/24 05/13/24 History aerosol inhaler SHORTNESS OF BREATH/WHEEZING amlodipine 5 mg tablet 5 mg PO DAILY #90 tabs 04/12/24 05/13/24 Rx aspirin 81 mg tablet,delayed 81 mg PO DAILY 04/12/24 05/13/24 History release clopidogrel 75 mg tablet 75 mg PO DAILY #90 tabs 04/12/24 05/13/24 Rx esomeprazole magnesium 20 mg 20 mg PO DAILY PRN acid reflux 04/12/24 05/13/24 History capsule,delayed release (Nexium 24HR) nitroglycerin 0.4 mg sublingual 0.4 mg sublingual Q5-15M PRN chest 04/12/24 Unknown Rx tablet pain #25 tabs atorvastatin 80 mg tablet 80 mg PO QHS 04/13/24 05/13/24 History pirfenidone 267 mg tablet 801 mg (3 x 267 mg) PO TID 04/25/24 05/13/24 Rx PULMONARY FIBROSIS #30 tabs isosorbide dinitrate 20 mg tablet 20 mg PO TID #90 tabs 05/05/24 05/13/24 Rx losartan 100 mg tablet 50 mg PO DAILY BLOOD PRESSURE 05/05/24 05/13/24 History Allergy/AdvReac Type Severity Reaction Status Date / Time lisinopril AdvReac Intermediate cough Verified 05/14/24 06:55 Family History Mother Hypertension Father Hypertension CVA (cerebral vascular accident) Surgical History Stented coronary artery (~04/14/24) Hx of cardiac catheterization (~04/14/24) Hx of colonoscopy with polypectomy (~03/2021) Social History household members: spouse housing: house Smoking Status: Former smoker quit date: 04/24/90 pack-years: 15 alcohol intake: current alcohol intake frequency: holidays/special occasions only substance use type: does not use caffeine: Yes Type: coffee Number of servings: 4 ROS Constitutional Constitutional: Reports systems reviewed and no addt'l complaints, except as documented Objective Data Objective Data Vital Signs: Vital Signs Last response Temperature 36.6 C 05/14/24 10:51 Temperature Source Temporal 05/14/24 10:51 Pulse Rate 98 05/14/24 12:10 Respiratory Rate 32 H 05/14/24 12:25 Respiratory Effort Short of Breath, Labored 05/14/24 12:25 Respiratory Depth Shallow 05/14/24 12:25 Respiratory Pattern Tachypnea 05/14/24 12:25 Blood Pressure 119/94 H 05/14/24 12:00 Blood Pressure Mean 102 05/14/24 12:00 Blood Pressure Source Monitor 05/14/24 12:00 Blood Pressure Position Semi-Fowlers 05/14/24 12:00 Blood Pressure Location Left Arm 05/14/24 12:00 Pulse Ox 96 05/14/24 12:25 Oxygen Delivery Method High Flow 05/14/24 12:25 Oxygen Flow Rate (L/min) 10 05/14/24 12:25 Fraction of Inspired Oxygen (FIO2) 45 05/14/24 11:30 I&O: I&O Last 24 Hours 05/13/24 05/14/24 05/14/24 23:59 11:59 23:59 Intake Total 627.5 / 677.5 50 / 677.5 Output Total 0 / 0 Balance 627.5 / 677.5 50 / 677.5 I&O: Total Stay 05/14/24 06:54 thru 05/14/24 12:33 Intake Total 677.5 Output Total 0 Balance 677.5 Current Meds Ordered / Administered: Current meds ordered / Administered Generic Name Dose Route Start Last Admin Trade Name Freq PRN Reason Stop Dose Admin Acetaminophen 650 mg 05/14/24 10:40 Acetaminophen 325 Mg Tablet PO Q6H PRN PRN Pain 1-10 Or Fever >100.7 Albuterol Sulfate 2.5 mg 05/14/24 10:40 Albuterol 2.5 Mg/3 Ml Vial.Neb. INHALATION Q2H PRN PRN SHORTNESS OF BREATH Albuterol/Ipratropium 3 ml 05/14/24 10:40 05/14/24 12:05 Ipratropium/Albuterol Sulfate 3 Ml Ampul.Neb INHALATION 3 ml Q4H.RT CIRILO Administration Amlodipine Besylate 5 mg 05/14/24 10:40 05/14/24 11:28 Amlodipine 5 Mg Tablet PO 5 mg DAILY CIRILO Administration Protocol Aspirin 81 mg 05/14/24 10:40 05/14/24 11:28 Aspirin E.C. 81 Mg Tablet PO 81 mg DAILY CIRILO Administration Atorvastatin Calcium 80 mg 05/14/24 22:00 Atorvastatin Calcium 80 Mg Tablet PO QHS CIRILO Clarify Med Order 1 each 05/14/24 15:00 Clarify Order NOTE CLARIFY [facility] Clopidogrel Bisulfate 75 mg 05/14/24 10:40 05/14/24 11:28 Clopidogrel Bisulfate 75 Mg Tablet PO 75 mg DAILY [facility] Administration Enoxaparin Sodium 40 mg 05/14/24 10:40 05/14/24 11:28 Enoxaparin 40 Mg/0.4 Ml Syringe SC 40 mg DAILY CIRILO Administration Guaifenesin 1,200 mg 05/14/24 10:40 05/14/24 11:28 Guaifenesin 1,200 Mg Tablet PO 1,200 mg BID [facility] Administration Azithromycin 500 mg/ Dextrose 255 mls @ 250 mls/hr 05/14/24 10:40 05/14/24 12:18 IV 250 mls/hr Q24 [facility] Administration Ceftriaxone Sodium 2 gm/ 50 mls @ 100 mls/hr 05/14/24 10:40 05/14/24 12:18 Sodium Chloride IV Infused Q24 CIRILO Infusion Sodium Chloride 250 mls @ 15 mls/hr 05/14/24 10:55 IV .[id number] PRN Additional IVPB Infusion Sodium Chloride 250 mls @ 15 mls/hr 05/14/24 10:55 IV .[id number] PRN Saline Flush Isosorbide Dinitrate 20 mg 05/14/24 14:00 Isosorbide Dn 20 Mg Tablet PO TID [facility] Protocol Losartan Potassium 50 mg 05/14/24 10:40 05/14/24 11:28 Losartan Potassium 50 Mg Tablet PO 50 mg DAILY [facility] Administration Protocol Methylprednisolone 40 mg 05/14/24 14:00 Methylprednisolone 40 Mg/Ml Vial IV Q8 [facility] Nitroglycerin 0.4 mg 05/14/24 10:40 Nitroglycerin (Inpatient Use) 0.4 Mg Tab.Subl SL Q5M PRN chest pain Non-Formulary Medication 801 mg 05/14/24 14:00 Pirfenidone PO TID [facility] Ondansetron HCl 4 mg 05/14/24 10:40 Ondansetron 4 Mg/2 Ml Vial IV Q8H PRN PRN NAUSEA/VOMITING Oxycodone HCl 2.5 - 5 mg 05/14/24 10:40 Oxycodone 5 Mg Tablet PO Q4H PRN PRN Pain Score 4-10 Pantoprazole Sodium 20 mg 05/14/24 10:40 Pantoprazole Sodium 20 Mg Tablet PO DAILY PRN acid reflux Sodium Chloride 10 - 40 ml 05/14/24 10:55 0.9% Saline Lock 10 Ml Syringe IV UD PRN SALINE FLUSH Physical Exam Const alert and oriented x3 General Appearance: cooperative, in distress and appears older than stated age Orientation / Consciousness: awake, oriented to person, oriented to place and oriented to time HEENT normocephalic, head/scalp atraumatic and hearing grossly normal bilaterally Nose: nares normal Eyes PERRL and EOMs intact bilaterally Chest Chest: symmetrical chest wall rise Resp no use of accessory muscles Effort and Inspection: labored Auscultation: crackles Cardio regular rate Lab / Micro Data Attestation: I reviewed the patient's lab results. 05/14/24 07:05 05/14/24 07:05 Labs: Laboratory Results - last 24 hr 05/14/24 07:05: WBC 9.4, RBC 4.91, Hgb 15.3, Hct 44.7, MCV 91.0, MCH 31.2, MCHC 34.2, RDW Std Deviation 45.7 H, RDW Coeff of Ravinder 13.8, Plt Count 184, MPV 9.1, Immature Gran % (Auto) 0.200, Neut % (Auto) 71.7 H, Lymph % (Auto) 11.8 L, [place] % (Auto) 5.6, Eos % (Auto) 10.1 H, Baso % (Auto) 0.6, Absolute Neuts (auto) 6.7, Absolute Lymphs (auto) 1.11, Nucleated RBC % 0, Sodium 141, Potassium 3.5, Chloride 107, Carbon Dioxide 28.0, Anion Gap 6, BUN 17, Creatinine 0.98, Estim Creat Clear Calc 74.34, Est GFR (MDRD) Af Amer 101, Est GFR (MDRD) Non-Af 84, BUN/Creatinine Ratio 17.4, Glucose 111 H, Lactic Acid 1.7, Calcium 9.2, Troponin I High Sens 27, B-Natriuretic Peptide 82.7 Micro: Microbiology 05/14/24 07:25 Mucosa - Nose SARS-CoV-2, Influenza & RSV (PCR) - Final ABG Data ABG results: ABG 05/14/24 07:18 Specimen Type ART Sample Site R Radial pH 7.43 Bicarbonate Actual 26.7 H Total CO2 28 Base Excess 2 O2 Saturation 97 O2 % 45.0 ABG pCO2 40.3 ABG pO2 84 Noe Test Positive O2 Delivery Device BiPAP Vent Mode Not entered Clinical Comments 12 6 Rhythm Strip Rhythm Strip: Sinus Tach Rate: 102 Ectopy: None Imaging Radiology Impression Chest X-Ray 05/14/24 07:35 IMPRESSION: Chronic interstitial lung disease without significant change from May 03, 2024 Electronically Signed: Lamont Alberts MD at 7:49 EDT , Assessment and Plan . Assessment and plan: 1. acute respiratory failure, multifactorial with components of IPF possibly in exacerbation, underlying COPD and possible superimposed edema due to coronary heart disease. He has been able to be maintained on HFNC O2 and looks less anxious once BiPAP removed. I doubt the BiPAP is likely to offer much over simple nasal oxygen currently anyway. He remains high risk for clinical decline and it is noted he does NOT wish to ever be intubated- he and confirm this today during our interview 2. CAD, no active angina currently but recently, on comprehensive regimen per cardiology Suggest: 1. continue HHNCO2 2. anxiolytics (Ativan) are reasonable PRN 3. agree with solumedrol for acute exacerbation of IPF 4. Gentle diuresis may be useful- following BNP 5. DNI as per above Care discussed with patient and at bedside Critical Care Time: 60 minutes The entirety of this encounter was done via Telemedicine
[2024-05-14] MEDS: Isosorbide DN 20 MG Tablet PO ×2 (14:04→21:11)
[2024-05-14] MEDS: PIRFENIDONE 267 MG 801 MG PO ×2 (16:02→21:11)
[2024-05-14] MEDS: Atorvastatin Calcium 80 MG Tablet PO (21:11)
[2024-05-14] MEDS: 0.9% Saline Lock 10 ML Syringe IV (21:11)
[2024-05-15] VITALS (18 sets, daily range): BP systolic 81–120; BP diastolic 61–96; PULSE 75–117; RESP 22–40; TEMP 36.3–36.8; O2SAT 90–99; BMI 21.9
[2024-05-15] MEDS: Ipratropium/Albuterol Sulfate 3 ML AMPUL.NEB INHALATION ×6 (02:48→23:08)
[2024-05-15] MEDS: PIRFENIDONE 267 MG 801 MG PO ×3 (05:13→21:18)
[2024-05-15 05:34] LABS: Absolute Lymphocyte Count 0.57 X10^3/uL (0.83-4.51); Absolute Neutrophil Count 8.7 X10^3/uL (2.0-7.7); Basophil# 0.01 X10^3/uL; Basophil% 0.1 % (0-1); Eosinophil# 0.11 X10^3/uL; Eosinophils% 1.1 % (0-5); Hematocrit 36.9 % (40-54); Hemoglobin 12.5 g/dL (13.0-16.5); Lymphocyte # 0.57 X10^3/ul (0.83-4.51); Lymphocyte % 5.9 % (19-41); Mean Corp Hgb Conc 33.9 g/dL (32-36); Mean Corpuscular Hgb 30.6 pg (27.0-32.0); Mean Corpuscular Volume 90.4 fL (80-94); Mean Platelet Vol. 9.4 fl (6.2-12.0); Monocyte# 0.23 X10^3/uL; Monocyte% 2.4 % (0-10); NRBC Flagged by Analyzer 0 % (0-5); Neutrophil # 8.67 X10^3/uL (2.7-7.7); Neutrophil % 90.2 % (47-70); POSITIVE DIFFERENTIAL YES; Platelet Count 208 K/mm3 (150-450); RBC Distribution Width CV 13.7 % (11.6-14.6); RBC Distribution Width SD 45.1 fl (35.1-43.9); Red Blood Count 4.08 M/mm3 (4.6-6.2); White Blood Count 9.6 K/mm3 (4.4-11.0)
[2024-05-15 05:51] LABS: Anion Gap 7 (5-15); BUN 26 mg/dL (7-18); BUN/Creat Ratio 23.4 RATIO (10-20); Chloride 103 mmol/L (98-107); Creatinine, Serum 1.11 mg/dL (0.70-1.30); EST Glomerular Filtration Rate 72 mL/min (>60); Est Glom Filt Rate - Afr Amer 88 mL/min (>60); Estimated Creatinine Clearance 65.84 ml/min; Glucose 203 mg/dL (74-106); Potassium 3.5 mmol/L (3.5-5.1); Sodium Level 136 mmol/L (136-145)
--- NOTE | 2024-05-15 06:27 | PN.HOSP_ITS ---
Reason for Visit Reason for Visit: Diagnoses Unspecified protein-calorie malnutrition (05/14/24) Idiopathic pulmonary fibrosis (05/14/24) Acute respiratory failure with hypoxia (05/14/24) Subjective Subjective Patient notes feeling significantly improved since his initial ED appearance maintaining appropriate oxygenation on currently 8 L which she notes normally he uses 5 L at home although this may be primarily secondary to his concentrator only being able to deliver up to 5. He notes that his breathing has been easier although he still does have shortness of breath worse with any exertion attempts with desaturation with staff. He states he does have a mild dry cough but not severe and it seems to have improved. He denies any chest discomfort. Discussed plan of care which included ongoing therapy and treatment, possible gentle diuresis and transition to PCU to which patient is amenable. Patient denies fevers, chills, nausea, emesis, abdominal pain. Objective Data Objective Data Vital Signs: Vital Signs Temp Pulse Resp BP Pulse Ox O2 Del Method O2 Flow Rate 97.5 F L 77 22 H 94/68 99 High Flow 8 05/15/24 04:00 05/15/24 06:00 05/15/24 06:00 05/15/24 06:00 05/15/24 06:00 05/15/24 06:00 05/15/24 06:00 FiO2 50 05/14/24 23:04 Oxygen Flow Rate (L/min) 8 Oxygen Delivery Method High Flow Weight: 139 lb 12.369 oz Body Mass Index (BMI) 21.9 Intake & Output: Intake and Output for Last 24 Hours 05/13/24 05/14/24 05/15/24 23:59 23:59 23:59 Intake Total 1232.5 / 1232.5 Output Total 50 / 250 200 / 200 Balance 1182.5 / 982.5 -200 / -200 Medical Nutrition Assessment Dietitian: Malnutrition Criteria Met Start: 05/14/24 17:59 Freq: Status: Active Protocol: Document 05/14/24 17:59 NATASHA (Rec: 05/14/24 17:59 NATASHA [id number]) Nutrition Malnutrition Evidence of Malnutrition Exists Yes Malnutrition (severe): Chronic Evidenced By Weight Loss (Severe),Physical Changes (Moderate),Physical Changes (Severe) Clinical Problem Chronic Disease or Condition Related Malnutrition Etiology related to decreased ability to consume sufficient energy to meet estimated nutrient needs Signs/Symptoms as evidenced by significant weight loss of 4.3% in under 2 weeks and 15.6% in ~8 months based upon 05/02/24 wt of 141lb and 09/15/23 wt of 160lb as well as moderate to severe muscle and fat wasting per NFPA (temples, clavicle, buccal, interosseous, etc.). Status Active Problem Recommendation Dietitian Recommendations/Changes Will change diet to Regular - No Added Salt to liberalize the diet a bit. Will order Ensure Clear monae flavor BID with breakfast and dinner as well as Beneprotein with applesauce at lunch to help increase oral intakes. Will continue to follow the pt , monitor oral intakes and modify nutrition interventions as needed. Lab / Micro Data 05/15/24 05:15 05/15/24 05:15 Labs: Laboratory Results - last 24 hr 05/14/24 07:05: WBC 9.4, RBC 4.91, Hgb 15.3, Hct 44.7, MCV 91.0, MCH 31.2, MCHC 34.2, RDW Std Deviation 45.7 H, RDW Coeff of Ravinder 13.8, Plt Count 184, MPV 9.1, Immature Gran % (Auto) 0.200, Neut % (Auto) 71.7 H, Lymph % (Auto) 11.8 L, [place] % (Auto) 5.6, Eos % (Auto) 10.1 H, Baso % (Auto) 0.6, Absolute Neuts (auto) 6.7, Absolute Lymphs (auto) 1.11, Nucleated RBC % 0, Sodium 141, Potassium 3.5, Chloride 107, Carbon Dioxide 28.0, Anion Gap 6, BUN 17, Creatinine 0.98, Estim Creat Clear Calc 74.34, Est GFR (MDRD) Af Amer 101, Est GFR (MDRD) Non-Af 84, BUN/Creatinine Ratio 17.4, Glucose 111 H, Lactic Acid 1.7, Calcium 9.2, Troponin I High Sens 27, B-Natriuretic Peptide 82.7 05/15/24 05:15: WBC 9.6, RBC 4.08 L, Hgb 12.5 L, Hct 36.9 L, MCV 90.4, MCH 30.6, MCHC 33.9, RDW Std Deviation 45.1 H, RDW Coeff of Ravinder 13.7, Plt Count 208, MPV 9.4, Immature Gran % (Auto) 0.300, Neut % (Auto) 90.2 H, Lymph % (Auto) 5.9 L, [place] % (Auto) 2.4, Eos % (Auto) 1.1, Baso % (Auto) 0.1, Absolute Neuts (auto) 8.7 H, Absolute Lymphs (auto) 0.57 L, Nucleated RBC % 0, Sodium 136, Potassium 3.5, Chloride 103, Carbon Dioxide 26.0, Anion Gap 7, BUN 26 H, Creatinine 1.11, Estim Creat Clear Calc 65.84, Est GFR (MDRD) Af Amer 88, Est GFR (MDRD) Non-Af 72, BUN/Creatinine Ratio 23.4 H, Glucose 203 H, Calcium 9.0 Micro: Microbiology 05/14/24 14:15 Urine, Clean Catch Legionella Antigen - Final 05/14/24 14:15 Urine, Clean Catch Streptococcus pneumoniae Antigen (M - Final 05/14/24 07:25 Mucosa - Nose SARS-CoV-2, Influenza & RSV (PCR) - Final ABG Data ABG results: ABG 05/14/24 07:18 Specimen Type ART Sample Site R Radial pH 7.43 Bicarbonate Actual 26.7 H Total CO2 28 Base Excess 2 O2 Saturation 97 O2 % 45.0 ABG pCO2 40.3 ABG pO2 84 Noe Test Positive O2 Delivery Device BiPAP Vent Mode Not entered Clinical Comments 12 6 Radiography Diagnostic Testing: Radiology Impression Chest X-Ray 05/14/24 07:35 IMPRESSION: Chronic interstitial lung disease without significant change from May 03, 2024 Electronically Signed: Lamont Alberts MD at 7:49 EDT , Rhythm Strip Rhythm Strip: Sinus Tach Rate: 102 Ectopy: None Physical Exam Narrative Physical Examination: General: Awake, alert, oriented x 3 and cooperative, seated upright in the ICU bed, fatigued, increased work of breathing but able to carry on sentences, notes feeling improved. Skin: Normal color, normal turgor, no icterus, no cyanosis except occasional staged ecchymoses likely from lab draws HEENT: AT/NC, EOMI, PERRLA, mildly dry MM, nasal cannula in place. Lungs: Diminished, greater bases, coarse crackles consistent with his underlying pulmonary fibrotic disease, no wheezing currently, occasional rales, mild increased work of breathing and tachypnea but no evidence of any distress. Heart: Mildly tachycardic with regular rhythm; no gallop, rub audible. Abdomen: Soft, NTTP, ND, mildly hyperactive BS. Extremities: No cyanosis, no clubbing, no marked peripheral pitting edema. Neurological: Patient awake, alert, oriented as noted, cognitive function intact; pupils equally reactive to light and accommodation, cranial nerves grossly normal, moving all 4 extremities, no focal deficits, strength improving but still moderately to severely globally decreased secondary to acute presentation. Psychiatric: Affect appears flat, fatigued, no acute evidence of depressive or anxiety feelings. Assessment & Plan Assessment/Plan (1) Acute and chronic respiratory failure with hypoxia: PLAN: Plan The patient is a 58 y/o M w/ PMHx: HTN, HLD, CAD s/p PCI 04/14/24, GERD, Tobacco use, Protein calorie malnutrition, Chronic Hypoxic Respiratory Failure with COPD/Restrictive with IPF with Pulmonary HTN who presents to the [facility] ED on 05/14/24 with history of dyspnea. #1. Acute Hypoxic Respiratory Failure on Chronic Hypoxic Respiratory Failure secondary to Underlying Pulmonary Fibrosis with exacerbation, Pulmonary HTN and COPD with Acute on Chronic Exacerbation with possible infectious process: Chest x-ray with no acute cardiopulmonary findings. Legionella and strep antigens negative, SARS COVID/influenza/RSV negative, sputum culture pending, BNP unremarkable. 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 Per pulmonary recommendation will attempt gentle diuresis today. Discussed case with case management/social work and patient will be evaluated for a new concentrator at discharge once clinically appropriate, potentially over the next 1 to 2 days. #2. Normocytic anemia, new and chronicity: Admission CBC 15.3 and baseline similar prior to this, 05/15/2024 hemoglobin 12.5, MCV 90.4, will continue to trend CBC however falters further will obtain iron panel, ferritin and further investigate. #3. Hyperglycemia, possibly stress response: Admission glucose in previous mildly elevated, 05/15/2020 4 AM glucose 203, patient is maintained on steroid therapy however given history to be cautious will obtain A1c. #4. CAD: Status post recent PCI LAD 03/2024, continue aspirin, Plavix, statin, losartan, not on beta-andrew secondary to underlying pulmonary history. Patient recently placed on isosorbide secondary to ongoing chest discomfort. Encourage continued cardiac evaluation. Troponin unremarkable. #5. Hypertension: Continue home regimen including isosorbide, losartan, PRN hydralazine. #6. Hyperlipidemia: We will continue patient on statin therapy. #7. Severe protein calorie malnutrition: Although BMI not severely reduced, patient with muscle and fat loss, significant underlying comorbidities, nutrition consulted. #8. GERD: We will continue patient on PPI. #9. DVT prophylaxis: Lovenox. #10. CODE STATUS: DNR CCA, no intubation. Charges/Coding Visit Charges Inpatient E&M: 29522 Subs Hosp L3
--- NOTE | 2024-05-15 06:47 | PN.CC_ITS ---
Assessment & Plan Assessment/Plan (1) Acute and chronic respiratory failure with hypoxia: (2) Acute exacerbation of idiopathic pulmonary fibrosis: PLAN: Plan RECOMMENDATIONS: 1. Continue current supportive care including supplemental oxygen to maintain saturation is 88 to 92%. 2. Continue bronchodilators, IV steroids and antimicrobials. 3. Check respiratory viral panel. 4. Attempt gentle diuresis today. 5. Reevaluate for home-going supplemental oxygen requirement. The patient will need a new concentrator. 6. Resume Esbriet at discharge. IMPRESSIONS: 1. Acute on chronic hypoxemic respiratory failure The patient has a longstanding history of idiopathic pulmonary fibrosis on Esbriet therapy, and was admitted with worsening shortness of breath and hypoxemia, likely secondary to an acute exacerbation of his IPF. Unfortunately, from the imaging studies, it appears that his interstitial lung disease is progressing. He has been evaluated in the past by the [facility] lung transplantation team, but at that time, was felt to be too well for transplantation. He is considering referral to [facility] for evaluation by their lung transplant team program. However, I am concerned that the patient may be too ill now to be able to make the drive to [place]. He is currently being maintained on supplemental oxygen, which will be continued to maintain saturations 88 to 92%. In addition, I agree with continuing bronchodilators, steroids and antimicrobials. Lastly, we will attempt to gently diurese the patient today, as tolerated by his hemodynamics and renal function. Ultimately, the patient would likely benefit from outpatient referral to palliative care medicine. In addition, he will require a new home concentrator, as his current unit is only able to deliver 5 L/min. 2. History of coronary artery disease status post PCI Continue Plavix and aspirin per home regimen. 3. Mixed obstructive/restrictive ventilatory defect Continue bronchodilator therapy while inpatient and resume Anoro Ellipta at discharge. CODE STATUS: DNR CCA without intubation This note was generated with [employer] dictation software. It may contain incorrect words, spelling, and punctuation that were not noted in checking the note before signing. Subjective Subjective The patient was seen and examined at the bedside this morning. Events from the last 24 hours have been reviewed. The patient is currently afebrile, hemodynamically stable and maintaining appropriate oxygen saturations on 8 L/min via nasal cannula. The patient is well-known to me from the pulmonary medicine clinic, due to a history of idiopathic pulmonary fibrosis, diagnosed in spring 2019, currently on Esbriet therapy along with mixed obstructive and restrictive ventilatory impairments and chronic hypoxemic respiratory failure. According to the patient, he was last utilizing 5 L/min at his baseline. His current concentrator is only able to deliver 5 L/min. The patient underwent balloon angioplasty and drug-eluting stent placement to the LAD in March 2024. The patient also completed a sleep study on May 11, 2024 which failed to demonstrate evidence of sleep apnea. The patient was being followed previously at [facility] by the lung transplantation team, but was ultimately felt to be too well to proceed with transplantation. The patient was apparently put off by the care he was receiving at [facility] and was therefore considering referral to [facility] transplant for evaluation. However, there is concern that he may be too ill now to be able to make the drive to [place]. This morning, the patient does continue to report shortness of breath and cough. He remains on bronchodilators, IV steroids and antimicrobials. White blood cell count remains normal this morning. Chemistry profile was unremarkable. Objective Data Objective Data The patient's most recent lab work, culture data and imaging studies have all been personally reviewed. Surface echocardiogram from March 2024 demonstrated normal LV size with an ejection fraction of 60% and stage I diastolic dysfunction. The RV was severely dilated with moderate global RV systolic dysfunction and a right ventricular systolic pressure of 65 mmHg. Strep and urine Legionella antigens were negative. COVID, influenza and RSV PCR's were negative. Sputum culture is pending. Vital Signs: Vital Signs Temp Pulse Resp BP Pulse Ox O2 Del Method O2 Flow Rate 97.5 F L 77 22 H 94/68 99 High Flow 8 05/15/24 04:00 05/15/24 06:00 05/15/24 06:00 05/15/24 06:00 05/15/24 06:00 05/15/24 06:00 05/15/24 06:00 FiO2 50 05/14/24 23:04 Oxygen Flow Rate (L/min) 8 Oxygen Delivery Method High Flow Weight: 139 lb 12.369 oz Body Mass Index (BMI) 21.9 Intake & Output: Intake and Output for Last 24 Hours 05/13/24 05/14/24 05/15/24 23:59 23:59 23:59 Intake Total 1232.5 / 1232.5 Output Total 50 / 250 200 / 200 Balance 1182.5 / 982.5 -200 / -200 Medical Nutrition Assessment Dietitian: Malnutrition Criteria Met Start: 05/14/24 17:59 Freq: Status: Active Protocol: Document 05/14/24 17:59 NATASHA (Rec: 05/14/24 17:59 NATASHA [id number]) Nutrition Malnutrition Evidence of Malnutrition Exists Yes Malnutrition (severe): Chronic Evidenced By Weight Loss (Severe),Physical Changes (Moderate),Physical Changes (Severe) Clinical Problem Chronic Disease or Condition Related Malnutrition Etiology related to decreased ability to consume sufficient energy to meet estimated nutrient needs Signs/Symptoms as evidenced by significant weight loss of 4.3% in under 2 weeks and 15.6% in ~8 months based upon 05/02/24 wt of 141lb and 09/15/23 wt of 160lb as well as moderate to severe muscle and fat wasting per NFPA (temples, clavicle, buccal, interosseous, etc.). Status Active Problem Recommendation Dietitian Recommendations/Changes Will change diet to Regular - No Added Salt to liberalize the diet a bit. Will order Ensure Clear monae flavor BID with breakfast and dinner as well as Beneprotein with applesauce at lunch to help increase oral intakes. Will continue to follow the pt , monitor oral intakes and modify nutrition interventions as needed. Lab / Micro Data Attestation: I reviewed the patient's lab results. 05/15/24 05:15 05/15/24 05:15 Labs: Laboratory Results - last 24 hr 05/14/24 07:05: WBC 9.4, RBC 4.91, Hgb 15.3, Hct 44.7, MCV 91.0, MCH 31.2, MCHC 34.2, RDW Std Deviation 45.7 H, RDW Coeff of Ravinder 13.8, Plt Count 184, MPV 9.1, Immature Gran % (Auto) 0.200, Neut % (Auto) 71.7 H, Lymph % (Auto) 11.8 L, [place] % (Auto) 5.6, Eos % (Auto) 10.1 H, Baso % (Auto) 0.6, Absolute Neuts (auto) 6.7, Absolute Lymphs (auto) 1.11, Nucleated RBC % 0, Sodium 141, Potassium 3.5, Chloride 107, Carbon Dioxide 28.0, Anion Gap 6, BUN 17, Creatinine 0.98, Estim Creat Clear Calc 74.34, Est GFR (MDRD) Af Amer 101, Est GFR (MDRD) Non-Af 84, BUN/Creatinine Ratio 17.4, Glucose 111 H, Lactic Acid 1.7, Calcium 9.2, Troponin I High Sens 27, B-Natriuretic Peptide 82.7 05/15/24 05:15: WBC 9.6, RBC 4.08 L, Hgb 12.5 L, Hct 36.9 L, MCV 90.4, MCH 30.6, MCHC 33.9, RDW Std Deviation 45.1 H, RDW Coeff of Ravinder 13.7, Plt Count 208, MPV 9.4, Immature Gran % (Auto) 0.300, Neut % (Auto) 90.2 H, Lymph % (Auto) 5.9 L, [place] % (Auto) 2.4, Eos % (Auto) 1.1, Baso % (Auto) 0.1, Absolute Neuts (auto) 8.7 H, Absolute Lymphs (auto) 0.57 L, Nucleated RBC % 0, Sodium 136, Potassium 3.5, Chloride 103, Carbon Dioxide 26.0, Anion Gap 7, BUN 26 H, Creatinine 1.11, Estim Creat Clear Calc 65.84, Est GFR (MDRD) Af Amer 88, Est GFR (MDRD) Non-Af 72, BUN/Creatinine Ratio 23.4 H, Glucose 203 H, Calcium 9.0 Micro: Microbiology 05/14/24 14:15 Urine, Clean Catch Legionella Antigen - Final 05/14/24 14:15 Urine, Clean Catch Streptococcus pneumoniae Antigen (M - Final 05/14/24 07:25 Mucosa - Nose SARS-CoV-2, Influenza & RSV (PCR) - Final ABG Data ABG results: ABG 05/14/24 07:18 Specimen Type ART Sample Site R Radial pH 7.43 Bicarbonate Actual 26.7 H Total CO2 28 Base Excess 2 O2 Saturation 97 O2 % 45.0 ABG pCO2 40.3 ABG pO2 84 Noe Test Positive O2 Delivery Device BiPAP Vent Mode Not entered Clinical Comments 12 6 Radiography Diagnostic Testing: Radiology Impression Chest X-Ray 05/14/24 07:35 IMPRESSION: Chronic interstitial lung disease without significant change from May 03, 2024 Electronically Signed: Lamont Alberts MD at 7:49 EDT , Rhythm Strip Rhythm Strip: Sinus Tach Rate: 102 Ectopy: None Physical Exam Const alert and no apparent distress General Appearance: cooperative HEENT normocephalic, head/scalp atraumatic and moist oral mucous membranes Eyes PERRL, EOMs intact bilaterally and conjunctivae normal Neck supple General: trachea midline Chest inspection of chest normal Resp Effort and Inspection: able to speak in complete sentences and tachypneic Auscultation: rales Cardio S1 normal heart sound and S2 normal heart sound Rate: tachycardic GI normal to inspection, nondistended, normoactive bowel sounds Extremity no clubbing, cyanosis or edema Skin no rashes or lesions noted Neuro CN's II-XII intact bilaterally and no focal motor deficits Psych cooperative and affect normal Charges/Coding Visit Charges Inpatient E&M: 23029 Subs Hosp L3
[2024-05-15] MEDS: Furosemide 20 MG/2 ML VIAL IV (07:59)
[2024-05-15] MEDS: Aspirin E.C. 81 MG Tablet PO (07:59)
[2024-05-15] MEDS: amLODIPine 5 MG Tablet PO (07:59)
[2024-05-15] MEDS: Clopidogrel Bisulfate 75 MG Tablet PO (08:00)
[2024-05-15] MEDS: Enoxaparin 40 MG/0.4 ML Syringe SC (08:00)
[2024-05-15] MEDS: guaiFENesin 1,200 MG Tablet 1200 MG PO ×2 (08:00→21:18)
[2024-05-15] MEDS: Losartan Potassium 50 MG Tablet PO (08:00)
[2024-05-15] MEDS: Ceftriaxone 2 GM in 0.9% Normal Saline (50mL MB+) 50 ML IV (08:21)
[2024-05-15] MEDS: Azithromycin 500 MG in Dextrose 5%-Water (250mL Bag) 250 ML 250 MG IV (09:04)
--- NOTE | 2024-05-15 11:27 | CASEMGMT ---
Readmission Note: Index: 04/14-04/15/24. Dx: CP Readmission: 05/14/24. Dx: RF On index admission, the pt presented with CP and underwent cardiac catheterization with 2 stents. Pt subsequently discharged home. At home, the pt requires additional oxygen. This is supplied through [employer]. Pt current order is for 3-6L continuous via NC. No CPAP/ BiPAP. Per [facility], the pt has two 5-liter concentrators that enable the pt to go up to 10LPM if needed. The pt also has portability and a pulse ox. Pt states that his will be able to bring a portable tank in at time of DC, unless the pt qualifies for an increased demand that requires a regulator. The pt re-presents to [facility] ED with SOB. At this time, the pt states that he was able to wear his oxygen accordingly at home. Pt also states that he was taking all of his medication as prescribed. Pt states that he did f/u with the vibrator operator as an OP during the time between visits. Moving forward, the pt denies the need for HHC, OP Tx, or SNF. Pt states that he is independent and that he lives with his . PT is pending. Dr. Morales gave this RN CM a verbal order for a Palliative consult for the pt RF/ COPD. This RN CM discussed this with the pt who is agreeable. Referral made to [facility] at this time for Palliative to evaluate and treat as warranted. Dr. Morales also anticipates the pt requiring an increased demand in oxygen at time of discharge. Per Katelin at [facility], they will be able to accommodate this with regulators for the portable tanks. CM to follow PT/OT and oxygen requirements in order for a safe DC from [facility] moving forward. Tentative PLAN: Home with , oxygen, and Palliative Care.
[2024-05-15] MEDS: Isosorbide DN 20 MG Tablet PO ×2 (13:42→21:18)
[2024-05-15] MEDS: Atorvastatin Calcium 80 MG Tablet PO (21:18)
[2024-05-15] MEDS: 0.9% Saline Lock 10 ML Syringe IV (21:20)
[2024-05-16] VITALS (14 sets, daily range): BP systolic 85–115; BP diastolic 61–89; PULSE 81–98; RESP 20–41; TEMP 36.3–36.8; O2SAT 80–96; BMI 21.4
[2024-05-16] MEDS: Ipratropium/Albuterol Sulfate 3 ML AMPUL.NEB INHALATION ×6 (02:27→23:50)
[2024-05-16] MEDS: PIRFENIDONE 267 MG 801 MG PO ×3 (05:08→20:02)
[2024-05-16] MEDS: Isosorbide DN 20 MG Tablet PO (05:09)
--- NOTE | 2024-05-16 06:16 | PCM.PN.HOSP ---
Reason for Visit Reason for Visit: Diagnoses Unspecified protein-calorie malnutrition (05/14/24) Chronic obstructive pulmonary disease, unspecified (05/14/24) Idiopathic pulmonary fibrosis (05/14/24) Acute respiratory failure with hypoxia (05/14/24) Acute and chronic respiratory failure with hypoxia (05/14/24) Subjective Subjective Patient overnight with no acute events remaining on a liter nasal cannula with still mild dyspnea with activity and some coughing however unfortunately had more coughing fits with oral intake attempts and noted some difficulty with his eggs. Given concerns for possible aspiration component speech therapy was consulted and decision for modified barium swallow which eventually resulted as unremarkable with no evidence of any aspiration. Patient denies fevers, chills, nausea, emesis, abdominal pain, chest pain. Objective Data Objective Data Vital Signs: Vital Signs Temp Pulse Resp BP Pulse Ox O2 Del Method O2 Flow Rate 97.7 F L 85 30 H 85/61 L 94 High Flow 8 05/16/24 03:00 05/16/24 03:00 05/16/24 03:00 05/16/24 03:00 05/16/24 03:00 05/16/24 03:00 05/16/24 03:00 FiO2 50 05/14/24 23:04 Oxygen Flow Rate (L/min) 8 Oxygen Delivery Method High Flow Weight: 136 lb 12.8 oz Body Mass Index (BMI) 21.4 Intake & Output: Intake and Output for Last 24 Hours 05/14/24 05/15/24 05/16/24 23:59 23:59 23:59 Intake Total 1232.5 / 1232.5 305 / 305 Output Total 50 / 250 1500 / 1500 600 / 600 Balance 1182.5 / 982.5 -1195 / -1195 -600 / -600 Medical Nutrition Assessment Dietitian: Malnutrition Criteria Met Start: 05/14/24 17:59 Freq: Status: Active Protocol: Document 05/15/24 09:29 EVANGELISTA (Rec: 05/15/24 09:29 EVANGELISTA [id number]) Nutrition Malnutrition Evidence of Malnutrition Exists Yes Malnutrition (severe): Chronic Evidenced By Weight Loss (Severe),Physical Changes (Moderate),Physical Changes (Severe) Clinical Problem Chronic Disease or Condition Related Malnutrition Etiology related to decreased ability to consume sufficient energy to meet estimated nutrient needs Signs/Symptoms as evidenced by significant weight loss of 4.3% in under 2 weeks seating captain and 15.6% in ~8 months seating captain based upon 05/02/24 wt of 141lb and 09/15/23 wt of 160lb as well as moderate to severe muscle and fat wasting per NFPA (temples, clavicle, buccal, interosseous, etc.). Status Active Problem Recommendation Dietitian Recommendations/Changes Continue liberalized diet of Regular - No Added Salt Continue Ensure Clear monae flavor BID with breakfast and dinner and Beneprotein with applesauce at lunch to help increase oral intakes. Will continue to follow the pt , monitor oral intakes and modify nutrition interventions as needed. Lab / Micro Data 05/16/24 05:00 05/16/24 05:00 Micro: Microbiology 05/14/24 14:15 Sputum, Expectorated/Coughed Gram Stain - Final 05/15/24 06:51 Mucosa - Nasopharyngeal Respiratory Panel (PCR) - Final 05/14/24 14:15 Urine, Clean Catch Legionella Antigen - Final 05/14/24 14:15 Urine, Clean Catch Streptococcus pneumoniae Antigen (M - Final 05/14/24 07:25 Mucosa - Nose SARS-CoV-2, Influenza & RSV (PCR) - Final Rhythm Strip Rhythm Strip: Sinus Tach Rate: 102 Ectopy: None Physical Exam Narrative Physical Examination: General: Awake, alert, oriented x 3 and cooperative, seated upright in the ICU bed, fatigued, mild coughing during evaluation, mildly more increased tachypnea than day prior but no acute evidence of distress. Skin: Normal color, normal turgor, no icterus, no cyanosis except occasional staged ecchymoses. HEENT: AT/NC, EOMI, PERRLA, mildly dry MM, nasal cannula in place. Lungs: Diminished, greater bases, coarse crackles consistent with his underlying pulmonary fibrotic disease, no wheezing currently, occasional rales, mild tachypnea, no evidence of any distress. Heart: Currently regular rate with regular rhythm; no gallop, rub audible. Abdomen: Soft, NTTP, ND, distant normal BS. Extremities: No cyanosis, no clubbing, no marked peripheral pitting edema. Neurological: Patient awake, alert, oriented as noted, cognitive function intact; pupils equally reactive to light and accommodation, cranial nerves grossly normal, moving all 4 extremities, no focal deficits, strength improving but still moderately to severely globally decreased secondary to acute presentation. Psychiatric: Affect appears flat, fatigued, no acute evidence of depressive or anxiety feelings. Assessment & Plan Assessment/Plan (1) Acute and chronic respiratory failure with hypoxia: PLAN: Plan The patient is a 58 y/o M w/ PMHx: HTN, HLD, CAD s/p PCI 04/14/24, GERD, Tobacco use, Protein calorie malnutrition, Chronic Hypoxic Respiratory Failure with COPD/Restrictive with IPF with Pulmonary HTN who presents to the [facility] ED on 05/14/24 with history of dyspnea. #1. Acute Hypoxic Respiratory Failure on Chronic Hypoxic Respiratory Failure secondary to Underlying Pulmonary Fibrosis with exacerbation, Pulmonary HTN and COPD with Acute on Chronic Exacerbation with possible infectious process: Chest x-ray with no acute cardiopulmonary findings. Legionella and strep antigens negative, SARS COVID/influenza/RSV negative, sputum culture pending, BNP unremarkable. Patient admitted to the ICU given significant respiratory decline and precarious respiratory status, maintain on IV Rocephin and azithromycin, maintain on BiPAP with eventual transition to nasal cannula with continued wean as tolerated to home oxygen supplementation, web content specialist consulted, will continue IV Solu-Medrol, ATC DuoNeb therapy, as needed albuterol. Previous evaluation at [facility] for transplant but patient has since declined however per discussion 05/16/24 with Pulmonary possibly more so patient compliance with visits thus [facility] Pulm office reaching out to [facility] to ascertain if patient may continue to be evaluated in their system upon discharge. Maintained on pirfenidone. Gently diuresis PRN as BP allows. Discussed case with case management/social work and patient will be evaluated for a new concentrator at discharge once clinically appropriate. 05/16/24 patient with coughing with oral intake w/ modified barium swallow performed with clearance for continued regular diet texture and liquid texture with no aspiration concerns noted. #2. Normocytic anemia, new and chronicity: Admission CBC 15.3 and baseline similar prior to this, 05/15/2024 hemoglobin 12.5, MCV 90.4-->Hgb 12.3, MCV 91.6, will continue to trend CBC however falters further will obtain iron panel, ferritin and further investigate. #3. Hyperglycemia, possibly stress response: Admission glucose in previous mildly elevated, 05/15/2020 4 AM glucose 203, HgBA1c 5.3%. #4. CAD: Status post recent PCI LAD 03/2024, continue aspirin, Plavix, statin. Given lower BP holding losartan), not on beta-andrew secondary to underlying pulmonary history Patient recently placed on isosorbide secondary to ongoing chest discomfort but given lower BP as noted holding, re-evaluate resumption once improves. Encourage continued cardiac evaluation. Troponin unremarkable. #5. Hypertension: Blood pressure decreased, holding HTN regimen (isosorbide, losartan), PRN hydralazine. #6. Hyperlipidemia: We will continue patient on statin therapy. #7. Severe protein calorie malnutrition: Although BMI not severely reduced, patient with muscle and fat loss, significant underlying comorbidities, nutrition consulted. #8. GERD: We will continue patient on PPI. #9. DVT prophylaxis: Lovenox. #10. CODE STATUS: DNR CCA, no intubation. Charges/Coding Visit Charges Inpatient E&M: 66641 Subs Hosp L2
[2024-05-16 06:33] LABS: Absolute Lymphocyte Count 0.32 X10^3/uL (0.83-4.51); Absolute Neutrophil Count 10.2 X10^3/uL (2.0-7.7); Basophil# 0.01 X10^3/uL; Basophil% 0.1 % (0-1); Hemoglobin 12.3 g/dL (13.0-16.5); Lymphocyte # 0.32 X10^3/ul (0.83-4.51); Mean Corp Hgb Conc 34.2 g/dL (32-36); Mean Corpuscular Hgb 31.3 pg (27.0-32.0); Mean Corpuscular Volume 91.6 fL (80-94); Monocyte# 0.26 X10^3/uL; Monocyte% 2.4 % (0-10); NRBC Flagged by Analyzer 0 % (0-5); Neutrophil % 94.2 % (47-70); POSITIVE DIFFERENTIAL YES; Platelet Count 214 K/mm3 (150-450); RBC Distribution Width CV 14.2 % (11.6-14.6); RBC Distribution Width SD 47.4 fl (35.1-43.9); Red Blood Count 3.93 M/mm3 (4.6-6.2); White Blood Count 10.8 K/mm3 (4.4-11.0)
--- NOTE | 2024-05-16 06:51 | PN.CC_ITS ---
Assessment & Plan Assessment/Plan (1) Acute and chronic respiratory failure with hypoxia: (2) Acute exacerbation of idiopathic pulmonary fibrosis: PLAN: Plan RECOMMENDATIONS: 1. Continue current supportive care including supplemental oxygen to maintain saturation is 88 to 92%. 2. Continue bronchodilators, IV steroids and antimicrobials. 3. Holding on attempts at diuresis given borderline hemodynamic status. 4. Hold home antihypertensives for now. 5. Reevaluate for home-going supplemental oxygen requirement. The patient will need a new concentrator. 6. Resume Esbriet at discharge. 7. I will have representatives from the pulmonary medicine office reach out to the [facility] lead clinical research coordinator to see if the patient can be reevaluated following discharge. IMPRESSIONS: 1. Acute on chronic hypoxemic respiratory failure The patient has a longstanding history of idiopathic pulmonary fibrosis on Esbriet therapy, and was admitted with worsening shortness of breath and hypoxemia, likely secondary to an acute exacerbation of his IPF. Unfortunately, from the imaging studies, it appears that his interstitial lung disease is progressing. He has been evaluated in the past by the [facility] lung transplantation team, but at that time, was felt to be too well for transplantation. He is considering referral to [facility] for evaluation by their lung transplant team program. However, I am concerned that the patient may be too ill now to be able to make the drive to [place]. He is currently being maintained on supplemental oxygen, which will be continued to maintain saturations 88 to 92%. In addition, I agree with continuing bronchodilators, steroids and antimicrobials. Ultimately, the patient would likely benefit from outpatient referral to palliative care medicine. In addition, he will require a new home concentrator, as his current unit is only able to deliver 5 L/min. 2. History of coronary artery disease status post PCI Continue Plavix and aspirin per home regimen. 3. Mixed obstructive/restrictive ventilatory defect Continue bronchodilator therapy while inpatient and resume Anoro Ellipta at discharge. CODE STATUS: DNR CCA without intubation This note was generated with KeyView dictation software. It may contain incorrect words, spelling, and punctuation that were not noted in checking the note before signing. Subjective Subjective The patient was seen and examined at the bedside this morning. Events from the last 24 hours have been reviewed. The patient is currently afebrile, hemodynamically stable and maintaining appropriate oxygen saturations on 8 L/min via nasal cannula. The patient's blood pressures are borderline this morning and he is scheduled to receive Norvasc, Isordil and losartan today. Therefore, I placed these medications on hold. Speech therapy is currently following and considering barium swallow today. He does continue to report the presence of a cough along with exertional shortness of breath. Objective Data Objective Data The patient's most recent lab work, culture data and imaging studies have all been personally reviewed. Surface echocardiogram from March 2024 demonstrated normal LV size with an ejection fraction of 60% and stage I diastolic dysfunction. The RV was severely dilated with moderate global RV systolic dysfunction and a right ventricular systolic pressure of 65 mmHg. Strep and urine Legionella antigens were negative. COVID, influenza and RSV PCR's were negative. Sputum culture has not demonstrated any growth to date. Vital Signs: Vital Signs Temp Pulse Resp BP Pulse Ox O2 Del Method O2 Flow Rate 97.7 F L 85 30 H 85/61 L 94 High Flow 8 05/16/24 03:00 05/16/24 03:00 05/16/24 03:00 05/16/24 03:00 05/16/24 03:00 05/16/24 03:00 05/16/24 03:00 FiO2 50 05/14/24 23:04 Oxygen Flow Rate (L/min) 8 Oxygen Delivery Method High Flow Weight: 136 lb 12.8 oz Body Mass Index (BMI) 21.4 Intake & Output: Intake and Output for Last 24 Hours 05/14/24 05/15/24 05/16/24 23:59 23:59 23:59 Intake Total 1232.5 / 1232.5 305 / 305 Output Total 50 / 250 1500 / 1500 600 / 600 Balance 1182.5 / 982.5 -1195 / -1195 -600 / -600 Medical Nutrition Assessment Dietitian: Malnutrition Criteria Met Start: 05/14/24 17:59 Freq: Status: Active Protocol: Document 05/15/24 09:29 EVANGELISTA (Rec: 05/15/24 09:29 EVANGELISTA [id number]) Nutrition Malnutrition Evidence of Malnutrition Exists Yes Malnutrition (severe): Chronic Evidenced By Weight Loss (Severe),Physical Changes (Moderate),Physical Changes (Severe) Clinical Problem Chronic Disease or Condition Related Malnutrition Etiology related to decreased ability to consume sufficient energy to meet estimated nutrient needs Signs/Symptoms as evidenced by significant weight loss of 4.3% in under 2 weeks cryptanalyst and 15.6% in ~8 months cryptanalyst based upon 05/02/24 wt of 141lb and 09/15/23 wt of 160lb as well as moderate to severe muscle and fat wasting per NFPA (temples, clavicle, buccal, interosseous, etc.). Status Active Problem Recommendation Dietitian Recommendations/Changes Continue liberalized diet of Regular - No Added Salt Continue Ensure Clear monae flavor BID with breakfast and dinner and Beneprotein with applesauce at lunch to help increase oral intakes. Will continue to follow the pt , monitor oral intakes and modify nutrition interventions as needed. Lab / Micro Data Attestation: I reviewed the patient's lab results. 05/16/24 05:00 05/15/24 05:15 Labs: Laboratory Results - last 24 hr 05/16/24 05:00: WBC 10.8, RBC 3.93 L, Hgb 12.3 L, Hct 36.0 L, MCV 91.6, MCH 31.3, MCHC 34.2, RDW Std Deviation 47.4 H, RDW Coeff of Ravinder 14.2, Plt Count 214, MPV 9.0, Immature Gran % (Auto) 0.300, Neut % (Auto) 94.2 H, Lymph % (Auto) 3.0 L, Randall % (Auto) 2.4, Eos % (Auto) 0.0, Baso % (Auto) 0.1, Absolute Neuts (auto) 10.2 H, Absolute Lymphs (auto) 0.32 L, Nucleated RBC % 0 Micro: Microbiology 05/14/24 14:15 Sputum, Expectorated/Coughed Gram Stain - Final 05/15/24 06:51 Mucosa - Nasopharyngeal Respiratory Panel (PCR) - Final 05/14/24 14:15 Urine, Clean Catch Legionella Antigen - Final 05/14/24 14:15 Urine, Clean Catch Streptococcus pneumoniae Antigen (M - Final 05/14/24 07:25 Mucosa - Nose SARS-CoV-2, Influenza & RSV (PCR) - Final ABG Data ABG results: ABG 05/14/24 07:18 Specimen Type ART Sample Site R Radial pH 7.43 Bicarbonate Actual 26.7 H Total CO2 28 Base Excess 2 O2 Saturation 97 O2 % 45.0 ABG pCO2 40.3 ABG pO2 84 Noe Test Positive O2 Delivery Device BiPAP Vent Mode Not entered Clinical Comments 12 6 Radiography Diagnostic Testing: Radiology Impression Chest X-Ray 05/14/24 07:35 IMPRESSION: Chronic interstitial lung disease without significant change from May 03, 2024 Electronically Signed: Lamont Alberts MD at 7:49 EDT , Rhythm Strip Rhythm Strip: Sinus Tach Rate: 102 Ectopy: None Physical Exam Const alert and no apparent distress General Appearance: cooperative HEENT normocephalic, head/scalp atraumatic and moist oral mucous membranes Eyes PERRL, EOMs intact bilaterally and conjunctivae normal Neck supple General: trachea midline Chest inspection of chest normal Resp Effort and Inspection: able to speak in complete sentences and tachypneic Auscultation: rales Cardio S1 normal heart sound and S2 normal heart sound Rate: tachycardic GI normal to inspection, nondistended, normoactive bowel sounds Extremity no clubbing, cyanosis or edema Skin no rashes or lesions noted Neuro CN's II-XII intact bilaterally and no focal motor deficits Psych cooperative and affect normal Charges/Coding Visit Charges Inpatient E&M: 84745 Subs Hosp L2
[2024-05-16] MEDS: Clopidogrel Bisulfate 75 MG Tablet PO (07:56)
[2024-05-16] MEDS: Enoxaparin 40 MG/0.4 ML Syringe SC (07:57)
[2024-05-16] MEDS: Aspirin E.C. 81 MG Tablet PO (07:57)
[2024-05-16] MEDS: guaiFENesin 1,200 MG Tablet 1200 MG PO ×2 (07:57→20:02)
--- NOTE | 2024-05-16 09:03 | ST.MBS ---
Modified Barium Swallow Patient Information Study Date: 05/16/24 Study Time: 09:00 Direct Billable Minutes: 74 Total Minutes procedure & reportin Diagnosis: COPD J44.9; Acute & chronic respiratory failure w/hypoxia J96.21 Referring Physician: Jake Morales Reason for Referral: Objectively assess swallow function, assess risk for aspiration, and determine recommendations for least restrictive diet textures and compensatory strategies to improve safety of swallow. Medical History: Patient presented to [facility] ED 05/15/2024 with shortness of breath worsening over the past month prior to this admission. About a month ago, patient had stents placed to his LAD. Pt follows w/ cardiology as he has been still having chest pain and they have made his adjustments to his nitrates. Patient became more acutely short of breath. He normally has productive sputum which is white in appearance but recently has changed to brown. EMS was called and patient was noted to have a pulse ox of 50% when he arrived to the emergency room. Patient was placed on BiPAP. Patient very anxious having the BiPAP on. He had a chest x-ray that showed chronic changes but no acute process. He received bronchodilators as well as methylprednisolone. Patient's pulse ox improved into the 90% range. He was admitted to ICU for management of acute and chronic respiratory failure with hypoxia and acute exacerbation of idiopathic pulmonary fibrosis. He was referred for ST consult due to increased difficulty swallowing solids on 05/15/2024. BSE completed 05/15/2024 and PERMIT AGENT recommended diet downgrade to Easy to Chew textures w/ extra sauce/gravy / Thin liquids - Distant Supervision. Continued coughing at bedside 05/16/2024 both with and without oral intake. Pt desaturated to mid 80s with delayed coughing after consuming a sip of liquids 05/16/2024. PERMIT AGENT recommending MBSS to further assess risk for aspiration. PMH: Acute exacerbation of idiopathic pulmonary fibrosis, Right ventricular dilation, Pulmonary hypertension, Lung transplant candidate, IPF, CAD, Hypercholesteremia, Mixed obstructive and restrictive ventilatory defect, Chronic hypoxemic respiratory failure, Recurrent sinus infections, COPD exacerbation, Hypokalemia, Acute dyspnea, Chest discomfort, HTN, GERD, ILD, Acute and chronic respiratory failure, Influenza A, Nicotine dependence - cigarettes in remission, Restrictive airway disease, Therapeutic drug monitoring, Pulmonary fibrosis, 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, Umbilical hernia, Mononucleosis, Blind right eye, Allergic rhinitis Current Diet Ordered: Easy to Chew textures / Thin liquids Dentition: Natural Teeth and Missing Teeth Mental Status: WNL Respiratory Status: Oxygenating on 4L/M nasal cannula (8L) Penetration-Aspiration Scale Penetration-Aspiration Scale: OBJECTIVE ASSESSMENT OF SWALLOW FUNCTION (QUANTITATIVE ? PER TRIAL): PENETRATION / ASPIRATION SCALE (MENENDEZ): 1 = does not enter airway 2 = enters airway/above vocal folds/ejected 3 = enters airway/above vocal folds/not ejected 4 = enters airway/contacts vocal folds/ejected 5 = enters airway/contacts vocal folds/not ejected 6 = enters airway/below vocal folds/ejected 7 = enters airway/below vocal folds/not ejected despite effort 8 = enters airway/below vocal folds/no effort VIDEOFLOROSCOPIC SCALE SCORE (MENENDEZ): Grade I = aspiration of material that has penetrated into the laryngeal vestibule, intact cough reflex Grade II = aspiration < 10 % of the bolus, intact cough reflex Grade III = aspiration of < 10 % of the bolus, reduced cough reflex or aspiration of > 10 % of the bolus, intact cough reflex Grade IV = aspiration of > 10 % of the bolus, reduced cough reflex Penetration-Aspiration Scale Score Thin Liquid via teaspoon: Result: 1= does not enter airway Thin Liquid via teaspoon Trial 2: Result: 1= does not enter airway Thin Liquid via large single sip: cup: Result: 2= enter airway/above vocal folds/ejected Welty Thick Liquid via large single sip: cup: Result: 1= does not enter airway Pudding via teaspoon: Result: 1= does not enter airway Comment: Esophageal screen - Retention in the mid esophagus. Thin Liquid via single sip: straw: Result: 2= enter airway/above vocal folds/ejected Comment: Esophageal screen - Liquid wash somewhat cleared retention of barium pudding in the mid esophagus. / Cookie: Result: 1= does not enter airway Comment: Esophageal screen - Retention in the mid to lower esophagus. Thin Liquid via single sip: straw Trial 2: Result: 2= enter airway/above vocal folds/ejected Comment: Esophageal screen - Liquid wash mostly cleared retention of barium cookie in the mid esophagus. Oral Phase Labial Seal: No Labial Escape Tongue Control During Bolus Hold: Posterior escape of less than half of bolus Bolus Preparation/Mastication: Disorganized chewing/mashing with solid pieces of bolus unchewed (Quick mastication, small pieces of cookie un-chewed) Bolus Transport/Lingual Motion: Delayed initiation of tongue motion Oral Residue: Residue collection on oral structures Pharyngeal Phase Initiation of Pharyngeal Swallow: Bolus head at posterior laryngeal surgace of epiglottis Soft Palate Elevation: Trace column of contrast/air between soft palate and pharyngeal wall Laryngeal Elevation: Comp. Superior move thyroid cart w/comp. apprx arytenoid cart-epig pet Anterior Hyoid Excursion: Partial anterior movement Epiglottic Movement: Complete inversion Laryngeal Vestibule Closure at Height of Swallow: Incomplete; narrow column of air/contrast in laryngeal vestibule Pharyngeal Stripping Wave: Present - diminished Pharyngoesophageal Segment Opening: Parital distension and partial duration; parital obstruction of flow Tongue Base Retraction: Narrow column of contrast between tongue base & post. pharyngeal wall Pharyngeal Residue: Collection of residue within or on pharyngeal structures Esophageal Phase Esophageal Clearance: Esophageal retention Treatment Strategies Effects of treatment strategies attemped:: Liquid wash = somewhat effective. Diagnosis/Impression Diagnosis: Mild oropharyngeal dysphagia R13.12; Mild esophageal dysphagia R13.14 Impression: The oral phase is primarily marked by... -Quick, decreased mastication of 1/4 cookie with small pieces appearing un-chewed. -Decreased bolus control with loss of <1/2 of thin liquid boluses to the posterior surface of the epiglottis prior to swallow onset. -Delayed tongue motion for A-P transport. The pharyngeal phase is primarily marked by... -Mildly decreased tongue base retraction, pharyngeal stripping wave, and UES opening/duration with mild pharyngeal residues mostly in the pyriform sinuses. -Decreased anterior hyoid excursion; however, the patient maintained overall good airway closure during the assessment. Trace laryngeal penetration of thin liquids via cup and straw, no aspiration observed during the assessment. The esophageal phase is primarily marked by... -Trace retention of various consistencies in the UES and upper esophagus. -Retention of pudding in the mid esophagus, which somewhat cleared with thin liquid wash. -Retention of cookie in the mid-lower esophagus, which mostly cleared with thin liquid wash. Recommendations Diet: Regular Textures (Easy to Chew textures - IDDSI Level 7) and Thin Liquids Comment: Extra sauce/gravy Compensatory Strategies: Small Bites, Small Sips, Slow Rate, Alternate bites/solids and sips/liquids, Sitting upright and Remain sitting upright for 30 minutes after PO intake Supervision: Distant Supervision Recommend Repeat Modified Barium Swallow: No Need for Skilled Speech Therapy Services: Yes Comment: -Train the patient in use of strategies to decrease risk for aspiration and reflux aspiration. -Ongoing assessment of diet tolerance of recommended textures. -Train the patient in oropharyngeal exercise program to improve tongue base retraction, pharyngeal contraction, and UES opening/duration (Yvonne, effortful, Shaker or Yawn stretch). Education Completed: 1. Described result of evaluation. and 2. Pt understands evaluation & agrees with goals and treatment plan. Comment: No immediate GI consult warranted. If concern for reflux/regurgitation of food/drink despite use of compensatory strategies to decrease risk for reflux, please consider GI consult. Status Active ST Patient: Active Contact Information [facility] Speech Therapy:: Sally Cedeño M.A. CCC-PERMIT AGENT? Speech-Language Pathologist?? [facility] [address] [place] [address]? [email or web address]?? [phone]
[2024-05-16] MEDS: Ceftriaxone 2 GM in 0.9% Normal Saline (50mL MB+) 50 ML IV (10:20)
[2024-05-16 10:45] LABS: AST(SGOT) 19 U/L (15-37); Alanine Aminotransfer ALT/SGPT 15 U/L (16-61); Albumin, Serum 3.2 g/dL (3.2-5.0); Alkaline Phosphatase 71 U/L (45-117); Anion Gap 7 (5-15); BUN 22 mg/dL (7-18); BUN/Creat Ratio 20.6 RATIO (10-20); Calcium,Total 9.1 mg/dL (8.5-10.1); Chloride 103 mmol/L (98-107); Creatinine, Serum 1.07 mg/dL (0.70-1.30); EST Glomerular Filtration Rate 76 mL/min (>60); Est Glom Filt Rate - Afr Amer 91 mL/min (>60); Estimated Creatinine Clearance 66.85 ml/min; Globulin 3.3 g/dL (2.2-4.2); Glucose 160 mg/dL (74-106); Potassium 3.8 mmol/L (3.5-5.1); Protein, Total 6.5 g/dL (6.4-8.2); Sodium Level 136 mmol/L (136-145)
[2024-05-16] MEDS: Azithromycin 500 MG in Dextrose 5%-Water (250mL Bag) 250 ML 250 MG IV (11:05)
[2024-05-16 14:00] LABS: Hemoglobin A1c 5.3 % (3.8-5.6)
[2024-05-16] MEDS: Pantoprazole Sodium 20 MG Tablet PO (16:39)
[2024-05-16] MEDS: oxyCODONE 5 MG Tablet PO (16:39)
[2024-05-16] MEDS: Atorvastatin Calcium 80 MG Tablet PO (20:02)
[2024-05-16] MEDS: Benzonatate 100 MG Capsule PO (20:51)
[2024-05-17] VITALS (14 sets, daily range): BP systolic 107–133; BP diastolic 76–94; PULSE 79–98; RESP 20–30; TEMP 36.4–36.6; O2SAT 87–100; BMI 21.6
[2024-05-17] MEDS: Ipratropium/Albuterol Sulfate 3 ML AMPUL.NEB INHALATION ×6 (03:46→23:45)
[2024-05-17] MEDS: PIRFENIDONE 267 MG 801 MG PO ×3 (05:11→21:06)
[2024-05-17] MEDS: Benzonatate 100 MG Capsule PO ×3 (05:12→21:06)
--- NOTE | 2024-05-17 06:16 | PCM.PN.HOSP ---
Reason for Visit Reason for Visit: Diagnoses Unspecified protein-calorie malnutrition (05/14/24) Chronic obstructive pulmonary disease, unspecified (05/14/24) Idiopathic pulmonary fibrosis (05/14/24) Acute respiratory failure with hypoxia (05/14/24) Acute and chronic respiratory failure with hypoxia (05/14/24) Subjective Subjective Patient overnight with continued a liter nasal cannula requirements with desaturation into the low 80s with ambulatory attempts requiring increased to 10 to 12 L to improve into the 90 range. Patient states he still feels improved but upon evaluation has ongoing tachypnea with shallow breaths and appears fatigued. Discussed plan of care which included continued efforts to de-escalate oxygen, plan additional 1 day of antibiotic therapy with completion on 04/28/2024 and possibility of skilled facility placement. Patient unfortunately was willing to transition to TCU however because of his oxygen requirements they are unable to take him and he declines any other consideration for skilled in the community. Discussed plan for follow-up again with [facility] for transplant consideration and patient understands unfortunately because of his lack of required follow-up/compliance with visits and calls that he has to start the program again. Patient denies fevers, chills, nausea, emesis, abdominal pain, chest pain or dyspnea. Objective Data Objective Data Vital Signs: Vital Signs Temp Pulse Resp BP Pulse Ox O2 Del Method O2 Flow Rate 98 F 85 20 H 107/76 96 Nasal Cannula 8 05/17/24 05:00 05/17/24 05:00 05/17/24 05:00 05/17/24 05:00 05/17/24 05:00 05/17/24 05:00 05/17/24 05:00 FiO2 50 05/14/24 23:04 Oxygen Flow Rate (L/min) 8 Oxygen Delivery Method Nasal Cannula Weight: 138 lb Body Mass Index (BMI) 21.6 Intake & Output: Intake and Output for Last 24 Hours 05/15/24 05/16/24 05/17/24 23:59 23:59 23:59 Intake Total 305 / 305 305 / 305 Output Total 1500 / 1500 1999 / 1999 300 / 300 Balance -1195 / -1195 -1695 / -1695 -300 / -300 Medical Nutrition Assessment Dietitian: Malnutrition Criteria Met Start: 05/14/24 17:59 Freq: Status: Active Protocol: Document 05/15/24 09:29 SLA (Rec: 05/15/24 09:29 [facility] [id number]) Nutrition Malnutrition Evidence of Malnutrition Exists Yes Malnutrition (severe): Chronic Evidenced By Weight Loss (Severe),Physical Changes (Moderate),Physical Changes (Severe) Clinical Problem Chronic Disease or Condition Related Malnutrition Etiology related to decreased ability to consume sufficient energy to meet estimated nutrient needs Signs/Symptoms as evidenced by significant weight loss of 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 Status Active Problem Recommendation Dietitian Recommendations/Changes Continue liberalized diet of Regular - No Added Salt Continue Ensure Clear monae flavor BID with breakfast and dinner and Beneprotein with applesauce at lunch to help increase oral intakes. Will continue to follow the pt , monitor oral intakes and modify nutrition interventions as needed. Lab / Micro Data 05/17/24 07:10 05/17/24 07:10 Labs: Laboratory Results - last 24 hr 05/16/24 05:00: WBC 10.8, RBC 3.93 L, Hgb 12.3 L, Hct 36.0 L, MCV 91.6, MCH 31.3, MCHC 34.2, RDW Std Deviation 47.4 H, RDW Coeff of Ravinder 14.2, Plt Count 214, MPV 9.0, Immature Gran % (Auto) 0.300, Neut % (Auto) 94.2 H, Lymph % (Auto) 3.0 L, Bethel % (Auto) 2.4, Eos % (Auto) 0.0, Baso % (Auto) 0.1, Absolute Neuts (auto) 10.2 H, Absolute Lymphs (auto) 0.32 L, Nucleated RBC % 0, Sodium 136, Potassium 3.8, Chloride 103, Carbon Dioxide 26.0, Anion Gap 7, BUN 22 H, Creatinine 1.07, Estim Creat Clear Calc 66.85, Est GFR (MDRD) Af Amer 91, Est GFR (MDRD) Non-Af 76, BUN/Creatinine Ratio 20.6 H, Glucose 160 H, Hemoglobin A1c 5.3, Calcium 9.1, Total Bilirubin 0.40, AST 19, ALT 15 L, Alkaline Phosphatase 71, Total Protein 6.5, Albumin 3.2, Globulin 3.3, Albumin/Globulin Ratio 1.0 Micro: Microbiology 05/14/24 14:15 Sputum, Expectorated/Coughed Gram Stain - Final 05/14/24 14:15 Sputum, Expectorated/Coughed Respiratory Culture - Final 05/15/24 06:51 Mucosa - Nasopharyngeal Respiratory Panel (PCR) - Final 05/14/24 14:15 Urine, Clean Catch Legionella Antigen - Final 05/14/24 14:15 Urine, Clean Catch Streptococcus pneumoniae Antigen (M - Final 05/14/24 07:25 Mucosa - Nose SARS-CoV-2, Influenza & RSV (PCR) - Final Rhythm Strip Rhythm Strip: Sinus Tach Rate: 102 Ectopy: None Physical Exam Narrative Physical Examination: General: Awake, alert, oriented x 3 and cooperative, seated upright in the ICU bed, appears fatigued, no coughing today but still remains mildly tachypneic. Skin: Normal color, normal turgor, no icterus, no cyanosis except occasional staged ecchymoses. HEENT: AT/NC, EOMI, PERRLA, chronic right eye appearance of cataract, MMM. Lungs: Diminished, greater bases, coarse crackles consistent with his underlying pulmonary fibrotic disease, no wheezing, mild rales, ongoing tachypnea but no distress. Heart: Mildly tachycardic with regular rhythm; no gallop, rub audible. Abdomen: Soft, NTTP, ND, normal BS. Extremities: No cyanosis, no clubbing, no marked peripheral pitting edema. Neurological: Patient awake, alert, oriented as noted, cognitive function intact; pupils equally reactive to light and accommodation, cranial nerves grossly normal, moving all 4 extremities, no focal deficits, strength moderately to severely globally decreased. Psychiatric: Affect appears fatigued, no acute evidence of depressive or anxiety feelings. Assessment & Plan Assessment/Plan (1) Acute and chronic respiratory failure with hypoxia: PLAN: Plan The patient is a 58 y/o M w/ PMHx: HTN, HLD, CAD s/p PCI 04/14/24, GERD, Tobacco use, Protein calorie malnutrition, Chronic Hypoxic Respiratory Failure with COPD/Restrictive with IPF with Pulmonary HTN who presents to the [facility] ED on 05/14/24 with history of dyspnea. #1. Acute Hypoxic Respiratory Failure on Chronic Hypoxic Respiratory Failure secondary to Underlying Pulmonary Fibrosis with exacerbation, Pulmonary HTN and COPD with Acute on Chronic Exacerbation with possible infectious process: Chest x-ray with no acute cardiopulmonary findings. Legionella and strep antigens negative, SARS COVID/influenza/RSV negative, sputum culture pending, BNP unremarkable. Patient admitted to the ICU given significant respiratory decline and precarious respiratory status, maintain on IV Rocephin and azithromycin with plan completion 05/18/2024 with de-escalation off antibiotic therapy at that time, maintain on BiPAP with eventual transition to nasal cannula with continued wean as tolerated to home oxygen supplementation, celery tier consulted, will continue IV Solu-Medrol w/ planned 12 day prednisone taper once discharge appropriate, maintained on ATC DuoNeb therapy, as needed albuterol. Unfortunately from description from [facility] lack of compliance patient will be required to restart assessment for transplant. Continue pirfenidone. Gently diuresis PRN as BP allows. 05/17/2024 investigation for TCU with unfortunately inability for patient to transition there secondary to oxygen compliance and unwillingness to transition to any other skilled facility in the community thus once appropriate will go home with home therapies per case management/social work assist. 05/16/24 patient with coughing with oral intake w/ modified barium swallow performed with clearance for continued regular diet texture and liquid texture with no aspiration concerns noted w/ diagnosis mild oropharyngeal dysphagia. 05/17/2024 oxygenation trial with ongoing 8 L necessity at rest however drops to the lower 80s with saturation atkinson with ambulatory attempts on 8 L requiring increase to 10 to 12 L to appropriately saturate. Ideally potential discharge 05/18/2024 pending repeat oxygenation assessment with close follow-up with pulmonary medicine with current scheduled visit in July to which Dr. Morales is amenable, encouragement to pursue [facility] transplant program assessment and PCP. #2. Normocytic anemia, new and chronicity: Admission CBC 15.3 and baseline similar prior to this, 05/15/2024 hemoglobin 12.5, MCV 90.4-->Hgb 12.3, MCV 91.6--> 05/17/2024 CBC with hemoglobin 12.6, MCV 91.8, stabilized, continue to trend. #3. Hyperglycemia, possibly stress response: Admission glucose in previous mildly elevated, 05/15/2020 4 AM glucose 203, HgBA1c 5.3%. #4. CAD: Status post recent PCI LAD 03/2024, continue aspirin, Plavix, statin. Given lower BP holding losartan), not on beta-andrew secondary to underlying pulmonary history Patient recently placed on isosorbide secondary to ongoing chest discomfort but given lower BP as noted holding, re-evaluate resumption once improves. Encourage continued cardiac evaluation. Troponin unremarkable. #5. Hypertension: Blood pressure decreased, holding HTN regimen (isosorbide, losartan), PRN hydralazine. #6. Hyperlipidemia: We will continue patient on statin therapy. #7. Severe protein calorie malnutrition: Although BMI not severely reduced, patient with muscle and fat loss, significant underlying comorbidities, nutrition consulted. #8. GERD: We will continue patient on PPI. #9. DVT prophylaxis: Lovenox. #10. CODE STATUS: DNR-CCA, no intubation. Charges/Coding Visit Charges Inpatient E&M: 29625 Subs Hosp L2
--- NOTE | 2024-05-17 06:45 | PCM.PN.INT ---
Assessment & Plan Assessment/Plan (1) Acute and chronic respiratory failure with hypoxia: (2) Acute exacerbation of idiopathic pulmonary fibrosis: PLAN: Plan RECOMMENDATIONS: 1. Continue current supportive care including supplemental oxygen to maintain saturation is 88 to 92%. 2. Continue bronchodilators, IV steroids and antimicrobials to complete 7 days of therapy. 3. Reevaluate for home-going supplemental oxygen requirement. The patient will need a new concentrator. 4. Resume Esbriet at discharge. 5. Encourage incentive spirometer use and mobilize patient as tolerated. 6. Follow-up in the pulmonary medicine clinic, as scheduled, in July. IMPRESSIONS: 1. Acute on chronic hypoxemic respiratory failure The patient has a longstanding history of idiopathic pulmonary fibrosis on Esbriet therapy, and was admitted with worsening shortness of breath and hypoxemia, likely secondary to an acute exacerbation of his IPF. Unfortunately, from the imaging studies, it appears that his interstitial lung disease is progressing. He has been evaluated in the past by the [facility] lung transplantation team, but his workup was ultimately terminated after he failed to show up for appointments. The [facility] lung commercial loan coordinator indicated that he would be a candidate for reevaluation, but would have to start the process all over again, following discharge. For now, the patient will be maintained on supplemental oxygen to maintain saturation is 88 to 92%. He will be continued on scheduled bronchodilators, steroids and antimicrobials, to complete 7 days of therapy. At discharge, he can be sent home on a prednisone taper. Ultimately, the patient would likely benefit from outpatient referral to palliative care medicine. In addition, he will require a new home concentrator, as his current unit is only able to deliver 5 L/min. 2. History of coronary artery disease status post PCI Continue Plavix and aspirin per home regimen. 3. Mixed obstructive/restrictive ventilatory defect Continue bronchodilator therapy while inpatient and resume Anoro Ellipta at discharge. CODE STATUS: DNR CCA without intubation This note was generated with [employer] dictation software. It may contain incorrect words, spelling, and punctuation that were not noted in checking the note before signing. Subjective Subjective The patient was seen and examined at the bedside this morning. Events from the last 24 hours have been reviewed. The patient is currently afebrile, hemodynamically stable and maintaining appropriate oxygen saturations on 8 L/min via nasal cannula. Modified barium swallow completed yesterday demonstrated mild oropharyngeal dysphagia, with dietary advancement per speech therapy recommendations. He does continue to have a cough and desaturates with exertion. He is being considered for disposition to the transitional care unit. My pulmonary office did contact the commercial loan coordinator at [facility] regarding the patient's. We were advised that the patient was removed from the program after he failed to return phone calls and follow-up for scheduled appointments. The commercial loan coordinator indicated that the patient can reestablish care after discharge from the hospital, but that he would have to start the entire process over again. Objective Data Objective Data The patient's most recent lab work, culture data and imaging studies have all been personally reviewed. Surface echocardiogram from March 2024 demonstrated normal LV size with an ejection fraction of 60% and stage I diastolic dysfunction. The RV was severely dilated with moderate global RV systolic dysfunction and a right ventricular systolic pressure of 65 mmHg. Strep and urine Legionella antigens were negative. COVID, influenza and RSV PCR's were negative. Sputum culture has not demonstrated any growth to date. Vital Signs: Vital Signs Temp Pulse Resp BP Pulse Ox O2 Del Method O2 Flow Rate 98 F 85 20 H 107/76 96 Nasal Cannula 8 05/17/24 05:00 05/17/24 05:00 05/17/24 05:00 05/17/24 05:00 05/17/24 05:00 05/17/24 05:00 05/17/24 05:00 FiO2 50 05/14/24 23:04 Oxygen Flow Rate (L/min) 8 Oxygen Delivery Method Nasal Cannula Weight: 138 lb Body Mass Index (BMI) 21.6 Intake & Output: Intake and Output for Last 24 Hours 05/15/24 05/16/24 05/17/24 23:59 23:59 23:59 Intake Total 305 / 305 305 / 305 Output Total 1500 / 1500 1999 / 1999 300 / 300 Balance -1195 / -1195 -1695 / -1695 -300 / -300 Medical Nutrition Assessment Dietitian: Malnutrition Criteria Met Start: 05/14/24 17:59 Freq: Status: Active Protocol: Document 05/15/24 09:29 EVANGELISTA (Rec: 05/15/24 09:29 EVANGELISTA [id number]) Nutrition Malnutrition Evidence of Malnutrition Exists Yes Malnutrition (severe): Chronic Evidenced By Weight Loss (Severe),Physical Changes (Moderate),Physical Changes (Severe) Clinical Problem Chronic Disease or Condition Related Malnutrition Etiology related to decreased ability to consume sufficient energy to meet estimated nutrient needs Signs/Symptoms as evidenced by significant weight loss of 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 Status Active Problem Recommendation Dietitian Recommendations/Changes Continue liberalized diet of Regular - No Added Salt Continue Ensure Clear monae flavor BID with breakfast and dinner and Beneprotein with applesauce at lunch to help increase oral intakes. Will continue to follow the pt , monitor oral intakes and modify nutrition interventions as needed. Lab / Micro Data Attestation: I reviewed the patient's lab results. 05/17/24 07:10 05/17/24 07:10 Labs: Laboratory Results - last 24 hr 05/16/24 05:00: Sodium 136, Potassium 3.8, Chloride 103, Carbon Dioxide 26.0, Anion Gap 7, BUN 22 H, Creatinine 1.07, Estim Creat Clear Calc 66.85, Est GFR (MDRD) Af Amer 91, Est GFR (MDRD) Non-Af 76, BUN/Creatinine Ratio 20.6 H, Glucose 160 H, Hemoglobin A1c 5.3, Calcium 9.1, Total Bilirubin 0.40, AST 19, ALT 15 L, Alkaline Phosphatase 71, Total Protein 6.5, Albumin 3.2, Globulin 3.3, Albumin/Globulin Ratio 1.0 Micro: Microbiology 05/14/24 14:15 Sputum, Expectorated/Coughed Gram Stain - Final 05/14/24 14:15 Sputum, Expectorated/Coughed Respiratory Culture - Final 05/15/24 06:51 Mucosa - Nasopharyngeal Respiratory Panel (PCR) - Final 05/14/24 14:15 Urine, Clean Catch Legionella Antigen - Final 05/14/24 14:15 Urine, Clean Catch Streptococcus pneumoniae Antigen (M - Final 05/14/24 07:25 Mucosa - Nose SARS-CoV-2, Influenza & RSV (PCR) - Final ABG Data ABG results: ABG 05/14/24 07:18 Specimen Type ART Sample Site R Radial pH 7.43 Bicarbonate Actual 26.7 H Total CO2 28 Base Excess 2 O2 Saturation 97 O2 % 45.0 ABG pCO2 40.3 ABG pO2 84 Noe Test Positive O2 Delivery Device BiPAP Vent Mode Not entered Clinical Comments 12 6 Radiography Diagnostic Testing: Radiology Impression Chest X-Ray 05/14/24 07:35 IMPRESSION: Chronic interstitial lung disease without significant change from May 03, 2024 Electronically Signed: Lamont Alberts MD at 7:49 EDT , Rhythm Strip Rhythm Strip: Sinus Tach Rate: 102 Ectopy: None Physical Exam Const alert and no apparent distress General Appearance: cooperative HEENT normocephalic, head/scalp atraumatic and moist oral mucous membranes Eyes PERRL, EOMs intact bilaterally and conjunctivae normal Neck supple General: trachea midline Chest inspection of chest normal Resp Effort and Inspection: able to speak in complete sentences and tachypneic Auscultation: rales Cardio S1 normal heart sound and S2 normal heart sound Rate: tachycardic GI normal to inspection, nondistended, normoactive bowel sounds Extremity no clubbing, cyanosis or edema Skin no rashes or lesions noted Neuro CN's II-XII intact bilaterally and no focal motor deficits Psych cooperative and affect normal Charges/Coding Visit Charges Inpatient E&M: 56464 Subs Hosp L2
[2024-05-17 07:39] LABS: Absolute Lymphocyte Count 0.34 X10^3/uL (0.83-4.51); Absolute Neutrophil Count 6.8 X10^3/uL (2.0-7.7); Hemoglobin 12.6 g/dL (13.0-16.5); Lymphocyte # 0.34 X10^3/ul (0.83-4.51); Lymphocyte % 4.6 % (19-41); Mean Corp Hgb Conc 34.1 g/dL (32-36); Mean Corpuscular Hgb 31.3 pg (27.0-32.0); Mean Corpuscular Volume 91.8 fL (80-94); Mean Platelet Vol. 8.7 fl (6.2-12.0); Monocyte# 0.28 X10^3/uL; Monocyte% 3.8 % (0-10); NRBC Flagged by Analyzer 0 % (0-5); Neutrophil # 6.76 X10^3/uL (2.7-7.7); Neutrophil % 91.3 % (47-70); POSITIVE DIFFERENTIAL YES; Platelet Count 193 K/mm3 (150-450); RBC Distribution Width CV 14.1 % (11.6-14.6); RBC Distribution Width SD 47.1 fl (35.1-43.9); Red Blood Count 4.03 M/mm3 (4.6-6.2); White Blood Count 7.4 K/mm3 (4.4-11.0)
[2024-05-17 08:35] LABS: AST(SGOT) 19 U/L (15-37); Alanine Aminotransfer ALT/SGPT 13 U/L (16-61); Albumin, Serum 3.1 g/dL (3.2-5.0); Alkaline Phosphatase 65 U/L (45-117); Anion Gap 4 (5-15); BUN 19 mg/dL (7-18); BUN/Creat Ratio 21.9 RATIO (10-20); Calcium,Total 8.7 mg/dL (8.5-10.1); Chloride 104 mmol/L (98-107); Creatinine, Serum 0.87 mg/dL (0.70-1.30); EST Glomerular Filtration Rate 96 mL/min (>60); Est Glom Filt Rate - Afr Amer 116 mL/min (>60); Estimated Creatinine Clearance 82.94 ml/min; Globulin 3.1 g/dL (2.2-4.2); Glucose 137 mg/dL (74-106); Potassium 3.6 mmol/L (3.5-5.1); Protein, Total 6.2 g/dL (6.4-8.2); Sodium Level 137 mmol/L (136-145)
[2024-05-17] MEDS: Clopidogrel Bisulfate 75 MG Tablet PO (09:03)
[2024-05-17] MEDS: Aspirin E.C. 81 MG Tablet PO (09:03)
[2024-05-17] MEDS: guaiFENesin 1,200 MG Tablet 1200 MG PO ×2 (09:03→21:47)
[2024-05-17] MEDS: Enoxaparin 40 MG/0.4 ML Syringe SC (09:03)
[2024-05-17] MEDS: Azithromycin 500 MG in Dextrose 5%-Water (250mL Bag) 250 ML 250 MG IV (09:07)
--- NOTE | 2024-05-17 09:28 | CASEMGMT ---
Dr. Elise states that the pt is not medically ready today, but could be tomorrow. Dr. Elise states that a short term SNF stay would be beneficial for the pt and that the pt is agreeable at this time. KENNEDI is also aware and to f/u.
--- NOTE | 2024-05-17 09:40 | CASEMGMT ---
Discharge Planning A list of SNF providers including quality and resource use data and consistent with the patient's preferred geographic region, medical needs, and insurance network was created in [employer] [facility].? This list was provided to the SW. Larissa Pike Discharge Planning Asst.
[2024-05-17] MEDS: Ceftriaxone 2 GM in 0.9% Normal Saline (50mL MB+) 50 ML IV (10:21)
--- NOTE | 2024-05-17 10:30 | CASEMGMT ---
Addendum entered by Maricruz Arias 05/17/24 10:57: Social Work TCU is unable to accept pt due to oxygen needs. SW met with pt and informed of this and offered to assist pt in reviewing list of other SNF options. Pt declining to go to a community SNF and is requesting to return home at discharge. Pt states his does work during the day, but he could ask his mother to stay with him if he cannot be alone. Pt is agreeable to home health. Physician and RNCM updated. MILLIE Arias Original Note: Social Work SW collaborated with physician who is recommending short term SNF placement for pt prior to return home with . SW met with pt and introduced self and role of SW. SW spoke with pt regarding discharge plan and a list of SNF providers including quality and resource use data and consistent with the patient?s preferred geographic region, medical needs, and insurance network were provided from the [employer] Guide. Pt preferred provider is TCU. Pt stating he does not want to go to any other facility. Pt plans to return home with his after TCU stay. Referral made to [facility] in TCU. SW will await determination of acceptance. Pt will need precert prior to admission. MILLIE Arias
[2024-05-17] MEDS: Atorvastatin Calcium 80 MG Tablet PO (21:14)
[2024-05-18] VITALS (11 sets, daily range): BP systolic 125–143; BP diastolic 82–96; PULSE 72–94; RESP 20; TEMP 36.6–36.7; O2SAT 80–98; BMI 21.7
[2024-05-18] MEDS: Ipratropium/Albuterol Sulfate 3 ML AMPUL.NEB INHALATION ×4 (03:37→15:39)
[2024-05-18] MEDS: PIRFENIDONE 267 MG 801 MG PO ×2 (06:05→13:57)
[2024-05-18] MEDS: 0.9% Saline Lock 10 ML Syringe IV (06:05)
[2024-05-18] MEDS: Benzonatate 100 MG Capsule PO ×2 (06:05→12:24)
--- NOTE | 2024-05-18 06:26 | PN.HOSP_ITS ---
Reason for Visit Reason for Visit: Diagnoses Unspecified protein-calorie malnutrition (05/14/24) Chronic obstructive pulmonary disease, unspecified (05/14/24) Idiopathic pulmonary fibrosis (05/14/24) Acute respiratory failure with hypoxia (05/14/24) Acute and chronic respiratory failure with hypoxia (05/14/24) Subjective Subjective Patient with no acute events overnight per self and per nursing report. Patient had transitioned out of the ICU which was for convenience to the PCU without any issue. Patient notes still as expected some dyspnea with exertion or movement which is his stable baseline. Patient remained on 8 L nasal cannula with rest and needed increased to 12 L nasal cannula with activities which is similar to previous. Discussed with patient as well as social work/case management and oxygenation of appropriate nature was set up for home and patient amenable to discharge still refusing care home facility placement. Again discussed at length importance of following with [facility] for transplant further evaluation. Patient denies fevers, chills, nausea, emesis, abdominal pain, chest pain. Objective Data Objective Data Vital Signs: Vital Signs Temp Pulse Resp BP Pulse Ox O2 Del Method O2 Flow Rate 97.8 F 80 20 H 125/82 H 96 High Flow 8 05/18/24 03:00 05/18/24 03:38 05/18/24 03:38 05/18/24 03:00 05/18/24 03:39 05/18/24 03:54 05/18/24 03:54 FiO2 50 05/14/24 23:04 Oxygen Flow Rate (L/min) 8 Oxygen Delivery Method High Flow Weight: 138 lb 7.205 oz Body Mass Index (BMI) 21.7 Intake & Output: Intake and Output for Last 24 Hours 05/16/24 05/17/24 05/18/24 23:59 23:59 23:59 Intake Total 305 / 305 1235 / 1235 Output Total 1999 / 1999 1200 / 1750 550 / 550 Balance -1695 / -1695 35 / -515 -550 / -550 Medical Nutrition Assessment Dietitian: Malnutrition Criteria Met Start: 05/14/24 17:59 Freq: Status: Active Protocol: Document 05/17/24 10:52 RMA (Rec: 05/17/24 10:52 RMA [id number]) Nutrition Malnutrition Evidence of Malnutrition Exists Yes Malnutrition (severe): Chronic Evidenced By Suboptimal Energy Intake ( Moderate),Weight Loss (Severe) ,Physical Changes (Moderate), Physical Changes (Severe) Clinical Problem Swallowing Difficulty Etiology related to Mild oropharyngeal dysphagia and Mild esophageal dysphagia Signs/Symptoms as evidenced by need for mechanically altered food textures to [id number] Status Active Problem Chronic Disease or Condition Related Malnutrition Etiology related to swallowing difficulty and inadequate oral intake Signs/Symptoms as evidenced by BMI 21.6, significant unintentional weight loss of 4.3% in under 2 weeks mud analysis well logging captain and 15.6% in ~8 months mud analysis well logging captain based upon 05/02/24 wt of 141lb and 09/15/23 wt of 160lb as well as moderate to severe muscle and fat wasting per NFPA (temples, clavicle, buccal, interosseous) Status Active Problem Recommendation Dietitian Recommendations/Changes Continue liberalized diet of Regular - No Added Salt with texture/consistency as per FIELD RESEARCH ASSISTANT . Continue 240mL Ensure Clear monae-flavor BID with breakfast/dinner and 1 scoop Beneprotein with applesauce at lunch. Additional ONS as indicated if PO fails at meals. Lab / Micro Data 05/18/24 06:24 05/18/24 06:24 Labs: Laboratory Results - last 24 hr 05/17/24 07:10: WBC 7.4, RBC 4.03 L, Hgb 12.6 L, Hct 37.0 L, MCV 91.8, MCH 31.3, MCHC 34.1, RDW Std Deviation 47.1 H, RDW Coeff of Ravinder 14.1, Plt Count 193, MPV 8.7, Immature Gran % (Auto) 0.300, Neut % (Auto) 91.3 H, Lymph % (Auto) 4.6 L, Alpine % (Auto) 3.8, Eos % (Auto) 0.0, Baso % (Auto) 0.0, Absolute Neuts (auto) 6.8, Absolute Lymphs (auto) 0.34 L, Nucleated RBC % 0, Sodium 137, Potassium 3.6, Chloride 104, Carbon Dioxide 29.0, Anion Gap 4 L, BUN 19 H, Creatinine 0.87, Estim Creat Clear Calc 82.94, Est GFR (MDRD) Af Amer 116, Est GFR (MDRD) Non-Af 96, BUN/Creatinine Ratio 21.9 H, Glucose 137 H, Calcium 8.7, Total Bilirubin 0.50, AST 19, ALT 13 L, Alkaline Phosphatase 65, Total Protein 6.2 L, Albumin 3.1 L, Globulin 3.1, Albumin/Globulin Ratio 1.0 Micro: Microbiology 05/14/24 14:15 Sputum, Expectorated/Coughed Gram Stain - Final 05/14/24 14:15 Sputum, Expectorated/Coughed Respiratory Culture - Final 05/15/24 06:51 Mucosa - Nasopharyngeal Respiratory Panel (PCR) - Final 05/14/24 14:15 Urine, Clean Catch Legionella Antigen - Final 05/14/24 14:15 Urine, Clean Catch Streptococcus pneumoniae Antigen (M - Final 05/14/24 07:25 Mucosa - Nose SARS-CoV-2, Influenza & RSV (PCR) - Final Rhythm Strip Rhythm Strip: Sinus Tach Rate: 102 Ectopy: None Physical Exam Narrative Physical Examination: General: Awake, alert, oriented x 3 and cooperative, seated upright in the PCU bed, no acute distress, notes feeling well at this time. Skin: Normal color, normal turgor, no icterus, no cyanosis except occasional staged ecchymoses. HEENT: AT/NC, EOMI, PERRLA, chronic right eye appearance of cataract, MMM. Lungs: Diminished, greater bases, coarse crackles consistent with his underlying pulmonary fibrotic disease, no wheezing, improved effort and air movement, less tachypneic than previously. Heart: Regular rate with regular rhythm; no gallop, rub audible. Abdomen: Soft, NTTP, ND, normal BS. Extremities: No cyanosis, no clubbing, no marked peripheral pitting edema. Neurological: Patient awake, alert, oriented as noted, cognitive function intact; pupils equally reactive to light and accommodation, cranial nerves grossly normal, moving all 4 extremities, no focal deficits, strength improving, moderately to severely globally decreased which unfortunately has a large component of chronic underlying debility. Psychiatric: Affect appears normal, no acute evidence of depressive or anxiety feelings. Assessment & Plan Assessment/Plan (1) Acute and chronic respiratory failure with hypoxia: PLAN: Plan The patient is a 58 y/o M w/ PMHx: HTN, HLD, CAD s/p PCI 04/14/24, GERD, Tobacco use, Protein calorie malnutrition, Chronic Hypoxic Respiratory Failure with COPD/Restrictive with IPF with Pulmonary HTN who presents to the [facility] ED on 05/14/24 with history of dyspnea. #1. Acute Hypoxic Respiratory Failure on Chronic Hypoxic Respiratory Failure secondary to Underlying Pulmonary Fibrosis with exacerbation, Pulmonary HTN and COPD with Acute on Chronic Exacerbation with possible infectious process: Chest x-ray with no acute cardiopulmonary findings. Legionella and strep antigens negative, SARS COVID/influenza/RSV negative, sputum culture pending, BNP unremarkable. Patient admitted to the ICU given significant respiratory decline and precarious respiratory status, maintain on IV Rocephin and azithromycin with plan completion 05/18/2024 with de-escalation off antibiotic therapy at that time, maintain on BiPAP with eventual transition to nasal cannula with continued wean as tolerated to home oxygen supplementation, deployment engineer consulted, will continue IV Solu-Medrol w/ planned 12 day prednisone taper once discharge appropriate, maintained on ATC DuoNeb therapy, as needed albuterol. Unfortunately from description from [facility] lack of compliance patient will be required to restart assessment for transplant. Continue pirfenidone. Gently diuresis PRN as BP allows. 05/17/2024 investigation for TCU with unfortunately inability for patient to transition there secondary to oxygen compliance and unwillingness to transition to any other skilled facility in the community thus once appropriate will go home with home therapies per case management/social work assist. 05/16/24 patient with coughing with oral intake w/ modified barium swallow performed with clearance for continued regular diet texture and liquid texture with no aspiration concerns noted w/ diagnosis mild oropharyngeal dysphagia. 05/17/2024 oxygenation trial with ongoing 8 L necessity at rest however drops to the lower 80s with saturation atkinson with ambulatory attempts on 8 L requiring increase to 10 to 12 L to appropriately saturate with repeat oxygenation trial 05/18/24 similar with plan for discharge on 8 L at rest and 12 L with activity. 05/18/2024 given clinical stability as much as possible although patient chronically debilitated plan discharge to home with assistance with case management/social work for appropriate oxygen set up, follow-up with PCP closely as well as pulmonary medicine and encouraged close follow-up with [facility] for transplant further evaluation. Patient still declining skilled facility placement as TCU did not have bed availability. #2. Normocytic anemia, new and chronicity: Admission CBC 15.3 and baseline similar prior to this, 05/15/2024 hemoglobin 12.5, MCV 90.4-->Hgb 12.3, MCV 91.6--> 05/18/2024 hemoglobin 12.7, stabilized, continue to trend. #3. Hyperglycemia, possibly stress response: Admission glucose in previous mildly elevated, 05/15/2020 4 AM glucose 203, HgBA1c 5.3%. #4. CAD: Status post recent PCI LAD 03/2024, continue aspirin, Plavix, statin. Given lower BP holding losartan), not on beta-andrew secondary to underlying pulmonary history Patient recently placed on isosorbide secondary to ongoing chest discomfort but given lower BP as noted holding, re-evaluate resumption once improves. Encourage continued cardiac evaluation. Troponin unremarkable. #5. Hypertension: Blood pressure decreased, held HTN regimen (isosorbide, losartan), PRN hydralazine. #6. Hyperlipidemia: We will continue patient on statin therapy. #7. Severe protein calorie malnutrition: Although BMI not severely reduced, patient with muscle and fat loss, significant underlying comorbidities, nutrition consulted. #8. GERD: We will continue patient on PPI. #9. DVT prophylaxis: Lovenox. #10. CODE STATUS: DNR-CCA, no intubation. Charges/Coding Visit Charges Inpatient E&M: 13577 Subs Hosp L2
[2024-05-18 07:09] LABS: Absolute Lymphocyte Count 0.51 X10^3/uL (0.83-4.51); Absolute Neutrophil Count 6.1 X10^3/uL (2.0-7.7); Hemoglobin 12.7 g/dL (13.0-16.5); Lymphocyte # 0.51 X10^3/ul (0.83-4.51); Lymphocyte % 7.2 % (19-41); Mean Corp Hgb Conc 33.4 g/dL (32-36); Mean Corpuscular Hgb 31.1 pg (27.0-32.0); Mean Corpuscular Volume 92.9 fL (80-94); Mean Platelet Vol. 9.1 fl (6.2-12.0); Monocyte# 0.39 X10^3/uL; Monocyte% 5.5 % (0-10); NRBC Flagged by Analyzer 0 % (0-5); Neutrophil # 6.12 X10^3/uL (2.7-7.7); Neutrophil % 86.7 % (47-70); POSITIVE DIFFERENTIAL YES; Platelet Count 200 K/mm3 (150-450); RBC Distribution Width SD 47.3 fl (35.1-43.9); Red Blood Count 4.09 M/mm3 (4.6-6.2); White Blood Count 7.1 K/mm3 (4.4-11.0)
[2024-05-18 07:37] LABS: ALB/GLOB Ratio 0.9 RATIO (0.9-2.4); AST(SGOT) 18 U/L (15-37); Alanine Aminotransfer ALT/SGPT 11 U/L (16-61); Alkaline Phosphatase 72 U/L (45-117); Anion Gap 6 (5-15); BUN 18 mg/dL (7-18); BUN/Creat Ratio 19.9 RATIO (10-20); Calcium,Total 8.4 mg/dL (8.5-10.1); Chloride 102 mmol/L (98-107); Creatinine, Serum 0.91 mg/dL (0.70-1.30); EST Glomerular Filtration Rate 91 mL/min (>60); Est Glom Filt Rate - Afr Amer 111 mL/min (>60); Estimated Creatinine Clearance 79.55 ml/min; Globulin 3.3 g/dL (2.2-4.2); Glucose 135 mg/dL (74-106); Potassium 3.8 mmol/L (3.5-5.1); Protein, Total 6.3 g/dL (6.4-8.2); Sodium Level 136 mmol/L (136-145)
[2024-05-18] MEDS: Aspirin E.C. 81 MG Tablet PO (08:08)
[2024-05-18] MEDS: Clopidogrel Bisulfate 75 MG Tablet PO (08:09)
[2024-05-18] MEDS: Enoxaparin 40 MG/0.4 ML Syringe SC (08:09)
[2024-05-18] MEDS: guaiFENesin 1,200 MG Tablet 1200 MG PO (08:09)
--- NOTE | 2024-05-18 08:15 | CASEMGMT ---
Discharge Planning A list of?HH providers including quality and resource use data and consistent with the patient's preferred geographic region, medical needs, and insurance network was created in [employer] Guide.? This list was provided to the RN ZHAO. Larissa Pike, Discharge Planning Asst
--- NOTE | 2024-05-18 09:19 | CASEMGMT ---
Addendum entered by Donna Falcon 05/18/24 15:45: JULIANNE CHURCHILL updated pt nurse on oxygen delivery. JULIANNE CHURCHILL into pt room, updated pt and apologized for the delay. Pt mother present to transport pt home. Addendum entered by Donna Falcon 05/18/24 15:39: [id number]-Email to [facility] to check on ETA of oxygen. [id number]- No response received from [facility]. Message sent via referral through [employer]. 1507-Received confirmation that the driver service technician is working on getting to the hospital for pt device for the portable tank then will be delivering concentrator to home. Addendum entered by Donna Falcon 05/18/24 12:01: Received email from [facility] stating they were unable to reach pt. JULIANNE CHURCHILL into pt room, he states he tried to call [facility] and could not get through. He asked to give them [phone] and ask them to call him. Email back to Katelin to make aware of this. Addendum entered by Donna Falcon 05/18/24 10:57: Received tc from [facility], they can accept pt for SOC tomorrow. Pt aware. [facility] to coordinate with pt on homegoing so a second concentrator will be delivered to his home with no delay. Addendum entered by Donna Falcon 05/18/24 09:35: JULIANNE CHURCHILL into pt room, pt sitting up in bed in no distress. Discussed pt oxygen needs at home and that [facility] rep will be here with portable tank and device for his 8L at rest. Pt aware that a second concentrator will be needed for his 12L requirement with exertion. Pt verbalizes understanding of this. Discussed HHC [place], pt agreeable. Provided pt with a list created by [place] access services assistant. Pt chose [facility]. TC to [facility], referral made at this time. Will await decision to accept. Original Note: Pt requires 8L O2 at rest and 12L with exertion. Referral to [facility] sent via [employer] at this time.
[2024-05-18] MEDS: Ceftriaxone 2 GM in 0.9% Normal Saline (50mL MB+) 50 ML IV (09:28)
[2024-05-18] MEDS: Phenol/Sodium Phenolate 180ML 3 SPRAY MUCOUS MEM (09:29)
[2024-05-18] MEDS: Azithromycin 500 MG in Dextrose 5%-Water (250mL Bag) 250 ML 250 MG IV (10:19)
--- NOTE | 2024-05-18 11:09 | DCINST_ITS ---
Discharge Instructions Diet Discharge Diet: No restrictions Activity Discharge Activity: - (Encourage routine slow activity, out of bed to chair/table for all meals coupled with aggressive incentive spirometry as noted to assist with continued pulmonary status improvement.) May resume sexual activity in: 10-14 days Weight Bearing Status: Weight bearing as tolerated Dressing / Incision Call your doctor if you observe: Fever of 101 or Higher, Shortness of breath, Dizziness, Swelling in the ankles, Chest pain, Increased palpitations (irregular heartbeat), Calf discomfort, Uncontrolled pain and - (Increased oxygen requirements with pulse oximeter not maintaining greater than 88%. [place] oxygenation is 88-92% given your underlying pulmonary disease.) Follow Up Care Test Results: Test results from this visit will be discussed in further detail at your follow- up appointment, if applicable. Discharge Plan Admission Admit Date/Time: 05/14/24 09:29 Primary Reason for Your Visit: Acute on Chronic Resp Failure, Pulm Fibrosis/COPD Exacerbation Attending Provider: Ofelia Elise Primary Care Provider: Hardeep Fall Consulting Providers: Binu Catalan; Alek Kaplan; Dyan Bethea; Kinjal Oliveira; Talia Guadalupe LIFE SCIENCE TECHNICAL OFFICER; Carlos Amaro; Flip Gonzalez; Jake Morales; Alek Snyder; Tomi Hannon; Leonardo Palacios; Nel Diego; Sam Dumont; Jules Roberts; Andree Gillespie; Otilio Aggarwal; Femi Pascal; Karthik Kitchen; Josep Slade; Dima Ray; Arturo Larsen Instructions Patient Instructions: Discharge Instructions: COPD, Pulmonary Fibrosis Additional Instructions / Restrictions: ADDITIONAL DISCHARGE CARE/INSTRUCTIONS: Pulmonary Medicine Requested Discharge Care/Recommendations: 1. Continue current supportive care including supplemental oxygen to maintain saturation is 88 to 92% with home health assisting with increased supplementation needs of 8L NC at rest and 12 L NC with activity. 2. Encourage appropriate follow-up and compliance with [facility] transplant follow-up requests/visits/calls. 3. Encourage incentive spirometer use and mobilize patient as tolerated. Please continue aggressive IS 10x/hr from 7a-7p per pulmonary medication recommendation. 4. Follow-up in the pulmonary medicine clinic, as scheduled, in July. 5. Complete 12 day prednisone steroid taper. ADDITIONAL: --During the admission you had noted normocytic anemia with negative stool assessment x 2 for blood. Your Hgb remained stable but we recommend continued outpatient assessment and evaluation with your primary care physician. Discharge Orders/Prescriptions Prescriptions: New Sore Throat (phenol) 1.4 % Aerosol,[place] 3 spray mucous membrane Q2H PRN PRN (Reason: SORE THROAT) 14 Days Qty: 1 0RF guaifenesin [Mucus Relief ER] 1,200 mg Tablet Extended Release 12hr 1,200 mg PO BID 14 Days Qty: 28 0RF prednisone 10 mg tablet See Taper PO DAILY 12 Days Qty: 30 0RF Taper: Prednisone Taper 40 mg WITH BREAKFAST for 3 Days and 0 Hour 30 mg WITH BREAKFAST for 3 Days and 0 Hour 20 mg WITH BREAKFAST for 3 Days and 0 Hour 10 mg WITH BREAKFAST for 3 Days and 0 Hour Continued esomeprazole magnesium [Nexium 24HR] 20 mg capsule,delayed release(DR/EC) 20 mg PO DAILY PRN (Reason: acid reflux) aspirin 81 mg tablet,delayed release (DR/EC) 81 mg PO DAILY clopidogrel 75 mg tablet 75 mg PO DAILY Qty: 90 3RF amlodipine 5 mg tablet 5 mg PO DAILY Qty: 90 3RF nitroglycerin 0.4 mg tablet, sublingual 0.4 mg sublingual Q5-15M PRN (Reason: chest pain) Qty: 25 2RF Rx Instructions: do not exceed 3 doses per episode losartan 100 mg tablet 50 mg PO DAILY isosorbide dinitrate 20 mg tablet 20 mg PO TID Qty: 90 11RF Rx Instructions: allow nitrate-free interval of 12-14 hrs per 24-hr period albuterol sulfate 90 mcg/actuation HFA aerosol inhaler 2 puff inhalation DAILY PRN PRN (Reason: SHORTNESS OF BREATH/WHEEZING ) Rx Instructions: ADMINISTER WITH SPACER. atorvastatin 80 mg tablet 80 mg PO QHS Anoro Ellipta 62.5-25 mcg/actuation blister with device 1 inh inhalation Q24H Qty: 60 6RF albuterol sulfate 2.5 mg /3 mL (0.083 %) solution for nebulization 2.5 mg inhalation Q4H PRN (Reason: SHORTNESS OF BREATH/WHEEZING ) Qty: 180 3RF pirfenidone 267 mg tablet 801 mg PO TID Qty: 30 0RF Referrals / Follow Up: Jake Morales DO [Med Staff - Active Staff] - (Please follow-up as previously arranged.) Hardeep Fall DO [Primary Care Provider] - (Follow-up with PCP within 3-5 days to review admission/plan of care.) Disposition Disposition (needs filled in before D/C Order can be placed): Home Health Service
--- NOTE | 2024-05-18 11:11 | PCM.DC.SUM ---
Providers Date of Admission: 05/14/24 Date of Discharge: 05/18/24 Primary Care Physician: Dr. Hardeep Fall, DO Consultations 05/14/24 10:40 Consult: Parasitology Teacher / Pulmonary Medicine Routine Consulting Provider: Intensivists/Pulmonary Med Reason for Consult: respiratory failure EMERGENT Consult: No Notified: Yes Date Notified: 05/14/24 Time Notified: 09:35 Method of Notification: Text 05/15/24 10:38 Consult: Hospice / Palliative Care Routine Consulting Provider: [facility] Reason for Consult: Palliative Care Referral for RF EMERGENT Consult: No Notified: Yes Date Notified: 05/15/24 Time Notified: 10:38 Method of Notification: Verbal Reason For Visit: RESPIRATORY FAILURE Diagnosis Discharge Diagnosis (1) Acute and chronic respiratory failure with hypoxia: Status: Chronic Code(s): J96.21 - Acute and chronic respiratory failure with hypoxia Plan: DISCHARGE DIAGNOSES: #1. Acute Hypoxic Respiratory Failure on Chronic Hypoxic Respiratory Failure secondary to Underlying Pulmonary Fibrosis with exacerbation, Pulmonary HTN and COPD with Acute on Chronic Exacerbation with possible infectious process #2. Normocytic anemia, new and chronicity, unclear etiology #3. Hyperglycemia, suspected stress response, HgBA1c 5.3%. #4. CAD, Status post recent PCI LAD 03/2024 #5. Hypertension #6. Hyperlipidemia #7. Severe protein calorie malnutrition #8. Mild oropharyngeal dysphagia #9. GERD #10. CODE STATUS: DNR-CCA, no intubation. Medications at Discharge Home Medications umeclidinium 62.5 mcg-vilanterol 25 mcg/actuation powdr for inhalation (Anoro Ellipta) 1 inh inhalation Q24H SHORTNESS OF BREATH/WHEEZING #60 ea 10/25/23 albuterol sulfate 2.5 mg/3 mL (0.083 %) solution for nebulization 2.5 mg (3 mL) inhalation Q4H PRN SHORTNESS OF BREATH/WHEEZING #180 mL 03/20/24 albuterol sulfate 90 mcg/actuation aerosol inhaler 2 puff inhalation DAILY PRN PRN SHORTNESS OF BREATH/WHEEZING 03/27/24 amlodipine 5 mg tablet 5 mg PO DAILY blood pressure #90 tabs 04/12/24 aspirin 81 mg tablet,delayed release 81 mg PO DAILY heart health 04/12/24 clopidogrel 75 mg tablet 75 mg PO DAILY anti platelet #90 tabs 04/12/24 esomeprazole magnesium 20 mg capsule,delayed release (Nexium 24HR) 20 mg PO DAILY PRN acid reflux 04/12/24 nitroglycerin 0.4 mg sublingual tablet 0.4 mg sublingual Q5-15M PRN chest pain #25 tabs 04/12/24 atorvastatin 80 mg tablet 80 mg PO QHS cholesterol 04/13/24 pirfenidone 267 mg tablet 801 mg (3 x 267 mg) PO TID PULMONARY FIBROSIS #30 tabs 04/25/24 isosorbide dinitrate 20 mg tablet 20 mg PO TID heart health #90 tabs 05/05/24 losartan 100 mg tablet 50 mg PO DAILY BLOOD PRESSURE 05/05/24 guaifenesin 1,200 mg tablet, extended release 12 hr (Mucus Relief ER) 1,200 mg PO BID 14 days #28 tabs 05/18/24 phenol 1.4 % mucosal aerosol spray (Sore Throat (phenol)) 3 spray mucous membrane Q2H PRN PRN SORE THROAT 14 days #1 BOTTLE 05/18/24 prednisone 10 mg tablet See Taper PO DAILY 12 days #30 tabs 05/18/24 Hospital Course Operations None Procedures EKG and Modified Barium Swallow Summary of Care Provided Minutes Spent on Discharge: 35 Hospital Course: The patient is a 58 y/o M w/ PMHx: HTN, HLD, CAD s/p PCI 04/14/24, GERD, Tobacco use, Protein calorie malnutrition, Chronic Hypoxic Respiratory Failure with COPD/Restrictive with IPF with Pulmonary HTN who presents to the [facility] ED on 05/14/24 with history of dyspnea. Chest x-ray with no acute cardiopulmonary findings. Legionella and strep antigens negative, SARS COVID/influenza/RSV negative, sputum culture pending, BNP unremarkable. Patient admitted to the ICU given significant respiratory decline and precarious respiratory status initially eventually transitioning to PCU, maintained on IV Rocephin and azithromycin with 7 day course completion 05/18/2024, initially maintained on BiPAP with eventual transition to nasal cannula, clinic office manager consulted and followed, IV Solu-Medrol w/ planned 12 day prednisone taper at discharge, maintained on ATC DuoNeb therapy, as needed albuterol. Unfortunately from description from [facility] lack of compliance patient will be required to restart assessment for transplant. Continue pirfenidone. Gently diuresis PRN as BP allows. 05/17/2024 investigation for TCU with unfortunately inability for patient to transition there secondary to oxygen compliance and unwillingness to transition to any other skilled facility in the community thus once appropriate will go home with home therapies per case management/social work assist. 05/16/24 patient with coughing with oral intake w/ modified barium swallow performed with clearance for continued regular diet texture and liquid texture with no aspiration concerns noted w/ diagnosis mild oropharyngeal dysphagia. 05/17/2024 oxygenation trial with ongoing 8 L necessity at rest however drops to the lower 80s with saturation atkinson with ambulatory attempts on 8 L requiring increase to 10 to 12 L to appropriately saturate with repeat oxygenation trial 05/18/24 similar with plan for discharge on 8 L at rest and 12 L with activity. 05/18/2024 given clinical stability as much as possible although patient chronically debilitated plan discharge to home with assistance with case management/social work for appropriate oxygen set up, follow-up with PCP closely as well as pulmonary medicine and encouraged close follow-up with [facility] for transplant further evaluation. Medical Records Data Medical Nutrition Assessment Dietitian: Malnutrition Criteria Met Start: 05/14/24 17:59 Freq: Status: Active Protocol: Document 05/17/24 10:52 RMA (Rec: 05/17/24 10:52 RMA [id number]) Nutrition Malnutrition Evidence of Malnutrition Exists Yes Malnutrition (severe): Chronic Evidenced By Suboptimal Energy Intake ( Moderate),Weight Loss (Severe) ,Physical Changes (Moderate), Physical Changes (Severe) Clinical Problem Swallowing Difficulty Etiology related to Mild oropharyngeal dysphagia and Mild esophageal dysphagia Signs/Symptoms as evidenced by need for mechanically altered food textures to [id number] Status Active Problem Chronic Disease or Condition Related Malnutrition Etiology related to swallowing difficulty and inadequate oral intake Signs/Symptoms as evidenced by BMI 21.6, significant unintentional weight loss of 4.3% in 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 Continue 240mL Ensure Clear monae-flavor BID with breakfast/dinner and 1 scoop Beneprotein with applesauce at lunch. Additional ONS as indicated if PO fails at meals. Weight / BMI Weight Weight: 138 lb 7.205 oz Body Mass Index (BMI) 21.7 ABG / Lab / Microbiology Data 05/18/24 06:24 05/18/24 06:24 Laboratory: Laboratory Results - last 24 hr 05/18/24 06:24: WBC 7.1, RBC 4.09 L, Hgb 12.7 L, Hct 38.0 L, MCV 92.9, MCH 31.1, MCHC 33.4, RDW Std Deviation 47.3 H, RDW Coeff of Ravinder 14.0, Plt Count 200, MPV 9.1, Immature Gran % (Auto) 0.600, Neut % (Auto) 86.7 H, Lymph % (Auto) 7.2 L, Sargent % (Auto) 5.5, Eos % (Auto) 0.0, Baso % (Auto) 0.0, Absolute Neuts (auto) 6.1, Absolute Lymphs (auto) 0.51 L, Nucleated RBC % 0, Sodium 136, Potassium 3.8, Chloride 102, Carbon Dioxide 28.0, Anion Gap 6, BUN 18, Creatinine 0.91, Estim Creat Clear Calc 79.55, Est GFR (MDRD) Af Amer 111, Est GFR (MDRD) Non-Af 91, BUN/Creatinine Ratio 19.9, Glucose 135 H, Calcium 8.4 L, Total Bilirubin 0.40, AST 18, ALT 11 L, Alkaline Phosphatase 72, Total Protein 6.3 L, Albumin 3.0 L, Globulin 3.3, Albumin/Globulin Ratio 0.9 Microbiology: Microbiology 05/14/24 14:15 Sputum, Expectorated/Coughed Gram Stain - Final 05/14/24 14:15 Sputum, Expectorated/Coughed Respiratory Culture - Final 05/15/24 06:51 Mucosa - Nasopharyngeal Respiratory Panel (PCR) - Final 05/14/24 14:15 Urine, Clean Catch Legionella Antigen - Final 05/14/24 14:15 Urine, Clean Catch Streptococcus pneumoniae Antigen (M - Final 05/14/24 07:25 Mucosa - Nose SARS-CoV-2, Influenza & RSV (PCR) - Final D/C Instructions Discharge Diet: No restrictions May resume sexual activity in: 10-14 days Weight Bearing Status: Weight bearing as tolerated Call your doctor if you observe: Fever of 101 or Higher, Shortness of breath, Dizziness, Swelling in the ankles, Chest pain, Increased palpitations (irregular heartbeat), Calf discomfort, Uncontrolled pain and - (Increased oxygen requirements with pulse oximeter not maintaining greater than 88%. [place] oxygenation is 88-92% given your underlying pulmonary disease.) Meaningful Use Info Meaningful Use Meaningful Use Diagnoses (Choose all that apply): None applicable Ischemic Stroke Statin Dosing Therapy Reference: STATIN DOSE THERAPY REFERENCE: * Patients > 75 years receive moderate or high dose statin therapy. * Patients 75 years or YOUNGER should receive HIGH intensity statin dose unless contraindicated. You will be required to document reason for non-treatment if statin daily dose does not meet guidelines. HIGH DOSE STATIN THERAPY DAILY Atorvastatin > than or = to 40 mg Rosuvastatin > than or = to 20 mg Amlodipine + Atorvastatin > than or = to 2.5/40 mg Ezetimibe + Simvastatin 10/80 mg Simvastatin 80mg Discharge Plan Admission Admit Date/Time: 05/14/24 09:29 Primary Reason for Your Visit: Acute on Chronic Resp Failure, Pulm Fibrosis/COPD Exacerbation Attending Provider: Ofelia Elise Primary Care Provider: Hardeep Fall Consulting Providers: Binu Catalan; Alek Kaplan; Dyan Bethea; Kinjal Oliveira; Talia Guadalupe NP; Carlos Amaro; Flip Gonzalez; Jake Morales; Alek Snyder; Tomi Hannon; Leonardo Palacios; Nel Diego; Sam Dumont; Jules Roberts; Andree Gillespie; Otilio Aggarwal; Femi Pascal; Karthik Kitchen; Josep Slade; Dima Ray; Arturo Larsen Instructions Patient Instructions: Discharge Instructions: COPD, Pulmonary Fibrosis Additional Instructions / Restrictions: ADDITIONAL DISCHARGE CARE/INSTRUCTIONS: Pulmonary Medicine Requested Discharge Care/Recommendations: 1. Continue current supportive care including supplemental oxygen to maintain saturation is 88 to 92% with home health assisting with increased supplementation needs of 8L NC at rest and 12 L NC with activity. 2. Encourage appropriate follow-up and compliance with [facility] transplant follow-up requests/visits/calls. 3. Encourage incentive spirometer use and mobilize patient as tolerated. Please continue aggressive IS 10x/hr from 7a-7p per pulmonary medication recommendation. 4. Follow-up in the pulmonary medicine clinic, as scheduled, in July. 5. Complete 12 day prednisone steroid taper. ADDITIONAL: --During the admission you had noted normocytic anemia with negative stool assessment x 2 for blood. Your Hgb remained stable but we recommend continued outpatient assessment and evaluation with your primary care physician. Discharge Orders/Prescriptions Prescriptions: New Sore Throat (phenol) 1.4 % Aerosol,Rush 3 spray mucous membrane Q2H PRN PRN (Reason: SORE THROAT) 14 Days Qty: 1 0RF guaifenesin [Mucus Relief ER] 1,200 mg Tablet Extended Release 12hr 1,200 mg PO BID 14 Days Qty: 28 0RF prednisone 10 mg tablet See Taper PO DAILY 12 Days Qty: 30 0RF Taper: Prednisone Taper 40 mg WITH BREAKFAST for 3 Days and 0 Hour 30 mg WITH BREAKFAST for 3 Days and 0 Hour 20 mg WITH BREAKFAST for 3 Days and 0 Hour 10 mg WITH BREAKFAST for 3 Days and 0 Hour Continued esomeprazole magnesium [Nexium 24HR] 20 mg capsule,delayed release(DR/EC) 20 mg PO DAILY PRN (Reason: acid reflux) aspirin 81 mg tablet,delayed release (DR/EC) 81 mg PO DAILY clopidogrel 75 mg tablet 75 mg PO DAILY Qty: 90 3RF amlodipine 5 mg tablet 5 mg PO DAILY Qty: 90 3RF nitroglycerin 0.4 mg tablet, sublingual 0.4 mg sublingual Q5-15M PRN (Reason: chest pain) Qty: 25 2RF Rx Instructions: do not exceed 3 doses per episode losartan 100 mg tablet 50 mg PO DAILY isosorbide dinitrate 20 mg tablet 20 mg PO TID Qty: 90 11RF Rx Instructions: allow nitrate-free interval of 12-14 hrs per 24-hr period albuterol sulfate 90 mcg/actuation HFA aerosol inhaler 2 puff inhalation DAILY PRN PRN (Reason: SHORTNESS OF BREATH/WHEEZING ) Rx Instructions: ADMINISTER WITH SPACER. atorvastatin 80 mg tablet 80 mg PO QHS Anoro Ellipta 62.5-25 mcg/actuation blister with device 1 inh inhalation Q24H Qty: 60 6RF albuterol sulfate 2.5 mg /3 mL (0.083 %) solution for nebulization 2.5 mg inhalation Q4H PRN (Reason: SHORTNESS OF BREATH/WHEEZING ) Qty: 180 3RF pirfenidone 267 mg tablet 801 mg PO TID Qty: 30 0RF Referrals / Follow Up: Jake Morlaes DO [Med Staff - Active Staff] - (Please follow-up as previously arranged.) Hardeep Fall DO [Primary Care Provider] - (Follow-up with PCP within 3-5 days to review admission/plan of care.) Disposition Disposition (needs filled in before D/C Order can be placed): Home Health Service Charges/Coding Visit Charges Inpatient E&M: 44608 Disch Hosp >30min
== END 2024-05-18 16:21 | disposition home health service (06) | DRG 196 ==
LOC: ED 07:31 → ICU 09:40 → PCU 05-17 13:56
PROVIDERS: Emergency Provider Emergency Medicine; PCP Family Medicine; Visit Provider Family Medicine
DX: J84.112 Idiopathic pulmonary fibrosis (principal); J96.21 Acute and chronic respiratory failure with hypoxia; E43 Unspecified severe protein-calorie malnutrition; J44.1 Chronic obstructive pulmonary disease with (acute) exacerbation; I27.20 Pulmonary hypertension, unspecified; D64.9 Anemia, unspecified; I10 Essential (primary) hypertension; I25.10 Atherosclerotic heart disease of native coronary artery without angina pectoris; F41.9 Anxiety disorder, unspecified; K21.9 Gastro-esophageal reflux disease without esophagitis; E78.5 Hyperlipidemia, unspecified; Z79.82 Long term (current) use of aspirin; Z79.02 Long term (current) use of antithrombotics/antiplatelets; Z82.3 Family history of stroke; Z87.891 Personal history of nicotine dependence; Z95.5 Presence of coronary angioplasty implant and graft; Z66 Do not resuscitate; R73.9 Hyperglycemia, unspecified; R13.12 Dysphagia, oropharyngeal phase
CPT/HCPCS: 36415; 36600; 71045; 74230; 80048; 80053; 82803; 83036; 83605; 83880; 84484; 85025; 87070; 87205; 87449; 87631; 87633; 92526; 92610; 92611; 93005; 94002; 94640; 94660; 94668; 94762; 97162; 97166; 97530; 97802; 97803; 99252; 99285; J7030; A4216; G0463; J0696; J1940

== ENCOUNTER 2024-06-03 04:38 | Inpatient (IN) | payer OTHER, SELFPAY ==
[2023-05-03 08:42] VITALS: BMI 25.2
[2024-06-03] VITALS (30 sets, daily range): BP systolic 95–136; BP diastolic 70–97; PULSE 76–124; RESP 22–42; TEMP 36.1–37.3; O2SAT 77–100; BMI 20.8
--- NOTE | 2024-06-03 04:44 | EKG12_ITS ---
Test Reason : Blood Pressure : / mmHG Vent. Rate : 104 BPM Atrial Rate : 104 BPM P-R Int : 132 ms QRS Dur : 094 ms QT Int : 332 ms P-R-T Axes : 009 162 -27 degrees QTc Int : 436 ms Sinus tachycardia Right axis deviation ST & T wave abnormality, consider inferior ischemia ST & T wave abnormality, consider anterior ischemia Abnormal ECG Confirmed by SEAN BLUNT, LYNDSEY ([id number]), development editor ASHLEY TERESA ([id number]) on 06/05/2024 6:50:53 AM Referred By: Confirmed By:LYNDSEY ESTRADA MD
--- NOTE | 2024-06-03 04:46 | ED.VIS.DYS ---
HPI History of Present Illness Chief Complaint: Shortness of Breath Detail of Chief Complaint: Shortness of breath Informant: patient Narrative Narrative: Patient presents to the emergency department complaint of shortness of breath that started this morning. Patient states that visiting nurse told him he had a low-grade fever yesterday. He has a chronic cough. He normally wears 8 L of home O2. EMS was called and patient was found to be in severe respiratory distress. Apparently he had 50 feet of tubing and they gave him a DuoNeb aerosol and an albuterol aerosol and put him on 8 L cannula O2 and was satting in the mid 90s. Patient has history of pulmonary hypertension and pulmonary fibrosis as well as COPD. He denies chest pain. Denies recent travel or surgery. [facility] Medical History (Updated 06/03/24 @ 05:[address] Aicha Celestin, ) Protein calorie malnutrition Acute exacerbation of idiopathic pulmonary fibrosis Right ventricular dilation Pulmonary hypertension Lung transplant candidate IPF (idiopathic pulmonary fibrosis) CAD (coronary artery disease) Hypercholesteremia Mixed obstructive and restrictive ventilatory defect Chronic hypoxemic respiratory failure Recurrent sinus infections COPD exacerbation Hypokalemia Acute dyspnea Chest discomfort HTN (hypertension) GERD (gastroesophageal reflux disease) ILD (interstitial lung disease) Acute and chronic respiratory failure Influenza A Nicotine dependence, cigarettes, in remission Restrictive airway disease Obesity Therapeutic drug monitoring Pulmonary fibrosis 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 Umbilical hernia Mononucleosis Blind right eye Allergic rhinitis Home Medications ?Medication ?Instructions ?Recorded ?Last Taken ?Type umeclidinium 62.5 mcg-vilanterol 1 inh inhalation Q24H SHORTNESS OF 10/25/23 05/13/24 Rx 25 mcg/actuation powdr for BREATH/WHEEZING #60 ea inhalation (Anoro Ellipta) albuterol sulfate 90 mcg/actuation 2 puff inhalation DAILY PRN PRN 03/27/24 05/13/24 History aerosol inhaler SHORTNESS OF BREATH/WHEEZING amlodipine 5 mg tablet 5 mg PO DAILY blood pressure #90 04/12/24 05/13/24 Rx tabs aspirin 81 mg tablet,delayed 81 mg PO DAILY heart health 04/12/24 05/13/24 History release clopidogrel 75 mg tablet 75 mg PO DAILY anti platelet #90 04/12/24 05/13/24 Rx tabs esomeprazole magnesium 20 mg 20 mg PO DAILY PRN acid reflux 04/12/24 05/13/24 History capsule,delayed release (Nexium 24HR) nitroglycerin 0.4 mg sublingual 0.4 mg sublingual Q5-15M PRN chest 04/12/24 Unknown Rx tablet pain #25 tabs atorvastatin 80 mg tablet 80 mg PO QHS cholesterol 04/13/24 05/13/24 History pirfenidone 267 mg tablet 801 mg (3 x 267 mg) PO TID 04/25/24 05/13/24 Rx PULMONARY FIBROSIS #30 tabs isosorbide dinitrate 20 mg tablet 20 mg PO TID heart health #90 tabs 05/05/24 05/13/24 Rx losartan 100 mg tablet 50 mg PO DAILY BLOOD PRESSURE 05/05/24 05/13/24 History guaifenesin 1,200 mg tablet, 1,200 mg PO BID 14 days #28 tabs 05/18/24 Unknown Rx extended release 12 hr (Mucus Relief ER) phenol 1.4 % mucosal aerosol spray 3 spray mucous membrane Q2H PRN 05/18/24 Unknown Rx (Sore Throat (phenol)) PRN SORE THROAT 14 days #1 BOTTLE albuterol sulfate 2.5 mg/3 mL 2.5 mg (3 mL) inhalation Q4H PRN 05/30/24 Unknown Rx (0.083 %) solution for nebulization SHORTNESS OF BREATH/WHEEZING #180 mL Allergy/AdvReac Type Severity Reaction Status Date / Time lisinopril AdvReac Intermediate cough Verified 06/03/24 05:01 Family History Mother Hypertension Father Hypertension CVA (cerebral vascular accident) Surgical History Stented coronary artery (~04/14/24) Hx of cardiac catheterization (~04/14/24) Hx of colonoscopy with polypectomy (~03/2021) Social History household members: spouse housing: house Smoking Status: Former smoker quit date: 04/24/90 pack-years: 15 alcohol intake: current alcohol intake frequency: holidays/special occasions only substance use type: does not use caffeine: Yes Type: coffee Number of servings: 4 ROS ROS ED Review of Systems ROS Unobtainable: other Constitutional Constitutional ED: Reports lethargy; Denies chills, fever(s), sweats or weight loss Eyes Eyes: Denies blurry vision, change in vision or diplopia ENT ENT ED: Denies rhinorrhea or sore throat Cardiovascular Cardiovascular: Denies chest pain, orthopnea or racing heartbeat Respiratory/Chest Respiratory/Chest: Reports cough, dyspnea and dyspnea on exertion; Denies orthopnea or sputum Gastrointestinal Gastrointestinal: Denies abdominal pain, diarrhea, nausea or vomiting Genitourinary Genitourinary ED: Denies dysuria, hematuria or urinary frequency Musculoskeletal Musculoskeletal: Denies arthralgias, back pain, myalgias or neck pain Integumentary Denies abscess, Abrasions or rash Neurologic Neurologic: Denies headache(s) or weakness Psychiatric Psychiatric: Denies anxiety, depression or suicidal thoughts Endocrine Endocrinology: Denies polydipsia, polyphagia or polyuria Hematologic/Lymphatic Hematologic/Lymphatic: Denies easy bleeding, easy bruising or lymphadenopathy Allergic/Immunologic Allergic/Immunologic ED: Denies mouth swelling, tongue swelling or urticaria EXAM Physical Exam Const Vital Signs: 06/03/24 04:38 06/03/24 04:39 06/03/24 04:46 Temperature 98.0 F Temperature Source Temporal Pulse Rate 105 H Respiratory Rate 24 H Respiratory Effort Blood Pressure 128/97 H Blood Pressure Mean 107 Pulse Ox 93 77 Oxygen Delivery Method Non-Rebreather Nasal Cannula Non-Rebreather Oxygen Flow Rate (L/min) 15 8 15 06/03/24 04:46 06/03/24 05:00 06/03/24 05:00 Temperature 97.9 F Temperature Source Temporal Pulse Rate 102 H 115 H Respiratory Rate 27 H 36 H Respiratory Effort Labored Blood Pressure 128/97 H Blood Pressure Mean 107 Pulse Ox 92 Oxygen Delivery Method Nasal Cannula Oxygen Flow Rate (L/min) 7 Positive well nourished and well developed General Appearance ED: well developed and NAD HEENT Reports TM's clear and moist mucous membranes normocephalic and atraumatic; Negative for trauma or tenderness Tympanic Membrane ED: Yes TM's clear Eyes PERRL and EOMs intact bilaterally General Eye ED: Negative for pale conjunctiva or scleral icterus Neck no lymphadenopathy, supple and no JVD General: Negative for tenderness Chest Wall inspection of chest normal and palpation of chest normal Chest: Negative for tenderness Resp No normal respiratory effort and No clear to auscultation bilaterally Resp Narrative: Mild tachypnea. No accessory muscle use or retractions Effort and Inspection: Negative for respiratory distress or pain with movement Auscultation: wheezes; Negative for rhonchi or diminished lung sounds Cardio regular rate, regular rhythm, S1 normal heart sound, S2 normal heart sound and no murmurs Peripheral Pulses: pulses 2+ throughout GI normal to inspection, nondistended, normoactive bowel sounds, soft to palpation, non-tender, non-distended and no masses Back/Spine no CVA tenderness and no thoracic nor lumbar tenderness Extremity normal to inspection General Extremety ED: Negative for edema General Extremity: Negative for edema Neuro oriented x3, CN's II-XII intact bilaterally, no sensory deficits noted and gait normal Sensorium / Orientation: awake, alert, oriented to person, oriented to place and oriented to time Motor Exam: strength 5/5 throughout and strength abnormal Psych mental status grossly normal Skin no rashes or lesions noted and no wounds MDM MDM MDM Narrative Medical decision making narrative: Patient with increased respiratory difficulty. Pulse ox at home prior to coming to emergency department in the 50s on his 8 L. He has history of pulmonary fibrosis. Had a low-grade fever yesterday. He has a chronic cough. In the differential would be pneumonia versus pneumothorax versus viral infection or other acute process. IV line was established. EKG obtained showed a sinus tachycardia with rate of 104 bpm. CBC with differential white count 7.8 with hemoglobin 14 and platelet count of 131. Chemistries unremarkable. Troponin normal at 30. Lactate was normal at 1.8. Venous blood gas obtained showed a pH of 7.37 with CO2 of 54 PaO2 of 31 bicarb of 31 and O2 sat of 56%. While in department he received DuoNeb aerosol followed by albuterol aerosol and was started on Solu-Medrol. Patient refusing BiPAP and tells me he is not a good candidate for it. Patient also refusing to be on a ventilator should he need to be or decompensate. also reiterates same and states that she has paperwork stating some. Case will be discussed with hospitalist to evaluate patient for admission. I suspect respiratory failure likely secondary to pulmonary fibrosis. COVID flu and RSV testing ordered. Lab Data Attestation: I reviewed the patient's lab results. Labs: Laboratory Results - last 24 hr 06/03/24 04:50 WBC 7.8 RBC 4.59 L Hgb 14.3 Hct 43.3 MCV 94.3 H MCH 31.2 MCHC 33.0 RDW Std Deviation 49.2 H RDW Coeff of Ravinder 14.4 Plt Count 131 L MPV 8.9 Immature Gran % (Auto) 0.400 Neut % (Auto) 77.5 H Lymph % (Auto) 10.4 L Merrick % (Auto) 5.1 Eos % (Auto) 6.0 H Baso % (Auto) 0.6 Absolute Neuts (auto) 6.0 Absolute Lymphs (auto) 0.81 L Nucleated RBC % 0 Sodium 137 Potassium 3.6 Chloride 100 Carbon Dioxide 32.0 Anion Gap 5 BUN 12 Creatinine 0.92 Est GFR (MDRD) Af Amer 109 Est GFR (MDRD) Non-Af 90 BUN/Creatinine Ratio 13.1 Glucose 149 H Lactic Acid 1.8 Calcium 8.9 Troponin I High Sens 30 ABG Data ABG results: ABG 06/03/24 05:13 Specimen Type [place] Sample Site Not entered O2 % 7.0 VBG pH 7.37 VBG pO2 31 VBG HCO3 32 H VBG Total CO2 33 VBG O2 Sat (Calc) 56 VBG Base Excess 6 H POC Mix VBG pCO2 Pt Tmp 54.5 H O2 Delivery Device Cannula Radiography Diagnostic Testin view chest x-ray obtained interpreted by myself as pulmonary fibrosis unchanged from prior study. EKG Initial EKG: Attestation: I personally reviewed and interpreted this EKG as follows: Comments: Signs tachycardia with rate of [address] changes Discharge Plan Triage Chief Complaint: Shortness of Breath ED Provider: Aicha Celestin Dx/Rx/DC Orders Clinical Impression: Respiratory failure, Pulmonary fibrosis, History of CAD (coronary artery disease) Prescriptions: No Action esomeprazole magnesium [Nexium 24HR] 20 mg capsule,delayed release(DR/EC) 20 mg PO DAILY PRN (Reason: acid reflux) aspirin 81 mg tablet,delayed release (DR/EC) 81 mg PO DAILY clopidogrel 75 mg tablet 75 mg PO DAILY Qty: 90 3RF amlodipine 5 mg tablet 5 mg PO DAILY Qty: 90 3RF nitroglycerin 0.4 mg tablet, sublingual 0.4 mg sublingual Q5-15M PRN (Reason: chest pain) Qty: 25 2RF Rx Instructions: do not exceed 3 doses per episode losartan 100 mg tablet 50 mg PO DAILY isosorbide dinitrate 20 mg tablet 20 mg PO TID Qty: 90 11RF Rx Instructions: allow nitrate-free interval of 12-14 hrs per 24-hr period albuterol sulfate 90 mcg/actuation HFA aerosol inhaler 2 puff inhalation DAILY PRN PRN (Reason: SHORTNESS OF BREATH/WHEEZING ) Rx Instructions: ADMINISTER WITH SPACER. atorvastatin 80 mg tablet 80 mg PO QHS Sore Throat (phenol) 1.4 % Aerosol,[place] 3 spray mucous membrane Q2H PRN PRN (Reason: SORE THROAT) 14 Days Qty: 1 0RF guaifenesin [Mucus Relief ER] 1,200 mg Tablet Extended Release 12hr 1,200 mg PO BID 14 Days Qty: 28 0RF Anoro Ellipta 62.5-25 mcg/actuation blister with device 1 inh inhalation Q24H Qty: 60 6RF pirfenidone 267 mg tablet 801 mg PO TID Qty: 30 0RF albuterol sulfate 2.5 mg /3 mL (0.083 %) solution for nebulization 2.5 mg inhalation Q4H PRN (Reason: SHORTNESS OF BREATH/WHEEZING ) Qty: 180 3RF Primary Care Provider: Hardeep Fall Referrals: Hardeep Fall DO [Primary Care Provider] - Print Language: Estonian Disposition Disposition: Acute Care Hospital [facility]
[2024-06-03] MEDS: MethylPREDNISolone 125 MG/2 ML Vial IV (04:51)
[2024-06-03] MEDS: Ipratropium/Albuterol Sulfate 3 ML AMPUL.NEB INHALATION ×4 (04:52→18:58)
[2024-06-03] MEDS: Albuterol 2.5 MG/3 ML VIAL.NEB. INHALATION (04:52)
[2024-06-03] MEDS: 0.9% Normal Saline (1000mL) 1,000 ML 150 ML IV (04:59)
[2024-06-03 05:06] LABS: Absolute Lymphocyte Count 0.81 X10^3/uL (0.83-4.51); Basophil# 0.05 X10^3/uL; Basophil% 0.6 % (0-1); Eosinophil# 0.47 X10^3/uL; Hematocrit 43.3 % (40-54); Hemoglobin 14.3 g/dL (13.0-16.5); Lymphocyte # 0.81 X10^3/ul (0.83-4.51); Lymphocyte % 10.4 % (19-41); Mean Corpuscular Hgb 31.2 pg (27.0-32.0); Mean Corpuscular Volume 94.3 fL (80-94); Mean Platelet Vol. 8.9 fl (6.2-12.0); Monocyte% 5.1 % (0-10); NRBC Flagged by Analyzer 0 % (0-5); Neutrophil # 6.04 X10^3/uL (2.7-7.7); Neutrophil % 77.5 % (47-70); Platelet Count 131 K/mm3 (150-450); RBC Distribution Width CV 14.4 % (11.6-14.6); RBC Distribution Width SD 49.2 fl (35.1-43.9); Red Blood Count 4.59 M/mm3 (4.6-6.2); White Blood Count 7.8 K/mm3 (4.4-11.0)
--- NOTE | 2024-06-03 05:15 | RAD_ITS ---
HISTORY: dyspnea. TECHNIQUE: XR Chest 1 View. COMPARISON: 05/14/2024. FINDINGS: CARDIOMEDIASTINAL BORDERS: Cardiac silhouette within normal limits in size. Mediastinal contour also unchanged with prominent central pulmonary vessels. LUNGS: Chronic fibrosis with mildly increased bibasilar opacities. PLEURA: No pleural effusion or pneumothorax seen. OSSEOUS STRUCTURES: Unremarkable. RAD/Chest 1 View (Portable) IMPRESSION: Chronic interstitial lung disease with mild bibasilar atelectasis or inflammation. Electronically Signed: Natalie Herrera MD at 8:03 EDT ,
[2024-06-03 05:16] LABS: Blood Gas Specimen Type VEN; O2 Delivery Device Cannula; SITE Not entered; VBG BASE EXCESS 6 mmol/L (-1.0-3.5); VBG Bicarbonate 32 mmol/L (22-26); VBG PO2 31 mmHg (25-40); VBG SO2 56 % (50-70); VBG TCO2 33 mmol/L (23-33); VBG pCO2 54.5 mmHg (41-51); VBG pH 7.37 (7.32-7.42)
[2024-06-03 05:24] LABS: Lactic Acid 1.8 mmol/L (0.4-1.9)
[2024-06-03 05:29] LABS: Anion Gap 5 (5-15); BUN 12 mg/dL (7-18); BUN/Creat Ratio 13.1 RATIO (10-20); Calcium,Total 8.9 mg/dL (8.5-10.1); Chloride 100 mmol/L (98-107); Creatinine, Serum 0.92 mg/dL (0.70-1.30); EST Glomerular Filtration Rate 90 mL/min (>60); Est Glom Filt Rate - Afr Amer 109 mL/min (>60); Glucose 149 mg/dL (74-106); Potassium 3.6 mmol/L (3.5-5.1); Sodium Level 137 mmol/L (136-145); Troponin-I HS 30 pg/mL (3.0-78.0)
--- NOTE | 2024-06-03 05:46 | PCM.HP.STD ---
HPI - General General Date of Admission: 06/03/24 Date of Service: 06/03/24 Chief Complaint: Dyspnea, respiratory distress. HPI Narrative The patient is a 58 y/o M w/ PMHx: HTN, HLD, CAD s/p PCI 04/14/24, GERD, Tobacco use, Protein calorie malnutrition, Chronic Hypoxic Respiratory Failure with COPD/Restrictive with IPF with Pulmonary HTN, recent discharge 05/18/24 following treatment and evaluation for acute hypoxic respiratory failure on chronic secondary to underlying pulmonary fibrosis complicated by pulmonary hypertension as well as acute on chronic COPD exacerbation with new noted normocytic anemia and diagnosed mild oropharyngeal dysphagia discharged on 8 L nasal cannula at rest and 12 L nasal cannula with activity unfortunately declining recommended skilled facility placement with 12-day prednisone therapy taper with completion of IV antibiotics during admission who now re-presents to the [facility] ED on 06/03/2024 with shortness of breath starting on morning on day of presentation with a visiting nurse reporting that he had a low-grade fever the day prior with unchanged chronic cough prompting EMS call who found him to be in respiratory distress prompting transition to the ED for evaluation to be cautious. In the ED patient noted to be tachypneic with diffuse wheezing. He himself denies any recent fevers, chills, nausea, emesis, worsening productive cough and prior to this had felt his baseline. He had awoken with a coughing fit. Workup in the ED included T98, heart rate 105, BP 120/97, respiratory rate 24, initially 93% on 15 L improved--> noted to be then 77% on 8 L eventually improving to 92% on 7 L with most recent vital signs heart rate 115, respiratory rate 36, CBC with WBC 7.8 coming 114.3, platelet 131 with lymphopenia, VBG with bicarb 32, BMP with glucose 149, lactic acid 1.8, troponin 30, BNP pending upon request evaluation of patient, blood culture x 2 pending per ED, chest x-ray with chronic fibrotic changes similar to previous but final chest x-ray radiology read is pending upon request evaluation of patient, EKG with sinus tachycardia with nonspecific ST changes with no acute evidence of ischemia. In the ED BiPAP was recommended by the ED physician but he refused this. In the ED patient administered DuoNeb therapy, albuterol and IV Solu-Medrol as well as maintenance IV fluids. [facility] Medical History Protein calorie malnutrition Acute exacerbation of idiopathic pulmonary fibrosis Right ventricular dilation Pulmonary hypertension Lung transplant candidate IPF (idiopathic pulmonary fibrosis) CAD (coronary artery disease) Hypercholesteremia Mixed obstructive and restrictive ventilatory defect Chronic hypoxemic respiratory failure Recurrent sinus infections COPD exacerbation Hypokalemia Acute dyspnea Chest discomfort HTN (hypertension) GERD (gastroesophageal reflux disease) ILD (interstitial lung disease) Acute and chronic respiratory failure Influenza A Nicotine dependence, cigarettes, in remission Restrictive airway disease Obesity Therapeutic drug monitoring Pulmonary fibrosis 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 Umbilical hernia Mononucleosis Blind right eye Allergic rhinitis Home Medications ?Medication ?Instructions ?Recorded ?Last Taken ?Type umeclidinium 62.5 mcg-vilanterol 1 inh inhalation Q24H SHORTNESS OF 10/25/23 05/13/24 Rx 25 mcg/actuation powdr for BREATH/WHEEZING #60 ea inhalation (Anoro Ellipta) albuterol sulfate 90 mcg/actuation 2 puff inhalation DAILY PRN PRN 03/27/24 05/13/24 History aerosol inhaler SHORTNESS OF BREATH/WHEEZING amlodipine 5 mg tablet 5 mg PO DAILY blood pressure #90 04/12/24 05/13/24 Rx tabs aspirin 81 mg tablet,delayed 81 mg PO DAILY heart health 04/12/24 05/13/24 History release clopidogrel 75 mg tablet 75 mg PO DAILY anti platelet #90 04/12/24 05/13/24 Rx tabs esomeprazole magnesium 20 mg 20 mg PO DAILY PRN acid reflux 04/12/24 05/13/24 History capsule,delayed release (Nexium 24HR) nitroglycerin 0.4 mg sublingual 0.4 mg sublingual Q5-15M PRN chest 04/12/24 Unknown Rx tablet pain #25 tabs atorvastatin 80 mg tablet 80 mg PO QHS cholesterol 04/13/24 05/13/24 History pirfenidone 267 mg tablet 801 mg (3 x 267 mg) PO TID 04/25/24 05/13/24 Rx PULMONARY FIBROSIS #30 tabs isosorbide dinitrate 20 mg tablet 20 mg PO TID heart health #90 tabs 05/05/24 05/13/24 Rx losartan 100 mg tablet 50 mg PO DAILY BLOOD PRESSURE 05/05/24 05/13/24 History guaifenesin 1,200 mg tablet, 1,200 mg PO BID 14 days #28 tabs 05/18/24 Unknown Rx extended release 12 hr (Mucus Relief ER) phenol 1.4 % mucosal aerosol spray 3 spray mucous membrane Q2H PRN 05/18/24 Unknown Rx (Sore Throat (phenol)) PRN SORE THROAT 14 days #1 BOTTLE albuterol sulfate 2.5 mg/3 mL 2.5 mg (3 mL) inhalation Q4H PRN 05/30/24 Unknown Rx (0.083 %) solution for nebulization SHORTNESS OF BREATH/WHEEZING #180 mL Allergy/AdvReac Type Severity Reaction Status Date / Time lisinopril AdvReac Intermediate cough Verified 06/03/24 05:01 Family History Mother Hypertension Father Hypertension CVA (cerebral vascular accident) Surgical History Stented coronary artery (~04/14/24) Hx of cardiac catheterization (~04/14/24) Hx of colonoscopy with polypectomy (~03/2021) Social History household members: spouse housing: house Smoking Status: Former smoker quit date: 04/24/90 pack-years: 15 alcohol intake: current alcohol intake frequency: holidays/special occasions only substance use type: does not use caffeine: Yes Type: coffee Number of servings: 4 ROS ROS Narrative Admission Review of Systems: CONSTITUTIONAL: No weight loss, fever, chills, + weakness or fatigue. HEENT: + Chronic right eye vision changes. Eyes: No double vision or yellow sclerae. Ears, Nose, Throat: No hearing loss, sneezing, congestion, runny nose or sore throat. SKIN: No rash or itching, lesions, wounds. CARDIOVASCULAR: No chest pain, chest pressure or chest discomfort, palpitations, edema, orthopnea, syncopal events. RESPIRATORY: + Dyspnea with chronic cough, not markedly productive, wheezing. No hemoptysis. GASTROINTESTINAL: No anorexia, nausea, vomiting or diarrhea, abdominal pain, melena, BRBPR. GENITOURINARY: No dysuria, frequency, urgency or retention. NEUROLOGICAL: No headache, dizziness, syncope, paralysis, ataxia, numbness or tingling in the extremities, focal weakness, change in bowel or bladder control, seizure. MUSCULOSKELETAL: + muscle, back pain, joint pain or stiffness. HEMATOLOGIC: No anemia. Easy bleeding/bruising. LYMPHATICS: No enlarged nodes. No history of splenectomy. PSYCHIATRIC: No history of depression or anxiety. ENDOCRINOLOGIC: No reports of sweating, cold or heat intolerance. No polyuria or polydipsia. ALLERGIES: No history of asthma, hives, eczema or rhinitis. Vital Signs Vital Signs Vital Signs: 06/03/24 04:38 06/03/24 04:39 06/03/24 04:46 Temperature 98.0 F Temperature Source Temporal Pulse Rate 105 H Respiratory Rate 24 H Respiratory Effort Blood Pressure 128/97 H Blood Pressure Mean 107 Pulse Ox 93 77 Oxygen Delivery Method Non-Rebreather Nasal Cannula Non-Rebreather Oxygen Flow Rate (L/min) 15 8 15 06/03/24 04:46 06/03/24 05:00 06/03/24 05:00 Temperature 97.9 F Temperature Source Temporal Pulse Rate 102 H 115 H Respiratory Rate 27 H 36 H Respiratory Effort Labored Blood Pressure 128/97 H Blood Pressure Mean 107 Pulse Ox 92 Oxygen Delivery Method Nasal Cannula Oxygen Flow Rate (L/min) 7 06/03/24 05:37 06/03/24 05:38 Temperature 97 F L Temperature Source Pulse Rate 115 H Respiratory Rate 32 H Respiratory Effort Blood Pressure 113/71 Blood Pressure Mean 85 Pulse Ox 97 93 Oxygen Delivery Method High Flow Oxygen Flow Rate (L/min) 12 Physical Exam Narrative Physical Examination: General: Awake, alert, oriented x 3 and cooperative, seated upright in the ED bed, intermittent coughing fits with desaturations, ill-appearing and evident respiratory distress. Skin: Normal color, normal turgor, no icterus, no cyanosis except occasional staged ecchymoses, abrasions. HEENT: AT/NC, EOMI, PERRLA, mildly dry MM, no carotid bruits or JVD noted. Lungs: Severely diminished, greater bases, increased respiratory rate with some accessory muscle usage noted, crackles bilateral bases similar to previous, no marked rales or rhonchi. Heart: Tachycardic with regular rhythm; no gallop, rub audible. Abdomen: Soft, thinner habitus with evidence of muscle wasting, NTTP, ND, distant normal BS, no appreciated HSM. Extremities: No cyanosis, no clubbing, no marked peripheral edema, evidence of muscle loss/wasting. Neurological: Patient awake, alert, oriented as noted, cognitive function intact; pupils equally reactive to light and accommodation, cranial nerves gross normal, moving all 4 extremities, no focal deficits, strength severely globally decreased secondary to acute presentation. Psychiatric: Affect appears fatigued, ill-appearing, respiratory distress evident, no acute evidence of depressive or anxiety feelings. Results Lab / Micro Data 06/03/24 04:50 06/03/24 04:50 Labs: Laboratory Results - last 24 hr 06/03/24 04:50: WBC 7.8, RBC 4.59 L, Hgb 14.3, Hct 43.3, MCV 94.3 H, MCH 31.2, MCHC 33.0, RDW Std Deviation 49.2 H, RDW Coeff of Ravinder 14.4, Plt Count 131 L, MPV 8.9, Immature Gran % (Auto) 0.400, Neut % (Auto) 77.5 H, Lymph % (Auto) 10.4 L, [place] % (Auto) 5.1, Eos % (Auto) 6.0 H, Baso % (Auto) 0.6, Absolute Neuts (auto) 6.0, Absolute Lymphs (auto) 0.81 L, Nucleated RBC % 0, Sodium 137, Potassium 3.6, Chloride 100, Carbon Dioxide 32.0, Anion Gap 5, BUN 12, Creatinine 0.92, Est GFR (MDRD) Af Amer 109, Est GFR (MDRD) Non-Af 90, BUN/Creatinine Ratio 13.1, Glucose 149 H, Lactic Acid 1.8, Calcium 8.9, Troponin I High Sens 30 ABG Data ABG results: ABG 06/03/24 05:13 Specimen Type [place] Sample Site Not entered O2 % 7.0 VBG pH 7.37 VBG pO2 31 VBG HCO3 32 H VBG Total CO2 33 VBG O2 Sat (Calc) 56 VBG Base Excess 6 H POC Mix VBG pCO2 Pt Tmp 54.5 H O2 Delivery Device Cannula Assessment & Plan Assessment/Plan (1) Respiratory failure: (2) Pulmonary fibrosis: (3) COPD (chronic obstructive pulmonary disease): QUALIFIERS: COPD type: unspecified COPD Qualified Code(s): J44.9 - Chronic obstructive pulmonary disease, unspecified PLAN: Plan The patient is a 58 y/o M w/ PMHx: HTN, HLD, CAD s/p PCI 04/14/24, GERD, Tobacco use, Protein calorie malnutrition, Chronic Hypoxic Respiratory Failure with COPD/Restrictive with IPF with Pulmonary HTN, recent discharge 05/18/24 following treatment and evaluation for acute hypoxic respiratory failure on chronic secondary to underlying pulmonary fibrosis complicated by pulmonary hypertension as well as acute on chronic COPD exacerbation with new noted normocytic anemia and diagnosed mild oropharyngeal dysphagia discharged on 8 L nasal cannula at rest and 12 L nasal cannula with activity unfortunately declining recommended skilled facility placement with 12-day prednisone therapy taper with completion of IV antibiotics during admission who now re-presents to the [facility] ED on 06/03/2024 with shortness of breath starting on morning on day of presentation with a visiting nurse reporting that he had a low-grade fever the day prior with unchanged chronic cough prompting EMS call who found him to be in respiratory distress prompting transition to the ED for evaluation to be cautious. #1. Acute Hypoxic Respiratory Failure on Chronic Hypoxic Respiratory Failure secondary to Underlying Pulmonary Fibrosis with exacerbation, Pulmonary HTN and COPD with Acute on Chronic Exacerbation: Will admit to the ICU, maintain on oxygen with wean as tolerated to home supplementation with preferential maintenance of saturation 88 to 92%, continue ATC duonebs, PRN albuterol, IV methylprednisolone, HOB, IS parameters, will obtain sputum Cx, respiratory viral panel, procalcitonin, will hold on immediately abx therapy but low threshold to add if appropriate, avoid aggressive hydration given prior presentation and as previously monitor for gentle diuresis needs. Will again strongly encourage patient to follow-up with transplant team for continued ongoing evaluation. #2. Recently noted normocytic anemia: Admission hemoglobin 14.3, recent presentation with hemoglobin drop down to 12 which remained stable and now return back to prior baseline, will continue to trend CBC. #3. CAD: Status post recent PCI LAD 03/2024, continue aspirin, Plavix, statin. Given lower normal BP will continue to hold losartan, not on beta-andrew secondary to underlying pulmonary history. #4. Hypertension: Blood pressure decreased, held HTN regimen (isosorbide, losartan), PRN hydralazine. #5. Hyperlipidemia: We will continue patient on statin therapy. #6. Severe protein calorie malnutrition: Although BMI not severely reduced, patient with muscle and fat loss, significant underlying comorbidities, nutrition consulted. #7. GERD: We will continue patient on PPI. #8. DVT prophylaxis: Lovenox. #9. CODE status: Patient healthcare power of securities attorney and living will recently being set up specifically his supposedly needing 1 additional signature. Discussed CODE status at length including difference between FULL code, DNR-CCA and DNR-CC status. Following discussions about the differences in these status, requested DNR-CCA, no intubation status. Advanced Care Planning Face to Face Time: 16 minutes. Charges/Coding Visit Charges Inpatient E&M: 00449 Init Hosp L3 Procedures Hospitalists Procedures: 04418 Advncd Care Plan 30 Min
--- NOTE | 2024-06-03 06:14 | ED.RN ---
report called to [facility].
[2024-06-03 06:33] LABS: BNP,B-Type NATRIURETIC PEPTIDE 75.3 pg/mL (0-100)
[2024-06-03] MEDS: Acetaminophen 325 MG Tablet 650 MG PO (06:52)
--- NOTE | 2024-06-03 07:13 | PN.HOSP_ITS ---
Reason for Visit Reason for Visit: Diagnoses Chronic obstructive pulmonary disease, unspecified (06/03/24) Pulmonary fibrosis, unspecified (06/03/24) Respiratory failure, unspecified, unspecified whether with hypoxia or hypercapnia (06/03/24) Subjective Subjective Patient is a 58-year-old gentleman with underlying history of pulmonary fibrosis pulmonary hypertension and COPD presented with progressive shortness of breath Objective Data Objective Data Vital Signs: Vital Signs Temp Pulse Resp BP Pulse Ox O2 Del Method O2 Flow Rate 97.6 F L 110 H 36 H 116/76 95 High Flow 13 06/03/24 06:45 06/03/24 07:00 06/03/24 07:00 06/03/24 07:00 06/03/24 07:00 06/03/24 07:00 06/03/24 07:00 Oxygen Flow Rate (L/min) 13 Oxygen Delivery Method High Flow Weight: 60.4 kg Body Mass Index (BMI) 20.8 Intake & Output: Intake and Output for Last 24 Hours 06/01/24 06/02/24 06/03/24 23:59 23:59 23:59 Intake Total 250 / 250 Balance 250 / 250 Lab / Micro Data 06/03/24 04:50 06/03/24 04:50 Labs: Laboratory Results - last 24 hr 06/03/24 04:50: WBC 7.8, RBC 4.59 L, Hgb 14.3, Hct 43.3, MCV 94.3 H, MCH 31.2, MCHC 33.0, RDW Std Deviation 49.2 H, RDW Coeff of Ravinder 14.4, Plt Count 131 L, MPV 8.9, Immature Gran % (Auto) 0.400, Neut % (Auto) 77.5 H, Lymph % (Auto) 10.4 L, [place] % (Auto) 5.1, Eos % (Auto) 6.0 H, Baso % (Auto) 0.6, Absolute Neuts (auto) 6.0, Absolute Lymphs (auto) 0.81 L, Nucleated RBC % 0, Sodium 137, Potassium 3.6, Chloride 100, Carbon Dioxide 32.0, Anion Gap 5, BUN 12, Creatinine 0.92, Est GFR (MDRD) Af Amer 109, Est GFR (MDRD) Non-Af 90, BUN/Creatinine Ratio 13.1, Glucose 149 H, Lactic Acid 1.8, Calcium 8.9, Troponin I High Sens 30, B- Natriuretic Peptide 75.3 Micro: Microbiology 06/03/24 05:35 Mucosa - Nose SARS-CoV-2, Influenza & RSV (PCR) - Final ABG Data ABG results: ABG 06/03/24 05:13 Specimen Type [place] Sample Site Not entered O2 % 7.0 VBG pH 7.37 VBG pO2 31 VBG HCO3 32 H VBG Total CO2 33 VBG O2 Sat (Calc) 56 VBG Base Excess 6 H POC Mix VBG pCO2 Pt Tmp 54.5 H O2 Delivery Device Cannula Physical Exam Narrative GENERAL: cooperative HEENT: Atraumatic; normocephalic EYES; Anicteric, Normal Conjunctiva NECK; supple, normal thyroid, RESPIRATORY: Diminished to auscultation CARDIOVASCULAR: Regular S1 S2, GI: soft, normoactive bowel sounds, : No Renal angle tenderness; EXTREMITIES: No edema, no clubbing, MUSCULOSKELETAL: no muscle wasting NEURO: Awake; no lateralizing signs. SKIN: No Rash PSYCH; Flat affect Assessment & Plan Assessment/Plan (1) Respiratory failure: (2) Pulmonary fibrosis: (3) COPD (chronic obstructive pulmonary disease): QUALIFIERS: COPD type: unspecified COPD Qualified Code(s): J44.9 - Chronic obstructive pulmonary disease, unspecified PLAN: Plan Patient is a 58-year-old gentleman with underlying history of pulmonary fibrosis pulmonary hypertension and COPD presented with progressive shortness of breath 1. Acute on chronic hypoxic respiratory failure ? Multifactorial with exacerbation of his underlying pulmonary fibrosis COPD in the setting of pulmonary hypertension. Admitted to monitored bed managed with bronchodilator treatment systemic steroids and antibiotic therapy with supplemental oxygen initiated titrated to keep saturation greater than 90 2. Hypertension ? Blood pressure controlled, home medications continued with dose adjustment as needed 3. Coronary artery disease ? With previous PCI with MARK to an LAD lesion on 03/2024. Patient is on guideline directed medical therapy 4. Dyslipidemia ?Patient is on statin therapy, continued at home dose 5. GERD ? Patient is on PPI 6. DVT prophylaxis ? On enoxaparin
[2024-06-03] MEDS: guaiFENesin 1,200 MG Tablet 1200 MG PO ×2 (09:31→21:00)
[2024-06-03] MEDS: Aspirin E.C. 81 MG Tablet PO (09:31)
[2024-06-03] MEDS: Enoxaparin 40 MG/0.4 ML Syringe SC (09:31)
[2024-06-03] MEDS: Clopidogrel Bisulfate 75 MG Tablet PO (09:31)
[2024-06-03] MEDS: PIRFENIDONE 267 MG 801 MG PO ×3 (09:41→20:59)
[2024-06-03] MEDS: 0.9% Saline Lock 10 ML Syringe IV ×2 (10:14→21:01)
[2024-06-03] MEDS: BENZOCAINE/MENTHOL 1 LOZENGE 2 LOZENGE MUCOUS MEM (10:48)
[2024-06-03] MEDS: Benzonatate 100 MG Capsule PO ×2 (10:48→19:57)
--- NOTE | 2024-06-03 10:51 | PCMCONS.TICU ---
HPI Consult Data Date of Consult: 06/03/24 HPI Narrative HPI Narrative: MARY KAY MIRELES, is a 58 yo M w/ chronic hypoxic respiratory failure on recent home 8L NC rest/12L with activity, IPF on esbriet, COPD, pulmonary HTN, CAD s/p PCI, HTN, HLD, dysphagia, GERD, anemia who was admitted for recurrent respiratory failure. He was admitted here just a few weeks ago for respiratory failure thought 2/2 PNA vs IPF exacerbation. Improved with steroids and abx, was discharged home with home health nursing visits (pt declined SNF). He took 12 day prednisone taper, and reports starting to feel worsening dyspnea after he completed this. He reports sx were similar to prior admit here with worsening dyspnea, stable mild productive cough, low grade fever, intermittent CP with coughing only. Denied wheezing though admit note mentions he had this on arrival. Has modified diet according to ST recs on last admit and denies choking/dysphagia at home. No vomiting, diarrhea, dysuria, or other prominent sx. He was noted to be hypoxic on 8L and required escalation up to 13L NC. He is still somewhat tachypneic, but is refusing HHFNC and BiPAP since he felt these were too uncomfortable for him last time. He was started on IV steroids and nebs, already feels that his breathing is getting better. Reports taking anoro ellipta daily at home. Quit smoking ~20 yrs ago Denies nausea, vomiting, diarrhea, syncope, presyncope, dysphagia, odynophagia, reflux symptoms, belly pain, dysuria, hematuria, melena, hematochezia, seizures, paralysis, or other neurological changes. [facility] Medical History Protein calorie malnutrition Acute exacerbation of idiopathic pulmonary fibrosis Right ventricular dilation Pulmonary hypertension Lung transplant candidate IPF (idiopathic pulmonary fibrosis) CAD (coronary artery disease) Hypercholesteremia Mixed obstructive and restrictive ventilatory defect Chronic hypoxemic respiratory failure Recurrent sinus infections COPD exacerbation Hypokalemia Acute dyspnea Chest discomfort HTN (hypertension) GERD (gastroesophageal reflux disease) ILD (interstitial lung disease) Acute and chronic respiratory failure Influenza A Nicotine dependence, cigarettes, in remission Restrictive airway disease Obesity Therapeutic drug monitoring Pulmonary fibrosis 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 Umbilical hernia Mononucleosis Blind right eye Allergic rhinitis Home Medications ?Medication ?Instructions ?Recorded ?Last Taken ?Type umeclidinium 62.5 mcg-vilanterol 1 inh inhalation Q24H SHORTNESS OF 10/25/23 05/13/24 Rx 25 mcg/actuation powdr for BREATH/WHEEZING #60 ea inhalation (Anoro Ellipta) albuterol sulfate 90 mcg/actuation 2 puff inhalation DAILY PRN PRN 03/27/24 05/13/24 History aerosol inhaler SHORTNESS OF BREATH/WHEEZING amlodipine 5 mg tablet 5 mg PO DAILY blood pressure #90 04/12/24 05/13/24 Rx tabs aspirin 81 mg tablet,delayed 81 mg PO DAILY heart health 04/12/24 05/13/24 History release clopidogrel 75 mg tablet 75 mg PO DAILY anti platelet #90 04/12/24 05/13/24 Rx tabs esomeprazole magnesium 20 mg 20 mg PO DAILY PRN acid reflux 04/12/24 05/13/24 History capsule,delayed release (Nexium 24HR) nitroglycerin 0.4 mg sublingual 0.4 mg sublingual Q5-15M PRN chest 04/12/24 Unknown Rx tablet pain #25 tabs atorvastatin 80 mg tablet 80 mg PO QHS cholesterol 04/13/24 05/13/24 History pirfenidone 267 mg tablet 801 mg (3 x 267 mg) PO TID 04/25/24 05/13/24 Rx PULMONARY FIBROSIS #30 tabs isosorbide dinitrate 20 mg tablet 20 mg PO TID heart health #90 tabs 05/05/24 05/13/24 Rx losartan 100 mg tablet 50 mg PO DAILY BLOOD PRESSURE 05/05/24 05/13/24 History guaifenesin 1,200 mg tablet, 1,200 mg PO BID 14 days #28 tabs 05/18/24 Unknown Rx extended release 12 hr (Mucus Relief ER) phenol 1.4 % mucosal aerosol spray 3 spray mucous membrane Q2H PRN 05/18/24 Unknown Rx (Sore Throat (phenol)) PRN SORE THROAT 14 days #1 BOTTLE albuterol sulfate 2.5 mg/3 mL 2.5 mg (3 mL) inhalation Q4H PRN 05/30/24 Unknown Rx (0.083 %) solution for nebulization SHORTNESS OF BREATH/WHEEZING #180 mL Allergy/AdvReac Type Severity Reaction Status Date / Time lisinopril AdvReac Intermediate cough Verified 06/03/24 05:01 Family History Mother Hypertension Father Hypertension CVA (cerebral vascular accident) Surgical History Stented coronary artery (~04/14/24) Hx of cardiac catheterization (~04/14/24) Hx of colonoscopy with polypectomy (~03/2021) Social History household members: spouse housing: house Smoking Status: Former smoker quit date: 04/24/90 pack-years: 15 alcohol intake: current alcohol intake frequency: holidays/special occasions only substance use type: does not use caffeine: Yes Type: coffee Number of servings: 4 ROS ROS Narrative As per HPI Objective Data Objective Data Vital Signs: Vital Signs Last response Temperature 37.3 C H 06/03/24 08:00 Temperature Source Oral 06/03/24 08:00 Pulse Rate 107 H 06/03/24 10:00 Pulse Strength Normal (2+) 06/03/24 10:00 Respiratory Rate 34 H 06/03/24 10:00 Respiratory Effort Short of Breath 06/03/24 08:00 Respiratory Depth Shallow 06/03/24 08:00 Respiratory Pattern Tachypnea 06/03/24 08:00 Blood Pressure 117/82 H 06/03/24 10:00 Blood Pressure Mean 93 06/03/24 10:00 Blood Pressure Source Monitor 06/03/24 10:00 Blood Pressure Position Semi-Fowlers 06/03/24 10:00 Blood Pressure Location Right Arm 06/03/24 10:00 Pulse Ox 98 06/03/24 10:00 Oxygen Delivery Method High Flow 06/03/24 10:00 Oxygen Flow Rate (L/min) 13 06/03/24 10:00 I&O: I&O Last 24 Hours 06/02/24 06/02/24 06/03/24 11:59 23:59 11:59 Intake Total 250 / 250 Output Total 150 / 150 Balance 100 / 100 I&O: Total Stay 06/03/24 04:38 thru 06/03/24 10:00 Intake Total 250 Output Total 150 Balance 100 Current Meds Ordered / Administered: Current meds ordered / Administered Generic Name Dose Route Start Last Admin Trade Name Freq PRN Reason Stop Dose Admin Acetaminophen 650 mg 06/03/24 06:25 06/03/24 06:52 Acetaminophen 325 Mg Tablet PO 650 mg Q4H PRN PRN Administration Fever, pain 1-1010 Al Hydrox/Mg Hydrox/Simethicone 30 ml 06/03/24 06:25 Mag /Aluminum/Simeth Wch Udc 30 Ml Oral.Susp PO Q6H PRN PRN Gastric Burning Albuterol Sulfate 2.5 mg 06/03/24 06:25 Albuterol 2.5 Mg/3 Ml Vial.Neb. INHALATION Q2H PRN PRN Dyspnea, wheezing Albuterol/Ipratropium 3 ml 06/03/24 06:25 06/03/24 07:41 Ipratropium/Albuterol Sulfate 3 Ml Ampul.Neb INHALATION 3 ml Q4HWA.RT CIRILO Administration Aspirin 81 mg 06/03/24 10:00 06/03/24 09:31 Aspirin E.C. 81 Mg Tablet PO 81 mg DAILY CIRILO Administration Atorvastatin Calcium 80 mg 06/03/24 22:00 Atorvastatin Calcium 80 Mg Tablet PO QHS CIRILO Benzonatate 100 mg 06/03/24 10:20 06/03/24 10:48 Benzonatate 100 Mg Capsule PO 100 mg Q4H PRN PRN Administration COUGH Clopidogrel Bisulfate 75 mg 06/03/24 10:00 06/03/24 09:31 Clopidogrel Bisulfate 75 Mg Tablet PO 75 mg DAILY CIRILO Administration Enoxaparin Sodium 40 mg 06/03/24 10:00 06/03/24 09:31 Enoxaparin 40 Mg/0.4 Ml Syringe SC 40 mg DAILY CIRILO Administration Guaifenesin 1,200 mg 06/03/24 10:00 06/03/24 09:31 Guaifenesin 1,200 Mg Tablet PO 1,200 mg BID CIRILO Administration Hydralazine HCl 10 mg 06/03/24 06:25 Hydralazine 20 Mg/Ml Vial IV Q4H PRN PRN SBP > 160 Protocol Sodium Chloride 250 mls @ 15 mls/hr 06/03/24 06:36 IV .[id number] PRN Additional IVPB Infusion Sodium Chloride 250 mls @ 15 mls/hr 06/03/24 06:36 IV .[id number] PRN Saline Flush Melatonin 3 mg 06/03/24 06:25 Melatonin 3 Mg Tablet PO QHS PRN PRN INSOMNIA Methylprednisolone 40 mg 06/03/24 06:25 06/03/24 06:44 Methylprednisolone 40 Mg/Ml Vial IV 40 mg Q8 CIRILO Administration Nutritional Formula (Lactose Free) 120 ml 06/03/24 10:00 06/03/24 09:50 Ensure Plus High Protein 120 Ml Liquid PO Not Given 4X/DAY CIRILO Ondansetron HCl 4 mg 06/03/24 06:25 Ondansetron 4 Mg/2 Ml Vial IV Q8H PRN PRN NAUSEA/VOMITING Pantoprazole Sodium 20 mg 06/03/24 06:25 Pantoprazole Sodium 20 Mg Tablet PO DAILY PRN PRN acid reflux Prochlorperazine Edisylate 5 mg 06/03/24 06:25 Prochlorperazine 10 Mg/2 Ml Vial IV Q4H PRN PRN Breakthrough Nausea/Vomiting Senna/Docusate Sodium 2 tablet 06/03/24 06:25 Senna/Docusate Sodium 1 Tablet PO BID PRN PRN Constipation Sodium Chloride 10 - 40 ml 06/03/24 06:36 06/03/24 10:14 0.9% Saline Lock 10 Ml Syringe IV 10 ml UD PRN Administration SALINE FLUSH Throat Lozenges 2 lozenge 06/03/24 10:19 06/03/24 10:48 Benzocaine/Menthol 1 Lozenge MUCOUS MEM 2 lozenge Q2H PRN PRN Administration COUGH/sore throat Lab / Micro Data 06/03/24 04:50 06/03/24 04:50 Labs: Laboratory Results - last 24 hr 06/03/24 04:50: WBC 7.8, RBC 4.59 L, Hgb 14.3, Hct 43.3, MCV 94.3 H, MCH 31.2, MCHC 33.0, RDW Std Deviation 49.2 H, RDW Coeff of Ravinder 14.4, Plt Count 131 L, MPV 8.9, Immature Gran % (Auto) 0.400, Neut % (Auto) 77.5 H, Lymph % (Auto) 10.4 L, [place] % (Auto) 5.1, Eos % (Auto) 6.0 H, Baso % (Auto) 0.6, Absolute Neuts (auto) 6.0, Absolute Lymphs (auto) 0.81 L, Nucleated RBC % 0, Sodium 137, Potassium 3.6, Chloride 100, Carbon Dioxide 32.0, Anion Gap 5, BUN 12, Creatinine 0.92, Est GFR (MDRD) Af Amer 109, Est GFR (MDRD) Non-Af 90, BUN/Creatinine Ratio 13.1, Glucose 149 H, Lactic Acid 1.8, Calcium 8.9, Troponin I High Sens 30, B-Natriuretic Peptide 75.3 Micro: Microbiology 06/03/24 07:40 Mucosa - Nasopharyngeal Respiratory Panel (PCR) - Final Parainfluenza 1 06/03/24 09:55 Urine, Clean Catch Legionella Antigen - Final 06/03/24 09:55 Urine, Clean Catch Streptococcus pneumoniae Antigen (M - Final 06/03/24 05:35 Mucosa - Nose SARS-CoV-2, Influenza & RSV (PCR) - Final ABG Data ABG results: ABG 06/03/24 05:13 Specimen Type [place] Sample Site Not entered O2 % 7.0 VBG pH 7.37 VBG pO2 31 VBG HCO3 32 H VBG Total CO2 33 VBG O2 Sat (Calc) 56 VBG Base Excess 6 H POC Mix VBG pCO2 Pt Tmp 54.5 H O2 Delivery Device Cannula Imaging Radiology Impression Chest X-Ray 06/03/24 05:15 IMPRESSION: Chronic interstitial lung disease with mild bibasilar atelectasis or inflammation. Electronically Signed: Natalie Herrera MD at 8:03 EDT Reading Location ID and State: [facility] / [place] Tel , Service support , Assessment and Plan . Assessment and plan: Physical Exam: Gen - NAD, thin, fatigued HEENT - MMM. Sclera anicteric Resp - +crackles. Tachypneic CV - RRR. No m/g/r Abd - Soft, NT, ND Ext - No c/c/e. Skin - No rashes? Neuro - Grossly nonfocal. Alert and oriented I have reviewed the pertinent vital sign, laboratory, and imaging data. ASSESSMENT: # Acute on chronic hypoxic respiratory failure - on home 8L NC at rest and 12L NC with activity after recent discharge # Parainfluenza PNA # IPF with possible exacerbation - on esbriet at home # COPD # Pulmonary HTN - recent TTE w/ LVEF 60%, severe RV dilation, moderate dysfunction, RVSP 65 # CAD s/p PCI # HTN # HLD # Dysphagia # GERD # Anemia PLAN: -On 13L NC, wean to keep sats > 90%. Encourage IS. Pt refuses HHFNC and BiPAP. DNR/DNI as well -Cont IV solumedrol. Can likely start tapering down again soon -Holding off on empiric abx for now given recent course here. Check cultures, procal. Low threshold to start if worsening -ASA/plavix -BNP low. Monitor volume status, PRN diuretics to maintain euvolemia -Recent CTA chest negative on prior admit, consider re-eval for VTE if not improving further -Duonebs -Will need to follow-up after discharge with [facility] lung transplant clinic to restart transplant eval FEN/GI: Gentle PO as tolerated, aspiration precautions, dietary modification as per ST Proph DVT/GI: Lovenox, protonix Code status: DNR/DNI Critical Care Time: 60 mins The entirety of this encounter was done via Telemedicine
--- NOTE | 2024-06-03 12:09 | CASEMGMT ---
Social Work SW met w/pt, pt's mother is in the room. SW inquired about LW/POA, as it was documented he needs to finish the paperwork. Pt states his has the documents and they just need a signature. SW asked pt to have his bring in the paperwork and we can assist in getting the documents completed. Pt states understanding. SW will continue to follow. MARIAJOSE Fernandez
[2024-06-03 13:08] LABS: Procalcitonin 0.17 ng/mL (0.00-0.09)
[2024-06-03] MEDS: Ensure Plus High Protein 120 ML LIQUID PO ×3 (14:17→20:58)
[2024-06-03] MEDS: Mag /Aluminum/Simeth WCH UDC 30 ML ORAL.SUSP PO (18:58)
[2024-06-03] MEDS: Atorvastatin Calcium 80 MG Tablet PO (20:59)
--- NOTE | 2024-06-03 23:20 | NURSING ---
Patient refused to be turned in bed. States he has been sleeping in upright position for quite some time in order to help with his breathing. Attempted multiple times to reposition. Patient observed to be turning himself slightly at times when resting in bed.
[2024-06-04] VITALS (30 sets, daily range): BP systolic 105–145; BP diastolic 70–100; PULSE 74–121; RESP 14–41; TEMP 36.2–36.7; O2SAT 84–100; BMI 21.0
[2024-06-04] MEDS: Albuterol 2.5 MG/3 ML VIAL.NEB. INHALATION (00:08)
[2024-06-04] MEDS: Benzonatate 100 MG Capsule PO ×6 (01:40→21:23)
[2024-06-04] MEDS: 0.9% Saline Lock 10 ML Syringe IV ×3 (04:54→21:23)
[2024-06-04] MEDS: PIRFENIDONE 267 MG 801 MG PO ×3 (04:54→21:24)
[2024-06-04 05:18] LABS: Absolute Neutrophil Count 7.8 X10^3/uL (2.0-7.7); Basophil# 0.01 X10^3/uL; Basophil% 0.1 % (0-1); Hematocrit 38.7 % (40-54); Hemoglobin 13.1 g/dL (13.0-16.5); Lymphocyte % 4.7 % (19-41); Mean Corp Hgb Conc 33.9 g/dL (32-36); Mean Corpuscular Hgb 31.3 pg (27.0-32.0); Mean Corpuscular Volume 92.4 fL (80-94); Mean Platelet Vol. 8.8 fl (6.2-12.0); Monocyte# 0.28 X10^3/uL; Monocyte% 3.3 % (0-10); NRBC Flagged by Analyzer 0 % (0-5); Neutrophil # 7.79 X10^3/uL (2.7-7.7); Neutrophil % 91.4 % (47-70); POSITIVE DIFFERENTIAL YES; Platelet Count 145 K/mm3 (150-450); RBC Distribution Width CV 14.2 % (11.6-14.6); RBC Distribution Width SD 47.4 fl (35.1-43.9); Red Blood Count 4.19 M/mm3 (4.6-6.2); White Blood Count 8.5 K/mm3 (4.4-11.0)
[2024-06-04 05:32] LABS: ALB/GLOB Ratio 0.9 RATIO (0.9-2.4); AST(SGOT) 24 U/L (15-37); Alanine Aminotransfer ALT/SGPT 26 U/L (16-61); Alkaline Phosphatase 101 U/L (45-117); Anion Gap 4 (5-15); BUN 19 mg/dL (7-18); BUN/Creat Ratio 20.5 RATIO (10-20); Calcium,Total 9.2 mg/dL (8.5-10.1); Chloride 101 mmol/L (98-107); Creatinine, Serum 0.93 mg/dL (0.70-1.30); EST Glomerular Filtration Rate 89 mL/min (>60); Est Glom Filt Rate - Afr Amer 108 mL/min (>60); Estimated Creatinine Clearance 75.49 ml/min; Globulin 3.4 g/dL (2.2-4.2); Glucose 162 mg/dL (74-106); Protein, Total 6.4 g/dL (6.4-8.2); Sodium Level 137 mmol/L (136-145)
--- NOTE | 2024-06-04 07:17 | PCM.PN.HOSP ---
Reason for Visit Reason for Visit: Diagnoses Chronic obstructive pulmonary disease, unspecified (06/03/24) Pulmonary fibrosis, unspecified (06/03/24) Respiratory failure, unspecified, unspecified whether with hypoxia or hypercapnia (06/03/24) Subjective Subjective Patient seen, no significant change in breathing status. Patient acute respiratory panel came back positive for parainfluenza virus Objective Data Objective Data Vital Signs: Vital Signs Temp Pulse Resp BP Pulse Ox O2 Del Method O2 Flow Rate 98.0 F 101 H 24 H 123/80 H 92 High Flow 13 06/04/24 00:00 06/04/24 07:00 06/04/24 07:00 06/04/24 07:00 06/04/24 07:00 06/04/24 07:00 06/04/24 07:00 Oxygen Flow Rate (L/min) 13 Oxygen Delivery Method High Flow Weight: 60.9 kg Body Mass Index (BMI) 21.0 Intake & Output: Intake and Output for Last 24 Hours 06/02/24 06/03/24 06/04/24 23:59 23:59 23:59 Intake Total 350 / 550 830 / 830 Output Total 675 / 675 700 / 700 Balance -325 / -125 130 / 130 Lab / Micro Data 06/04/24 05:01 06/04/24 05:01 Labs: Laboratory Results - last 24 hr 06/03/24 12:30: Procalcitonin 0.17 H 06/04/24 05:01: WBC 8.5, RBC 4.19 L, Hgb 13.1, Hct 38.7 L, MCV 92.4, MCH 31.3, MCHC 33.9, RDW Std Deviation 47.4 H, RDW Coeff of Ravinder 14.2, Plt Count 145 L, MPV 8.8, Immature Gran % (Auto) 0.500, Neut % (Auto) 91.4 H, Lymph % (Auto) 4.7 L, [place] % (Auto) 3.3, Eos % (Auto) 0.0, Baso % (Auto) 0.1, Absolute Neuts (auto) 7.8 H, Absolute Lymphs (auto) 0.40 L, Nucleated RBC % 0, Sodium 137, Potassium 4.0, Chloride 101, Carbon Dioxide 32.0, Anion Gap 4 L, BUN 19 H, Creatinine 0.93, Estim Creat Clear Calc 75.49, Est GFR (MDRD) Af Amer 108, Est GFR (MDRD) Non-Af 89, BUN/Creatinine Ratio 20.5 H, Glucose 162 H, Calcium 9.2, Total Bilirubin 0.50, AST 24, ALT 26, Alkaline Phosphatase 101, Total Protein 6.4, Albumin 3.0 L, Globulin 3.4, Albumin/Globulin Ratio 0.9 Micro: Microbiology 06/03/24 10:54 Sputum, Expectorated/Coughed Gram Stain - Final 06/03/24 10:54 Sputum, Expectorated/Coughed Respiratory Culture - Final 06/03/24 07:40 Mucosa - Nasopharyngeal Respiratory Panel (PCR) - Final Parainfluenza 1 06/03/24 09:55 Urine, Clean Catch Legionella Antigen - Final 06/03/24 09:55 Urine, Clean Catch Streptococcus pneumoniae Antigen (M - Final 06/03/24 05:35 Mucosa - Nose SARS-CoV-2, Influenza & RSV (PCR) - Final Radiography Diagnostic Testing: Radiology Impression Chest X-Ray 06/03/24 05:15 IMPRESSION: Chronic interstitial lung disease with mild bibasilar atelectasis or inflammation. Electronically Signed: Natalie Herrera MD at 8:03 EDT , Physical Exam Narrative GENERAL: cooperative HEENT: Atraumatic; normocephalic EYES; Anicteric, Normal Conjunctiva NECK; supple, normal thyroid, RESPIRATORY: Diminished to auscultation CARDIOVASCULAR: Regular S1 S2, GI: soft, normoactive bowel sounds, : No Renal angle tenderness; EXTREMITIES: No edema, no clubbing, MUSCULOSKELETAL: no muscle wasting NEURO: Awake; no lateralizing signs. SKIN: No Rash PSYCH; Flat affect Assessment & Plan Assessment/Plan (1) Respiratory failure: (2) Pulmonary fibrosis: (3) COPD (chronic obstructive pulmonary disease): QUALIFIERS: COPD type: unspecified COPD Qualified Code(s): J44.9 - Chronic obstructive pulmonary disease, unspecified PLAN: Plan Patient is a 58-year-old gentleman with underlying history of pulmonary fibrosis pulmonary hypertension and COPD presented with progressive shortness of breath 1. Acute on chronic hypoxic respiratory failure ? Multifactorial with exacerbation of his underlying pulmonary fibrosis COPD in the setting of pulmonary hypertension. Admitted to monitored bed managed with bronchodilator treatment systemic steroids and antibiotic therapy with supplemental oxygen initiated titrated to keep saturation greater than 90 06/04/2024;Patient seen, no significant change in breathing status. Patient acute respiratory panel came back positive for parainfluenza virus. Symptomatic treatment initiated patient still requiring significant amount of oxygen via nasal cannula 12 L flow per minute. Patient declined Airvo. 2. Hypertension ? Blood pressure controlled, home medications continued with dose adjustment as needed 3. Coronary artery disease ? With previous PCI with MARK to an LAD lesion on 03/2024. Patient is on guideline directed medical therapy 4. Dyslipidemia ?Patient is on statin therapy, continued at home dose 5. GERD ? Patient is on PPI 6. DVT prophylaxis ? On enoxaparin Time spent in the patient's overall evaluation,decision-making process, review of diagnostic data, adjustment of management, discussion with other providers, nursing nursing and ancillary staff involved in patient's care documentation, 38 minutes Charges/Coding Visit Charges Inpatient E&M: 34407 Subs Hosp L2
[2024-06-04] MEDS: Ipratropium/Albuterol Sulfate 3 ML AMPUL.NEB INHALATION ×4 (07:40→19:10)
[2024-06-04] MEDS: Ensure Plus High Protein 120 ML LIQUID PO ×4 (08:19→21:23)
[2024-06-04] MEDS: guaiFENesin 1,200 MG Tablet 1200 MG PO ×2 (08:20→21:24)
[2024-06-04] MEDS: Aspirin E.C. 81 MG Tablet PO (08:20)
[2024-06-04] MEDS: Clopidogrel Bisulfate 75 MG Tablet PO (08:20)
[2024-06-04] MEDS: Enoxaparin 40 MG/0.4 ML Syringe SC (09:04)
--- NOTE | 2024-06-04 10:16 | PN.CC_ITS ---
Objective Data Objective Data Vital Signs: Vital Signs Last response 3 Temperature 36.7 C 06/04/24 08:00 Temperature Source Oral 06/04/24 08:00 Pulse Rate 96 06/04/24 10:00 Pulse Strength Normal (2+) 06/03/24 20:36 Respiratory Rate 14 06/04/24 10:00 Respiratory Effort Short of Breath 06/04/24 08:00 Respiratory Depth Shallow 06/04/24 08:00 Respiratory Pattern Tachypnea 06/04/24 08:00 Blood Pressure 123/78 H 06/04/24 10:00 Blood Pressure Mean 93 06/04/24 10:00 Blood Pressure Source Monitor 06/04/24 10:00 Blood Pressure Position Semi-Fowlers 06/04/24 10:00 Blood Pressure Location Left Arm 06/04/24 10:00 Pulse Ox 93 06/04/24 10:00 Oxygen Delivery Method High Flow 06/04/24 10:00 Oxygen Flow Rate (L/min) 13 06/04/24 10:00 I&O: I&O Last 24 Hours 3 06/03/24 06/03/24 06/04/24 11:59 23:59 11:59 Intake Total 250 / 550 100 / 550 830 / 830 Output Total 150 / 675 525 / 675 1225 / 1225 Balance 100 / -125 -425 / -125 -395 / -395 I&O: Total Stay 3 06/03/24 04:38 thru 06/04/24 09:46 Intake Total 1180 Output Total 1900 Balance -720 Current Meds Ordered / Administered: Current meds ordered / Administered 3 Generic Name Dose Route Start Last Admin Trade Name Jagdish PRN Reason Stop Dose Admin Acetaminophen 650 mg 06/03/24 06:25 06/03/24 06:52 Acetaminophen 325 Mg Tablet PO 650 mg Q4H PRN PRN Administration Fever, pain 1-10/10 Al Hydrox/Mg Hydrox/Simethicone 30 ml 06/03/24 06:25 06/03/24 18:58 Mag /Aluminum/Simeth Wch Udc 30 Ml Oral.Susp PO 30 ml Q6H PRN PRN Administration Gastric Burning Albuterol Sulfate 2.5 mg 06/03/24 06:25 06/04/24 00:08 Albuterol 2.5 Mg/3 Ml Vial.Neb. INHALATION 2.5 mg Q2H PRN PRN Administration Dyspnea, wheezing Albuterol/Ipratropium 3 ml 06/03/24 06:25 06/04/24 07:40 Ipratropium/Albuterol Sulfate 3 Ml Ampul.Neb INHALATION 3 ml Q4HWA.RT CIRILO Administration Aspirin 81 mg 06/03/24 10:00 06/04/24 08:20 Aspirin E.C. 81 Mg Tablet PO 81 mg DAILY CIRILO Administration Atorvastatin Calcium 80 mg 06/03/24 22:00 06/03/24 20:59 Atorvastatin Calcium 80 Mg Tablet PO 80 mg QHS CIRILO Administration Benzonatate 100 mg 06/03/24 10:20 06/04/24 09:04 Benzonatate 100 Mg Capsule PO 100 mg Q4H PRN PRN Administration COUGH Clopidogrel Bisulfate 75 mg 06/03/24 10:00 06/04/24 08:20 Clopidogrel Bisulfate 75 Mg Tablet PO 75 mg DAILY CIRILO Administration Enoxaparin Sodium 40 mg 06/03/24 10:00 06/04/24 09:04 Enoxaparin 40 Mg/0.4 Ml Syringe SC 40 mg DAILY CIRILO Administration Guaifenesin 1,200 mg 06/03/24 10:00 06/04/24 08:20 Guaifenesin 1,200 Mg Tablet PO 1,200 mg BID CIRILO Administration Hydralazine HCl 10 mg 06/03/24 06:25 Hydralazine 20 Mg/Ml Vial IV Q4H PRN PRN SBP > 160 Protocol Sodium Chloride 250 mls @ 15 mls/hr 06/03/24 06:36 IV .[id number] PRN Additional IVPB Infusion Sodium Chloride 250 mls @ 15 mls/hr 06/03/24 06:36 IV .[id number] PRN Saline Flush Melatonin 3 mg 06/03/24 06:25 Melatonin 3 Mg Tablet PO QHS PRN PRN INSOMNIA Methylprednisolone 40 mg 06/03/24 06:25 06/04/24 04:54 Methylprednisolone 40 Mg/Ml Vial IV 40 mg Q8 CIRILO Administration Nutritional Formula (Lactose Free) 120 ml 06/03/24 10:00 06/04/24 08:19 Ensure Plus High Protein 120 Ml Liquid PO 120 ml 4X/DAY CIRILO Administration Ondansetron HCl 4 mg 06/03/24 06:25 Ondansetron 4 Mg/2 Ml Vial IV Q8H PRN PRN NAUSEA/VOMITING Pantoprazole Sodium 20 mg 06/03/24 06:25 Pantoprazole Sodium 20 Mg Tablet PO DAILY PRN PRN acid reflux Prochlorperazine Edisylate 5 mg 06/03/24 06:25 Prochlorperazine 10 Mg/2 Ml Vial IV Q4H PRN PRN Breakthrough Nausea/Vomiting Senna/Docusate Sodium 2 tablet 06/03/24 06:25 Senna/Docusate Sodium 1 Tablet PO BID PRN PRN Constipation Sodium Chloride 10 - 40 ml 06/03/24 06:36 06/04/24 04:54 0.9% Saline Lock 10 Ml Syringe IV 10 ml UD PRN Administration SALINE FLUSH Throat Lozenges 2 lozenge 06/03/24 10:19 06/03/24 10:48 Benzocaine/Menthol 1 Lozenge MUCOUS MEM 2 lozenge Q2H PRN PRN Administration COUGH/sore throat Lab / Micro Data 06/04/24 05:01 06/04/24 05:01 Labs: Laboratory Results - last 24 hr 06/03/24 12:30: Procalcitonin 0.17 H 06/04/24 05:01: WBC 8.5, RBC 4.19 L, Hgb 13.1, Hct 38.7 L, MCV 92.4, MCH 31.3, MCHC 33.9, RDW Std Deviation 47.4 H, RDW Coeff of Ravinder 14.2, Plt Count 145 L, MPV 8.8, Immature Gran % (Auto) 0.500, Neut % (Auto) 91.4 H, Lymph % (Auto) 4.7 L, [place] % (Auto) 3.3, Eos % (Auto) 0.0, Baso % (Auto) 0.1, Absolute Neuts (auto) 7.8 H, Absolute Lymphs (auto) 0.40 L, Nucleated RBC % 0, Sodium 137, Potassium 4.0, Chloride 101, Carbon Dioxide 32.0, Anion Gap 4 L, BUN 19 H, Creatinine 0.93, Estim Creat Clear Calc 75.49, Est GFR (MDRD) Af Amer 108, Est GFR (MDRD) Non-Af 89, BUN/Creatinine Ratio 20.5 H, Glucose 162 H, Calcium 9.2, Total Bilirubin 0.50, AST 24, ALT 26, Alkaline Phosphatase 101, Total Protein 6.4, A lbumin 3.0 L, Globulin 3.4, Albumin/Globulin Ratio 0.9 Micro: Microbiology 06/03/24 10:54 Sputum, Expectorated/Coughed Gram Stain - Final 06/03/24 10:54 Sputum, Expectorated/Coughed Respiratory Culture - Final 06/03/24 07:40 Mucosa - Nasopharyngeal Respiratory Panel (PCR) - Final Parainfluenza 1 06/03/24 09:55 Urine, Clean Catch Legionella Antigen - Final 06/03/24 09:55 Urine, Clean Catch Streptococcus pneumoniae Antigen (M - Final 06/03/24 05:35 Mucosa - Nose SARS-CoV-2, Influenza & RSV (PCR) - Final Assessment and Plan . Assessment and plan: Subjective: No acute events o/n. Breathing about the same but worse nasal congestion this AM Physical Exam: Gen - NAD, thin, fatigued HEENT - MMM. Sclera anicteric Resp - +crackles. Tachypneic CV - RRR. No m/g/r Abd - Soft, NT, ND Ext - No c/c/e. Skin - No rashes? Neuro - Grossly nonfocal. Alert and oriented I have reviewed the pertinent vital sign, laboratory, and imaging data. ASSESSMENT: # Acute on chronic hypoxic respiratory failure - on home 8L NC at rest and 12L NC with activity after recent discharge # Parainfluenza PNA # IPF with possible exacerbation - on esbriet at home # COPD # Pulmonary HTN - recent TTE w/ LVEF 60%, severe RV dilation, moderate dysfunction, RVSP 65 # CAD s/p PCI # HTN # HLD # Dysphagia # GERD # Anemia PLAN: -On 13L NC, wean to keep sats > 90%. Encourage IS. Pt refuses HHFNC and BiPAP. DNR/DNI as well -Cont IV solumedrol -Holding off on empiric abx for now given recent course here. f/u Cx. Procal slightly elevated, normal WBC. Low threshold to start abx if worsening -ASA/plavix -BNP low. Monitor volume status, PRN diuretics to maintain euvolemia -Recent CTA chest negative on prior admit, consider re-eval for VTE if not improving further -Duonebs. Cont mucinex, add saline nasal spray -Will need to follow-up after discharge with [facility] lung transplant clinic to restart transplant eval FEN/GI: Gentle PO as tolerated, aspiration precautions, dietary modification as per ST Proph DVT/GI: Lovenox, protonix Code status: DNR/DNI Critical Care Time: 50 mins The entirety of this encounter was done via Telemedicine
[2024-06-04] MEDS: Sodium Chloride 0.65% 1 SPRAY SPRAY.BTL NASAL ×2 (11:45→21:24)
[2024-06-04] MEDS: BENZOCAINE/MENTHOL 1 LOZENGE 2 LOZENGE MUCOUS MEM (16:04)
[2024-06-04] MEDS: Acetaminophen 325 MG Tablet 650 MG PO (18:05)
[2024-06-04] MEDS: Atorvastatin Calcium 80 MG Tablet PO (21:24)
[2024-06-05] VITALS (16 sets, daily range): BP systolic 120–141; BP diastolic 62–97; PULSE 64–102; RESP 18–32; TEMP 36.2–36.6; O2SAT 92–100; BMI 21.2
[2024-06-05] MEDS: Mag /Aluminum/Simeth WCH UDC 30 ML ORAL.SUSP PO (00:54)
[2024-06-05] MEDS: Benzonatate 100 MG Capsule PO ×3 (03:19→13:35)
[2024-06-05] MEDS: PIRFENIDONE 267 MG 801 MG PO ×3 (05:55→22:43)
[2024-06-05] MEDS: 0.9% Saline Lock 10 ML Syringe IV ×2 (05:55→22:43)
[2024-06-05 06:11] LABS: Absolute Lymphocyte Count 0.33 X10^3/uL (0.83-4.51); Absolute Neutrophil Count 8.9 X10^3/uL (2.0-7.7); Basophil# 0.01 X10^3/uL; Basophil% 0.1 % (0-1); Hematocrit 39.6 % (40-54); Hemoglobin 13.3 g/dL (13.0-16.5); Lymphocyte # 0.33 X10^3/ul (0.83-4.51); Lymphocyte % 3.5 % (19-41); Mean Corp Hgb Conc 33.6 g/dL (32-36); Mean Corpuscular Hgb 31.6 pg (27.0-32.0); Mean Corpuscular Volume 94.1 fL (80-94); Mean Platelet Vol. 8.9 fl (6.2-12.0); Monocyte# 0.23 X10^3/uL; Monocyte% 2.4 % (0-10); NRBC Flagged by Analyzer 0 % (0-5); Neutrophil # 8.91 X10^3/uL (2.7-7.7); Neutrophil % 93.6 % (47-70); POSITIVE DIFFERENTIAL YES; Platelet Count 139 K/mm3 (150-450); RBC Distribution Width CV 14.4 % (11.6-14.6); RBC Distribution Width SD 49.7 fl (35.1-43.9); Red Blood Count 4.21 M/mm3 (4.6-6.2); White Blood Count 9.5 K/mm3 (4.4-11.0)
--- NOTE | 2024-06-05 06:45 | PCM.PN.INT ---
Assessment & Plan Assessment/Plan (1) Acute and chronic respiratory failure with hypoxia: (2) Acute exacerbation of idiopathic pulmonary fibrosis: PLAN: Plan RECOMMENDATIONS: 1. Continue current supportive care including supplemental oxygen to maintain saturation is 88 to 92%. 2. Continue bronchodilators and IV steroids. 3. Resume Esbriet at discharge. 4. Encourage incentive spirometer use and mobilize patient as tolerated. 5. Follow-up in the pulmonary medicine clinic, as scheduled, in July. 6. Transition from Anoro to Trelegy Ellipta, at discharge. IMPRESSIONS: 1. Acute on chronic hypoxemic respiratory failure The patient has a longstanding history of idiopathic pulmonary fibrosis on Esbriet therapy, along with mixed obstructive and restrictive lung disease, and was admitted with worsening shortness of breath and hypoxemia, likely secondary to an acute exacerbation of his IPF/COPD related to parainfluenza infection. Unfortunately, from the imaging studies, it appears that his interstitial lung disease is progressing. He has been evaluated in the past by the [facility] lung transplantation team, but his workup was ultimately terminated after he failed to show up for appointments. Given the end-stage nature of his lung disease, I would recommend that we transition him from a Anoro Ellipta to Trelegy Ellipta at discharge. In the interim, the patient will be continued on scheduled bronchodilators and steroids. He will require a prednisone taper at discharge. Supplemental oxygen should be weaned to maintain saturations in the range of 88 to 92%. 2. History of coronary artery disease status post PCI Continue Plavix and aspirin per home regimen. 3. Mixed obstructive/restrictive ventilatory defect Continue bronchodilator therapy while inpatient and resume Anoro Ellipta at discharge. CODE STATUS: DNR CCA without intubation This note was generated with [employer] dictation software. It may contain incorrect words, spelling, and punctuation that were not noted in checking the note before signing. Subjective Subjective The patient was seen and examined at the bedside this morning. Events from the last 24 hours have been reviewed. The patient is currently afebrile, hemodynamically stable and maintaining appropriate oxygen saturations on 13 L/min via nasal cannula. The patient reports feeling somewhat better than yesterday and is requesting an influenza vaccination prior to being discharged home. White count remains normal this morning. Chemistry profile was unremarkable. Objective Data Objective Data The patient's most recent lab work, culture data and imaging studies have all been personally reviewed. Respiratory viral panel was positive for parainfluenza 1. Vital Signs: Vital Signs Temp Pulse Resp BP Pulse Ox O2 Del Method O2 Flow Rate 97.6 F L 98 22 H 133/97 H 96 High Flow 13 06/05/24 00:00 06/05/24 06:00 06/05/24 06:00 06/05/24 06:00 06/05/24 06:00 06/05/24 06:00 06/05/24 06:00 Oxygen Flow Rate (L/min) 13 Oxygen Delivery Method High Flow Weight: 135 lb 2.294 oz Body Mass Index (BMI) 21.2 Intake & Output: Intake and Output for Last 24 Hours 06/03/24 06/04/24 06/05/24 23:59 23:59 23:59 Intake Total 350 / 550 2830 / 3250 1200 / 1200 Output Total 675 / 675 2075 / 2825 1350 / 1350 Balance -325 / -125 755 / 425 -150 / -150 Lab / Micro Data Attestation: I reviewed the patient's lab results. 06/05/24 06:01 06/05/24 06:01 Labs: Laboratory Results - last 24 hr 06/05/24 06:01: WBC 9.5, RBC 4.21 L, Hgb 13.3, Hct 39.6 L, MCV 94.1 H, MCH 31.6, MCHC 33.6, RDW Std Deviation 49.7 H, RDW Coeff of Ravinder 14.4, Plt Count 139 L, MPV 8.9, Immature Gran % (Auto) 0.400, Neut % (Auto) 93.6 H, Lymph % (Auto) 3.5 L, [place] % (Auto) 2.4, Eos % (Auto) 0.0, Baso % (Auto) 0.1, Absolute Neuts (auto) 8.9 H, Absolute Lymphs (auto) 0.33 L, Nucleated RBC % 0 Micro: Microbiology 06/03/24 10:54 Sputum, Expectorated/Coughed Gram Stain - Final 06/03/24 10:54 Sputum, Expectorated/Coughed Respiratory Culture - Final 06/03/24 07:40 Mucosa - Nasopharyngeal Respiratory Panel (PCR) - Final Parainfluenza 1 06/03/24 09:55 Urine, Clean Catch Legionella Antigen - Final 06/03/24 09:55 Urine, Clean Catch Streptococcus pneumoniae Antigen (M - Final 06/03/24 05:35 Mucosa - Nose SARS-CoV-2, Influenza & RSV (PCR) - Final Physical Exam Const alert and no apparent distress General Appearance: cooperative HEENT normocephalic, head/scalp atraumatic and moist oral mucous membranes Eyes PERRL, EOMs intact bilaterally and conjunctivae normal Neck supple General: trachea midline Chest inspection of chest normal Resp Effort and Inspection: able to speak in complete sentences and tachypneic Auscultation: rales and diminished lung sounds Cardio regular rate, regular rhythm, S1 normal heart sound and S2 normal heart sound GI normal to inspection, nondistended, normoactive bowel sounds Extremity no clubbing, cyanosis or edema Skin no rashes or lesions noted Neuro CN's II-XII intact bilaterally and no focal motor deficits Psych cooperative and affect normal Charges/Coding Visit Charges Inpatient E&M: 69242 Subs Hosp L3
[2024-06-05 06:51] LABS: Anion Gap 3 (5-15); BUN 23 mg/dL (7-18); BUN/Creat Ratio 28.8 RATIO (10-20); Calcium,Total 8.9 mg/dL (8.5-10.1); Chloride 102 mmol/L (98-107); EST Glomerular Filtration Rate 106 mL/min (>60); Est Glom Filt Rate - Afr Amer 128 mL/min (>60); Estimated Creatinine Clearance 88.33 ml/min; Glucose 148 mg/dL (74-106); Magnesium 2.3 mg/dL (1.6-2.6); Phosphorus 3.7 mg/dL (2.5-4.9); Potassium 4.5 mmol/L (3.5-5.1); Sodium Level 136 mmol/L (136-145)
[2024-06-05] MEDS: Ipratropium/Albuterol Sulfate 3 ML AMPUL.NEB INHALATION ×5 (07:22→23:05)
[2024-06-05] MEDS: Clopidogrel Bisulfate 75 MG Tablet PO (08:13)
[2024-06-05] MEDS: Aspirin E.C. 81 MG Tablet PO (08:13)
[2024-06-05] MEDS: Ensure Plus High Protein 120 ML LIQUID PO ×3 (08:14→22:43)
[2024-06-05] MEDS: guaiFENesin 1,200 MG Tablet 1200 MG PO ×2 (08:14→23:33)
[2024-06-05] MEDS: Enoxaparin 40 MG/0.4 ML Syringe SC (08:14)
[2024-06-05] MEDS: Sodium Chloride 0.65% 1 SPRAY SPRAY.BTL NASAL ×2 (08:16→23:32)
--- NOTE | 2024-06-05 09:07 | CASEMGMT ---
See JULIANNE Louis CM readmission chart review in [facility]. This RN CM to pt room at this time to discuss DC planning. Pt states that he wants to return home at time of DC and is refusing any type of SNF. Pt states I just got a little virus and got sick, that is all. Pt has not been evaluated by PT at this time. Pt states that he really enjoyed the help that [facility] provided him with. Pt states that he was wearing his oxygen accordingly and was taking all of his medications as ordered. Pt states that he does not have a portable tank with him, but will be able to have a family member bring one in at time of DC. Pt states that he wishes to continue HH services through [facility]. TC to [facility]. Neha states that they can continue care after DC and that the pt was active with SN, PT, and SW. Neha states that the pt declined OT services. Per Darrius at [facility], the pt wears 8L with rest and 12L with exertion. CM to follow increased oxygen needs, PT eval, and HH services. Pt denies further questions or concerns at this time.
[2024-06-05] MEDS: FLU VACC 2024-25(6MOS UP)/PF 45 MCG/0.5 ML SYRINGE IM (09:34)
[2024-06-05] MEDS: BENZOCAINE/MENTHOL 1 LOZENGE 2 LOZENGE MUCOUS MEM ×3 (09:34→22:51)
--- NOTE | 2024-06-05 10:06 | CASEMGMT ---
Social Work- SW met with pt to discuss directives. PT provided completed copy that just needed signatures. SW completed with pt and made copies for agents and placed a copy in the chart. Pt states his plans are to return home. RNCM aware. MILLIE Dinero
--- NOTE | 2024-06-05 12:47 | PCM.PN.HOSP ---
Reason for Visit Reason for Visit: Diagnoses Chronic obstructive pulmonary disease, unspecified (06/03/24) Pulmonary fibrosis, unspecified (06/03/24) Idiopathic pulmonary fibrosis (06/03/24) Acute and chronic respiratory failure with hypoxia (06/03/24) Respiratory failure, unspecified, unspecified whether with hypoxia or hypercapnia (06/03/24) Subjective Subjective Patient was seen and examined today, he remains on high flow oxygen, I talked with pulmonary medicine about his care today. Patient does not complain of any shortness of breath at rest. Objective Data Objective Data Vital Signs: Vital Signs Temp Pulse Resp BP Pulse Ox O2 Del Method O2 Flow Rate 97.9 F 64 22 H 133/96 H 92 High Flow 13 06/05/24 08:00 06/05/24 08:00 06/05/24 08:00 06/05/24 08:00 06/05/24 08:00 06/05/24 08:00 06/05/24 08:00 FiO2 95 06/05/24 07:25 Oxygen Flow Rate (L/min) 13 Oxygen Delivery Method High Flow Weight: 61.3 kg Body Mass Index (BMI) 21.2 Intake & Output: Intake and Output for Last 24 Hours 06/03/24 06/04/24 06/05/24 23:59 23:59 23:59 Intake Total 350 / 550 2830 / 3250 1200 / 1200 Output Total 675 / 675 2075 / 2825 1350 / 1350 Balance -325 / -125 755 / 425 -150 / -150 Lab / Micro Data 06/05/24 06:01 06/05/24 06:01 Labs: Laboratory Results - last 24 hr 06/05/24 06:01: WBC 9.5, RBC 4.21 L, Hgb 13.3, Hct 39.6 L, MCV 94.1 H, MCH 31.6, MCHC 33.6, RDW Std Deviation 49.7 H, RDW Coeff of Ravinder 14.4, Plt Count 139 L, MPV 8.9, Immature Gran % (Auto) 0.400, Neut % (Auto) 93.6 H, Lymph % (Auto) 3.5 L, [place] % (Auto) 2.4, Eos % (Auto) 0.0, Baso % (Auto) 0.1, Absolute Neuts (auto) 8.9 H, Absolute Lymphs (auto) 0.33 L, Nucleated RBC % 0, Sodium 136, Potassium 4.5, Chloride 102, Carbon Dioxide 31.0, Anion Gap 3 L, BUN 23 H, Creatinine 0.80, Estim Creat Clear Calc 88.33, Est GFR (MDRD) Af Amer 128, Est GFR (MDRD) Non-Af 106, BUN/Creatinine Ratio 28.8 H, Glucose 148 H, Calcium 8.9, Phosphorus 3.7, Magnesium 2.3 Micro: Microbiology 06/03/24 04:50 Blood Culture (Wb) - Line Draw Blood Culture - Preliminary No growth in 48 hours. 06/03/24 10:54 Sputum, Expectorated/Coughed Gram Stain - Final 06/03/24 10:54 Sputum, Expectorated/Coughed Respiratory Culture - Final 06/03/24 07:40 Mucosa - Nasopharyngeal Respiratory Panel (PCR) - Final Parainfluenza 1 06/03/24 09:55 Urine, Clean Catch Legionella Antigen - Final 06/03/24 09:55 Urine, Clean Catch Streptococcus pneumoniae Antigen (M - Final 06/03/24 05:35 Mucosa - Nose SARS-CoV-2, Influenza & RSV (PCR) - Final Physical Exam Const alert, oriented x3, no apparent distress and average body habitus General Appearance: cooperative, well kempt and well developed Orientation / Consciousness: awake, oriented to person, oriented to place and oriented to time HEENT normocephalic, head/scalp atraumatic and moist oral mucous membranes Eyes PERRL, EOMs intact bilaterally and conjunctivae normal Neck supple, no JVD, thyroid normal and no carotid bruits General: trachea midline Resp normal respiratory effort, no retractions and no use of accessory muscles Resp Narrative: Inspiratory rales are scattered over both lungs Auscultation: rales bilateral; Negative for rhonchi or wheezes Cardio regular rate, regular rhythm, S1 normal heart sound, S2 normal heart sound, no murmurs, no rub and no gallops GI normal to inspection, nondistended, normoactive bowel sounds, soft to palpation, non-tender and non-distended Extremity no clubbing, cyanosis or edema Skin no rashes or lesions noted General Skin Exam: no breakdown Neuro oriented x3, CN's II-XII intact bilaterally, moves all extremities, no focal motor deficits and no sensory deficits noted Sensorium / Orientation: awake and alert Speech: speech normal Psych affect normal Assessment & Plan Assessment/Plan (1) Pulmonary fibrosis: PLAN: Plan 1. Acute on chronic hypoxemic respiratory failure-patient will remain on his medications as adjusted by pulmonary medicine, patient's overall prognosis is poor due to his progressive pulmonary fibrosis #2 coronary artery disease-this appears stable at this time, patient's medications will be adjusted as needed #3 essential hypertension-patient's medications will be adjusted as needed #4 hyperlipidemia-patient is on atorvastatin Total clinical time spent by myself addressing the patient's medical issues, reviewing all of his data, and collaborating with patient's care team: 35 minutes Charges/Coding Visit Charges Inpatient E&M: 02935 Subs Hosp L2
[2024-06-05] MEDS: LORazepam 0.5 MG Tablet PO (14:47)
[2024-06-05] MEDS: Pantoprazole Sodium 20 MG Tablet PO (18:58)
[2024-06-05] MEDS: Acetaminophen 325 MG Tablet 650 MG PO (18:58)
[2024-06-05] MEDS: Atorvastatin Calcium 80 MG Tablet PO (22:40)
[2024-06-06] VITALS (13 sets, daily range): BP systolic 132–160; BP diastolic 89–106; PULSE 82–109; RESP 18–35; TEMP 36.3–36.7; O2SAT 87–100; BMI 21.3
[2024-06-06] MEDS: Ipratropium/Albuterol Sulfate 3 ML AMPUL.NEB INHALATION ×4 (03:15→23:07)
[2024-06-06] MEDS: PIRFENIDONE 267 MG 801 MG PO ×3 (06:03→21:32)
[2024-06-06] MEDS: 0.9% Saline Lock 10 ML Syringe IV ×2 (06:05→21:32)
[2024-06-06] MEDS: BENZOCAINE/MENTHOL 1 LOZENGE 2 LOZENGE MUCOUS MEM (06:15)
[2024-06-06 07:04] LABS: Absolute Lymphocyte Count 0.32 X10^3/uL (0.83-4.51); Absolute Neutrophil Count 6.6 X10^3/uL (2.0-7.7); Hematocrit 41.6 % (40-54); Hemoglobin 13.9 g/dL (13.0-16.5); Lymphocyte # 0.32 X10^3/ul (0.83-4.51); Lymphocyte % 4.5 % (19-41); Mean Corp Hgb Conc 33.4 g/dL (32-36); Mean Corpuscular Hgb 31.6 pg (27.0-32.0); Mean Corpuscular Volume 94.5 fL (80-94); Monocyte# 0.16 X10^3/uL; Monocyte% 2.2 % (0-10); NRBC Flagged by Analyzer 0 % (0-5); Neutrophil # 6.64 X10^3/uL (2.7-7.7); Neutrophil % 92.6 % (47-70); POSITIVE DIFFERENTIAL YES; Platelet Count 157 K/mm3 (150-450); RBC Distribution Width CV 14.4 % (11.6-14.6); RBC Distribution Width SD 49.7 fl (35.1-43.9); White Blood Count 7.2 K/mm3 (4.4-11.0)
[2024-06-06 07:29] LABS: Anion Gap 3 (5-15); BUN 20 mg/dL (7-18); BUN/Creat Ratio 23.2 RATIO (10-20); Calcium,Total 9.2 mg/dL (8.5-10.1); Chloride 100 mmol/L (98-107); Creatinine, Serum 0.86 mg/dL (0.70-1.30); EST Glomerular Filtration Rate 97 mL/min (>60); Est Glom Filt Rate - Afr Amer 117 mL/min (>60); Estimated Creatinine Clearance 82.71 ml/min; Glucose 162 mg/dL (74-106); Potassium 4.4 mmol/L (3.5-5.1); Sodium Level 135 mmol/L (136-145)
[2024-06-06] MEDS: Ensure Plus High Protein 120 ML LIQUID PO ×4 (08:31→21:31)
[2024-06-06] MEDS: Clopidogrel Bisulfate 75 MG Tablet PO (08:31)
[2024-06-06] MEDS: Enoxaparin 40 MG/0.4 ML Syringe SC (08:31)
[2024-06-06] MEDS: guaiFENesin 1,200 MG Tablet 1200 MG PO ×2 (08:31→22:04)
[2024-06-06] MEDS: Sodium Chloride 0.65% 1 SPRAY SPRAY.BTL NASAL ×2 (08:31→21:32)
[2024-06-06] MEDS: Aspirin E.C. 81 MG Tablet PO (08:31)
[2024-06-06] MEDS: Benzonatate 100 MG Capsule PO ×3 (08:31→21:31)
--- NOTE | 2024-06-06 10:30 | PN.CC_ITS ---
Assessment & Plan Assessment/Plan (1) Acute and chronic respiratory failure with hypoxia: (2) Acute exacerbation of idiopathic pulmonary fibrosis: PLAN: Plan RECOMMENDATIONS: 1. Continue current supportive care including supplemental oxygen to maintain saturation is 88 to 92%. 2. Continue bronchodilators and IV steroids. Recommend steroid taper at discharge. 3. Resume Esbriet at discharge. 4. Encourage incentive spirometer use and mobilize patient as tolerated. 5. Follow-up in the pulmonary medicine clinic, as scheduled, in July. 6. Transition from Anoro to Trelegy Ellipta, at discharge. 7. I am okay with low dose Ativan PRN for anxiety. IMPRESSIONS: 1. Acute on chronic hypoxemic respiratory failure The patient has a longstanding history of idiopathic pulmonary fibrosis on Esbriet therapy, along with mixed obstructive and restrictive lung disease, and was admitted with worsening shortness of breath and hypoxemia, likely secondary to an acute exacerbation of his IPF/COPD related to parainfluenza infection. Unfortunately, from the imaging studies, it appears that his interstitial lung disease is progressing. He has been evaluated in the past by the [facility] lung transplantation team, but his workup was ultimately terminated after he failed to show up for appointments. Given the end-stage nature of his lung disease, I would recommend that we transition him from a Anoro Ellipta to Trelegy Ellipta at discharge. In the interim, the patient will be continued on scheduled bronchodilators and steroids. He will require a prednisone taper at discharge. Supplemental oxygen should be weaned to maintain saturations in the range of 88 to 92%. 2. History of coronary artery disease status post PCI Continue Plavix and aspirin per home regimen. 3. Mixed obstructive/restrictive ventilatory defect Continue bronchodilator therapy while inpatient and resume Anoro Ellipta at discharge. CODE STATUS: DNR CCA without intubation This note was generated with [employer] dictation software. It may contain incorrect words, spelling, and punctuation that were not noted in checking the note before signing. Subjective Subjective The patient was seen and examined at the bedside this morning. Events from the last 24 hours have been reviewed. The patient is currently afebrile, hemodynamically stable and maintaining appropriate oxygen saturations on 8 L/min via nasal cannula. Morning labs are stable. The patient is currently requesting Ativan for anxiety. Objective Data Objective Data The patient's most recent lab work, culture data and imaging studies have all been personally reviewed. Respiratory viral panel was positive for parainfluenza 1. Vital Signs: Vital Signs Temp Pulse Resp BP Pulse Ox O2 Del Method O2 Flow Rate 97.8 F 90 18 145/103 H 92 High Flow 8 06/06/24 08:27 06/06/24 08:27 06/06/24 08:27 06/06/24 08:27 06/06/24 08:34 06/06/24 08:34 06/06/24 08:34 FiO2 95 06/05/24 07:25 Oxygen Flow Rate (L/min) 8 Oxygen Delivery Method High Flow Weight: 136 lb 0.403 oz Body Mass Index (BMI) 21.3 Intake & Output: Intake and Output for Last 24 Hours 06/04/24 06/05/24 06/06/24 23:59 23:59 23:59 Intake Total 2830 / 3250 2580 / 2580 600 / 600 Output Total 2075 / 2825 2250 / 2250 650 / 650 Balance 755 / 425 330 / 330 -50 / -50 Lab / Micro Data Attestation: I reviewed the patient's lab results. 06/06/24 06:50 06/06/24 06:50 Labs: Laboratory Results - last 24 hr 06/06/24 06:50: WBC 7.2, RBC 4.40 L, Hgb 13.9, Hct 41.6, MCV 94.5 H, MCH 31.6, MCHC 33.4, RDW Std Deviation 49.7 H, RDW Coeff of Ravinder 14.4, Plt Count 157, MPV 9.0, Immature Gran % (Auto) 0.700, Neut % (Auto) 92.6 H, Lymph % (Auto) 4.5 L, [place] % (Auto) 2.2, Eos % (Auto) 0.0, Baso % (Auto) 0.0, Absolute Neuts (auto) 6.6, Absolute Lymphs (auto) 0.32 L, Nucleated RBC % 0, Sodium 135 L, Potassium 4.4, Chloride 100, Carbon Dioxide 32.0, Anion Gap 3 L, BUN 20 H, Creatinine 0.86, Estim Creat Clear Calc 82.71, Est GFR (MDRD) Af Amer 117, Est GFR (MDRD) Non-Af 97, BUN/Creatinine Ratio 23.2 H, Glucose 162 H, Calcium 9.2 Micro: Microbiology 06/03/24 04:50 Blood Culture (Wb) - Line Draw Blood Culture - Preliminary No growth in 48 hours. 06/03/24 10:54 Sputum, Expectorated/Coughed Gram Stain - Final 06/03/24 10:54 Sputum, Expectorated/Coughed Respiratory Culture - Final 06/03/24 07:40 Mucosa - Nasopharyngeal Respiratory Panel (PCR) - Final Parainfluenza 1 06/03/24 09:55 Urine, Clean Catch Legionella Antigen - Final 06/03/24 09:55 Urine, Clean Catch Streptococcus pneumoniae Antigen (M - Final 06/03/24 05:35 Mucosa - Nose SARS-CoV-2, Influenza & RSV (PCR) - Final Physical Exam Const alert and no apparent distress General Appearance: cooperative HEENT normocephalic, head/scalp atraumatic and moist oral mucous membranes Eyes PERRL, EOMs intact bilaterally and conjunctivae normal Neck supple General: trachea midline Chest inspection of chest normal Resp Effort and Inspection: able to speak in complete sentences Auscultation: rales and diminished lung sounds Cardio regular rate, regular rhythm, S1 normal heart sound and S2 normal heart sound GI normal to inspection, nondistended, normoactive bowel sounds Extremity no clubbing, cyanosis or edema Skin no rashes or lesions noted Neuro CN's II-XII intact bilaterally and no focal motor deficits Psych cooperative Mood & Affect: anxious Charges/Coding Visit Charges Inpatient E&M: 74262 Subs Hosp L2
[2024-06-06] MEDS: LORazepam 0.5 MG Tablet PO ×2 (13:52→22:05)
--- NOTE | 2024-06-06 16:55 | PCM.PN.HOSP ---
Reason for Visit Reason for Visit: Diagnoses Chronic obstructive pulmonary disease, unspecified (06/03/24) Pulmonary fibrosis, unspecified (06/03/24) Idiopathic pulmonary fibrosis (06/03/24) Acute and chronic respiratory failure with hypoxia (06/03/24) Respiratory failure, unspecified, unspecified whether with hypoxia or hypercapnia (06/03/24) Subjective Subjective Patient was seen and examined today, he is presently on 8 L of oxygen at rest. I talked briefly with pulmonary medicine and they do not have an objection to the patient receiving as needed Ativan. Objective Data Objective Data Vital Signs: Vital Signs Temp Pulse Resp BP Pulse Ox O2 Del Method O2 Flow Rate 98.0 F 109 H 18 138/103 H 92 High Flow 8 06/06/24 15:58 06/06/24 15:58 06/06/24 15:58 06/06/24 15:58 06/06/24 16:00 06/06/24 16:00 06/06/24 16:00 FiO2 95 06/05/24 07:25 Oxygen Flow Rate (L/min) 8 Oxygen Delivery Method High Flow Weight: 61.7 kg Body Mass Index (BMI) 21.3 Intake & Output: Intake and Output for Last 24 Hours 06/04/24 06/05/24 06/06/24 23:59 23:59 23:59 Intake Total 2830 / 3250 2580 / 2580 960 / 960 Output Total 2075 / 2825 2250 / 2250 650 / 650 Balance 755 / 425 330 / 330 310 / 310 Lab / Micro Data 06/06/24 06:50 06/06/24 06:50 Labs: Laboratory Results - last 24 hr 06/06/24 06:50: WBC 7.2, RBC 4.40 L, Hgb 13.9, Hct 41.6, MCV 94.5 H, MCH 31.6, MCHC 33.4, RDW Std Deviation 49.7 H, RDW Coeff of Ravinder 14.4, Plt Count 157, MPV 9.0, Immature Gran % (Auto) 0.700, Neut % (Auto) 92.6 H, Lymph % (Auto) 4.5 L, [place] % (Auto) 2.2, Eos % (Auto) 0.0, Baso % (Auto) 0.0, Absolute Neuts (auto) 6.6, Absolute Lymphs (auto) 0.32 L, Nucleated RBC % 0, Sodium 135 L, Potassium 4.4, Chloride 100, Carbon Dioxide 32.0, Anion Gap 3 L, BUN 20 H, Creatinine 0.86, Estim Creat Clear Calc 82.71, Est GFR (MDRD) Af Amer 117, Est GFR (MDRD) Non-Af 97, BUN/Creatinine Ratio 23.2 H, Glucose 162 H, Calcium 9.2 Micro: Microbiology 06/03/24 04:50 Blood Culture (Wb) - Line Draw Blood Culture - Preliminary No growth in 48 hours. 06/03/24 10:54 Sputum, Expectorated/Coughed Gram Stain - Final 06/03/24 10:54 Sputum, Expectorated/Coughed Respiratory Culture - Final 06/03/24 07:40 Mucosa - Nasopharyngeal Respiratory Panel (PCR) - Final Parainfluenza 1 06/03/24 09:55 Urine, Clean Catch Legionella Antigen - Final 06/03/24 09:55 Urine, Clean Catch Streptococcus pneumoniae Antigen (M - Final 06/03/24 05:35 Mucosa - Nose SARS-CoV-2, Influenza & RSV (PCR) - Final Physical Exam Narrative alert, oriented x3, no apparent distress and average body habitus General Appearance: cooperative, well kempt and well developed Orientation / Consciousness: awake, oriented to person, oriented to place and oriented to time HEENT normocephalic, head/scalp atraumatic and moist oral mucous membranes Eyes PERRL, EOMs intact bilaterally and conjunctivae normal Neck supple, no JVD, thyroid normal and no carotid bruits General: trachea midline Resp normal respiratory effort, no retractions and no use of accessory muscles Resp Narrative: Inspiratory rales are scattered over both lungs Auscultation: rales bilateral; Negative for rhonchi or wheezes Cardio regular rate, regular rhythm, S1 normal heart sound, S2 normal heart sound, no murmurs, no rub and no gallops GI normal to inspection, nondistended, normoactive bowel sounds, soft to palpation, non-tender and non-distended Extremity no clubbing, cyanosis or edema Skin no rashes or lesions noted General Skin Exam: no breakdown Neuro oriented x3, CN's II-XII intact bilaterally, moves all extremities, no focal motor deficits and no sensory deficits noted Sensorium / Orientation: awake and alert Speech: speech normal Psych affect normal Assessment & Plan Assessment/Plan (1) Pulmonary fibrosis: PLAN: Plan 1. Acute on chronic hypoxemic respiratory failure-patient will remain on his medications as adjusted by pulmonary medicine, patient's overall prognosis is poor due to his progressive pulmonary fibrosis, patient states that he is active with hospice but actually he is active with palliative care. I did not have a lengthy discussion with the patient concerning hospice care. #2 coronary artery disease-this appears stable at this time, patient's medications will be adjusted as needed #3 essential hypertension-patient's medications will be adjusted as needed #4 hyperlipidemia-patient is on atorvastatin #5 parainfluenza virus lower respiratory tract infection-supportive care is being given Total clinical time spent by myself addressing the patient's medical issues, reviewing all of his data, and collaborating with patient's care team: 35 minutes Charges/Coding Visit Charges Inpatient E&M: 32761 Subs Hosp L2
[2024-06-06] MEDS: Atorvastatin Calcium 80 MG Tablet PO (21:32)
--- NOTE | 2024-06-06 23:07 | CPS ---
Patient requesting breathing Tx's throughout the night
[2024-06-07] VITALS (8 sets, daily range): BP systolic 125–144; BP diastolic 93–99; PULSE 94–116; RESP 18–38; TEMP 36.4–36.7; O2SAT 78–96; BMI 21.0
[2024-06-07] MEDS: Ipratropium/Albuterol Sulfate 3 ML AMPUL.NEB INHALATION ×3 (02:40→11:26)
[2024-06-07] MEDS: 0.9% Saline Lock 10 ML Syringe IV ×2 (05:44→13:36)
[2024-06-07] MEDS: PIRFENIDONE 267 MG 801 MG PO ×2 (05:45→13:36)
[2024-06-07 06:08] LABS: Absolute Neutrophil Count 6.1 X10^3/uL (2.0-7.7); Basophil# 0.01 X10^3/uL; Basophil% 0.1 % (0-1); Hematocrit 43.5 % (40-54); Hemoglobin 14.5 g/dL (13.0-16.5); Lymphocyte % 5.8 % (19-41); Mean Corp Hgb Conc 33.3 g/dL (32-36); Mean Corpuscular Hgb 31.3 pg (27.0-32.0); Mean Corpuscular Volume 93.8 fL (80-94); Mean Platelet Vol. 8.8 fl (6.2-12.0); Monocyte# 0.35 X10^3/uL; Monocyte% 5.1 % (0-10); NRBC Flagged by Analyzer 0 % (0-5); Neutrophil # 6.05 X10^3/uL (2.7-7.7); Neutrophil % 88.6 % (47-70); POSITIVE DIFFERENTIAL YES; Platelet Count 165 K/mm3 (150-450); RBC Distribution Width CV 14.4 % (11.6-14.6); RBC Distribution Width SD 49.1 fl (35.1-43.9); Red Blood Count 4.64 M/mm3 (4.6-6.2); White Blood Count 6.8 K/mm3 (4.4-11.0)
[2024-06-07 06:45] LABS: Anion Gap 3 (5-15); BUN 25 mg/dL (7-18); BUN/Creat Ratio 26.7 RATIO (10-20); Chloride 99 mmol/L (98-107); Creatinine, Serum 0.94 mg/dL (0.70-1.30); EST Glomerular Filtration Rate 88 mL/min (>60); Est Glom Filt Rate - Afr Amer 107 mL/min (>60); Estimated Creatinine Clearance 74.69 ml/min; Glucose 170 mg/dL (74-106); Potassium 4.7 mmol/L (3.5-5.1); Sodium Level 134 mmol/L (136-145)
[2024-06-07] MEDS: Acetaminophen 325 MG Tablet 650 MG PO (07:50)
[2024-06-07] MEDS: Benzonatate 100 MG Capsule PO (07:50)
[2024-06-07] MEDS: Aspirin E.C. 81 MG Tablet PO (07:50)
[2024-06-07] MEDS: BENZOCAINE/MENTHOL 1 LOZENGE 2 LOZENGE MUCOUS MEM (07:51)
[2024-06-07] MEDS: Enoxaparin 40 MG/0.4 ML Syringe SC (07:51)
[2024-06-07] MEDS: Clopidogrel Bisulfate 75 MG Tablet PO (07:51)
[2024-06-07] MEDS: guaiFENesin 1,200 MG Tablet 1200 MG PO (07:51)
[2024-06-07] MEDS: Sodium Chloride 0.65% 1 SPRAY SPRAY.BTL NASAL (07:51)
[2024-06-07] MEDS: Ensure Plus High Protein 120 ML LIQUID PO ×2 (07:51→13:36)
--- NOTE | 2024-06-07 09:31 | PN.CC_ITS ---
Assessment & Plan Assessment/Plan (1) Acute and chronic respiratory failure with hypoxia: (2) Acute exacerbation of idiopathic pulmonary fibrosis: PLAN: Plan RECOMMENDATIONS: 1. Continue current supportive care including supplemental oxygen to maintain saturation is 88 to 92%. 2. Continue bronchodilators and IV steroids. Recommend steroid taper at discharge. Start with 40 mg daily and taper by 10 mg every 3 days. 3. Resume Esbriet at discharge. 4. Encourage incentive spirometer use and mobilize patient as tolerated. 5. Follow-up in the pulmonary medicine clinic, as scheduled, in July. 6. Transition from Anoro to Trelegy Ellipta, at discharge. 7. The patient ultimately needs to contact [facility] to reestablish care with the transplant team. IMPRESSIONS: 1. Acute on chronic hypoxemic respiratory failure The patient has a longstanding history of idiopathic pulmonary fibrosis on Esbriet therapy, along with mixed obstructive and restrictive lung disease, and was admitted with worsening shortness of breath and hypoxemia, likely secondary to an acute exacerbation of his IPF/COPD related to parainfluenza infection. Unfortunately, from the imaging studies, it appears that his interstitial lung disease is progressing. He has been evaluated in the past by the [facility] lung transplantation team, but his workup was ultimately terminated after he failed to show up for appointments. Given the end-stage nature of his lung disease, I would recommend that we transition him from a Anoro Ellipta to Trelegy Ellipta at discharge. In the interim, the patient will be continued on scheduled bronchodilators and steroids. He will require a prednisone taper at discharge. Supplemental oxygen should be weaned to maintain saturations in the range of 88 to 92%. 2. History of coronary artery disease status post PCI Continue Plavix and aspirin per home regimen. 3. Mixed obstructive/restrictive ventilatory defect Continue bronchodilator therapy while inpatient and resume Anoro Ellipta at discharge. CODE STATUS: DNR CCA without intubation This note was generated with [employer] dictation software. It may contain incorrect words, spelling, and punctuation that were not noted in checking the note before signing. Subjective Subjective The patient was seen and examined at the bedside this morning. Events from the last 24 hours have been reviewed. The patient is currently afebrile, hemodynamically stable and maintaining appropriate oxygen saturations on 6 L/min via nasal cannula. The patient has chronic exertional dyspnea and had to have his oxygen increased to 8 L/min with exertion this morning. This is otherwise what his baseline oxygen requirement is in his home environment. I did advise the patient this morning that I sent a new prescription for Trelegy Ellipta to his home delivery pharmacy. The patient was advised that once he receives his new inhaler that he should discontinue Anoro and transition to Trelegy indefinitely. Objective Data Objective Data The patient's most recent lab work, culture data and imaging studies have all been personally reviewed. Respiratory viral panel was positive for parainfluenza 1. Vital Signs: Vital Signs Temp Pulse Resp BP Pulse Ox O2 Del Method O2 Flow Rate 98.0 F 98 19 H 128/99 H 93 High Flow 6 06/07/24 07:49 06/07/24 07:49 06/07/24 07:49 06/07/24 07:49 06/07/24 08:28 06/07/24 08:12 06/07/24 08:28 FiO2 93 06/07/24 02:37 Oxygen Flow Rate (L/min) 6 Oxygen Delivery Method High Flow Weight: 134 lb 4.184 oz Body Mass Index (BMI) 21.0 Intake & Output: Intake and Output for Last 24 Hours 06/05/24 06/06/24 06/07/24 23:59 23:59 23:59 Intake Total 2580 / 2580 1940 / 1940 450 / 450 Output Total 2250 / 2250 1600 / 1600 700 / 700 Balance 330 / 330 340 / 340 -250 / -250 Lab / Micro Data Attestation: I reviewed the patient's lab results. 06/07/24 05:46 06/07/24 05:46 Labs: Laboratory Results - last 24 hr 06/07/24 05:46: WBC 6.8, RBC 4.64, Hgb 14.5, Hct 43.5, MCV 93.8, MCH 31.3, MCHC 33.3, RDW Std Deviation 49.1 H, RDW Coeff of Ravinder 14.4, Plt Count 165, MPV 8.8, Immature Gran % (Auto) 0.400, Neut % (Auto) 88.6 H, Lymph % (Auto) 5.8 L, [place] % (Auto) 5.1, Eos % (Auto) 0.0, Baso % (Auto) 0.1, Absolute Neuts (auto) 6.1, A bsolute Lymphs (auto) 0.40 L, Nucleated RBC % 0, Sodium 134 L, Potassium 4.7, Chloride 99, Carbon Dioxide 32.0, Anion Gap 3 L, BUN 25 H, Creatinine 0.94, Estim Creat Clear Calc 74.69, Est GFR (MDRD) Af Amer 107, Est GFR (MDRD) Non-Af 88, BUN/Creatinine Ratio 26.7 H, Glucose 170 H, Calcium 9.0 Micro: Microbiology 06/03/24 04:50 Blood Culture (Wb) - Line Draw Blood Culture - Preliminary No growth in 48 hours. 06/03/24 10:54 Sputum, Expectorated/Coughed Gram Stain - Final 06/03/24 10:54 Sputum, Expectorated/Coughed Respiratory Culture - Final 06/03/24 07:40 Mucosa - Nasopharyngeal Respiratory Panel (PCR) - Final Parainfluenza 1 06/03/24 09:55 Urine, Clean Catch Legionella Antigen - Final 06/03/24 09:55 Urine, Clean Catch Streptococcus pneumoniae Antigen (M - Final 06/03/24 05:35 Mucosa - Nose SARS-CoV-2, Influenza & RSV (PCR) - Final Physical Exam Const alert and no apparent distress General Appearance: cooperative HEENT normocephalic, head/scalp atraumatic and moist oral mucous membranes Eyes PERRL, EOMs intact bilaterally and conjunctivae normal Neck supple General: trachea midline Chest inspection of chest normal Resp Effort and Inspection: able to speak in complete sentences Auscultation: rales and diminished lung sounds Cardio regular rate, regular rhythm, S1 normal heart sound and S2 normal heart sound GI normal to inspection, nondistended, normoactive bowel sounds Extremity no clubbing, cyanosis or edema Skin no rashes or lesions noted Neuro CN's II-XII intact bilaterally and no focal motor deficits Psych cooperative Mood & Affect: anxious Charges/Coding Visit Charges Inpatient E&M: 47324 Subs Hosp L2
--- NOTE | 2024-06-07 12:14 | DCINST_ITS ---
Discharge Instructions Diet Discharge Diet: No restrictions Activity Discharge Activity: Return to Normal Activity Weight Bearing Status: Full weight bearing Follow Up Care Test Results: Test results from this visit will be discussed in further detail at your follow- up appointment, if applicable. Discharge Plan Admission Admit Date/Time: 06/03/24 05:48 Primary Reason for Your Visit: respiratory failure Attending Provider: Davey Skelton Primary Care Provider: Hardeep Fall Consulting Providers: Ofelia Elise; Alek Landis; Carlos Amaro; Flip Gonzalez; Jake Morales; Alek Snyder; Tomi Hannon; Leonardo Palacios; Nel Diego; Sam Dumont; Jules Roberts; Andree Gillespie; Otilio Aggarwal; Femi Pascal; Karthik Kitchen; Josep Slade; Hayley Lema; Dima Ray; Arturo Larsen Instructions Additional Instructions / Restrictions: Follow-up with your lung transplant physician as directed Continue on present oxygen settings at home Discharge Orders/Prescriptions Prescriptions: New lorazepam 0.5 mg Tablet 0.5 mg PO Q8H PRN PRN (Reason: Anxiety) Qty: 30 0RF guaifenesin [Mucus Relief ER] 1,200 mg Tablet Extended Release 12hr 1,200 mg PO BID Qty: 60 0RF prednisone 10 mg tablet 20 mg PO BID Qty: 30 0RF Rx Instructions: 2 tabs twice a day for 3 days, then 3 tablets once a day for 3 days, then 2 tablets once a day for 3 days, then 1 tablet/day for 3 days then stop Continued esomeprazole magnesium [Nexium 24HR] 20 mg capsule,delayed release(DR/EC) 20 mg PO DAILY PRN (Reason: acid reflux) aspirin 81 mg tablet,delayed release (DR/EC) 81 mg PO DAILY clopidogrel 75 mg tablet 75 mg PO DAILY Qty: 90 3RF amlodipine 5 mg tablet 5 mg PO DAILY Qty: 90 3RF nitroglycerin 0.4 mg tablet, sublingual 0.4 mg sublingual Q5-15M PRN (Reason: chest pain) Qty: 25 2RF Rx Instructions: do not exceed 3 doses per episode losartan 100 mg tablet 50 mg PO DAILY isosorbide dinitrate 20 mg tablet 20 mg PO TID Qty: 90 11RF Rx Instructions: allow nitrate-free interval of 12-14 hrs per 24-hr period albuterol sulfate 90 mcg/actuation HFA aerosol inhaler 2 puff inhalation DAILY PRN PRN (Reason: SHORTNESS OF BREATH/WHEEZING ) Rx Instructions: ADMINISTER WITH SPACER. atorvastatin 80 mg tablet 80 mg PO QHS Sore Throat (phenol) 1.4 % Aerosol,[place] 3 spray mucous membrane Q2H PRN PRN (Reason: SORE THROAT) 14 Days Qty: 1 0RF guaifenesin [Mucus Relief ER] 1,200 mg Tablet Extended Release 12hr 1,200 mg PO BID 14 Days Qty: 28 0RF pirfenidone 267 mg tablet 801 mg PO TID Qty: 30 0RF albuterol sulfate 2.5 mg /3 mL (0.083 %) solution for nebulization 2.5 mg inhalation Q4H PRN (Reason: SHORTNESS OF BREATH/WHEEZING ) Qty: 180 3RF Trelegy Ellipta 200-62.5-25 mcg blister with device 1 inh inhalation Q24H Qty: 60 6RF Referrals / Follow Up: Jake Morales DO [Med Staff - Active Staff] - See Referral Note (In 2 to 3 weeks) Hardeep Fall DO [Primary Care Provider] - Disposition Disposition (needs filled in before D/C Order can be placed): Home, Self Care
--- NOTE | 2024-06-07 12:25 | PCM.DC.SUM ---
Providers Date of Admission: 06/03/24 Date of Discharge: 06/07/24 Primary Care Physician: Dr. Hardeep Fall, DO Consultations 06/03/24 06:25 Consult: Health Economist / Pulmonary Medicine Routine Consulting Provider: Intensivists/Pulmonary Med Reason for Consult: PF, COPD Exacerbation (DNR-CCA, no intubation) EMERGENT Consult: No MD Notified: Yes Date Notified: 06/03/24 Time Notified: 05:52 Method of Notification: Text Reason For Visit: RESPIRATORY FAILURE, FIBROSIS/COPD EXAC Diagnosis Discharge Diagnosis (1) Acute and chronic respiratory failure with hypoxia: Status: Resolved Code(s): J96.21 - Acute and chronic respiratory failure with hypoxia (2) Acute exacerbation of idiopathic pulmonary fibrosis: Status: Resolved Code(s): J84.112 - Idiopathic pulmonary fibrosis Plan 1. Acute on chronic hypoxemic respiratory failure-patient will remain on his medications as adjusted by pulmonary medicine, patient's overall prognosis is poor due to his progressive pulmonary fibrosis, patient states that he is active with hospice but actually he is active with palliative care. I did not have a lengthy discussion with the patient concerning hospice care. #2 coronary artery disease-this appears stable at this time, patient's medications will be adjusted as needed #3 essential hypertension-patient's medications will be adjusted as needed #4 hyperlipidemia-patient is on atorvastatin #5 parainfluenza virus lower respiratory tract infection-supportive care is being given Total clinical time spent by myself addressing the patient's medical issues, reviewing all of his data, and collaborating with patient's care team: 35 minutes Medications at Discharge Home Medications albuterol sulfate 90 mcg/actuation aerosol inhaler 2 puff inhalation DAILY PRN PRN SHORTNESS OF BREATH/WHEEZING 03/27/24 amlodipine 5 mg tablet 5 mg PO DAILY blood pressure #90 tabs 04/12/24 aspirin 81 mg tablet,delayed release 81 mg PO DAILY heart health 04/12/24 clopidogrel 75 mg tablet 75 mg PO DAILY anti platelet #90 tabs 04/12/24 esomeprazole magnesium 20 mg capsule,delayed release (Nexium 24HR) 20 mg PO DAILY PRN acid reflux 04/12/24 nitroglycerin 0.4 mg sublingual tablet 0.4 mg sublingual Q5-15M PRN chest pain #25 tabs 04/12/24 atorvastatin 80 mg tablet 80 mg PO QHS cholesterol 04/13/24 pirfenidone 267 mg tablet 801 mg (3 x 267 mg) PO TID PULMONARY FIBROSIS #30 tabs 04/25/24 isosorbide dinitrate 20 mg tablet 20 mg PO TID heart health #90 tabs 05/05/24 losartan 100 mg tablet 50 mg PO DAILY BLOOD PRESSURE 05/05/24 phenol 1.4 % mucosal aerosol spray (Sore Throat (phenol)) 3 spray mucous membrane Q2H PRN PRN SORE THROAT 14 days #1 BOTTLE 05/18/24 albuterol sulfate 2.5 mg/3 mL (0.083 %) solution for nebulization 2.5 mg (3 mL) inhalation Q4H PRN SHORTNESS OF BREATH/WHEEZING #180 mL 05/30/24 fluticasone fur. 200 mcg-umeclid 62.5 mcg-vilant 25 mcg inhalat.powder (Trelegy Ellipta) 1 inh inhalation Q24H #60 ea 06/07/24 guaifenesin 1,200 mg tablet, extended release 12 hr (Mucus Relief ER) 1,200 mg PO BID #60 tabs 06/07/24 lorazepam 0.5 mg tablet 0.5 mg PO Q8H PRN PRN Anxiety #30 tabs 06/07/24 prednisone 10 mg tablet 20 mg (2 x 10 mg) PO BID #30 tabs 06/07/24 Hospital Course Operations None Procedures None Summary of Care Provided Minutes Spent on Discharge: 31 Hospital Course: This 58-year-old white male with a history of end-stage idiopathic pulmonary fibrosis presented to the emergency room at [facility] with complaints of increasing shortness of breath that started several hours prior. Patient stated he is visiting nurse stated the patient was running a temperature yesterday, patient normally wears 8 L of oxygen at rest and 12 L of oxygen while ambulating. Patient had been set up to be placed on a lung transplant list but was noncompliant with follow-up so he was dropped from the program. Workup in the ER included a CBC which showed normal white blood cell count, hemoglobin was normal, and chemistry profile was remarkable for glucose of 149. Chest x-ray showed evidence of pulmonary fibrosis, EKG showed a tachycardia with a rate of [address]-T wave changes. Patient was admitted to ICU and seen by critical care, he was placed on IV corticosteroids and aggressive aerosol treatments, respiratory panel was positive for parainfluenza virus. Patient was eventually transferred to PCU for further care and his oxygen demand returned to his baseline outpatient levels. On 06/07/2024, patient was seen and examined: On examination he appeared older than his stated age and frail. Vital signs as documented. Skin warm and dry and without overt rashes. Neck without JVD, neck was supple, trachea midline, thyroid was normal. Lungs-inspiratory rales were noted over all lung serrano bilaterally, normal air movement was noted. Heart exam notable for regular rhythm, normal sounds and absence of murmurs, rubs or gallops. Abdomen unremarkable and without evidence of organomegaly, masses, or abdominal aortic enlargement. Bowel sounds are present, abdomen is not distended. Extremities nonedematous, no cyanosis was noted, no clubbing was noted. Neuro: Cranial nerves II through XII are grossly intact, no focal motor deficits were noted, sensation to light touch and pinprick intact, motor exam 5/5 throughout. Psych: Patient is alert and oriented x3, he does not appear anxious or depressed, he does not appear agitated. On 06/07/2024, patient appears stable for discharge home, patient was active with palliative care as an outpatient. Weight / BMI Weight Weight: 60.9 kg Body Mass Index (BMI) 21.0 ABG / Lab / Microbiology Data 06/07/24 05:46 06/07/24 05:46 Laboratory: Laboratory Results - last 24 hr 06/07/24 05:46: WBC 6.8, RBC 4.64, Hgb 14.5, Hct 43.5, MCV 93.8, MCH 31.3, MCHC 33.3, RDW Std Deviation 49.1 H, RDW Coeff of Ravinder 14.4, Plt Count 165, MPV 8.8, Immature Gran % (Auto) 0.400, Neut % (Auto) 88.6 H, Lymph % (Auto) 5.8 L, [place] % (Auto) 5.1, Eos % (Auto) 0.0, Baso % (Auto) 0.1, Absolute Neuts (auto) 6.1, Absolute Lymphs (auto) 0.40 L, Nucleated RBC % 0, Sodium 134 L, Potassium 4.7, Chloride 99, Carbon Dioxide 32.0, Anion Gap 3 L, BUN 25 H, Creatinine 0.94, Estim Creat Clear Calc 74.69, Est GFR (MDRD) Af Amer 107, Est GFR (MDRD) Non-Af 88, BUN/Creatinine Ratio 26.7 H, Glucose 170 H, Calcium 9.0 Microbiology: Microbiology 06/03/24 04:50 Blood Culture (Wb) - Line Draw Blood Culture - Preliminary No growth in 48 hours. 06/03/24 10:54 Sputum, Expectorated/Coughed Gram Stain - Final 06/03/24 10:54 Sputum, Expectorated/Coughed Respiratory Culture - Final 06/03/24 07:40 Mucosa - Nasopharyngeal Respiratory Panel (PCR) - Final Parainfluenza 1 06/03/24 09:55 Urine, Clean Catch Legionella Antigen - Final 06/03/24 09:55 Urine, Clean Catch Streptococcus pneumoniae Antigen (M - Final 06/03/24 05:35 Mucosa - Nose SARS-CoV-2, Influenza & RSV (PCR) - Final D/C Instructions Discharge Diet: No restrictions Weight Bearing Status: Full weight bearing Meaningful Use Info Meaningful Use Meaningful Use Diagnoses (Choose all that apply): None applicable Ischemic Stroke Statin Dosing Therapy Reference: STATIN DOSE THERAPY REFERENCE: * Patients > 75 years receive moderate or high dose statin therapy. * Patients 75 years or YOUNGER should receive HIGH intensity statin dose unless contraindicated. You will be required to document reason for non-treatment if statin daily dose does not meet guidelines. HIGH DOSE STATIN THERAPY DAILY Atorvastatin > than or = to 40 mg Rosuvastatin > than or = to 20 mg Amlodipine + Atorvastatin > than or = to 2.5/40 mg Ezetimibe + Simvastatin 10/80 mg Simvastatin 80mg Discharge Plan Admission Admit Date/Time: 06/03/24 05:48 Primary Reason for Your Visit: respiratory failure Attending Provider: Davey Skelton Primary Care Provider: Hardeep Fall Consulting Providers: Ofelia Elise; Alek Landis; Carlos Amaro; Flip Gonzalez; Jake Morales; Alek Snyder; Tomi Hannon; Leonardo Palacios; Nel Diego; Sam Dumont; Jules Roberts; Andree Gillespie; Otilio Aggarwal; Femi Pascal; Karthik Kitchen; Josep Slade; Hayley Lema; Dima Ray; Arturo Larsen Instructions Additional Instructions / Restrictions: Follow-up with your lung transplant physician as directed Continue on present oxygen settings at home Discharge Orders/Prescriptions Prescriptions: New lorazepam 0.5 mg Tablet 0.5 mg PO Q8H PRN PRN (Reason: Anxiety) Qty: 30 0RF guaifenesin [Mucus Relief ER] 1,200 mg Tablet Extended Release 12hr 1,200 mg PO BID Qty: 60 0RF prednisone 10 mg tablet 20 mg PO BID Qty: 30 0RF Rx Instructions: 2 tabs twice a day for 3 days, then 3 tablets once a day for 3 days, then 2 tablets once a day for 3 days, then 1 tablet/day for 3 days then stop Continued esomeprazole magnesium [Nexium 24HR] 20 mg capsule,delayed release(DR/EC) 20 mg PO DAILY PRN (Reason: acid reflux) aspirin 81 mg tablet,delayed release (DR/EC) 81 mg PO DAILY clopidogrel 75 mg tablet 75 mg PO DAILY Qty: 90 3RF amlodipine 5 mg tablet 5 mg PO DAILY Qty: 90 3RF nitroglycerin 0.4 mg tablet, sublingual 0.4 mg sublingual Q5-15M PRN (Reason: chest pain) Qty: 25 2RF Rx Instructions: do not exceed 3 doses per episode losartan 100 mg tablet 50 mg PO DAILY isosorbide dinitrate 20 mg tablet 20 mg PO TID Qty: 90 11RF Rx Instructions: allow nitrate-free interval of 12-14 hrs per 24-hr period albuterol sulfate 90 mcg/actuation HFA aerosol inhaler 2 puff inhalation DAILY PRN PRN (Reason: SHORTNESS OF BREATH/WHEEZING ) Rx Instructions: ADMINISTER WITH SPACER. atorvastatin 80 mg tablet 80 mg PO QHS Sore Throat (phenol) 1.4 % Aerosol,[place] 3 spray mucous membrane Q2H PRN PRN (Reason: SORE THROAT) 14 Days Qty: 1 0RF pirfenidone 267 mg tablet 801 mg PO TID Qty: 30 0RF albuterol sulfate 2.5 mg /3 mL (0.083 %) solution for nebulization 2.5 mg inhalation Q4H PRN (Reason: SHORTNESS OF BREATH/WHEEZING ) Qty: 180 3RF Trelegy Ellipta 200-62.5-25 mcg blister with device 1 inh inhalation Q24H Qty: 60 6RF Referrals / Follow Up: Hardeep Fall DO [Primary Care Provider] - 06/13/24 3:00 pm Hedy Cowan NP, REPAIR DEPARTMENT SUPERVISOR-C [Med Staff - [facility] Practice Prof] - 06/27/24 10:45 am Disposition Disposition (needs filled in before D/C Order can be placed): Home Health Service Charges/Coding Visit Charges Inpatient E&M: 72590 Disch Hosp >30min
[2024-06-07] MEDS: LORazepam 0.5 MG Tablet PO (12:39)
--- NOTE | 2024-06-07 14:46 | PHA.DC.MR.R ---
Pharmacy [place] [facility] Reconciliation Pharmacy Service has performed discharge medication reconciliation for this patient. Medication education papers prepared, patient discharged when counseling was attempted. Medications reviewed. The patient's discharge medication list was reviewed for discrepancies and discrepancies were resolved. Medications at Discharge Home Medications albuterol sulfate 90 mcg/actuation aerosol inhaler 2 puff inhalation DAILY PRN PRN SHORTNESS OF BREATH/WHEEZING 03/27/24 amlodipine 5 mg tablet 5 mg PO DAILY blood pressure #90 tabs 04/12/24 aspirin 81 mg tablet,delayed release 81 mg PO DAILY heart health 04/12/24 clopidogrel 75 mg tablet 75 mg PO DAILY anti platelet #90 tabs 04/12/24 esomeprazole magnesium 20 mg capsule,delayed release (Nexium 24HR) 20 mg PO DAILY PRN acid reflux 04/12/24 nitroglycerin 0.4 mg sublingual tablet 0.4 mg sublingual Q5-15M PRN chest pain #25 tabs 04/12/24 atorvastatin 80 mg tablet 80 mg PO QHS cholesterol 04/13/24 pirfenidone 267 mg tablet 801 mg (3 x 267 mg) PO TID PULMONARY FIBROSIS #30 tabs 04/25/24 isosorbide dinitrate 20 mg tablet 20 mg PO TID heart health #90 tabs 05/05/24 losartan 100 mg tablet 50 mg PO DAILY BLOOD PRESSURE 05/05/24 phenol 1.4 % mucosal aerosol spray (Sore Throat (phenol)) 3 spray mucous membrane Q2H PRN PRN SORE THROAT 14 days #1 BOTTLE 05/18/24 albuterol sulfate 2.5 mg/3 mL (0.083 %) solution for nebulization 2.5 mg (3 mL) inhalation Q4H PRN SHORTNESS OF BREATH/WHEEZING #180 mL 05/30/24 fluticasone fur. 200 mcg-umeclid 62.5 mcg-vilant 25 mcg inhalat.powder (Trelegy Ellipta) 1 inh inhalation Q24H #60 ea 06/07/24 guaifenesin 1,200 mg tablet, extended release 12 hr (Mucus Relief ER) 1,200 mg PO BID #60 tabs 06/07/24 lorazepam 0.5 mg tablet 0.5 mg PO Q8H PRN PRN Anxiety #30 tabs 06/07/24 prednisone 10 mg tablet 20 mg (2 x 10 mg) PO BID #30 tabs 06/07/24
== END 2024-06-07 14:14 | disposition home health service (06) | DRG 189 ==
LOC: ED 05:35 → ICU 06:15 → PCU 06-05 14:35
PROVIDERS: Internal Medicine; Admitting Provider Family Medicine; Emergency Provider Emergency Medicine; PCP Family Medicine; Visit Provider Internal Medicine
DX: J96.21 Acute and chronic respiratory failure with hypoxia (principal); J44.1 Chronic obstructive pulmonary disease with (acute) exacerbation; I27.20 Pulmonary hypertension, unspecified; J84.112 Idiopathic pulmonary fibrosis; D64.9 Anemia, unspecified; I10 Essential (primary) hypertension; I25.10 Atherosclerotic heart disease of native coronary artery without angina pectoris; K21.9 Gastro-esophageal reflux disease without esophagitis; E78.00 Pure hypercholesterolemia, unspecified; Z79.02 Long term (current) use of antithrombotics/antiplatelets; Z87.891 Personal history of nicotine dependence; Z79.82 Long term (current) use of aspirin; Z95.5 Presence of coronary angioplasty implant and graft; B34.8 Other viral infections of unspecified site; Z23 Encounter for immunization; Z79.899 Other long term (current) drug therapy
CPT/HCPCS: 36415; 71045; 80048; 80053; 82803; 83605; 83735; 83880; 84100; 84145; 84484; 85025; 87040; 87070; 87205; 87449; 87631; 87633; 90656; 93005; 94640; 94762; 97110; 97162; 97166; 97530; 97802; 99284; J7030; A4216